=== PATIENT | female | born 1945 | race Caucasian/White ===

== ENCOUNTER 2016-09-29 17:08 | Emergency (ER) | payer MEDICARE, OTHER ==
[2016-09-29] MEDS ORDERED: SODIUM CHLORIDE 0.9% 1,000 ML IV STA (17:34)
[2016-09-29] MEDS ORDERED: FAMOTIDINE 20 MG/2 ML VIAL IV STA (17:34)
[2016-09-29] MEDS ORDERED: ONDANSETRON 4 MG/2 ML VIAL IVP STA (17:34)
--- NOTE | 2016-09-29 17:37 | ED ---
General Adult HPI - General Chief complaint: ENT Stated complaint: nose bleed Time Seen by Provider: 09/29/16 17:13 Source: patient, family, EMS, RN notes reviewed Mode of arrival: EMS Limitations: no limitations - History of Present Illness Initial comments: Patient is a pleasant 70-year-old female presenting to the emergency Department with epistaxis. Unclear onset however appears to be this morning. Patient may have had some bleeding last night. has had epistaxis in the past however is not a severe chronic problem for her. Patient does take Plavix and aspirin, no other blood thinners. No trauma. Patient was seen at an outside facility with concerns regarding unable to stop bleeding. Patient had nasal packing done as well as vitamin K was given. Patient is unclear if she is currently having any active bleeding or not. - Related Data Home Medications Medication Instructions Recorded Confirmed ALPRAZolam [Xanax] 0.25 mg PO HS@209909/29/16 09/29/16 Albuterol Sulfate [Proair Hfa] 2 puff INHALATION RT-Q6H PRN 09/29/16 09/29/16 Aspirin 81 mg PO DAILY@109909/29/16 09/29/16 Atorvastatin Calcium [Lipitor] 20 mg PO HS@209909/29/16 09/29/16 Bisacodyl 10 mg PO DAILY PRN 09/29/16 09/29/16 Citalopram Hydrobromide [CeleXA] 40 mg PO DAILY@109909/29/16 09/29/16 Clopidogrel Bisulfate [Plavix] 75 mg PO DAILY@109909/29/16 09/29/16 Ergocalciferol [Vitamin D2] 50,000 unit PO FR@109909/29/16 09/29/16 Furosemide [Lasix] 40 mg PO DAILY@109909/29/16 09/29/16 HYDROcodone/APAP 5-325MG [[place] 1 tab PO BID@0700,209909/29/16 09/29/16 5-325] HYDROcodone/APAP 5-325MG [[place] 1 tab PO Q6HR PRN 09/29/16 09/29/16 5-325] Levothyroxine Sodium [Synthroid] 150 mcg PO DAILY@0700 09/29/16 09/29/16 Lisinopril [Zestril] 10 mg PO DAILY@1100 09/29/16 09/29/16 Magnesium Hydroxide [Milk of 2,400 mg PO DAILY PRN 09/29/16 09/29/16 Magnesia] Potassium Chloride [Klor-Con 10] 10 meq PO DAILY@1100 09/29/16 09/29/16 Ranitidine HCl [Zantac] 150 mg PO BID@0700,1600 09/29/16 09/29/16 Sennosides-Docusate Sodium 1 tab PO HS@2100 09/29/16 09/29/16 [Senokot-S] guaiFENesin SYRUP 100MG/5ML 200 mg PO Q6H PRN 09/29/16 09/29/16 [Robitussin] Previous Rx's Medication Instructions Recorded Cephalexin [Keflex] 500 mg PO Q8HR #21 cap 09/29/16 Allergies Allergy/AdvReac Type Severity Reaction Status Date / Time Penicillins Allergy Unknown Verified 09/29/16 17:18 strawberry Allergy Unknown Verified 09/29/16 17:18 Review of Systems ROS Statement: Those systems with pertinent positive or pertinent negative responses have been documented in the HPI. ROS Other: All systems not noted in ROS Statement are negative. Constitutional: Denies: fever Eyes: Denies: eye pain ENT: Reports: epistaxis Respiratory: Denies: dyspnea Cardiovascular: Denies: chest pain Endocrine: Denies: fatigue Gastrointestinal: Denies: vomiting Genitourinary: Denies: dysuria Musculoskeletal: Denies: back pain Skin: Denies: rash Neurological: Denies: weakness Psychiatric: Reports: anxiety Past Medical History Past Medical History: Heart Failure, COPD, Dementia, GERD/Reflux, Hyperlipidemia , Hypertension History of Any Multi-Drug Resistant Organisms: None Reported Past Surgical History: Adenoidectomy, Appendectomy, Section, Hysterectomy, Orthopedic Surgery, Tonsillectomy Additional Past Surgical History / Comment(s): thyroidectomy Past Psychological History: Anxiety Smoking Status: Former smoker Past Alcohol Use History: None Reported Past Drug Use History: None Reported General Exam Limitations: no limitations General appearance: alert, in no apparent distress Head exam: Present: atraumatic Eye exam: Present: normal appearance, PERRL ENT exam: Present: other (Rhino Rocket placed bilateral nares with trace oozing. Oropharynx with dried blood, no active bleeding.) Neck exam: Present: normal inspection Respiratory exam: Present: normal lung sounds bilaterally Cardiovascular Exam: Present: regular rate, normal rhythm GI/Abdominal exam: Present: soft. Absent: tenderness Extremities exam: Present: normal inspection Neurological exam: Present: alert Psychiatric exam: Present: normal affect, normal mood Skin exam: Absent: rash Course Vital Signs 09/29/16 09/29/16 17:09 18:38 Temperature 100.2 F H Pulse Rate 82 102 H Respiratory 18 20 Rate Blood Pressure 147/66 137/61 O2 Sat by Pulse 95 96 Oximetry - Reevaluation(s) Reevaluation #1: 09/29/16 17:40 Chart reviewed from [facility]. Hemoglobin 12.5. INR 1.0. Patient reexamined still without active bleeding. Oropharynx still with out active bleeding. Medical Decision Making - Medical Decision Making Patient reevaluated and still no bleeding. Patient and family updated on need for follow-up. Also updated on need to keep hands away from the nose. Disposition Clinical Impression: Epistaxis Disposition: HOME SELF-CARE Condition: Stable Instructions: Nosebleed (ED) Additional Instructions: Please follow-up with ENT in the next 3-5 days for packing removal and reevaluation. Return for increased bleeding, worsening symptoms or other concerns. Hold Plavix and hold aspirin until otherwise advised by . Patient may have an extra dose of Xanax daily while packing is in place. Prescriptions: Cephalexin [Keflex] 500 mg PO Q8HR #21 cap Referrals: Blair Brandt MD [Primary Care Provider] - 1-2 days
[2016-09-29] MEDS ORDERED: ALPRAZolam 0.25 MG TAB PO STA (18:32)
[2016-09-29] MEDS ORDERED: ACETAMINOPHEN TAB 325 MG TAB PO STA (19:36)
[2016-09-29] MEDS ORDERED: CEPHALEXIN 500 MG CAP PO STA (19:36)
[2016-09-29 21:39] VITALS: BP 115/57; PULSE 83; RESP 16; TEMP 99.7
== END 2016-09-29 20:45 | disposition home or self-care (01) ==
LOC: EC 17:08
DX: R04.0 Epistaxis (principal); I50.9 Heart failure, unspecified; F41.9 Anxiety disorder, unspecified; J44.9 Chronic obstructive pulmonary disease, unspecified; E78.5 Hyperlipidemia, unspecified; F03.90 Unspecified dementia, unspecified severity, without behavioral disturbance, psychotic disturbance, mood disturbance, and anxiety; K21.9 Gastro-esophageal reflux disease without esophagitis; I10 Essential (primary) hypertension; Z79.02 Long term (current) use of antithrombotics/antiplatelets; Z79.899 Other long term (current) drug therapy; Z79.891 Long term (current) use of opiate analgesic; Z79.82 Long term (current) use of aspirin; Z88.0 Allergy status to penicillin; Z91.018 Allergy to other foods; Z87.891 Personal history of nicotine dependence
CPT/HCPCS: 96374; 96375; 96361 ×2; 99284; J2405

== ENCOUNTER 2019-09-08 11:36 | Inpatient (IN) | payer MEDICARE, OTHER ==
[2019-09-08 14:44] LABS: Glucose,Whole Blood 172 mg/dL (75-99)
[2019-09-08] MEDS ORDERED: HEPARIN SODIUM,PORCINE 5,000 UNIT/ML 1 ML VIAL IV PRN (14:56)
[2019-09-08] MEDS ORDERED: DILTIAZEM 125 MG in SODIUM CHLORIDE 0.9% 100 ML IV SCH (15:00)
[2019-09-08] MEDS ORDERED: HEPARIN SOD,PORK IN 0.45% NACL 25,000 UNIT in 0.45% NACL 1 250ML.BAG IV SCH (15:00)
[2019-09-08 15:18] LABS: Basophils % (A) 0 %; Eosinophils # (A) 0.1 k/uL (0-0.7); Eosinophils % (A) 0 %; HCT 40.4 % (34.0-46.0); HGB 11.9 gm/dL (11.4-16.0); Hypochromasia Moderate; Lymphocytes # (A) 1.1 k/uL (1.0-4.8); Lymphocytes % (A) 5 %; MCH 29.2 pg (25.0-35.0); MCHC 29.4 g/dL (31.0-37.0); MCV 99.1 fL (80.0-100.0); Mean Platelet Volume 7.8; Monocytes # (A) 0.5 k/uL (0-1.0); Monocytes % (A) 2 %; Neutrophils # (A) 23.3 k/uL (1.3-7.7); Neutrophils % (A) 92 %; Platelet Count 401 k/uL (150-450); RBC 4.08 m/uL (3.80-5.40); RDW 13.3 % (11.5-15.5); WBC 25.3 k/uL (3.8-10.6)
[2019-09-08 15:26] LABS: INR 0.9 (<1.2); Partial Thromboplastin Time 25.3 sec (22.0-30.0); Prothrombin Time 10.1 sec (9.0-12.0)
[2019-09-08 15:26] LABS: African American GFR (CKD) >90 (>60 ml/min/1.73 sqM); Anion Gap 7 mmol/L; Blood Urea Nitrogen 31 mg/dL (7-17); Calcium 8.8 mg/dL (8.4-10.2); Carbon Dioxide 37 mmol/L (22-30); Chloride 102 mmol/L (98-107); Glucose 161 mg/dL (74-99); Non-African American GFR(CKD) 86 (>60 ml/min/1.73 sqM); Potassium 4.9 mmol/L (3.5-5.1); Sodium 146 mmol/L (137-145)
[2019-09-08 15:52] LABS: Creatine Kinase MB 4.1 ng/mL (0.0-2.4)
[2019-09-08 16:07] LABS: Troponin I 1.08 ng/mL (0.000-0.034)
[2019-09-08] MEDS ORDERED: ACETAMINOPHEN TAB 325 MG TAB PO PRN (16:39)
[2019-09-08] MEDS ORDERED: MAGNESIUM HYDROXIDE 2,400 MG/10 ML CUP PO PRN (16:39)
[2019-09-08] MEDS ORDERED: guaiFENesin SYRUP 100MG/5ML 200 MG/10 ML CUP PO PRN (16:39)
[2019-09-08] MEDS ORDERED: BISACODYL 5 MG TABLET.DR PO PRN (16:39)
--- NOTE | 2019-09-08 16:41 | P.HPIM ---
History of Present Illness this is a pleasant 73 years old femalewith past medical history of heart failure, dementia, COPD, chronic hypoxic respiratory failure, GERD, hyperlipidemia, hypertension, coronary artery disease, hypothyroidism. Patient was sent from [facility] for pneumonia and atrial fibrillation.patient presented from [facility] because of shortness of breath, as per patient she is been having shortness of breath for 2 days associated with cough but no flame. She denies chest pain.she has history of COPD on chronic 2 L nasal cannula, at the custodial she desaturated with oxygen as low as 83% with tachycardia at 113. Of note also patient has history of stent for 10 years ago and she is on aspirin and Plavix. EKG showing atrial fibrillation with RVR at 136, with no significant ST-T changes. also the patient has history of aspiration pneumonia and she was have difficulty eating with choking, 1.5-2 years ago vitals showing blood pressure 154/64, saturation 93% on 4 L., Patient is afebrile.labs showing leukocytosis over 20 5.3K,denies normal, sodium 146, creatinine 0.7, sugar is 172. [place] [address]. This can done at [facility] shows no pulmonary emboli but right effusion and right lower lobe infiltrate. Lactic acid 1.4 which is within reference range. ProBNP 1759. WBC is 22.58, hemoglobin is 11.3, platelet count 391. INR is 0.9. Troponin is elevated at 1.29. Sodium 146, liver enzymes showing slight elevation with ALT 65 and AST 44, creatinine 0.8. Magnesium 2.2. Review of Systems CONSTITUTIONAL: No fever, no malaise, no fatigue. HEENT: No recent visual problems or hearing problems. Denied any sore throat. CARDIOVASCULAR: No orthopnea, PND, no palpitations, no syncope. PULMONARY: No shortness of breath, no cough, no hemoptysis. GASTROINTESTINAL: No diarrhea, no nausea, no vomiting, no abdominal pain. Normo active bowel sounds. NEUROLOGICAL: No headaches, no weakness, no numbness. HEMATOLOGICAL: Denies any bleeding or petechiae. GENITOURINARY: Denies any burning micturition, frequency, or urgency. MUSCULOSKELETAL/RHEUMATOLOGICAL: Denies any joint pain, swelling, or any muscle pain. ENDOCRINE: Denies any polyuria or polydipsia. Past Medical History Past Medical History: Heart Failure, COPD, Dementia, GERD/Reflux, Hyperlipidemia, Hypertension, Myocardial Infarction (PR), Thyroid Disorder Last Myocardial Infarction Date:: 09/07/19 History of Any Multi-Drug Resistant Organisms: None Reported Past Surgical History: Adenoidectomy, Appendectomy, Section, Hysterectomy, Orthopedic Surgery, Tonsillectomy Additional Past Surgical History / Comment(s): thyroidectomy Past Psychological History: Anxiety, Depression Additional Psychological History / Comment(s): POSSIBLE SUN-DOWNERS. 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 Smoking Status: Former smoker Past Alcohol Use History: None Reported Past Drug Use History: None Reported - Past Family History Mother Family Medical History: Diabetes Mellitus Father Family Medical History: Myocardial Infarction (PR) Medications and Allergies Home Medications Medication Instructions Recorded Confirmed Type Aspirin 81 mg PO HS@209909/29/16 09/08/19 History Atorvastatin Calcium [Lipitor] 20 mg PO HS@209909/29/16 09/08/19 History Clopidogrel Bisulfate [Plavix] 75 mg PO HS@209909/29/16 09/08/19 History Furosemide [Lasix] 40 mg PO DAILY@0600 09/29/16 09/08/19 History HYDROcodone/APAP 5-325MG [[place] 1 tab PO Q6HR PRN 09/29/16 09/08/19 History 5-325] HYDROcodone/APAP 5-325MG [[place] 1 tab PO TID@0600,1300,2100 09/29/16 09/08/19 H istory 5-325] Lisinopril [Zestril] 20 mg PO DAILY@0600 09/29/16 09/08/19 History Magnesium Hydroxide [Milk of 2,400 mg PO DAILY PRN 09/29/16 09/08/19 History Magnesia] Potassium Chloride [Klor-Con 10] 10 meq PO DAILY@0600 09/29/16 09/08/19 History Sennosides-Docusate Sodium 1 tab PO HS@209909/29/16 09/08/19 History [Senokot-S] guaiFENesin SYRUP 100MG/5ML 200 mg PO Q4H PRN 09/29/16 09/08/19 History [Robitussin] ALPRAZolam [Xanax] 0.5 mg PO BID@1300,1700 09/08/19 09/08/19 History Acetaminophen Tab [Tylenol Tab] 650 mg PO Q4H PRN 09/08/19 09/08/19 History Artificial Tears-Hypromellose 1 drops BOTH EYES BID@0600,2100 09/08/19 09/08/19 History [Artificial Tear Drops] Bisacodyl [Dulcolax] 10 mg PO DAILY PRN 09/08/19 09/08/19 History Cholecalciferol [Vitamin D3 (25 1,000 unit PO DAILY@1300 09/08/19 09/08/19 History Mcg = 1000 Iu)] DULoxetine HCL [Cymbalta] 30 mg PO DAILY@0600 09/08/19 09/08/19 History DULoxetine HCL [Cymbalta] 60 mg PO DAILY@0600 09/08/19 09/08/19 History Levothyroxine Sodium [Synthroid] 175 mcg PO DAILY@0600 09/08/19 09/08/19 History Sodium Chloride [Saline Nasal 1 spray EA NOSTRIL DAILY PRN 09/08/19 09/08/19 His tory [place]] guaiFENesin 400 mg PO Q4H PRN 09/08/19 09/08/19 History Allergies Allergy/AdvReac Type Severity Reaction Status Date / Time Penicillins Allergy Unknown Verified 09/08/19 14:33 strawberry Allergy Unknown Verified 09/08/19 14:33 Physical Exam Vitals: Vital Signs Temp Pulse Resp BP Pulse Ox 09/08/19 15:38 98.7 F 105 H 18 134/64 93 L 09/08/19 13:57 97.8 F 92 22 115/64 92 L Intake and Output 09/08/19 09/08/19 09/08/19 06:59 14:59 22:59 Other: Weight 93.213 kg GENERAL: The patient is alert and oriented x3, not in any acute distress. Well developed, well nourished. HEENT: Pupils are round and equally reacting to light. EOMI. No scleral icterus. No conjunctival pallor. Normocephalic, atraumatic. No pharyngeal erythema. No thyromegaly. CARDIOVASCULAR: S1 and S2 present. No murmurs, rubs, or gallops. PULMONARY: Chest is clear to auscultation, no wheezing or crackles. ABDOMEN: Soft, nontender, nondistended, normoactive bowel sounds. No palpable organomegaly. MUSCULOSKELETAL: No joint swelling or deformity. EXTREMITIES: No cyanosis, clubbing, or pedal edema. NEUROLOGICAL: Gross neurological examination did not reveal any focal deficits. SKIN: No rashes. No petechiae Results CBC & Chem 7: 09/08/19 14:56 09/08/19 14:56 Labs: Abnormal Lab Results - Last 24 Hours (Table) 09/08/19 09/08/19 09/08/19 Range/Units 14:43 14:56 14:56 WBC 25.3 H (3.8-10.6) k/uL MCHC 29.4 L (31.0-37.0) g/dL Neutrophils # 23.3 H (1.3-7.7) k/uL Sodium 146 H (137-145) mmol/L Carbon Dioxide 37 H (22-30) mmol/L BUN 31 H (7-17) mg/dL Glucose 161 H (74-99) mg/dL POC Glucose (mg/dL) 172 H (75-99) mg/dL Thrombosis Risk Factor Assmnt - Choose All That Apply Any of the Below Risk Factors Present?: Yes Each Factor Represents 1 point: Age 41-60 years, Medical pt on bed rest, Obesity (BMI >25) Thrombosis Risk Factor Assessment Total Risk Factor Score: 3 Thrombosis Risk Factor Assessment Level: Moderate Risk Assessment and Plan Assessment: right lower lobe Pneumonia suspicious for hospital acquired pneumoniaversus asp iration pneumonia. Acute on chronic hypoxic respiratory failure acute on chronic Congestive heart failure A. fib with RVR COPD, with acute exacerbation dementia GERD Hyperlipidemia Hypertension History of coronary artery disease Hypothyroidism Plan: this is a pleasant 73 years old female who presents with pneumonia. Continue with antibiotics in the form of Zosyn. 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 Continue with Cardizem drip and switched to oral when patient is more stable heart rate. Continue with heparin drip. Also we'll check a swallow evaluation for her. In the meantime keep her nothing by mouth Labs and medication were reviewed.. Continue same treatment. Continue with symptomatic treatment. Resume home medication. Monitor lytes and vitals. DVT and GI prophylaxis. Further recommendations of the clinical course of the patient DVT prophylaxis: heparin GI Prophylaxis: Pepcid PT/OT: Pending Prognosis is guarded full code Discussed with family at bedside
[2019-09-08] MEDS ORDERED: ALPRAZolam 0.5 MG TAB PO SCH (17:00)
[2019-09-08] MEDS: ALPRAZolam 0.5 MG TAB PO PRN (18:14)
[2019-09-08] MEDS ORDERED: FUROSEMIDE 10 MG/ML 4 ML VIAL IV STA (18:27)
[2019-09-08] MEDS: CEFEPIME 1 GM in SODIUM CHLORIDE 0.9% 50 ML IVPB SCH (20:38)
[2019-09-08] MEDS: ASPIRIN 81 MG PO SCH (20:38)
[2019-09-08] MEDS: SENNOSIDES-DOCUSATE SODIUM 1 EACH TAB PO SCH (20:38)
[2019-09-08] MEDS: ARTIFICIAL TEARS-HYPROMELLOSE DROPS 15 ML BTL BOTH EYES SCH (20:39)
[2019-09-08] MEDS: IPRATROPIUM-ALBUTEROL 3 ML NEB INHALATION SCH ×2 (20:46→23:44)
[2019-09-08] MEDS ORDERED: CLOPIDOGREL 75 MG TAB PO SCH (21:00)
[2019-09-08] MEDS ORDERED: ATORVASTATIN 20 MG TAB PO SCH (21:00)
[2019-09-09] MEDS: ALPRAZolam 0.5 MG TAB PO PRN (01:20)
[2019-09-09] MEDS: IPRATROPIUM-ALBUTEROL 3 ML NEB INHALATION SCH ×6 (03:39→23:39)
[2019-09-09 04:04] LABS: Basophils % (A) 0 %; Eosinophils # (A) 0.1 k/uL (0-0.7); Eosinophils % (A) 1 %; HCT 35.8 % (34.0-46.0); HGB 10.4 gm/dL (11.4-16.0); Hypochromasia Marked; Lymphocytes # (A) 1.5 k/uL (1.0-4.8); Lymphocytes % (A) 6 %; MCH 28.9 pg (25.0-35.0); MCV 99.5 fL (80.0-100.0); Mean Platelet Volume 7.8; Monocytes # (A) 0.7 k/uL (0-1.0); Monocytes % (A) 3 %; Neutrophils # (A) 21.2 k/uL (1.3-7.7); Neutrophils % (A) 89 %; Platelet Count 410 k/uL (150-450); RDW 13.5 % (11.5-15.5); WBC 23.7 k/uL (3.8-10.6)
[2019-09-09 04:14] LABS: Calcium 9.1 mg/dL (8.4-10.2); Potassium 4.2 mmol/L (3.5-5.1)
[2019-09-09] MEDS ORDERED: FUROSEMIDE 40 MG TAB PO SCH (06:00)
[2019-09-09] MEDS: ARTIFICIAL TEARS-HYPROMELLOSE DROPS 15 ML BTL BOTH EYES SCH ×2 (06:04→21:12)
[2019-09-09] MEDS: DULoxetine HCL 30 MG CAPSULE.DR PO SCH (06:04)
[2019-09-09] MEDS: DULoxetine HCL 60 MG CAPSULE.DR PO SCH (06:04)
[2019-09-09] MEDS: POTASSIUM CHLORIDE ER 10 MEQ TAB.ER.PRT PO SCH (06:04)
[2019-09-09] MEDS: LEVOTHYROXINE 75 MCG TAB PO SCH (06:05)
[2019-09-09] MEDS: LISINOPRIL 20 MG TAB PO SCH (06:05)
[2019-09-09] MEDS: LEVOTHYROXINE 100 MCG TAB PO SCH (06:05)
--- NOTE | 2019-09-09 07:22 | XR ---
EXAMINATION TYPE: XR chest 1V DATE OF EXAM: 09/09/2019 HISTORY: RLL pna , a fib , h/o chf. REFERENCE: NONE. FINDINGS: There is increased opacity at both lung bases, greater on the right left. I suspect a small right-sided effusion. Heart is minimally prominent. IMPRESSION: 1. BIBASILAR AIRSPACE DISEASE 2. I CANNOT EXCLUDE A SMALL RIGHT-SIDED EFFUSION. 3. MILD CARDIOMEGALY.
[2019-09-09] MEDS: CHOLECALCIFEROL 1,000 UNIT TAB PO SCH (08:12)
[2019-09-09] MEDS: CEFEPIME 1 GM in SODIUM CHLORIDE 0.9% 50 ML IVPB SCH ×2 (08:20→21:12)
--- NOTE | 2019-09-09 10:42 | P.PN ---
Subjective this is a pleasant 73 years old femalewith past medical history of heart failure, dementia, COPD, chronic hypoxic respiratory failure, GERD, hyperli pidemia, hypertension, coronary artery disease, hypothyroidism. Patient was sent from [facility] for pneumonia and atrial fibrillation.patient presented from [facility] because of shortness of breath, as per patient she is been having shortness of breath for 2 days associated with cough but no flame. She denies chest pain.she has history of COPD on chronic 2 L nasal cannula, at the prison she desaturated with oxygen as low as 83% with tachycardia at 113. Of note also patient has history of stent for 10 years ago and she is on aspirin and Plavix. EKG showing atrial fibrillation with RVR at 136, with no significant ST-T changes. also the patient has history of aspiration pneumonia and she was have difficulty eating with choking, 1.5-2 years ago vitals showing blood pressure 154/64, saturation 93% on 4 L., Patient is afebrile.labs showing leukocytosis over 20 5.3K,denies normal, sodium 146, creatinine 0.7, sugar is 172. [place] [address]. This can done at [facility] shows no pulmonary emboli but right effusion and right lower lobe infiltrate. Lactic acid 1.4 which is within reference range. ProBNP 1759. WBC is 22.58, hemoglobin is 11.3, platelet count 391. INR is 0.9. Troponin is elevated at 1.29. Sodium 146, liver enzymes showing slight elevation with ALT 65 and AST 44, creatinine 0.8. Magnesium 2.2. 09/09/2019 Patient is lying comfortably in bed, breathing is stable with no worsening dyspnea. She denies chest pain. Vitals are stable and she is saturating 93% on 4 L oxygen. And glucose 116. Showing bibasilar air space disease as per radiologist. It was still pending. Patient is hemodynamically stable. Saturation in the 90s while on 4 L oxygen nasal cannula Echo and swallow evaluation are pending. The meantime continue on cefepime, Cardizem and heparin drip. However heparin drip was switched to Eliquis Also she is on Lasix 40 mg twice daily intravenously. Review of systems CONSTITUTIONAL: No fever, no malaise, no fatigue. HEENT: No recent visual problems or hearing problems. Denied any sore throat. CARDIOVASCULAR: No orthopnea, PND, no palpitations, no syncope. PULMONARY: No shortness of breath, no cough, no hemoptysis. GASTROINTESTINAL: No diarrhea, no nausea, no vomiting, no abdominal pain. Normoactive bowel sounds. NEUROLOGICAL: No headaches, no weakness, no numbness. HEMATOLOGICAL: Denies any bleeding or petechiae. GENITOURINARY: Denies any burning micturition, frequency, or urgency. MUSCULOSKELETAL/RHEUMATOLOGICAL: Denies any joint pain, swelling, or any muscle pain. ENDOCRINE: Denies any polyuria or polydipsia. Active Medications Generic Name Dose Route Start Last Admin Trade Name Freq PRN Reason Stop Dose Admin Acetaminophen 650 mg 09/08/19 16:39 Tylenol Tab PO Q4H PRN Pain Hydrocodone Bitart/Acetaminophen 1 each 09/08/19 16:39 [place] 5-325 PO Q6HR PRN Pain Albuterol/Ipratropium 3 ml 09/08/19 20:00 09/09/19 08:32 Duoneb 0.5 Mg-3 Mg/3 Ml Soln INHALATION 3 ml RT-Q4H ZORAIDA Administration Alprazolam 0.5 mg 09/08/19 17:18 09/09/19 01:20 Xanax PO 0.5 mg BID PRN Administration Anxiety Apixaban 5 mg 09/09/19 10:15 Eliquis PO BID [facility] Artificial Tears 1 drops 09/08/19 21:00 09/09/19 06:04 Artificial Tear Drops BOTH EYES Not Given BID@0600,2100 [facility] Aspirin 81 mg 09/08/19 21:00 09/08/19 20:38 Aspirin PO 81 mg HS@2100 [facility] Administration Bisacodyl 10 mg 09/08/19 16:39 Dulcolax PO DAILY PRN Constipation Cholecalciferol 1,000 unit 09/09/19 13:00 09/09/19 08:12 Vitamin D3 (25 Mcg = 1000 Iu) PO Not Given DAILY@1300 [facility] Duloxetine HCl 30 mg 09/09/19 06:00 09/09/19 06:04 Cymbalta PO Not Given DAILY@0600 [facility] Duloxetine HCl 60 mg 09/09/19 06:00 09/09/19 06:04 Cymbalta PO Not Given DAILY@0600 [facility] Furosemide 40 mg 09/09/19 10:15 Lasix IV Q12HR [facility] Guaifenesin 200 mg 09/08/19 16:39 Robitussin PO Q4H PRN Cough Cefepime HCl 1 gm/ Sodium 50 mls @ 100 mls/hr 09/08/19 21:00 09/09/19 08:20 Chloride IVPB 100 mls/hr Q12HR [facility] Administration Levothyroxine Sodium 100 mcg 09/09/19 06:00 09/09/19 06:05 Synthroid PO 100 mcg DAILY@0600 [facility] Administration Levothyroxine Sodium 75 mcg 09/09/19 06:00 09/09/19 06:05 Synthroid PO 75 mcg DAILY@0600 [facility] Administration Lisinopril 20 mg 09/09/19 06:00 09/09/19 06:05 Zestril PO 20 mg DAILY@0600 [facility] Administration Magnesium Hydroxide 2,400 mg 09/08/19 16:39 Milk Of Magnesia PO DAILY PRN Constipation Metoprolol Tartrate 25 mg 09/09/19 10:15 Lopressor PO BID [facility] Potassium Chloride 10 meq 09/09/19 06:00 09/09/19 06:04 K-Dur 10 PO Not Given DAILY@0600 [facility] Senna/Docusate Sodium 1 each 09/08/19 21:00 09/08/19 20:38 Senokot-S PO 1 each HS@2100 [facility] Administration Objective - Vital Signs Vital signs: Vital Signs Temp 98.9 F 09/09/19 08:00 Pulse 88 09/09/19 08:34 Resp 18 09/09/19 08:00 BP 138/64 09/09/19 08:00 Pulse Ox 93 L 09/09/19 08:00 Intake & Output 09/08/19 09/09/19 09/09/19 18:59 06:59 18:59 Intake Total 143.385 Balance 143.385 Weight 93.213 kg 89.5 kg Intake: Intake, IV Titration 143.385 Amount Heparin Sod,Pork in 0.45% 143.385 NaCl 25,000 unit In 0.45 % NaCl 1 250ml.bag @ 10. 73 UNITS/KG/HR 10.002 mls /hr IV .Q24H [facility] Rx#: [id number] - Exam GENERAL: The patient is alert and oriented x3, not in any acute distress. Well developed, well nourished. HEENT: Pupils are round and equally reacting to light. EOMI. No scleral icterus. No conjunctival pallor. Normocephalic, atraumatic. No pharyngeal erythema. No thyromegaly. CARDIOVASCULAR: S1 and S2 present. No murmurs, rubs, or gallops. PULMONARY: Chest is clear to auscultation, no wheezing or crackles. ABDOMEN: Soft, nontender, nondistended, normoactive bowel sounds. No palpable organomegaly. MUSCULOSKELETAL: No joint swelling or deformity. EXTREMITIES: No cyanosis, clubbing, or pedal edema. NEUROLOGICAL: Gross neurological examination did not reveal any focal deficits. SKIN: No rashes. No petechiae - Labs CBC & Chem 7: 09/09/19 03:49 09/09/19 03:49 Labs: Abnormal Lab Results - Last 24 Hours (Table) 09/08/19 09/08/19 09/08/19 Range/Units 14:43 14:56 14:56 WBC 25.3 H (3.8-10.6) k/uL RBC (3.80-5.40) m/uL Hgb (11.4-16.0) gm/dL MCHC 29.4 L (31.0-37.0) g/dL Neutrophils # 23.3 H (1.3-7.7) k/uL APTT (22.0-30.0) sec Sodium 146 H (137-145) mmol/L Carbon Dioxide 37 H (22-30) mmol/L BUN 31 H (7-17) mg/dL Glucose 161 H (74-99) mg/dL POC Glucose (mg/dL) 172 H (75-99) mg/dL CK-MB (CK-2) (0.0-2.4) ng/mL Troponin I (0.000-0.034) ng/mL 09/08/19 09/09/19 09/09/19 Range/Units 14:56 03:49 03:49 WBC 23.7 H (3.8-10.6) k/uL RBC 3.60 L (3.80-5.40) m/uL Hgb 10.4 L (11.4-16.0) gm/dL MCHC 29.0 L (31.0-37.0) g/dL Neutrophils # 21.2 H (1.3-7.7) k/uL APTT (22.0-30.0) sec Sodium 147 H (137-145) mmol/L Carbon Dioxide 39 H (22-30) mmol/L BUN 35 H (7-17) mg/dL Glucose 160 H (74-99) mg/dL POC Glucose (mg/dL) (75-99) mg/dL CK-MB (CK-2) 4.1 H (0.0-2.4) ng/mL Troponin I 1.080 H* (0.000-0.034) ng/mL 09/09/19 Range/Units 03:49 WBC (3.8-10.6) k/uL RBC (3.80-5.40) m/uL Hgb (11.4-16.0) gm/dL MCHC (31.0-37.0) g/dL Neutrophils # (1.3-7.7) k/uL APTT 38.1 H (22.0-30.0) sec Sodium (137-145) mmol/L Carbon Dioxide (22-30) mmol/L BUN (7-17) mg/dL Glucose (74-99) mg/dL POC Glucose (mg/dL) (75-99) mg/dL CK-MB (CK-2) (0.0-2.4) ng/mL Troponin I (0.000-0.034) ng/mL Assessment and Plan Assessment: right lower lobe Pneumonia suspicious for hospital acquired pneumoniaversus aspiration pneumonia. Acute on chronic hypoxic respiratory failure acute on chronic Congestive heart failure A. fib with RVR COPD, with acute exacerbation dementia GERD Hyperlipidemia Hypertension History of coronary artery disease Hypothyroidism Plan: this is a pleasant 73 years old female who presents with pneumonia. Continue with antibiotics in the form of cefepime. 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 Continue with Cardizem drip and switched to oral when patient is more stable heart rate. She heparin drip. Also we'll check a swallow evaluation for her. In the meantime keep her nothing by mouth Labs and medication were reviewed.. Continue same treatment. Continue with symptomatic treatment. Resume home medication. Monitor lytes and vitals. DVT and GI prophylaxis. Further recommendations of the clinical course of the patient DVT prophylaxis: heparin GI Prophylaxis: Pepcid PT/OT: Pending Prognosis is guarded full code
[2019-09-09] MEDS: METOPROLOL TARTRATE 25 MG TAB PO SCH ×2 (10:49→21:12)
[2019-09-09] MEDS: APIXABAN 5 MG TAB PO SCH ×2 (10:49→21:12)
--- NOTE | 2019-09-09 10:58 | CONS ---
CONSULTATION DATE OF CONSULTATION: September 09, 2019 This is a very pleasant 73-year-old female who apparently is transferred in from [facility] and [facility]. She is not a particularly good historian. She apparently has a history of congestive heart failure, dementia, COPD, chronic hypoxemic respiratory failure, GERD, hyperlipidemia, hypertension, CAD, and hypothyroidism. She apparently was admitted to [facility] for pneumonia and atrial fibrillation. She initially was at the [facility] which is there in [place]. She apparently had been complaining of shortness of breath for about 2 days prior to admission. She also had a cough but no phlegm production. She apparently had no chest pain or chest discomfort. Apparently there was no fever or chills. She was found to have a saturation in the mid to low 80s. She was also tachycardic at about 110-115 beats per minute. The patient for that reason, was admitted and after not improving there, was transferred down. The patient currently is very lethargic. She is a very poor historian. She does not know where she is at. She really cannot provide much in the way of additional history. Her chest x-ray apparently showed right lower lobe infiltrate and aspiration was suspected. She apparently had an episode of aspiration pneumonia between 1-2 years ago. PAST MEDICAL HISTORY: Includes CHF, COPD, dementia, GERD, hyperlipidemia, hypertension, myocardial infarction, and hypothyroidism. In addition, the patient apparently has multiple previous surgical procedures. PAST SURGICAL PROCEDURES: Including adenoidectomy, appendectomy, section, hysterectomy, tonsillectomy, thyroidectomy, and multiple prior orthopedic procedures. SOCIAL HISTORY: Positive for previous tobacco use. She denies any alcohol use or illicit drug use according to the medical record. FAMILY HISTORY: Positive for mother with diabetes and myocardial infarction. MEDICATIONS: [facility] medications include aspirin, Lipitor, Plavix, Lasix, [place], lisinopril, milk of magnesia, potassium chloride, Senokot, Robitussin, Xanax, Tylenol, Artificial Tears, Dulcolax, vitamin D3, Cymbalta, Synthroid, saline nasal spray, and guaifenesin. ALLERGIES: PENICILLIN AND STRAWBERRIES. REVIEW OF SYSTEMS: Cannot be properly obtained. This patient is a very poor historian, is very demented. Apparently according to the H and P provided by the primary service, the complaints include primarily shortness of breath and low saturations. PHYSICAL EXAMINATION: VITAL SIGNS: Current vital signs are reviewed. Temperature is 98.9. Heart rate 88, respiratory rate 18, blood pressure 138/64, mean 88. 4 L saturation 93%. Appears in no acute distress. HEENT examination is grossly unremarkable. Mucous membranes are dry. There is some crusting of the corner of her mouth. Nasal O2 was noted 4 L. NECK: Supple. Full range of motion. No adenopathy. CARDIOVASCULAR examination reveals regular rhythm and rate. Heart rate about 85 beats per minute. S1, S2 normal. Heart sounds are distant. LUNGS: Reveal mostly clear breath sounds. A few scattered rhonchi. She does not take deep breaths. ABDOMEN: Soft. Bowel sounds heard. EXTREMITIES: Intact. No edema. SKIN: Without rash. NEUROLOGIC: Examination is difficult to assess. She is not totally with it. She answers questions, but is very vague in her responses. She is not quite sure where she is at. She does move all 4 extremities. LABS: Reviewed. White count 23.7, hemoglobin 10.4, hematocrit 35.8, platelet count 410 1000, PT/INR and PTT normal. Sodium 147, potassium 4.2, chloride 102, CO2 39. Anion gap is 6. BUN and creatinine were 35 and 0.93. Glucose 160. Her N-terminal proBNP was 10,100. Troponin is 1.080. Influenza studies were negative. I am not sure that an EKG was done. If it was not done, it should be done. X-RAY: That was done here shows bibasilar airspace disease and small right-sided effusion. There is some cardiomegaly. I do not see any overt signs of heart failure. There may be a pneumonic process at the right lung base. Medications are reviewed. Currently, she is on all her usual medications from [facility], but she is also on Maxipime updrafts and cough syrup. ASSESSMENT: 1. Apparent shortness of breath, and possible aspiration, right lower lobe, in a patient who is a chronic resident of a halfway. Rule out healthcare acquired/aspiration pneumonia. 2. Previous tobacco history, rule out chronic obstructive pulmonary disease. 3. History of dementia. 4. History of congestive heart failure. 5. Gastroesophageal reflux disease. 6. Hyperlipidemia. 7. Hypertension. 8. Prior history of myocardial infarction. 9. Hypothyroidism. 10.History of anxiety/depression. PLAN: The patient is currently on updrafts, cefepime, cough syrup. Seemed relatively stable. We will continue to follow. Followup chest x-ray in a day or so. No additional recommendations are made. Head of bed elevated at all times. The patient is currently an aspiration risk. If we raise the head of the bed for her, we will make sure they know that she is on aspiration precautions. MMRADHAL / IJN: [id number] /
[2019-09-09] MEDS: FUROSEMIDE 10 MG/ML 4 ML VIAL IV SCH ×2 (11:09→21:12)
--- NOTE | 2019-09-09 12:21 | CONS ---
CONSULTATION Mrs. Wright is a 73-year-old female who was transferred from [facility]. This patient has a history of dementia, COPD, chronic hypoxic respiratory failure, hypertension, prior history of a stable CAD. [facility] the increasing shortness of breath. The patient has been on 2 L of [facility]ula at the jail. The patient was in atrial fibrillation with moderately rapid ventricular response as well as hypoxic with the oxygen saturation of 93% and so patient was transferred over here. Initial EKG showed evidence of atrial fibrillation with rapid ventricular response. We do not know whether the patient had any past history of atrial fibrillation. The patient underwent a CT scan which showed right pleural effusion, possible right lower lobe infiltrate. Lactic acid level was 1.5. Patient's INR was normal. [place] count [place] [address] and the patient was transferred over here. At present, patient is unable to give any detailed history. PAST MEDICAL HISTORY: Includes appendicectomy, , hysterectomy, history of dementia, hypertension, hyperlipidemia, prior history of myocardial infarction. MEDICATIONS: Home medications included aspirin, Lipitor, Plavix, Lasix, Zestril, Robitussin syrup, vitamin D3. PHYSICAL EXAMINATION: At present reveals a 73-year-old female who is afebrile. The patient's initial heart rate was 110-120, respiratory rate was 22. The patient now is lying comfortably in the bed. She remains afebrile. Blood pressure is 138/64 mmHg, heart rate is 80 per minute. Head/ENT examination is negative. Neck is supple. There is no increase in jugular venous pressure. Both the carotid pulses are felt. There is no bruit. Chest is symmetrical. Heart the PMI is not felt. First and second heart sounds are normal. Lungs examination reveals bilateral few scattered rhonchi. Abdomen is negative. Extremities: There is no evidence of any leg edema. Initial EKG showed evidence of atrial fibrillation with a rapid ventricular response. The patient is now in normal sinus rhythm. Chest x-ray shows bibasilar infiltrate, possible right lower lobe pneumonia. FINAL IMPRESSION: 1. This patient is admitted with respiratory distress which is secondary to combination of pneumonia and congestive heart failure. Patient's BNP level is elevated. 2. Atrial fibrillation with a rapid ventricular response. Patient is now converted to the normal sinus rhythm. This patient's initial troponin was mildly elevated, which is due to her hypoxia and respiratory distress and atrial fibrillation with an RVR. This is not suggestive of acute coronary syndrome. We will repeat the troponin. Echo and Doppler study will be done. The patient will be started on Lopressor and we will start on Eliquis 5 mg b.i.d. Thank you for this consultation. MMODL / IJN: [id number] /
[2019-09-09 15:42] LABS: Glucose,Whole Blood 129 mg/dL (75-99)
[2019-09-09] MEDS: SENNOSIDES-DOCUSATE SODIUM 1 EACH TAB PO SCH (21:12)
[2019-09-09] MEDS: ASPIRIN 81 MG PO SCH (21:12)
[2019-09-10] MEDS: IPRATROPIUM-ALBUTEROL 3 ML NEB INHALATION SCH ×5 (03:25→19:13)
[2019-09-10] MEDS: ARTIFICIAL TEARS-HYPROMELLOSE DROPS 15 ML BTL BOTH EYES SCH ×2 (06:04→21:07)
[2019-09-10] MEDS: POTASSIUM CHLORIDE ER 10 MEQ TAB.ER.PRT PO SCH (06:05)
[2019-09-10] MEDS: LISINOPRIL 20 MG TAB PO SCH (06:05)
[2019-09-10] MEDS: DULoxetine HCL 60 MG CAPSULE.DR PO SCH (06:05)
[2019-09-10] MEDS: LEVOTHYROXINE 100 MCG TAB PO SCH (06:05)
[2019-09-10] MEDS: LEVOTHYROXINE 75 MCG TAB PO SCH (06:06)
[2019-09-10] MEDS: DULoxetine HCL 30 MG CAPSULE.DR PO SCH (06:06)
[2019-09-10 06:15] LABS: Basophils % (A) 0 %; Eosinophils % (A) 0 %; HGB 10.2 gm/dL (11.4-16.0); Hypochromasia Marked; Lymphocytes # (A) 1.6 k/uL (1.0-4.8); Lymphocytes % (A) 10 %; MCH 29.8 pg (25.0-35.0); MCHC 29.2 g/dL (31.0-37.0); Macrocytosis Slight; Mean Platelet Volume 7.7; Monocytes # (A) 0.5 k/uL (0-1.0); Monocytes % (A) 3 %; Neutrophils % (A) 85 %; Platelet Count 475 k/uL (150-450); RBC 3.44 m/uL (3.80-5.40); RDW 13.2 % (11.5-15.5); WBC 16.4 k/uL (3.8-10.6)
[2019-09-10 06:31] LABS: Calcium 8.5 mg/dL (8.4-10.2)
[2019-09-10] MEDS: METOPROLOL TARTRATE 25 MG TAB PO SCH ×3 (08:55→20:50)
[2019-09-10] MEDS: APIXABAN 5 MG TAB PO SCH ×2 (08:55→20:50)
[2019-09-10] MEDS: FUROSEMIDE 10 MG/ML 4 ML VIAL IV SCH (08:55)
[2019-09-10] MEDS: CEFEPIME 1 GM in SODIUM CHLORIDE 0.9% 50 ML IVPB SCH ×2 (08:56→20:49)
--- NOTE | 2019-09-10 10:45 | P.PN ---
Subjective Progress Note Date: 09/10/19 On 09/10/2019 I'm seeing the patient for a follow-up. The patient was seen by my partner in consultation yesterday. She came in for shortness of breath in the right lower lobe pneumonia which is thought to be related to an aspiration pneumonia. Health status. Pneumonia cannot be completely occluded. The patient has COPD. She has dementia. She is a [facility] resident. She also has CHF and her comorbidities include hypertension and hyperlipidemia and coronary artery disease with previous PR along with hypothyroidism and chronic anxiety and depression. She is currently covered with IV cefepime. She is also on DuoNeb nebulized treatments around the clock. Her labs from today show a white cell count of 16.4. The sodium level is at 151 and the patient's BUN is at 42 with a creatinine of 0.9. She had a troponin max of 1.08 and 60 of the chest pain. ProBNP level was 10,000. She is receiving fluids. She is receiving IV Lasix which will be discontinued for now. The patient has dimi nished oral intake. She passed swallow evaluation done today. Objective - Vital Signs Vital signs: Vital Signs Temp 98.3 F 09/10/19 08:58 Pulse 84 09/10/19 09:11 Resp 22 09/10/19 08:58 BP 113/51 09/10/19 08:58 Pulse Ox 93 L 09/10/19 08:58 Intake & Output 09/09/19 09/10/19 09/10/19 18:59 06:59 18:59 Intake Total 240 100 Output Total 200 Balance 240 -100 Weight 85.5 kg Intake: Intake, IV Titration 100 Amount Cefepime 1 gm In Sodium 100 Chloride 0.9% 50 ml @ 100 mls/hr IVPB Q12HR [facility] Rx #:[id number] Oral 240 Output: Urine 200 Other: # Voids 1 1 # Bowel Movements 0 - Exam Gen. appearance elderly, comfortable likely distress BMI of 30.4. Head exam was generally normal. There was no scleral icterus or corneal arcus. Mucous membranes were it. No JVDs. No goiter or neck masses. Neck was supple and without jugular venous distension, thyromegaly, or carotid bruits. Carotids were easily palpable bilaterally. There was no adenopathy. Lungs sounds are diminished and there are crackles in the right lung base more than the left. Heart sounds are distant, regular, positive S1-S2 and there is no significant murmurs appreciated Abdominal exam revealed normal bowel sounds. The abdomen was soft, non-tender, and without masses, organomegaly, or appreciable enlargement of the abdominal aorta. Examination of the extremities revealed easily palpable radial, femoral and ped al pulses. There was no cyanosis, clubbing or edema. Examination of the skin revealed no evidence of significant rashes, suspicious appearing nevi or other concerning lesions. Neurologically the patient has dementia - Labs CBC & Chem 7: 09/10/19 05:45 09/10/19 05:45 Labs: Abnormal Lab Results - Last 24 Hours (Table) 09/09/19 09/09/19 09/09/19 Range/Units 10:35 15:37 16:05 WBC (3.8-10.6) k/uL RBC (3.80-5.40) m/uL Hgb (11.4-16.0) gm/dL MCV (80.0-100.0) fL MCHC (31.0-37.0) g/dL Plt Count (150-450) k/uL Neutrophils # (1.3-7.7) k/uL Sodium (137-145) mmol/L Carbon Dioxide (22-30) mmol/L BUN (7-17) mg/dL Glucose (74-99) mg/dL POC Glucose (mg/dL) 129 H (75-99) mg/dL Troponin I 0.410 H* 0.343 H* (0.000-0.034) ng/mL 09/09/19 09/10/19 09/10/19 Range/Units 21:35 05:45 05:45 WBC 16.4 H (3.8-10.6) k/uL RBC 3.44 L (3.80-5.40) m/uL Hgb 10.2 L (11.4-16.0) gm/dL MCV 102.0 H (80.0-100.0) fL MCHC 29.2 L (31.0-37.0) g/dL Plt Count 475 H (150-450) k/uL Neutrophils # 14.0 H (1.3-7.7) k/uL Sodium 151 H (137-145) mmol/L Carbon Dioxide 38 H (22-30) mmol/L BUN 42 H (7-17) mg/dL Glucose 123 H (74-99) mg/dL POC Glucose (mg/dL) (75-99) mg/dL Troponin I 0.270 H* (0.000-0.034) ng/mL Assessment and Plan Plan: 1 right lower lobe pneumonia, rule out aspiration pneumonia. Rule out healthcare severe pneumonia. Currently on IV cefepime 2 Hyperchloremic hypernatremialater to nothing by mouth status and diuresis. 3 coronary artery disease elevated BNP, awaiting echocardiogram 4 COPD 5 hypertension 6 hyperlipidemia 7 previous PR 8 hypothyroidism 9 chronic anxiety/depression 10 dementia 11 [facility] resident plan Past swallow evaluation. Offered oral intake Stop IV Lasix D5 water at the rate of 75 mL an hour and monitor the sodium level Aspiration precautions Echocardiogram DuoNeb nebulized units [id number] We'll continue to follow
[2019-09-10] MEDS: DEXTROSE 5% IN WATER 1,000 ML IV SCH (11:05)
[2019-09-10] MEDS: CHOLECALCIFEROL 1,000 UNIT TAB PO SCH (12:19)
--- NOTE | 2019-09-10 13:03 | PN ---
PROGRESS NOTE This patient was admitted with symptoms of shortness of breath and patient has being treated for pneumonia as well as congestive heart failure. The patient has not been given any fluids and has been kept n.p.o. Her sodium is 151, BUN is 42, and creatinine is 0.9. The patient's proBNP level was 10,000. PHYSICAL EXAMINATION: Physical examination at present reveals a 73-year-old female who does not appear to be in any acute distress. The patient's first and second heart sounds are normal. Lungs are fairly clear to auscultation and percussion. Chest x-ray suggestive of right lower lobe pneumonia. Discussed with Dr. Bryant. We will discontinue the IV Lasix. Patient is started on D5 water and aspiration precautions. MMODL / IJN: [id number] /
[2019-09-10] MEDS: metroNIDAZOLE-NS PMX 500 MG in SALINE 1 100ML.BAG IVPB SCH (16:41)
--- NOTE | 2019-09-10 19:00 | ECHOF ---
Referral Reason:chf MEASUREMENTS -------- HEIGHT: 167.6 cm WEIGHT: 85.3 kg BP: 105/51 IVSd: 1.4 cm (0.6 - 1.1) LVIDd: 3.4 cm (3.9 - 5.3) LVPWd: 1.3 cm (0.6 - 1.1) IVSs: 2.0 cm LVIDs: 2.1 cm LVPWs: 1.5 cm LAESV Index (A-L): 20.33 ml/m Ao Diam: 3.0 cm (2.0 - 3.7) AV Cusp: 1.3 cm (1.5 - 2.6) MV E Leeroy: 0.55 m/s MV DecT: 223 ms MV A Leeroy: 0.90 m/s MV E/A Ratio: 0.61 AV maxP.33 mmHg AV meanP.48 mmHg FINDINGS -------- Sinus rhythm. This was a technically difficult study with suboptimal views. There is moderate concentric left ventricular hypertrophy. Overall left ventricular systolic functi on is low-normal with, an EF between 50 - 55 %. The diastolic filling pattern is normal for the age of the patient 11.24. The RV was not well visualized. Normal LA size by volume 22+/-6 ml/m2. The right atrium was not well visualized. 5.0mg of Lumason was utilized for enhancement of images Interatrial and interventricular septum intact. The aortic valve was not well visualized. There is no evidence of aortic regurgitation. There is mild aortic stenosis present. Peak/mean gradient across the Aortic Valve is 18.33mmHg / 11.48mmHg. The mitral valve was not well visualized. Mild mitral regurgitation is present. Mild tricuspid regurgitation present. There is no pulmonic regurgitation present. The aortic root size is normal. IVC Not well visulized. There is no pericardial effusion. CONCLUSIONS -------- 1. Sinus rhythm. 2. This was a technically difficult study with suboptimal views. 3. There is moderate concentric left ventricular hypertrophy. 4. Overall left ventricular systolic function is low-normal with, an EF between 50 - 55 %. 5. The diastolic filling pattern is normal for the age of the patient 11.24 6. The RV was not well visualized. 7. Normal LA size by volume 22+/-6 ml/m2. 8. The right atrium was not well visualized. 9. 5.0mg of Lumason was utilized for enhancement of images 10. Interatrial and interventricular septum intact. 11. The aortic valve was not well visualized. 12. There is no evidence of aortic regurgitation. 13. There is mild aortic stenosis present. 14. Peak/mean gradient across the Aortic Valve is 18.33mmHg / 11.48mmHg. 15. The mitral valve was not well visualized. 16. Mild mitral regurgitation is present. 17. Mild tricuspid regurgitation present. 18. There is no pulmonic regurgitation present. 19. The aortic root size is normal. 20. IVC Not well visulized. 21. There is no pericardial effusion. KNIFE SETTER ASSEMBLER: Alicia Aggarwal RDCS
[2019-09-10] MEDS: SENNOSIDES-DOCUSATE SODIUM 1 EACH TAB PO SCH (20:50)
[2019-09-10] MEDS: ASPIRIN 81 MG PO SCH (20:50)
[2019-09-11] MEDS: metroNIDAZOLE-NS PMX 500 MG in SALINE 1 100ML.BAG IVPB SCH ×4 (00:12→23:13)
[2019-09-11] MEDS: DEXTROSE 5% IN WATER 1,000 ML IV SCH ×2 (02:26→16:57)
[2019-09-11] MEDS: ALPRAZolam 0.5 MG TAB PO PRN (03:12)
[2019-09-11] MEDS: IPRATROPIUM-ALBUTEROL 3 ML NEB INHALATION SCH ×7 (03:53→23:18)
[2019-09-11 06:28] LABS: Basophils # (A) 0.2 k/uL (0-0.2); Basophils % (A) 1 %; Eosinophils # (A) 0.1 k/uL (0-0.7); Eosinophils % (A) 0 %; HCT 34.3 % (34.0-46.0); Hypochromasia Marked; Lymphocytes # (A) 1.4 k/uL (1.0-4.8); Lymphocytes % (A) 10 %; MCH 29.6 pg (25.0-35.0); MCHC 29.3 g/dL (31.0-37.0); Macrocytosis Slight; Mean Platelet Volume 7.6; Monocytes # (A) 0.6 k/uL (0-1.0); Monocytes % (A) 4 %; Neutrophils % (A) 83 %; Platelet Count 400 k/uL (150-450); RDW 13.7 % (11.5-15.5); WBC 14.5 k/uL (3.8-10.6)
[2019-09-11 06:36] LABS: Calcium 8.3 mg/dL (8.4-10.2); Potassium 3.7 mmol/L (3.5-5.1)
[2019-09-11] MEDS: ARTIFICIAL TEARS-HYPROMELLOSE DROPS 15 ML BTL BOTH EYES SCH ×2 (06:51→20:41)
[2019-09-11] MEDS: DULoxetine HCL 60 MG CAPSULE.DR PO SCH (06:51)
[2019-09-11] MEDS: DULoxetine HCL 30 MG CAPSULE.DR PO SCH (06:51)
[2019-09-11] MEDS: LISINOPRIL 20 MG TAB PO SCH (06:51)
[2019-09-11] MEDS: LEVOTHYROXINE 100 MCG TAB PO SCH (06:51)
[2019-09-11] MEDS: POTASSIUM CHLORIDE ER 10 MEQ TAB.ER.PRT PO SCH (06:51)
[2019-09-11] MEDS: LEVOTHYROXINE 75 MCG TAB PO SCH (06:52)
--- NOTE | 2019-09-11 10:38 | FL ---
EXAMINATION TYPE: FL barium swallow w video DATE OF EXAM: 09/11/2019 MODIFIED SWALLOW / DEGLUTITION STUDY CLINICAL HISTORY: Dysphagia. Rule out aspiration. History of dementia. TECHNIQUE: Deglutition study is performed utilizing thin liquid barium, honey and nectar thick liqui d barium, barium thick applesauce, and barium coated cracker. A total of 2 minutes 33 seconds of fluo roscopic images. 0 Spot images saved to PACS. COMPARISON: None. FINDINGS: The oral and pharyngeal phases show satisfactory initiation and propagation with all modali ties tested. Satisfactory mastication is seen with solid modalities tested. There is no evidence of penetration or aspiration with any modality tested. No significant pharyngeal residue was appreciate d. IMPRESSION: No penetration or aspiration observed. Please refer to speech therapist notes for furthe r details if necessary.
[2019-09-11] MEDS: APIXABAN 5 MG TAB PO SCH ×2 (10:40→20:37)
[2019-09-11] MEDS: METOPROLOL TARTRATE 25 MG TAB PO SCH ×3 (10:45→20:37)
[2019-09-11] MEDS: CEFEPIME 1 GM in SODIUM CHLORIDE 0.9% 50 ML IVPB SCH ×2 (10:45→20:36)
--- NOTE | 2019-09-11 11:16 | P.PN ---
Subjective Progress Note Date: 09/11/19 On 09/10/2019 I'm seeing the patient for a follow-up. The patient was seen by my partner in consultation yesterday. She came in for shortness of breath in the right lower lobe pneumonia which is thought to be related to an aspiration pneumonia. Health status. Pneumonia cannot be completely occluded. The patient has COPD. She has dementia. She is a [facility] resident. She also has CHF and her comorbidities include hypertension and hyperlipidemia and coronary artery disease with previous AL along with hypothyroidism and chronic anxiety and depression. She is currently covered with IV cefepime. She is also on DuoNeb nebulized treatments around the clock. Her labs from today show a white cell count of 16.4. The sodium level is at 151 and the patient's BUN is at 42 with a creatinine of 0.9. She had a troponin max of 1.08 and 60 of the chest pain. ProBNP level was 10,000. She is receiving fluids. She is receiving IV Lasix which will be discontinued for now. The patient has dimi nished oral intake. She passed swallow evaluation done today. on 09/11/2019 the patient is being seen for a follow-up. She is on D5 water at 75 mL an hour and her hyponatremia is improving. He has dropped down to 48 and the patient is looking better hydrated compared to yesterday. Ultimately they have stop the IV fluids and the patient is being encouraged to take oral intake. Slightly confused. Otherwise no new complaints. No signs of any respiratory distress. She passed her swallow evaluation. No reported aspiration. No abdominal distention. Echocardiogram showed a moderate concentric left ventricle hypertrophy. Ejection fraction was 50-55%. No significant valvular abnormalities noted.the patient remains on a combination of cefepime and Flagyl. Follow-up chest is a is to be obtained in a.m. Objective - Vital Signs Vital signs: Vital Signs Temp 98.8 F 09/11/19 08:00 Pulse 90 09/11/19 08:33 Resp 22 09/11/19 08:00 BP 126/67 09/11/19 08:00 Pulse Ox 96 09/11/19 08:00 Intake & Output 09/10/19 09/11/19 09/11/19 18:59 06:59 18:59 Intake Total 90 1025 360 Output Total 2400 250 Balance -2310 775 360 Weight 87 kg Intake: Intake, IV Titration 1025 Amount Cefepime 1 gm In Sodium 100 Chloride 0.9% 50 ml @ 100 mls/hr IVPB Q12HR [facility] Rx #:[id number] Dextrose 5% in Water 1, 825 000 ml @ 75 mls/hr IV . [id number] [facility] Rx#:[id number] metroNIDAZOLE-NS PMX 500 100 mg In Saline 1 100ml.bag @ 100 mls/hr IVPB Q8HR [facility] Rx#:[id number] Oral 90 360 Output: Urine 2400 250 - Exam Gen. appearance elderly, comfortable likely distress BMI of 30.4. Head exam was generally normal. There was no scleral icterus or corneal arcus. Mucous membranes were it. No JVDs. No goiter or neck masses. Neck was supple and without jugular venous distension, thyromegaly, or carotid bruits. Carotids were easily palpable bilaterally. There was no adenopathy. Lungs sounds are diminished and there are crackles in the right lung base more than the left. Heart sounds are distant, regular, positive S1-S2 and there is no significant murmurs appreciated Abdominal exam revealed normal bowel sounds. The abdomen was soft, non-tender, and without masses, organomegaly, or appreciable enlargement of the abdominal aorta. Examination of the extremities revealed easily palpable radial, femoral and pedal pulses. There was no cyanosis, clubbing or edema. Examination of the skin revealed no evidence of significant rashes, suspicious appearing nevi or other concerning lesions. Neurologically the patient has dementia - Labs CBC & Chem 7: 09/11/19 05:30 09/11/19 05:30 Labs: Abnormal Lab Results - Last 24 Hours (Table) 09/09/19 09/11/19 09/11/19 Range/Units 10:35 05:30 05:30 WBC 14.5 H (3.8-10.6) k/uL RBC 3.40 L (3.80-5.40) m/uL Hgb 10.0 L (11.4-16.0) gm/dL MCV 101.0 H (80.0-100.0) fL MCHC 29.3 L (31.0-37.0) g/dL Neutrophils # 12.0 H (1.3-7.7) k/uL Sodium 148 H (137-145) mmol/L Carbon Dioxide 39 H (22-30) mmol/L BUN 35 H (7-17) mg/dL Glucose 134 H (74-99) mg/dL Calcium 8.3 L (8.4-10.2) mg/dL Procalcitonin 0.45 H (0.02-0.09) ng/mL Assessment and Plan Plan: 1 right lower lobe pneumonia, rule out aspiration pneumonia. Rule out healthcare severe pneumonia. Currently on IV cefepimeand Flagyl. Currently she is doing well. She is on oxygen at 3 L per minute nasal cannula. 2 Hyperchloremic hypernatremia, moving with free water. 3 coronary artery disease elevated BNP, cardiac exam showed a preserved LV function without any significant valvular dysfunction. 4 COPD 5 hypertension 6 hyperlipidemia 7 previous AL 8 hypothyroidism 9 chronic anxiety/depression 10 dementia 11 [facility] resident plan encourage oral intake. Hold diuretics. Repeat chest x-ray in the morning. D5 water at the rate of 40cc /hr Aspiration precautions Echocardiogram was noted DuoNeb nebulized units [id number] repeat chest x-ray in the morning We'll continue to follow
[2019-09-11 12:08] LABS: Glucose,Whole Blood 153 mg/dL (75-99)
[2019-09-11] MEDS: CHOLECALCIFEROL 1,000 UNIT TAB PO SCH (16:59)
[2019-09-11] MEDS: ASPIRIN 81 MG PO SCH (20:37)
[2019-09-11] MEDS: SENNOSIDES-DOCUSATE SODIUM 1 EACH TAB PO SCH (20:37)
--- NOTE | 2019-09-12 00:23 | P.PN ---
Subjective Progress Note Date: 09/10/19 Principal diagnosis: right lower lobe pneumonia elevated troponin level this is a pleasant 73 years old femalewith past medical history of heart failure, dementia, COPD, chronic hypoxic respiratory failure, GERD, hyperlipidemia, hypertension, coronary artery disease, hypothyroidism. Patient was sent from [facility] for pneumonia and atrial fibrillation.patient [facility] because of shortness of breath, as per patient she is been having shortness of breath for 2 days associated with cough but no flame. She denies chest pain.she has history of COPD on chronic 2 L nasal cannula, at the long term she desaturated with oxygen as low as 83% with tachycardia at 113. Of note also patient has history of stent for 10 years ago and she is on aspirin and Plavix. EKG showing atrial fibrillation with RVR at 136, with no significant ST-T changes. also the patient has history of aspiration pneumonia and she was have difficulty eating with choking, 1.5-2 years ago vitals showing blood pressure 154/64, saturation 93% on 4 L., Patient is afebrile.labs showing leukocytosis over 20 5.3K,denies normal, sodium 146, creatinine 0.7, sugar is 172. [place] [address]. This can done at [facility] shows no pulmonary emboli but right effusion and right lower lobe infiltrate. Lactic acid 1.4 which is within reference range. ProBNP 1759. WBC is 22.58, hemoglobin is 11.3, platelet count 391. INR is 0.9. Troponin is elevated at 1.29. Sodium 146, liver enzymes showing slight elevation with ALT 65 and AST 44, creatinine 0.8. Magnesium 2.2. 09/09/2019 Patient is lying comfortably in bed, breathing is stable with no worsening dyspnea. She denies chest pain. Vitals are stable and she is saturating 93% on 4 L oxygen. And glucose 116. Showing bibasilar air space disease as per radiologist. It was still pending. Patient is hemodynamically stable. Saturation in the 90s while on 4 L oxygen nasal cannula Echo and swallow evaluation are pending. The meantime continue on cefepime, Cardizem and heparin drip. However heparin drip was switched to Eliquis Also she is on Lasix 40 mg twice daily intravenously. 11/11/2018 Patient is currently awake and alert. Lying in the bed comfortably. No wor sening shortness of breath. Patient does have underlying dementia. currently being continued onantibiotics in the form of cefepime and Flagyl. Patient has been afebrile. WBC count is16.4 patient did have elevated troponin level. Cardiology is following. 2-D echocardiogram was ordered. Patient is otherwise dehydrated wi sodium level CLI and BUN 42 and creatinine 0.9. IV fluids changed to D5 water. IV Lasix has been discontinued. Patient is able to tolerate oral diet and passed swallow evaluation. current medications reviewed. Objective - Vital Signs Vital signs: Vital Signs Temp 98.3 F 09/10/19 16:00 Pulse 91 09/10/19 19:25 Resp 22 09/10/19 16:00 BP 128/59 09/10/19 16:00 Pulse Ox 90 L 09/10/19 16:00 Intake & Output 09/10/19 09/10/19 09/11/19 06:59 18:59 06:59 Intake Total 100 90 Output Total 200 2400 Balance -100 -2310 Weight 85.5 kg Intake: Intake, IV Titration 100 Amount Cefepime 1 gm In Sodium 100 Chloride 0.9% 50 ml @ 100 mls/hr IVPB Q12HR [facility] Rx #:[id number] Oral 90 Output: Urine 200 2400 Other: # Voids 1 - Exam GENERAL: The patient is alert and oriented x3, not in any acute distress. Well developed, well nourished. HEENT: Pupils are round and equally reacting to light. EOMI. No scleral icterus. No conjunctival pallor. Normocephalic, atraumatic. No pharyngeal erythema. No thyromegaly. CARDIOVASCULAR: S1 and S2 present. No murmurs, rubs, or gallops. PULMONARY: Chest is clear to auscultation, no wheezing or crackles. ABDOMEN: Soft, nontender, nondistended, normoactive bowel sounds. No palpable organomegaly. MUSCULOSKELETAL: No joint swelling or deformity. EXTREMITIES: No cyanosis, clubbing, or pedal edema. NEUROLOGICAL: Gross neurological examination did not reveal any focal deficits. SKIN: No rashes. No petechiae - Labs CBC & Chem 7: 09/11/19 05:30 09/11/19 05:30 Labs: Abnormal Lab Results - Last 24 Hours (Table) 09/09/19 09/09/19 09/10/19 Range/Units 10:35 21:35 05:45 WBC 16.4 H (3.8-10.6) k/uL RBC 3.44 L (3.80-5.40) m/uL Hgb 10.2 L (11.4-16.0) gm/dL MCV 102.0 H (80.0-100.0) fL MCHC 29.2 L (31.0-37.0) g/dL Plt Count 475 H (150-450) k/uL Neutrophils # 14.0 H (1.3-7.7) k/uL Sodium (137-145) mmol/L Carbon Dioxide (22-30) mmol/L BUN (7-17) mg/dL Glucose (74-99) mg/dL Troponin I 0.270 H* (0.000-0.034) ng/mL Procalcitonin 0.45 H (0.02-0.09) ng/mL 09/10/19 Range/Units 05:45 WBC (3.8-10.6) k/uL RBC (3.80-5.40) m/uL Hgb (11.4-16.0) gm/dL MCV (80.0-100.0) fL MCHC (31.0-37.0) g/dL Plt Count (150-450) k/uL Neutrophils # (1.3-7.7) k/uL Sodium 151 H (137-145) mmol/L Carbon Dioxide 38 H (22-30) mmol/L BUN 42 H (7-17) mg/dL Glucose 123 H (74-99) mg/dL Troponin I (0.000-0.034) ng/mL Procalcitonin (0.02-0.09) ng/mL Assessment and Plan Assessment: right lower lobe Pneumonia suspicious for hospital acquired pneumonia versus aspiration pneumonia. Acute on chronic hypoxic respiratory failure. Currently on nausea cannula oxygen. Hypernatremiadue to poor oral intake and dehydration. elevated BNP acute on chronic Congestive heart failure. Follow-up echocardiogram Elevated troponin level. Possible non-ST elevated [place]. paroxysmalA. fib with RVR On anticoagulation with Eliquis. COPD dementia GERD Hyperlipidemia Hypertension History of coronary artery disease Hypothyroidism Plan: Patient is being continued on antibiotics in the form of cefepime andFlagyl. Pulmonary is on board. 2-D echocardiogram was ordered and cardiology was cons ulted due to elevated troponin level. Patient is able to swallow and encourage oral intake. Continue with D5 water and monitor sodium level. continue with breathing treatmentsand follow closely. Further recommendations based on the clinical course. Time with Patient: Greater than 30
--- NOTE | 2019-09-12 00:27 | P.PN ---
Subjective Progress Note Date: 09/11/19 Principal diagnosis: right lower lobe pneumonia elevated troponin level this is a pleasant 73 years old femalewith past medical history of heart failure, dementia, COPD, chronic hypoxic respiratory failure, GERD, hyperlipidemia, hypertension, coronary artery disease, hypothyroidism. Patient was sent from [facility] for pneumonia and atrial fibrillation.patient presented from [facility] because of shortness of breath, as per patient she is been having shortness of breath for 2 days associated with cough but no flame. She denies chest pain.she has history of COPD on chronic 2 L nasal cannula, at the [facility] she desaturated with oxygen as low as 83% with tachycardia at 113. Of note also patient has history of stent for 10 years ago and she is on aspirin and Plavix. EKG showing atrial fibrillation with RVR at 136, with no significant ST-T changes. also the patient has history of aspiration pneumonia and she was have difficulty eating with choking, 1.5-2 years ago vitals showing blood pressure 154/64, saturation 93% on 4 L., Patient is afebrile.labs showing leukocytosis over 20 5.3K,denies normal, sodium 146, creatinine 0.7, sugar is 172. [place] [address]. This can done at [facility] shows no pulmonary emboli but right effusion and right lower lobe infiltrate. Lactic acid 1.4 which is within reference range. ProBNP 1759. WBC is 22.58, hemoglobin is 11.3, platelet count 391. INR is 0.9. Troponin is elevated at 1.29. Sodium 146, liver enzymes showing slight elevation with ALT 65 and AST 44, creatinine 0.8. Magnesium 2.2. 09/09/2019 Patient is lying comfortably in bed, breathing is stable with no worsening dyspnea. She denies chest pain. Vitals are stable and she is saturating 93% on 4 L oxygen. And glucose 116. Showing bibasilar air space disease as per radiologist. It was still pending. Patient is hemodynamically stable. Saturation in the 90s while on 4 L oxygen nasal cannula Echo and swallow evaluation are pending. The meantime continue on cefepime, Cardizem and heparin drip. However heparin drip was switched to Eliquis Also she is on Lasix 40 mg twice daily intravenously. 09/10/2019 Patient is currently awake and alert. Lying in the bed comfortably. No wo rsening shortness of breath. Patient does have underlying dementia. currently being continued onantibiotics in the form of cefepime and Flagyl. Patient has been afebrile. WBC count is16.4 patient did have elevated troponin level. Cardiology is following. 2-D echocardiogram was ordered. Patient is otherwise dehydrated wi sodium level CLI and BUN 42 and creatinine 0.9. IV fluids changed to D5 water. IV Lasix has been discontinued. Patient is able to tolerate oral diet and passed swallow evaluation. 09/11/2019 patient is awake alert andoriented. Does have underlying dementia. Denied any complaints of chest oscar or worsening short Tolerating oral diet. Continued onD5 water. Sodium level improved to 148, leukocytosis is imroving.continued on IV antibiotics cefepime and Flagyl. 2-D echocardiogram showedconcentric left ventricular hypertrophy with ejection fraction 50-55%. No significant valvular abnormalities were noted. current medications reviewed. pulmonary and cardiology is following. Active Medications Acetaminophen (Tylenol Tab) 650 mg PO Q4H PRN PRN Reason: Pain Hydrocodone Bitart/Acetaminophen ([place] 5-325) 1 each PO Q6HR PRN PRN Reason: Pain Albuterol/Ipratropium (Duoneb 0.5 Mg-3 Mg/3 Ml Soln) 3 ml INHALATION RT-Q4H [facility] Last Admin: 09/11/19 23:18 Dose: 3 ml Documented by: Alprazolam (Xanax) 0.5 mg PO BID PRN PRN Reason: Anxiety Last Admin: 09/11/19 03:12 Dose: 0.5 mg Documented by: Apixaban (Eliquis) 5 mg PO BID [facility] Last Admin: 09/11/19 20:37 Dose: 5 mg Documented by: Artificial Tears (Artificial Tear Drops) 1 drops BOTH EYES BID@0600,2100 [facility] Last Admin: 09/11/19 20:41 Dose: 1 drops Documented by: Aspirin (Aspirin) 81 mg PO HS@2100 [facility] Last Admin: 09/11/19 20:37 Dose: 81 mg Documented by: Bisacodyl (Dulcolax) 10 mg PO DAILY PRN PRN Reason: Constipation Cholecalciferol (Vitamin D3 (25 Mcg = 1000 Iu)) 1,000 unit PO DAILY@1300 [facility] Last Admin: 09/11/19 16:59 Dose: 1,000 unit Documented by: Duloxetine HCl (Cymbalta) 30 mg PO DAILY@0600 [facility] Last Admin: 09/11/19 06:51 Dose: 30 mg Documented by: Duloxetine HCl (Cymbalta) 60 mg PO DAILY@0600 [facility] Last Admin: 09/11/19 06:51 Dose: 60 mg Documented by: Guaifenesin (Robitussin) 200 mg PO Q4H PRN PRN Reason: Cough Cefepime HCl 1 gm/ Sodium (Chloride) 50 mls @ 100 mls/hr IVPB Q12HR [facility] Last Admin: 09/11/19 20:36 Dose: 100 mls/hr Documented by: Dextrose/Water (Dextrose 5%-Water Iv Soln) 1,000 mls @ 40 mls/hr IV .Q24H [facility] Last Admin: 09/11/19 16:57 Dose: Not Given Documented by: Metronidazole 500 mg/ IV (Solution) 100 mls @ 100 mls/hr IVPB Q8HR [facility] Last Admin: 09/11/19 23:13 Dose: 100 mls/hr Documented by: Levothyroxine Sodium (Synthroid) 100 mcg PO DAILY@0600 [facility] Last Admin: 09/11/19 06:51 Dose: 100 mcg Documented by: Levothyroxine Sodium (Synthroid) 75 mcg PO DAILY@0600 [facility] Last Admin: 09/11/19 06:52 Dose: 75 mcg Documented by: Lisinopril (Zestril) 20 mg PO DAILY@0600 [facility] Last Admin: 09/11/19 06:51 Dose: 20 mg Documented by: Magnesium Hydroxide (Milk Of Magnesia) 2,400 mg PO DAILY PRN PRN Reason: Constipation Metoprolol Tartrate (Lopressor) 25 mg PO TID [facility] Last Admin: 09/11/19 20:37 Dose: 25 mg Documented by: Potassium Chloride (K-Dur 10) 10 meq PO DAILY@0600 [facility] Last Admin: 09/11/19 06:51 Dose: 10 meq Documented by: Senna/Docusate Sodium (Senokot-S) 1 each PO HS@2100 [facility] Last Admin: 09/11/19 20:37 Dose: 1 each Documented by: Objective - Vital Signs Vital signs: Vital Signs Temp 98.4 F 09/11/19 12:00 Pulse 86 09/11/19 16:00 Resp 24 09/11/19 16:00 BP 122/77 09/11/19 16:00 Pulse Ox 80 L 09/11/19 16:00 Intake & Output 09/10/19 09/11/19 09/11/19 18:59 06:59 18:59 Intake Total 90 1025 600 Output Total 2400 250 Balance -2310 775 600 Weight 87 kg Intake: Intake, IV Titration 1025 Amount Cefepime 1 gm In Sodium 100 Chloride 0.9% 50 ml @ 100 mls/hr IVPB Q12HR [facility] Rx #:[id number] Dextrose 5% in Water 1, 825 000 ml @ 40 mls/hr IV . Q24H [facility] Rx#:[id number] metroNIDAZOLE-NS PMX 500 100 mg In Saline 1 100ml.bag @ 100 mls/hr IVPB Q8HR [facility] Rx#:[id number] Oral 90 600 Output: Urine 2400 250 - Exam GENERAL: The patient is alert and oriented x3, not in any acute distress. Well developed, well nourished. HEENT: Pupils are round and equally reacting to light. EOMI. No scleral icterus. No conjunctival pallor. Normocephalic, atraumatic. No pharyngeal erythema. No thyromegaly. CARDIOVASCULAR: S1 and S2 present. No murmurs, rubs, or gallops. PULMONARY: Chest is clear to auscultation, no wheezing or crackles. ABDOMEN: Soft, nontender, nondistended, normoactive bowel sounds. No palpable organomegaly. MUSCULOSKELETAL: No joint swelling or deformity. EXTREMITIES: No cyanosis, clubbing, or pedal edema. NEUROLOGICAL: Gross neurological examination did not reveal any focal deficits. SKIN: No rashes. No petechiae - Labs CBC & Chem 7: 09/11/19 05:30 09/11/19 05:30 Labs: Abnormal Lab Results - Last 24 Hours (Table) 09/11/19 09/11/19 09/11/19 Range/Units 05:30 05:30 11:56 WBC 14.5 H (3.8-10.6) k/uL RBC 3.40 L (3.80-5.40) m/uL Hgb 10.0 L (11.4-16.0) gm/dL MCV 101.0 H (80.0-100.0) fL MCHC 29.3 L (31.0-37.0) g/dL Neutrophils # 12.0 H (1.3-7.7) k/uL Sodium 148 H (137-145) mmol/L Carbon Dioxide 39 H (22-30) mmol/L BUN 35 H (7-17) mg/dL Glucose 134 H (74-99) mg/dL POC Glucose (mg/dL) 153 H (75-99) mg/dL Calcium 8.3 L (8.4-10.2) mg/dL Assessment and Plan Assessment: right lower lobe Pneumonia suspicious for hospital acquired pneumonia versus aspiration pneumonia. Acute on chronic hypoxic respiratory failure. Currently on nausea cannula oxygen. Hypernatremiadue to poor oral intake and dehydration. elevated BNP acute on chronic Congestive heart failure. Follow-up echocardiogram Elevated troponin level. Possible non-ST elevated [place]. paroxysmalA. fib with RVR On anticoagulation with Eliquis. COPD dementia GERD Hyperlipidemia Hypertension History of coronary artery disease Hypothyroidism Plan: Patient is being continued on antibiotics in the form of cefepime andFlagyl. Pulmonary is on board. 2-D echocardiogram was ordered and cardiology was consulted due to elevated troponin level. Patient is able to swallow and encourage oral intake. Continue with D5 water and monitor sodium level. continue with breathing treatmentsand follow closely. Further recommendations based on the clinical course. Time with Patient: Greater than 30
[2019-09-12] MEDS: ALPRAZolam 0.5 MG TAB PO PRN (00:49)
[2019-09-12 01:31] LABS: Glucose,Whole Blood 147 mg/dL (75-99)
[2019-09-12] MEDS: DEXTROSE 5% IN WATER 1,000 ML IV SCH (02:39)
[2019-09-12] MEDS: IPRATROPIUM-ALBUTEROL 3 ML NEB INHALATION SCH ×5 (05:25→20:13)
[2019-09-12] MEDS: LISINOPRIL 20 MG TAB PO SCH (05:55)
[2019-09-12] MEDS: DULoxetine HCL 30 MG CAPSULE.DR PO SCH (05:55)
[2019-09-12] MEDS: POTASSIUM CHLORIDE ER 10 MEQ TAB.ER.PRT PO SCH (05:55)
[2019-09-12] MEDS: LEVOTHYROXINE 100 MCG TAB PO SCH (05:55)
[2019-09-12] MEDS: LEVOTHYROXINE 75 MCG TAB PO SCH (05:55)
[2019-09-12] MEDS: DULoxetine HCL 60 MG CAPSULE.DR PO SCH (05:55)
[2019-09-12] MEDS: ARTIFICIAL TEARS-HYPROMELLOSE DROPS 15 ML BTL BOTH EYES SCH ×2 (05:56→21:06)
[2019-09-12 06:30] LABS: Basophils # (A) 0.1 k/uL (0-0.2); Basophils % (A) 0 %; Eosinophils # (A) 0.2 k/uL (0-0.7); Eosinophils % (A) 1 %; HCT 34.4 % (34.0-46.0); HGB 10.4 gm/dL (11.4-16.0); Hypochromasia Marked; Lymphocytes # (A) 1.6 k/uL (1.0-4.8); Lymphocytes % (A) 7 %; MCH 30.2 pg (25.0-35.0); MCHC 30.4 g/dL (31.0-37.0); MCV 99.5 fL (80.0-100.0); Mean Platelet Volume 7.9; Monocytes # (A) 0.6 k/uL (0-1.0); Monocytes % (A) 3 %; Neutrophils # (A) 19.4 k/uL (1.3-7.7); Neutrophils % (A) 88 %; Platelet Count 400 k/uL (150-450); RBC 3.45 m/uL (3.80-5.40); RDW 13.4 % (11.5-15.5)
[2019-09-12 06:36] LABS: Calcium 8.3 mg/dL (8.4-10.2); Potassium 3.8 mmol/L (3.5-5.1)
[2019-09-12] MEDS: CEFEPIME 1 GM in SODIUM CHLORIDE 0.9% 50 ML IVPB SCH ×2 (08:28→21:06)
[2019-09-12] MEDS: METOPROLOL TARTRATE 25 MG TAB PO SCH ×3 (08:30→21:09)
[2019-09-12] MEDS: APIXABAN 5 MG TAB PO SCH ×2 (08:30→21:06)
[2019-09-12] MEDS: CHOLECALCIFEROL 1,000 UNIT TAB PO SCH (08:31)
--- NOTE | 2019-09-12 08:57 | XR ---
EXAMINATION TYPE: XR chest 1V portable DATE OF EXAM: 09/12/2019 COMPARISON: 09/09/2019 INDICATION: Right lower lobe pneumonia TECHNIQUE: Single frontal view of the chest is obtained. FINDINGS: The heart size is normal. The pulmonary vasculature is normal. While the infiltrate is at the right lower lobe. Findings are worsening from comparison. IMPRESSION: 1. Worsening right lower lobe infiltrate. Correlate for pneumonia.
[2019-09-12] MEDS: metroNIDAZOLE-NS PMX 500 MG in SALINE 1 100ML.BAG IVPB SCH ×2 (08:59→17:02)
--- NOTE | 2019-09-12 11:27 | P.PN ---
Subjective Progress Note Date: 09/12/19 On 09/10/2019 I'm seeing the patient for a follow-up. The patient was seen by my partner in consultation yesterday. She came in for shortness of breath in the right lower lobe pneumonia which is thought to be related to an aspiration pneumonia. Health status. Pneumonia cannot be completely occluded. The patient has COPD. She has dementia. She is a [facility] resident. She also has CHF and her comorbidities include hypertension and hyperlipidemia and coronary artery disease with previous MD along with hypothyroidism and chronic anxiety and depression. She is currently covered with IV cefepime. She is also on DuoNeb nebulized treatments around the clock. Her labs from today show a white cell count of 16.4. The sodium level is at 151 and the patient's BUN is at 42 with a creatinine of 0.9. She had a troponin max of 1.08 and 60 of the chest pain. ProBNP level was 10,000. She is receiving fluids. She is receiving IV Lasix which will be discontinued for now. The patient has dimi nished oral intake. She passed swallow evaluation done today. on 09/11/2019 the patient is being seen for a follow-up. She is on D5 water at 75 mL an hour and her hyponatremia is improving. He has dropped down to 48 and the patient is looking better hydrated compared to yesterday. Ultimately they have stop the IV fluids and the patient is being encouraged to take oral intake. Slightly confused. Otherwise no new complaints. No signs of any respiratory distress. She passed her swallow evaluation. No reported aspiration. No abdominal distention. Echocardiogram showed a moderate concentric left ventricle hypertrophy. Ejection fraction was 50-55%. No significant valvular abnormalities noted.the patient remains on a combination of cefepime and Flagyl. Follow-up chest is a is to be obtained in a.m. On 09/12/2019 the patient is resting comfortably in bed. She is on oxygen at 3 L. The follow-up chest x-ray was done and shows a stable right lung pneumonia/infiltrate. I do not think there is any interval worsening. She is on a combination of cefepime and Flagyl. She is getting D5 water at the rate of 40 mL an hour. The sodium level is at 142. I'm going to have to switch her to normal saline at the rate of 50 mL an hour. No new complaints otherwise for now. She passed her swallow evaluation. She is tolerating diet. No in her mental status. She is or OA1-2. Objective - Vital Signs Vital signs: Vital Signs Temp 97.8 F 09/12/19 08:23 Pulse 80 09/12/19 10:50 Resp 20 09/12/19 08:23 BP 141/63 09/12/19 08:23 Pulse Ox 93 L 09/12/19 08:23 Intake & Output 09/11/19 09/12/19 09/12/19 18:59 06:59 18:59 Intake Total 750 240 60 Output Total 750 Balance 750 -510 60 Weight 88.5 kg Intake: Oral 750 240 60 Output: Urine 750 Other: # Voids 0 # Bowel Movements 1 - Exam Gen. appearance elderly, comfortable likely distress BMI of 30.4. Head exam was generally normal. There was no scleral icterus or corneal arcus. Mucous membranes were it. No JVDs. No goiter or neck masses. Neck was supple and without jugular venous distension, thyromegaly, or carotid bruits. Carotids were easily palpable bilaterally. There was no adenopathy. Lungs sounds are diminished and there are crackles in the right lung base more than the left. Heart sounds are distant, regular, positive S1-S2 and there is no significant murmurs appreciated Abdominal exam revealed normal bowel sounds. The abdomen was soft, non-tender, and without masses, organomegaly, or appreciable enlargement of the abdominal aorta. Examination of the extremities revealed easily palpable radial, femoral and pedal pulses. There was no cyanosis, clubbing or edema. Examination of the skin revealed no evidence of significant rashes, suspicious appearing nevi or other concerning lesions. Neurologically the patient has dementia - Labs CBC & Chem 7: 09/12/19 05:49 09/12/19 05:49 Labs: Abnormal Lab Results - Last 24 Hours (Table) 09/11/19 09/12/19 09/12/19 Range/Units 11:56 01:29 05:49 WBC 22.0 H (3.8-10.6) k/uL RBC 3.45 L (3.80-5.40) m/uL Hgb 10.4 L (11.4-16.0) gm/dL MCHC 30.4 L (31.0-37.0) g/dL Neutrophils # 19.4 H (1.3-7.7) k/uL Carbon Dioxide (22-30) mmol/L BUN (7-17) mg/dL Glucose (74-99) mg/dL POC Glucose (mg/dL) 153 H 147 H (75-99) mg/dL Calcium (8.4-10.2) mg/dL 09/12/19 Range/Units 05:49 WBC (3.8-10.6) k/uL RBC (3.80-5.40) m/uL Hgb (11.4-16.0) gm/dL MCHC (31.0-37.0) g/dL Neutrophils # (1.3-7.7) k/uL Carbon Dioxide 37 H (22-30) mmol/L BUN 31 H (7-17) mg/dL Glucose 121 H (74-99) mg/dL POC Glucose (mg/dL) (75-99) mg/dL Calcium 8.3 L (8.4-10.2) mg/dL Assessment and Plan Plan: 1 right lower lobe pneumonia, rule out aspiration pneumonia. Rule out healthcare severe pneumonia. Currently on IV cefepime and Flagyl. Currently she is doing well. She is on oxygen at 3 L per minute nasal cannula. 2 Hyperchloremic hypernatremia, moving with free water. 3 coronary artery disease elevated BNP, cardiac exam showed a preserved LV function without any significant valvular dysfunction. 4 COPD 5 hypertension 6 hyperlipidemia 7 previous MD 8 hypothyroidism 9 chronic anxiety/depression 10 dementia 11 correction resident plan X-ray findings are stable. Continue same antibiotic coverage. Doubt any worsening. White cell count is high and this is to be monitored. The sodium level is improved and switch this patient to 1/2 normal saline today to 50 mL an hour Aspiration precautions Echocardiogram was noted DuoNeb nebulized units [id number] We'll continue to follow
[2019-09-12] MEDS ORDERED: SODIUM CHLORIDE 0.9% 1,000 ML IV SCH (11:30)
[2019-09-12] MEDS: SODIUM CHLORIDE 0.45% 1,000 ML IV SCH (11:33)
[2019-09-12] MEDS: ASPIRIN 81 MG PO SCH (21:06)
[2019-09-12] MEDS: SENNOSIDES-DOCUSATE SODIUM 1 EACH TAB PO SCH (21:06)
[2019-09-12] MEDS: metroNIDAZOLE 500 MG TAB PO SCH (23:28)
[2019-09-13] MEDS: IPRATROPIUM-ALBUTEROL 3 ML NEB INHALATION SCH ×6 (01:59→20:11)
[2019-09-13] MEDS: POTASSIUM CHLORIDE ER 10 MEQ TAB.ER.PRT PO SCH (06:10)
[2019-09-13] MEDS: ARTIFICIAL TEARS-HYPROMELLOSE DROPS 15 ML BTL BOTH EYES SCH ×2 (06:10→20:44)
[2019-09-13] MEDS: DULoxetine HCL 60 MG CAPSULE.DR PO SCH (06:10)
[2019-09-13] MEDS: LISINOPRIL 20 MG TAB PO SCH (06:10)
[2019-09-13] MEDS: DULoxetine HCL 30 MG CAPSULE.DR PO SCH (06:10)
[2019-09-13] MEDS: LEVOTHYROXINE 75 MCG TAB PO SCH (06:10)
[2019-09-13] MEDS: SODIUM CHLORIDE 0.45% 1,000 ML IV SCH (06:11)
[2019-09-13] MEDS: LEVOTHYROXINE 100 MCG TAB PO SCH (06:11)
[2019-09-13] MEDS: CHOLECALCIFEROL 1,000 UNIT TAB PO SCH (08:41)
[2019-09-13] MEDS: metroNIDAZOLE 500 MG TAB PO SCH ×3 (08:41→23:05)
[2019-09-13] MEDS: APIXABAN 5 MG TAB PO SCH ×2 (08:41→20:37)
[2019-09-13] MEDS: METOPROLOL TARTRATE 25 MG TAB PO SCH ×3 (08:41→20:37)
[2019-09-13] MEDS: CEFEPIME 1 GM in SODIUM CHLORIDE 0.9% 50 ML IVPB SCH ×2 (08:41→20:37)
--- NOTE | 2019-09-13 12:24 | P.PN ---
Subjective Progress Note Date: 09/12/19 Principal diagnosis: right lower lobe pneumonia elevated troponin level this is a pleasant 73 years old femalewith past medical history of heart failure, dementia, COPD, chronic hypoxic respiratory failure, GERD, hyperlipidemia, hypertension, coronary artery disease, hypothyroidism. Patient was sent from [facility] for pneumonia and atrial fibrillation.patient presented from [facility] because of shortness of breath, as per patient she is been having shortness of breath for 2 days associated with cough but no flame. She denies chest pain.she has history of COPD on chronic 2 L nasal cannula, at the [facility] she desaturated with oxygen as low as 83% with tachycardia at 113. Of note also patient has history of stent for 10 years ago and she is on aspirin and Plavix. EKG showing atrial fibrillation with RVR at 136, with no significant ST-T changes. also the patient has history of aspiration pneumonia and she was have difficulty eating with choking, 1.5-2 years ago vitals showing blood pressure 154/64, saturation 93% on 4 L., Patient is afebrile.labs showing leukocytosis over 20 5.3K,denies normal, sodium 146, creatinine 0.7, sugar is 172. [place] [address]. This can done at [facility] shows no pulmonary emboli but right effusion and right lower lobe infiltrate. Lactic acid 1.4 which is within reference range. ProBNP 1759. WBC is 22.58, hemoglobin is 11.3, platelet count 391. INR is 0.9. Troponin is elevated at 1.29. Sodium 146, liver enzymes showing slight elevation with ALT 65 and AST 44, creatinine 0.8. Magnesium 2.2. 09/09/2019 Patient is lying comfortably in bed, breathing is stable with no worsening dyspnea. She denies chest pain. Vitals are stable and she is saturating 93% on 4 L oxygen. And glucose 116. Showing bibasilar air space disease as per radiologist. It was still pending. Patient is hemodynamically stable. Saturation in the 90s while on 4 L oxygen nasal cannula Echo and swallow evaluation are pending. The meantime continue on cefepime, Cardizem and heparin drip. However heparin drip was switched to Eliquis Also she is on Lasix 40 mg twice daily intravenously. 09/10/2019 Patient is currently awake and alert. Lying in the bed comfortably. No wo rsening shortness of breath. Patient does have underlying dementia. currently being continued onantibiotics in the form of cefepime and Flagyl. Patient has been afebrile. WBC count is16.4 patient did have elevated troponin level. Cardiology is following. 2-D echocardiogram was ordered. Patient is otherwise dehydrated wi sodium level CLI and BUN 42 and creatinine 0.9. IV fluids changed to D5 water. IV Lasix has been discontinued. Patient is able to tolerate oral diet and passed swallow evaluation. 09/11/2019 patient is awake alert andoriented. Does have underlying dementia. Denied any complaints of chest oscar or worsening short Tolerating oral diet. Continued onD5 water. Sodium level improved to 148, leukocytosis is imroving.continued on IV antibiotics cefepime and Flagyl. 2-D echocardiogram showedconcentric left ventricular hypertrophy with ejection fraction 50-55%. No significant valvular abnormalities were noted. current medications reviewed. pulmonary and cardiology is following. 09/12/2019 patient is currently lying in the bed comfortably. Saturating well on 3 L oxyg en with another cannula. no fever or chills. Tolerating oral diet. Currently being continued on antibiotics in the form of Flagyl and cefepime. Otherwise WBC count went up to 22 today.hemoglobin is stable around 10. IV fluids have been changed to normal saline with improvement in hypernatremia.. Follow-up labs tomorrow. Anticipate discharge once the white count is trending down. Pulmonary is following. Active Medications Acetaminophen (Tylenol Tab) 650 mg PO Q4H PRN PRN Reason: Pain Hydrocodone Bitart/Acetaminophen ([place] 5-325) 1 each PO Q6HR PRN PRN Reason: Pain Albuterol/Ipratropium (Duoneb 0.5 Mg-3 Mg/3 Ml Soln) 3 ml INHALATION RT-Q4H [facility] Last Admin: 09/11/19 23:18 Dose: 3 ml Documented by: Alprazolam (Xanax) 0.5 mg PO BID PRN PRN Reason: Anxiety Last Admin: 09/11/19 03:12 Dose: 0.5 mg Documented by: Apixaban (Eliquis) 5 mg PO BID [facility] Last Admin: 09/11/19 20:37 Dose: 5 mg Documented by: Artificial Tears (Artificial Tear Drops) 1 drops BOTH EYES BID@0600,2100 [facility] Last Admin: 09/11/19 20:41 Dose: 1 drops Documented by: Aspirin (Aspirin) 81 mg PO HS@2100 [facility] Last Admin: 09/11/19 20:37 Dose: 81 mg Documented by: Bisacodyl (Dulcolax) 10 mg PO DAILY PRN PRN Reason: Constipation Cholecalciferol (Vitamin D3 (25 Mcg = 1000 Iu)) 1,000 unit PO DAILY@1300 [facility] Last Admin: 09/11/19 16:59 Dose: 1,000 unit Documented by: Duloxetine HCl (Cymbalta) 30 mg PO DAILY@0600 [facility] Last Admin: 09/11/19 06:51 Dose: 30 mg Documented by: Duloxetine HCl (Cymbalta) 60 mg PO DAILY@0600 [facility] Last Admin: 09/11/19 06:51 Dose: 60 mg Documented by: Guaifenesin (Robitussin) 200 mg PO Q4H PRN PRN Reason: Cough Cefepime HCl 1 gm/ Sodium (Chloride) 50 mls @ 100 mls/hr IVPB Q12HR [facility] Last Admin: 09/11/19 20:36 Dose: 100 mls/hr Documented by: Dextrose/Water (Dextrose 5%-Water Iv Soln) 1,000 mls @ 40 mls/hr IV .Q24H [facility] Last Admin: 09/11/19 16:57 Dose: Not Given Documented by: Metronidazole 500 mg/ IV (Solution) 100 mls @ 100 mls/hr IVPB Q8HR [facility] Last Admin: 09/11/19 23:13 Dose: 100 mls/hr Documented by: Levothyroxine Sodium (Synthroid) 100 mcg PO DAILY@0600 [facility] Last Admin: 09/11/19 06:51 Dose: 100 mcg Documented by: Levothyroxine Sodium (Synthroid) 75 mcg PO DAILY@0600 [facility] Last Admin: 09/11/19 06:52 Dose: 75 mcg Documented by: Lisinopril (Zestril) 20 mg PO DAILY@0600 [facility] Last Admin: 09/11/19 06:51 Dose: 20 mg Documented by: Magnesium Hydroxide (Milk Of Magnesia) 2,400 mg PO DAILY PRN PRN Reason: Constipation Metoprolol Tartrate (Lopressor) 25 mg PO TID [facility] Last Admin: 09/11/19 20:37 Dose: 25 mg Documented by: Potassium Chloride (K-Dur 10) 10 meq PO DAILY@0600 [facility] Last Admin: 09/11/19 06:51 Dose: 10 meq Documented by: Senna/Docusate Sodium (Senokot-S) 1 each PO HS@2100 [facility] Last Admin: 09/11/19 20:37 Dose: 1 each Documented by: Objective - Vital Signs Vital signs: Vital Signs Temp 98.1 F 09/12/19 20:00 Pulse 75 09/12/19 20:22 Resp 18 09/12/19 20:00 BP 115/55 09/12/19 20:00 Pulse Ox 95 09/12/19 20:00 Intake & Output 09/12/19 09/12/19 09/13/19 06:59 18:59 06:59 Intake Total 240 150 Output Total 750 600 Balance -510 -450 Weight 88.5 kg Intake: Oral 240 150 Output: Urine 750 600 Other: # Voids 0 # Bowel Movements 1 - Exam GENERAL: The patient is alert and oriented x3, not in any acute distress. Well developed, well nourished. HEENT: Pupils are round and equally reacting to light. EOMI. No scleral icterus. No conjunctival pallor. Normocephalic, atraumatic. No pharyngeal erythema. No thyromegaly. CARDIOVASCULAR: S1 and S2 present. No murmurs, rubs, or gallops. PULMONARY: Chest is clear to auscultation, no wheezing or crackles. ABDOMEN: Soft, nontender, nondistended, normoactive bowel sounds. No palpable organomegaly. MUSCULOSKELETAL: No joint swelling or deformity. EXTREMITIES: No cyanosis, clubbing, or pedal edema. NEUROLOGICAL: Gross neurological examination did not reveal any focal deficits. SKIN: No rashes. No petechiae - Labs CBC & Chem 7: 09/12/19 05:49 09/12/19 05:49 Labs: Abnormal Lab Results - Last 24 Hours (Table) 09/12/19 09/12/19 09/12/19 Range/Units 01:29 05:49 05:49 WBC 22.0 H (3.8-10.6) k/uL RBC 3.45 L (3.80-5.40) m/uL Hgb 10.4 L (11.4-16.0) gm/dL MCHC 30.4 L (31.0-37.0) g/dL Neutrophils # 19.4 H (1.3-7.7) k/uL Carbon Dioxide 37 H (22-30) mmol/L BUN 31 H (7-17) mg/dL Glucose 121 H (74-99) mg/dL POC Glucose (mg/dL) 147 H (75-99) mg/dL Calcium 8.3 L (8.4-10.2) mg/dL Assessment and Plan Assessment: right lower lobe Pneumonia suspicious for hospital acquired pneumonia versus aspiration pneumonia. Acute on chronic hypoxic respiratory failure. Currently on nausea cannula oxygen. Hypernatremia due to poor oral intake and dehydration.improved now. elevated BNP acute on chronic Congestive heart failure. Follow-up echocardiogram Elevated troponin level. Possible non-ST elevated MT. paroxysmal A. fib with RVR On anticoagulation with Eliquis. COPD dementia GERD Hyperlipidemia Hypertension History of coronary artery disease Hypothyroidism Plan: Patient is being continued on antibiotics in the form of cefepime andFlagyl. Pulmonary is on board. 2-D echocardiogram was ordered patient was seen by cardiology due to elevated troponin level. no further workup recommended at this time. Patient is able to swallow and encourage oral intake. Continue with D5 water and monitor sodium level-changed to normal saline. continue with breathing treatmentsand follow closely. Further recommendations based on the clinical course. Time with Patient: Greater than 30
[2019-09-13 12:55] LABS: Basophils # (A) 0.1 k/uL (0-0.2); Basophils % (A) 1 %; Eosinophils # (A) 0.2 k/uL (0-0.7); Eosinophils % (A) 1 %; HCT 37.4 % (34.0-46.0); Hypochromasia Marked; Lymphocytes # (A) 1.2 k/uL (1.0-4.8); Lymphocytes % (A) 5 %; MCH 29.3 pg (25.0-35.0); MCHC 29.3 g/dL (31.0-37.0); MCV 99.9 fL (80.0-100.0); Monocytes # (A) 0.7 k/uL (0-1.0); Monocytes % (A) 3 %; Neutrophils % (A) 90 %; Platelet Count 408 k/uL (150-450); RBC 3.75 m/uL (3.80-5.40); RDW 13.6 % (11.5-15.5); WBC 25.4 k/uL (3.8-10.6)
[2019-09-13] MEDS ORDERED: BISACODYL 10 MG SUPP RECTAL PRN (14:23)
--- NOTE | 2019-09-13 17:28 | P.PN ---
Subjective Progress Note Date: 09/13/19 On 09/10/2019 I'm seeing the patient for a follow-up. The patient was seen by my partner in consultation yesterday. She came in for shortness of breath in the right lower lobe pneumonia which is thought to be related to an aspiration pneumonia. Health status. Pneumonia cannot be completely occluded. The patient has COPD. She has dementia. She is a care home resident. She also has CHF and her comorbidities include hypertension and hyperlipidemia and coronary artery disease with previous WI along with hypothyroidism and chronic anxiety and depression. She is currently covered with IV cefepime. She is also on DuoNeb nebulized treatments around the clock. Her labs from today show a white cell count of 16.4. The sodium level is at 151 and the patient's BUN is at 42 with a creatinine of 0.9. She had a troponin max of 1.08 and 60 of the chest pain. ProBNP level was 10,000. She is receiving fluids. She is receiving IV Lasix which will be discontinued for now. The patient has dimi nished oral intake. She passed swallow evaluation done today. on 09/11/2019 the patient is being seen for a follow-up. She is on D5 water at 75 mL an hour and her hyponatremia is improving. He has dropped down to 48 and the patient is looking better hydrated compared to yesterday. Ultimately they have stop the IV fluids and the patient is being encouraged to take oral intake. Slightly confused. Otherwise no new complaints. No signs of any respiratory distress. She passed her swallow evaluation. No reported aspiration. No abdominal distention. Echocardiogram showed a moderate concentric left ventricle hypertrophy. Ejection fraction was 50-55%. No significant valvular abnormalities noted.the patient remains on a combination of cefepime and Flagyl. Follow-up chest is a is to be obtained in a.m. On 09/12/2019 the patient is resting comfortably in bed. She is on oxygen at 3 L. The follow-up chest x-ray was done and shows a stable right lung pneumonia/infiltrate. I do not think there is any interval worsening. She is on a combination of cefepime and Flagyl. She is getting D5 water at the rate of 40 mL an hour. The sodium level is at 142. I'm going to have to switch her to normal saline at the rate of 50 mL an hour. No new complaints otherwise for now. She passed her swallow evaluation. She is tolerating diet. No in her mental status. She is or OA1-2. On 09/13/2019 the patient seemed currently resting comfortably in bed. no acute distress. Maintaining her saturations in the 90s on room air. She has been somewhat confused. She pulled her IV out today. Taking her hospital gown off. She's been awake most of the day. Her appetite has been poor. Her white count is up to 25. She was to be on cefepime and Flagyl. IV to be restarted. Objective - Vital Signs Vital signs: Vital Signs Temp 98.4 F 09/13/19 16:00 Pulse 86 09/13/19 16:00 Resp 18 09/13/19 16:00 BP 130/61 09/13/19 16:00 Pulse Ox 97 09/13/19 16:00 Intake & Output 09/12/19 09/13/19 09/13/19 18:59 06:59 18:59 Intake Total 150 550 90 Output Total 600 450 300 Balance -450 100 -210 Weight 87 kg Intake: Oral 150 550 90 Output: Urine 600 450 300 Other: # Voids 0 1 # Bowel Movements 1 - Exam Gen. appearance elderly, comfortable likely distress BMI of 30.4. Head exam was generally normal. There was no scleral icterus or corneal arcus. Mucous membranes were it. No JVDs. No goiter or neck masses. Neck was supple and without jugular venous distension, thyromegaly, or carotid bruits. Carotids were easily palpable bilaterally. There was no adenopathy. Lungs sounds are diminished and there are crackles in the right lung base more than the left. Heart sounds are distant, regular, positive S1-S2 and there is no significant murmurs appreciated Abdominal exam revealed normal bowel sounds. The abdomen was soft, non-tender, and without masses, organomegaly, or appreciable enlargement of the abdominal aorta. Examination of the extremities revealed easily palpable radial, femoral and pedal pulses. There was no cyanosis, clubbing or edema. Examination of the skin revealed no evidence of significant rashes, suspicious appearing nevi or other concerning lesions. Neurologically the patient has dementia - Labs CBC & Chem 7: 09/13/19 12:26 09/12/19 05:49 Labs: Abnormal Lab Results - Last 24 Hours (Table) 09/13/19 Range/Units 12:26 WBC 25.4 H (3.8-10.6) k/uL RBC 3.75 L (3.80-5.40) m/uL Hgb 11.0 L (11.4-16.0) gm/dL MCHC 29.3 L (31.0-37.0) g/dL Neutrophils # 23.0 H (1.3-7.7) k/uL Assessment and Plan Plan: 1 right lower lobe pneumonia, rule out aspiration pneumonia. Rule out healthcare severe pneumonia. Currently on IV cefepime and Flagyl. Currently she is doing well. She is on oxygen at 3 L per minute nasal cannula. 2 Hyperchloremic hypernatremia, recovered and the sodium level is normalized. 3 coronary artery disease elevated BNP, cardiac exam showed a preserved LV function without any significant valvular dysfunction. 4 COPD 5 hypertension 6 hyperlipidemia 7 previous WI 8 hypothyroidism 9 chronic anxiety/depression 10 dementia 11 care home resident 12 Leukocytosis plan Chest x-ray now. Restart IV. Continue cefepime and IV Flagyl. Haldol as needed.
--- NOTE | 2019-09-13 18:46 | XR ---
EXAMINATION TYPE: XR chest 1V portable DATE OF EXAM: 09/13/2019 COMPARISON: Yesterday HISTORY: Pneumonia TECHNIQUE: Single view FINDINGS: There is some patchy airspace pneumonia right lung base. Left lung is fairly clear. There i s no heart failure. IMPRESSION: Right lower lobe pneumonia is improved compared to yesterday.
[2019-09-13] MEDS: SENNOSIDES-DOCUSATE SODIUM 1 EACH TAB PO SCH (20:37)
[2019-09-13] MEDS: ASPIRIN 81 MG PO SCH (20:37)
[2019-09-14] MEDS: IPRATROPIUM-ALBUTEROL 3 ML NEB INHALATION SCH ×7 (01:20→23:49)
[2019-09-14] MEDS: SODIUM CHLORIDE 0.45% 1,000 ML IV SCH (04:38)
[2019-09-14] MEDS: LISINOPRIL 20 MG TAB PO SCH (06:21)
[2019-09-14] MEDS: ARTIFICIAL TEARS-HYPROMELLOSE DROPS 15 ML BTL BOTH EYES SCH ×2 (06:21→22:47)
[2019-09-14] MEDS: LEVOTHYROXINE 100 MCG TAB PO SCH (06:21)
[2019-09-14] MEDS: LEVOTHYROXINE 75 MCG TAB PO SCH (06:21)
[2019-09-14] MEDS: POTASSIUM CHLORIDE ER 10 MEQ TAB.ER.PRT PO SCH (06:21)
[2019-09-14] MEDS: DULoxetine HCL 60 MG CAPSULE.DR PO SCH (06:21)
[2019-09-14] MEDS: DULoxetine HCL 30 MG CAPSULE.DR PO SCH (06:21)
--- NOTE | 2019-09-14 07:47 | CT ---
EXAMINATION TYPE: CT discontinued procedure DATE OF EXAM: 09/13/2019 COMPARISON: HISTORY: Unable to perform scan due to patient recently having barium on 09.11.19 CT DLP: 9.4 mGycm Automated exposure control for dose reduction was used. FINDINGS: Scanogram shows retained barium from barium swallow 2 days prior. IMPRESSION: EXAM ABORTED, REPEAT FOLLOWING CONTRAST PASSAGE.
[2019-09-14 08:01] LABS: Basophils % (A) 0 %; Eosinophils # (A) 0.2 k/uL (0-0.7); Eosinophils % (A) 1 %; HCT 34.9 % (34.0-46.0); HGB 10.8 gm/dL (11.4-16.0); Hypochromasia Marked; Lymphocytes % (A) 4 %; MCH 30.3 pg (25.0-35.0); MCHC 30.8 g/dL (31.0-37.0); MCV 98.3 fL (80.0-100.0); Mean Platelet Volume 8.1; Monocytes # (A) 0.7 k/uL (0-1.0); Monocytes % (A) 3 %; Neutrophils # (A) 22.5 k/uL (1.3-7.7); Neutrophils % (A) 92 %; Platelet Count 407 k/uL (150-450); RBC 3.55 m/uL (3.80-5.40); RDW 13.4 % (11.5-15.5); WBC 24.5 k/uL (3.8-10.6)
[2019-09-14 08:02] LABS: African American GFR (CKD) >90 (>60 ml/min/1.73 sqM); Anion Gap 6 mmol/L; Blood Urea Nitrogen 25 mg/dL (7-17); Calcium 8.6 mg/dL (8.4-10.2); Carbon Dioxide 34 mmol/L (22-30); Chloride 103 mmol/L (98-107); Glucose 113 mg/dL (74-99); Non-African American GFR(CKD) 88 (>60 ml/min/1.73 sqM); Potassium 4.4 mmol/L (3.5-5.1); Sodium 143 mmol/L (137-145)
--- NOTE | 2019-09-14 08:32 | CDI ---
Documentation Clarification Form Date: 09/14/2019 08:26:12 AM From: Anastasiia Perez RN, CCDS Admit Date: 09/08/2019 01:53:00 PM Patient Name: Cailin Wright Visit Number: [id number] Discharge Date: ATTENTION: The Clinical Documentation Specialists (CDI) and [facility] Coding Staff appreciate your assistance in clarifying documentation. Please respond to the clarification below the line at the bottom and electronically sign. The CDI & [facility] Coding staff will review the response and follow-up if needed. Please note: Queries are made part of the Legal Health Record. If you have any questions, please contact the author of this message via ITS. Dr. Silvia Gardner CHF is documented in the History and Physical and subsequent documentation and further clarification is needed. History/Risk Factors: COPD, Dementia, Hypertension, Atrial Fibrillation, Congestive heart failure, Chronic hypoxic respiratory failure Clinical Indicators: 73-year-old female present with shortness of breath. The shelter has documented her oxygen as low as 83% with tachycardia at 113. VS/Pulse OX: (09/08/19at 13:57) 115/64 92 22 92 % 4/L NC BNP: 98084 Echocardiogram Results: (09/10/19) Overall left ventricular systolic function is low-normal with, an EF between 50-55 % 09/09/19 chest x-ray: Bibasilar airspace disease, cannot exclude a small right- sided effusion, mild cardiomegaly Treatment: Lasix 40 IV, change to PO ( DC 09/10) Lopressor 25 mg PO BID Monitor O2 Sat's (titrate) Duoneb per orders In your professional opinion, can you please clarify the acuity and type of CHF if known? Acurte on Chronic Systolic Heart Failure: Acute on Chronic Diastolic Heart Failure: Acute on Chronic Systolic & Diastolic Heart Failure: Unable to Determine Other, please specify (Last Revision: December 2017) Acute on Chronic Diastolic Heart Failure: MTDD
[2019-09-14] MEDS: CEFEPIME 1 GM in SODIUM CHLORIDE 0.9% 50 ML IVPB SCH ×2 (08:35→22:47)
[2019-09-14] MEDS: CHOLECALCIFEROL 1,000 UNIT TAB PO SCH (08:35)
[2019-09-14] MEDS: metroNIDAZOLE 500 MG TAB PO SCH ×2 (08:35→17:06)
[2019-09-14] MEDS: METOPROLOL TARTRATE 25 MG TAB PO SCH ×3 (08:35→22:47)
[2019-09-14] MEDS: APIXABAN 5 MG TAB PO SCH ×2 (08:35→22:47)
--- NOTE | 2019-09-14 09:25 | CDI ---
Documentation Clarification Form Date: 09/14/2019 08:36:00 AM From: Anastasiia Perez RN, CCDS (Sylvia Anguiano, CCS, CCDS) (Sylvia: [id number] Admit Date: 09/08/2019 01:53:00 PM Patient Name: Cailin Wright Visit Number: [id number] Discharge Date: ATTENTION: The Clinical Documentation Specialists (CDI) and [facility] Coding Staff appreciate your assistance in clarifying documentation. Please respond to the clarification below the line at the bottom and electronically sign. The CDI & [facility] Coding staff will review the response and follow-up if needed. Please note: Queries are made part of the Legal Health Record. If you have any questions, please contact the author of this message via ITS. Dr. Silvia Gardner: The patient presented with shortness of breath with saturation in the mid to low 80s, diagnosed with aspiration pneumonia. Cardiology consulted on 09/09 for elevated troponins: "Patient is now converted to the normal sinus rhythm. This patient's initial troponin was mildly elevated, which is due to her hypoxia and respiratory distress and atrial fibrillation with an RVR. This is not suggestive of acute coronary syndrome. We will repeat the troponin. Echo and Doppler study will be done." History/Risk Factors: COPD, Dementia, Hypertension, Atrial Fibrillation, Congestive heart failure, Chronic hypoxic respiratory failure Clinical Indicators: 73-year-old female with 2 day history of shortness of breath with low oxygen saturations in the mid to low 80, tachycardia: heart rate 110-115 beats per minute. No CP. Troponin: 09/08 1.080^^. 09/09: 0.410^^, 0.343^^, 0.270^^; 09/23: <0.012. EKG: ( initial per cardiology) Atrial Fibrillation with RVR Lab findings: WBC 25.3, BNP 53901 RAD: 09/09 CXR: Bibasilar airspace disease, cannot exclude a small right-sided effusion, mild cardiomegaly Vital Signs:09/08/19 AT 13:57) 115/64 92 22 92 % 4/l nc ECHO: Moderate concentric left ventricular hypertrophy: EF between 50-55 % Treatment: Telemetry, Heparin Drip, po Lopressor & Eliquis In your professional opinion, can you please clarify significance of the patient's elevated troponins: Myocardial Infarction ruled out Myocardial Infarction, please specify type: o Non-Stemi o Type II, please specify cause: o Other, please specify o Unable to determine (Last Revision: December 2017) Myocardial Infarction Type II, due to infection MTDD
--- NOTE | 2019-09-14 12:29 | XR ---
EXAMINATION TYPE: XR abdomen 2V DATE OF EXAM: 09/14/2019 HISTORY: Pain. Technique: 2 views of the abdomen are submitted. Comparison: None. Findings: There is no convincing evidence of pneumoperitoneum. Retained contrast is noted within the colon from recent barium swallow. There is small bowel dilatation measuring 4.9 cm. Small bowel is of normal caliber. No sizable air-fluid levels are seen. No mass effects are noted. No renal calcifications are identified. IMPRESSION: 1. Nonspecific bowel gas pattern
--- NOTE | 2019-09-14 14:18 | P.PN ---
Subjective Progress Note Date: 09/14/19 On 09/10/2019 I'm seeing the patient for a follow-up. The patient was seen by my partner in consultation yesterday. She came in for shortness of breath in the right lower lobe pneumonia which is thought to be related to an aspiration pneumonia. Health status. Pneumonia cannot be completely occluded. The patient has COPD. She has dementia. She is a residential resident. She also has CHF and her comorbidities include hypertension and hyperlipidemia and coronary artery disease with previous CA along with hypothyroidism and chronic anxiety and depression. She is currently covered with IV cefepime. She is also on DuoNeb nebulized treatments around the clock. Her labs from today show a white cell count of 16.4. The sodium level is at 151 and the patient's BUN is at 42 with a creatinine of 0.9. She had a troponin max of 1.08 and 60 of the chest pain. ProBNP level was 10,000. She is receiving fluids. She is receiving IV Lasix which will be discontinued for now. The patient has dimi nished oral intake. She passed swallow evaluation done today. on 09/11/2019 the patient is being seen for a follow-up. She is on D5 water at 75 mL an hour and her hyponatremia is improving. He has dropped down to 48 and the patient is looking better hydrated compared to yesterday. Ultimately they have stop the IV fluids and the patient is being encouraged to take oral intake. Slightly confused. Otherwise no new complaints. No signs of any respiratory distress. She passed her swallow evaluation. No reported aspiration. No abdominal distention. Echocardiogram showed a moderate concentric left ventricle hypertrophy. Ejection fraction was 50-55%. No significant valvular abnormalities noted.the patient remains on a combination of cefepime and Flagyl. Follow-up chest is a is to be obtained in a.m. On 09/12/2019 the patient is resting comfortably in bed. She is on oxygen at 3 L. The follow-up chest x-ray was done and shows a stable right lung pneumonia/infiltrate. I do not think there is any interval worsening. She is on a combination of cefepime and Flagyl. She is getting D5 water at the rate of 40 mL an hour. The sodium level is at 142. I'm going to have to switch her to normal saline at the rate of 50 mL an hour. No new complaints otherwise for now. She passed her swallow evaluation. She is tolerating diet. No in her mental status. She is or OA1-2. On 09/13/2019 the patient seemed currently resting comfortably in bed. no acute distress. Maintaining her saturations in the 90s on room air. She has been somewhat confused. She pulled her IV out today. Taking her hospital gown off. She's been awake most of the day. Her appetite has been poor. Her white count is up to 25. She was to be on cefepime and Flagyl. IV to be restarted. on 09/14/2019 I'm seeing the patient for a follow-up. Clinically same as yesterday. Repeat chest x-ray was done yesterday and the right lower lobe pneumonia seems to be improving. She is on oxygen at the details. IV was be established and the patient was maintained on a combination of antibiotics including IV cefepime and Flagyl. Her white cell count is still elevated however and this is something that we are monitoring. Flat film of the abdomen showed nonspecific gas pattern. She is passing flatus and bowel movements patient was given a suppository and Dulcolax. Her mental status still off and she is or OA1-2. She has underlying dementia. Lasix back on IV fluids at the rate of 75 mL an hour normal saline. Objective - Vital Signs Vital signs: Vital Signs Temp 97.3 F L 09/14/19 12:22 Pulse 80 09/14/19 13:52 Resp 20 09/14/19 12:22 BP 129/68 09/14/19 12:22 Pulse Ox 98 09/14/19 12:22 Intake & Output 09/13/19 09/14/19 09/14/19 18:59 06:59 18:59 Intake Total 90 575 Output Total 300 Balance -210 575 Weight 87.5 kg 87.5 kg Intake: IV 525 .9 @ 75 525 Intake, IV Titration 50 Amount Cefepime 1 gm In Sodium 50 Chloride 0.9% 50 ml @ 100 mls/hr IVPB Q12HR [facility] Rx #:[id number] Oral 90 0 Output: Urine 300 Other: # Voids 1 1 # Bowel Movements 1 1 - Exam Gen. appearance elderly, comfortable likely distress BMI of 30.4. Head exam was generally normal. There was no scleral icterus or corneal arcus. Mucous membranes were it. No JVDs. No goiter or neck masses. Neck was supple and without jugular venous distension, thyromegaly, or carotid bruits. Carotids were easily palpable bilaterally. There was no adenopathy. Lungs sounds are diminished and there are crackles in the right lung base more than the left. Heart sounds are distant, regular, positive S1-S2 and there is no significant murmurs appreciated Abdominal exam revealed normal bowel sounds. The abdomen was soft, non-tender, and without masses, organomegaly, or appreciable enlargement of the abdominal aorta. Examination of the extremities revealed easily palpable radial, femoral and pedal pulses. There was no cyanosis, clubbing or edema. Examination of the skin revealed no evidence of significant rashes, suspicious appearing nevi or other concerning lesions. Neurologically the patient has dementia - Labs CBC & Chem 7: 09/14/19 06:32 09/14/19 06:32 Labs: Abnormal Lab Results - Last 24 Hours (Table) 09/14/19 09/14/19 Range/Units 06:32 06:32 WBC 24.5 H (3.8-10.6) k/uL RBC 3.55 L (3.80-5.40) m/uL Hgb 10.8 L (11.4-16.0) gm/dL MCHC 30.8 L (31.0-37.0) g/dL Neutrophils # 22.5 H (1.3-7.7) k/uL Carbon Dioxide 34 H (22-30) mmol/L BUN 25 H (7-17) mg/dL Glucose 113 H (74-99) mg/dL Assessment and Plan Plan: 1 right lower lobe pneumonia, rule out aspiration pneumonia. Rule out healthcare severe pneumonia. Currently on IV cefepime and Flagyl. Currently she is doing well. She is on oxygen at 3 L per minute nasal cannula. note that the chest x-ray from yesterday shows improvement in the right lower lobe pulmonary infiltrates/pneumonia and the patient is not having any loss of aspiration. She is tolerating pured diet. 2 Hyperchloremic hypernatremia, recovered and the sodium level is normalized. 3 coronary artery disease elevated BNP, cardiac exam showed a preserved LV function without any significant valvular dysfunction. 4 COPD 5 hypertension 6 hyperlipidemia 7 previous CA 8 hypothyroidism 9 chronic anxiety/depression 10 dementia 11 residential resident 12 Leukocytosis plan Continue cefepime and IV Flagyl. 60 from yesterday was reviewed. The right lower lobe pneumonia is improving. Wean down the FiO2. provide the patient incentive spirometer. Deep breathing. Pulmonary toileting. Monitor the white cell count. Start some of the abdomen was noted. Possible release back single home within next 24-48 hours once things are more stable.
[2019-09-14] MEDS: SODIUM CHLORIDE 0.9% 1,000 ML IV SCH (16:00)
[2019-09-14] MEDS ORDERED: HALOPERIDOL LACTATE 5 MG/ML 1 ML VIAL IM ONE (20:10)
[2019-09-14] MEDS: QUEtiapine 25 MG TAB PO PRN (21:28)
[2019-09-14] MEDS: ASPIRIN 81 MG PO SCH (22:47)
[2019-09-14] MEDS: SENNOSIDES-DOCUSATE SODIUM 1 EACH TAB PO SCH (22:47)
--- NOTE | 2019-09-14 23:24 | P.PN ---
Subjective Progress Note Date: 09/13/19 Principal diagnosis: right lower lobe pneumonia elevated troponin level this is a pleasant 73 years old femalewith past medical history of heart failure, dementia, COPD, chronic hypoxic respiratory failure, GERD, hyperlipidemia, hypertension, coronary artery disease, hypothyroidism. Patient was sent from [facility] for pneumonia and atrial fibrillation.patient presented from [facility] because of shortness of breath, as per patient she is been having shortness of breath for 2 days associated with cough but no flame. She denies chest pain.she has history of COPD on chronic 2 L nasal cannula, at the alf she desaturated with oxygen as low as 83% with tachycardia at 113. Of note also patient has history of stent for 10 years ago and she is on aspirin and Plavix. EKG showing atrial fibrillation with RVR at 136, with no significant ST-T changes. also the patient has history of aspiration pneumonia and she was have difficulty eating with choking, 1.5-2 years ago vitals showing blood pressure 154/64, saturation 93% on 4 L., Patient is afebrile.labs showing leukocytosis over 20 5.3K,denies normal, sodium 146, creatinine 0.7, sugar is 172. [place] [address]. This can done at [facility] shows no pulmonary emboli but right effusion and right lower lobe infiltrate. Lactic acid 1.4 which is within reference range. ProBNP 1759. WBC is 22.58, hemoglobin is 11.3, platelet count 391. INR is 0.9. Troponin is elevated at 1.29. Sodium 146, liver enzymes showing slight elevation with ALT 65 and AST 44, creatinine 0.8. Magnesium 2.2. 09/09/2019 Patient is lying comfortably in bed, breathing is stable with no worsening dyspnea. She denies chest pain. Vitals are stable and she is saturating 93% on 4 L oxygen. And glucose 116. Showing bibasilar air space disease as per radiologist. It was still pending. Patient is hemodynamically stable. Saturation in the 90s while on 4 L oxygen nasal cannula Echo and swallow evaluation are pending. The meantime continue on cefepime, Cardizem and heparin drip. However heparin drip was switched to Eliquis Also she is on Lasix 40 mg twice daily intravenously. 09/10/2019 Patient is currently awake and alert. Lying in the bed comfortably. No wo rsening shortness of breath. Patient does have underlying dementia. currently being continued onantibiotics in the form of cefepime and Flagyl. Patient has been afebrile. WBC count is16.4 patient did have elevated troponin level. Cardiology is following. 2-D echocardiogram was ordered. Patient is otherwise dehydrated wi sodium level CLI and BUN 42 and creatinine 0.9. IV fluids changed to D5 water. IV Lasix has been discontinued. Patient is able to tolerate oral diet and passed swallow evaluation. 09/11/2019 patient is awake alert andoriented. Does have underlying dementia. Denied any complaints of chest oscar or worsening short Tolerating oral diet. Continued onD5 water. Sodium level improved to 148, leukocytosis is imroving.continued on IV antibiotics cefepime and Flagyl. 2-D echocardiogram showedconcentric left ventricular hypertrophy with ejection fraction 50-55%. No significant valvular abnormalities were noted. current medications reviewed. pulmonary and cardiology is following. 09/12/2019 patient is currently lying in the bed comfortably. Saturating well on 3 L oxyg en with another cannula. no fever or chills. Tolerating oral diet. Currently being continued on antibiotics in the form of Flagyl and cefepime. Otherwise WBC count went up to 22 today.hemoglobin is stable around 10. IV fluids have been changed to normal saline with improvement in hypernatremia.. Follow-up labs tomorrow. Anticipate discharge once the white count is trending down. Pulmonary is following. 11/14/2018 Patient is currently awake and alert and appears to be in no distress. Curren tly saturating well on room air. No complaints of chest pain are worsening shortness of breath. Patient does complain of right lower quadrant abdominal discomfort. Patient did not have bowel movement White count is increasing to 25 today. Currently patient is on safety equipnt Flagyl.CT of abdomen pelvis was ordered but could not be done due toretained contrast from previous study. Chest x-ray was done Patient will be continued on gentle hydration.no fever no chills. No chest pain. Active Medications Acetaminophen (Tylenol Tab) 650 mg PO Q4H PRN PRN Reason: Pain Hydrocodone Bitart/Acetaminophen (Jewett 5-325) 1 each PO Q6HR PRN PRN Reason: Pain Albuterol/Ipratropium (Duoneb 0.5 Mg-3 Mg/3 Ml Soln) 3 ml INHALATION RT-Q4H [facility] Last Admin: 09/11/19 23:18 Dose: 3 ml Documented by: Alprazolam (Xanax) 0.5 mg PO BID PRN PRN Reason: Anxiety Last Admin: 09/11/19 03:12 Dose: 0.5 mg Documented by: Apixaban (Eliquis) 5 mg PO BID [facility] Last Admin: 09/11/19 20:37 Dose: 5 mg Documented by: Artificial Tears (Artificial Tear Drops) 1 drops BOTH EYES BID@0600,2100 [facility] Last Admin: 09/11/19 20:41 Dose: 1 drops Documented by: Aspirin (Aspirin) 81 mg PO HS@2100 [facility] Last Admin: 09/11/19 20:37 Dose: 81 mg Documented by: Bisacodyl (Dulcolax) 10 mg PO DAILY PRN PRN Reason: Constipation Cholecalciferol (Vitamin D3 (25 Mcg = 1000 Iu)) 1,000 unit PO DAILY@1300 [facility] Last Admin: 09/11/19 16:59 Dose: 1,000 unit Documented by: Duloxetine HCl (Cymbalta) 30 mg PO DAILY@0600 [facility] Last Admin: 09/11/19 06:51 Dose: 30 mg Documented by: Duloxetine HCl (Cymbalta) 60 mg PO DAILY@0600 [facility] Last Admin: 09/11/19 06:51 Dose: 60 mg Documented by: Guaifenesin (Robitussin) 200 mg PO Q4H PRN PRN Reason: Cough Cefepime HCl 1 gm/ Sodium (Chloride) 50 mls @ 100 mls/hr IVPB Q12HR [facility] Last Admin: 09/11/19 20:36 Dose: 100 mls/hr Documented by: Dextrose/Water (Dextrose 5%-Water Iv Soln) 1,000 mls @ 40 mls/hr IV .Q24H [facility] Last Admin: 09/11/19 16:57 Dose: Not Given Documented by: Metronidazole 500 mg/ IV (Solution) 100 mls @ 100 mls/hr IVPB Q8HR [facility] Last Admin: 09/11/19 23:13 Dose: 100 mls/hr Documented by: Levothyroxine Sodium (Synthroid) 100 mcg PO DAILY@0600 [facility] Last Admin: 09/11/19 06:51 Dose: 100 mcg Documented by: Levothyroxine Sodium (Synthroid) 75 mcg PO DAILY@0600 [facility] Last Admin: 09/11/19 06:52 Dose: 75 mcg Documented by: Lisinopril (Zestril) 20 mg PO DAILY@0600 [facility] Last Admin: 09/11/19 06:51 Dose: 20 mg Documented by: Magnesium Hydroxide (Milk Of Magnesia) 2,400 mg PO DAILY PRN PRN Reason: Constipation Metoprolol Tartrate (Lopressor) 25 mg PO TID [facility] Last Admin: 09/11/19 20:37 Dose: 25 mg Documented by: Potassium Chloride (K-Dur 10) 10 meq PO DAILY@0600 [facility] Last Admin: 09/11/19 06:51 Dose: 10 meq Documented by: Senna/Docusate Sodium (Senokot-S) 1 each PO HS@2100 [facility] Last Admin: 09/11/19 20:37 Dose: 1 each Documented by: Objective - Vital Signs Vital signs: Vital Signs Temp 98.4 F 09/13/19 23:00 Pulse 79 09/13/19 23:00 Resp 18 09/13/19 23:00 BP 158/68 09/13/19 23:00 Pulse Ox 96 09/13/19 23:00 Intake & Output 09/13/19 09/13/19 09/14/19 06:59 18:59 06:59 Intake Total 550 90 Output Total 450 300 Balance 100 -210 Weight 87 kg Intake: Oral 550 90 Output: Urine 450 300 Other: # Voids 1 - Exam GENERAL: The patient is alert and oriented x2-3, not in any acute distress. Well developed, well nourished. HEENT: Pupils are round and equally reacting to light. EOMI. No scleral icterus. No conjunctival pallor. Normocephalic, atraumatic. No pharyngeal erythema. No thyromegaly. CARDIOVASCULAR: S1 and S2 present. No murmurs, rubs, or gallops. PULMONARY: Chest is clear to auscultation, no wheezing or crackles. ABDOMEN: Soft, right lower quadrant tenderness., nondistended, normoactive bowel sounds. No palpable organomegaly. MUSCULOSKELETAL: No joint swelling or deformity. EXTREMITIES: No cyanosis, clubbing, or pedal edema. NEUROLOGICAL: awake alert but confused.Gross neurological examination did not reveal any focal deficits. SKIN: No rashes. No petechiae - Labs CBC & Chem 7: 09/14/19 06:32 09/14/19 06:32 Labs: Abnormal Lab Results - Last 24 Hours (Table) 09/13/19 Range/Units 12:26 WBC 25.4 H (3.8-10.6) k/uL RBC 3.75 L (3.80-5.40) m/uL Hgb 11.0 L (11.4-16.0) gm/dL MCHC 29.3 L (31.0-37.0) g/dL Neutrophils # 23.0 H (1.3-7.7) k/uL Assessment and Plan Assessment: right lower lobe Pneumonia suspicious for hospital acquired pneumonia versus aspiration pneumonia. Acute on chronic hypoxic respiratory failure. Currently on nausea cannula oxygen-titrated to room air. Worsening leukocytosis Hypernatremia due to poor oral intake and dehydration.improved now. elevated BNP acute on chronic Congestive heart failure. Follow-up echocardiogram Elevated troponin level. Possible non-ST elevated AK. paroxysmal A. fib with RVR On anticoagulation with Eliquis. COPD dementia GERD Hyperlipidemia Hypertension History of coronary artery disease Hypothyroidism Plan: Patient is being continued on antibiotics in the form of cefepime andFlagyl. Pulmonary is on board. patient will be continued on stool softeners and laxatives. 2-D echocardiogram was ordered patient was seen by cardiology due to elevated troponin level. no further workup recommended at this time. Patient is able to swallow and encourage oral intake. Continue with D5 water and monitor sodium level-changed to normal saline. continue with breathing treatmentsand follow closely. Further recommendations based on the clinical course. Time with Patient: Greater than 30
--- NOTE | 2019-09-14 23:37 | P.PN ---
Subjective Progress Note Date: 09/14/19 Principal diagnosis: right lower lobe pneumonia elevated troponin level this is a pleasant 73 years old femalewith past medical history of heart failure, dementia, COPD, chronic hypoxic respiratory failure, GERD, hyperlipidemia, hypertension, coronary artery disease, hypothyroidism. Patient was sent from [facility] for pneumonia and atrial fibrillation.patient presented from [facility] because of shortness of breath, as per patient she is been having shortness of breath for 2 days associated with cough but no flame. She denies chest pain.she has history of COPD on chronic 2 L nasal cannula, at the retirement she desaturated with oxygen as low as 83% with tachycardia at 113. Of note also patient has history of stent for 10 years ago and she is on aspirin and Plavix. EKG showing atrial fibrillation with RVR at 136, with no significant ST-T changes. also the patient has history of aspiration pneumonia and she was have difficulty eating with choking, 1.5-2 years ago vitals showing blood pressure 154/64, saturation 93% on 4 L., Patient is afebrile.labs showing leukocytosis over 20 5.3K,denies normal, sodium 146, creatinine 0.7, sugar is 172. [place] [address]. This can done at [facility] shows no pulmonary emboli but right effusion and right lower lobe infiltrate. Lactic acid 1.4 which is within reference range. ProBNP 1759. WBC is 22.58, hemoglobin is 11.3, platelet count 391. INR is 0.9. Troponin is elevated at 1.29. Sodium 146, liver enzymes showing slight elevation with ALT 65 and AST 44, creatinine 0.8. Magnesium 2.2. 09/09/2019 Patient is lying comfortably in bed, breathing is stable with no worsening dyspnea. She denies chest pain. Vitals are stable and she is saturating 93% on 4 L oxygen. And glucose 116. Showing bibasilar air space disease as per radiologist. It was still pending. Patient is hemodynamically stable. Saturation in the 90s while on 4 L oxygen nasal cannula Echo and swallow evaluation are pending. The meantime continue on cefepime, Cardizem and heparin drip. However heparin drip was switched to Eliquis Also she is on Lasix 40 mg twice daily intravenously. 09/10/2019 Patient is currently awake and alert. Lying in the bed comfortably. No wo rsening shortness of breath. Patient does have underlying dementia. currently being continued onantibiotics in the form of cefepime and Flagyl. Patient has been afebrile. WBC count is16.4 patient did have elevated troponin level. Cardiology is following. 2-D echocardiogram was ordered. Patient is otherwise dehydrated wi sodium level CLI and BUN 42 and creatinine 0.9. IV fluids changed to D5 water. IV Lasix has been discontinued. Patient is able to tolerate oral diet and passed swallow evaluation. 09/11/2019 patient is awake alert andoriented. Does have underlying dementia. Denied any complaints of chest oscar or worsening short Tolerating oral diet. Continued onD5 water. Sodium level improved to 148, leukocytosis is imroving.continued on IV antibiotics cefepime and Flagyl. 2-D echocardiogram showedconcentric left ventricular hypertrophy with ejection fraction 50-55%. No significant valvular abnormalities were noted. current medications reviewed. pulmonary and cardiology is following. 09/12/2019 patient is currently lying in the bed comfortably. Saturating well on 3 L oxyg en with another cannula. no fever or chills. Tolerating oral diet. Currently being continued on antibiotics in the form of Flagyl and cefepime. Otherwise WBC count went up to 22 today.hemoglobin is stable around 10. IV fluids have been changed to normal saline with improvement in hypernatremia.. Follow-up labs tomorrow. Anticipate discharge once the white count is trending down. Pulmonary is following. 11/14/2018 Patient is currently awake and alert and appears to be in no distress. Curren tly saturating well on room air. No complaints of chest pain are worsening shortness of breath. Patient does complain of right lower quadrant abdominal discomfort. Patient did not have bowel movement White count is increasing to 25 today. Currently patient is on safety equipnt Flagyl.CT of abdomen pelvis was ordered but could not be done due toretained contrast from previous study. Chest x-ray was done Patient will be continued on gentle hydration.no fever no chills. No chest pain. 09/14/2019 Patient is awake and alertslightly more lethargic today. patient did have a large bowel moveme today. Chest x-ray done yesterday showed right lower lobe pneumonia, improving. Abdominal x-ray was done which showed normal bowel gas pattern Patient is tolerating oral diet. Continued on antibiotics in the form cefepime and Flagyl. WBC count is still high at 24.5 slight improvement from yesterday. Patient will be continued on IV hydration for 1 day.currently patient is afebrile. no complaints of chest pain or shortness of breath. No nausea vomiting or abdominal pain. Active Medications Acetaminophen (Tylenol Tab) 650 mg PO Q4H PRN PRN Reason: Pain Hydrocodone Bitart/Acetaminophen ([place] 5-325) 1 each PO Q6HR PRN PRN Reason: Pain Albuterol/Ipratropium (Duoneb 0.5 Mg-3 Mg/3 Ml Soln) 3 ml INHALATION RT-Q4H [facility] Last Admin: 09/11/19 23:18 Dose: 3 ml Documented by: Alprazolam (Xanax) 0.5 mg PO BID PRN PRN Reason: Anxiety Last Admin: 09/11/19 03:12 Dose: 0.5 mg Documented by: Apixaban (Eliquis) 5 mg PO BID [facility] Last Admin: 09/11/19 20:37 Dose: 5 mg Documented by: Artificial Tears (Artificial Tear Drops) 1 drops BOTH EYES BID@0600,2100 [facility] Last Admin: 09/11/19 20:41 Dose: 1 drops Documented by: Aspirin (Aspirin) 81 mg PO HS@2100 [facility] Last Admin: 09/11/19 20:37 Dose: 81 mg Documented by: Bisacodyl (Dulcolax) 10 mg PO DAILY PRN PRN Reason: Constipation Cholecalciferol (Vitamin D3 (25 Mcg = 1000 Iu)) 1,000 unit PO DAILY@1300 [facility] Last Admin: 09/11/19 16:59 Dose: 1,000 unit Documented by: Duloxetine HCl (Cymbalta) 30 mg PO DAILY@0600 [facility] Last Admin: 09/11/19 06:51 Dose: 30 mg Documented by: Duloxetine HCl (Cymbalta) 60 mg PO DAILY@0600 [facility] Last Admin: 09/11/19 06:51 Dose: 60 mg Documented by: Guaifenesin (Robitussin) 200 mg PO Q4H PRN PRN Reason: Cough Cefepime HCl 1 gm/ Sodium (Chloride) 50 mls @ 100 mls/hr IVPB Q12HR [facility] Last Admin: 09/11/19 20:36 Dose: 100 mls/hr Documented by: Dextrose/Water (Dextrose 5%-Water Iv Soln) 1,000 mls @ 40 mls/hr IV .Q24H [facility] Last Admin: 09/11/19 16:57 Dose: Not Given Documented by: Metronidazole 500 mg/ IV (Solution) 100 mls @ 100 mls/hr IVPB Q8HR [facility] Last Admin: 09/11/19 23:13 Dose: 100 mls/hr Documented by: Levothyroxine Sodium (Synthroid) 100 mcg PO DAILY@0600 [facility] Last Admin: 09/11/19 06:51 Dose: 100 mcg Documented by: Levothyroxine Sodium (Synthroid) 75 mcg PO DAILY@0600 [facility] Last Admin: 09/11/19 06:52 Dose: 75 mcg Documented by: Lisinopril (Zestril) 20 mg PO DAILY@0600 [facility] Last Admin: 09/11/19 06:51 Dose: 20 mg Documented by: Magnesium Hydroxide (Milk Of Magnesia) 2,400 mg PO DAILY PRN PRN Reason: Constipation Metoprolol Tartrate (Lopressor) 25 mg PO TID [facility] Last Admin: 09/11/19 20:37 Dose: 25 mg Documented by: Potassium Chloride (K-Dur 10) 10 meq PO DAILY@0600 [facility] Last Admin: 09/11/19 06:51 Dose: 10 meq Documented by: Senna/Docusate Sodium (Senokot-S) 1 each PO HS@2100 [facility] Last Admin: 09/11/19 20:37 Dose: 1 each Documented by: Objective - Vital Signs Vital signs: Vital Signs Temp 98.4 F 09/14/19 19:20 Pulse 80 09/14/19 19:51 Resp 18 09/14/19 19:51 BP 119/70 09/14/19 19:20 Pulse Ox 96 09/14/19 19:20 Intake & Output 09/14/19 09/14/19 09/15/19 06:59 18:59 06:59 Intake Total 575 Balance 575 Weight 87.5 kg 87.5 kg Intake: IV 525 .9 @ 75 525 Intake, IV Titration 50 Amount Cefepime 1 gm In Sodium 50 Chloride 0.9% 50 ml @ 100 mls/hr IVPB Q12HR [facility] Rx #:[id number] Oral 0 Other: # Voids 3 # Bowel Movements 1 1 - Exam GENERAL: The patient is alert and oriented x2-3, not in any acute distress. Well developed, well nourished. HEENT: Pupils are round and equally reacting to light. EOMI. No scleral icterus. No conjunctival pallor. Normocephalic, atraumatic. No pharyngeal erythema. No thyromegaly. CARDIOVASCULAR: S1 and S2 present. No murmurs, rubs, or gallops. PULMONARY: Chest is clear to auscultation, no wheezing or crackles. ABDOMEN: Soft, right lower quadrant tenderness., nondistended, normoactive bowel sounds. No palpable organomegaly. MUSCULOSKELETAL: No joint swelling or deformity. EXTREMITIES: No cyanosis, clubbing, or pedal edema. NEUROLOGICAL: awake alert but confused.Gross neurological examination did not reveal any focal deficits. SKIN: No rashes. No petechiae - Labs CBC & Chem 7: 09/14/19 06:32 09/14/19 06:32 Labs: Abnormal Lab Results - Last 24 Hours (Table) 09/14/19 09/14/19 Range/Units 06:32 06:32 WBC 24.5 H (3.8-10.6) k/uL RBC 3.55 L (3.80-5.40) m/uL Hgb 10.8 L (11.4-16.0) gm/dL MCHC 30.8 L (31.0-37.0) g/dL Neutrophils # 22.5 H (1.3-7.7) k/uL Carbon Dioxide 34 H (22-30) mmol/L BUN 25 H (7-17) mg/dL Glucose 113 H (74-99) mg/dL Assessment and Plan Assessment: right lower lobe Pneumonia suspicious for hospital acquired pneumonia versus aspiration pneumonia. Acute on chronic hypoxic respiratory failure. Currently on nausea cannula oxygen-titrated to room air. Constipation resolved. Worsening leukocytosis. Improving Hypernatremia due to poor oral intake and dehydration.improved now. elevated BNP acute on chronic Congestive heart failure. Follow-up echocardiogram Elevated troponin level. Possible non-ST elevated SC. paroxysmal A. fib with RVR On anticoagulation with Eliquis. COPD dementia GERD Hyperlipidemia Hypertension History of coronary artery disease Hypothyroidism Plan: Patient is being continued on antibiotics in the form of cefepime andFlagyl. Pulmonary is on board. patient will be continued on stool softeners and laxatives. 2-D echocardiogram was ordered patient was seen by cardiology due to elevated troponin level. no further workup recommended at this time. Patient is able to swallow and encourage oral intake. Continue with D5 water and monitor sodium level-changed to normal saline. continue with breathing treatmentsand follow closely. Further recommendations based on the clinical course. Time with Patient: Greater than 30
[2019-09-15] MEDS: metroNIDAZOLE 500 MG TAB PO SCH ×4 (00:25→23:05)
[2019-09-15] MEDS: SODIUM CHLORIDE 0.45% 1,000 ML IV SCH ×2 (00:37→16:45)
[2019-09-15] MEDS: HALOPERIDOL LACTATE 5 MG/ML 1 ML VIAL IVP PRN (02:20)
[2019-09-15] MEDS: IPRATROPIUM-ALBUTEROL 3 ML NEB INHALATION SCH ×6 (03:27→23:26)
[2019-09-15] MEDS ORDERED: LORazepam 2 MG/ML INJ IV STA (03:53)
[2019-09-15] MEDS: SODIUM CHLORIDE 0.9% 1,000 ML IV SCH ×2 (04:12→16:45)
[2019-09-15] MEDS: LEVOTHYROXINE 75 MCG TAB PO SCH (06:18)
[2019-09-15] MEDS: LEVOTHYROXINE 100 MCG TAB PO SCH (06:18)
[2019-09-15] MEDS: DULoxetine HCL 30 MG CAPSULE.DR PO SCH (06:18)
[2019-09-15] MEDS: LISINOPRIL 20 MG TAB PO SCH (06:18)
[2019-09-15] MEDS: DULoxetine HCL 60 MG CAPSULE.DR PO SCH (06:18)
[2019-09-15] MEDS: POTASSIUM CHLORIDE ER 10 MEQ TAB.ER.PRT PO SCH (06:18)
[2019-09-15] MEDS: ARTIFICIAL TEARS-HYPROMELLOSE DROPS 15 ML BTL BOTH EYES SCH ×2 (06:18→20:31)
[2019-09-15 07:00] LABS: Basophils % (A) 0 %; Eosinophils # (A) 0.1 k/uL (0-0.7); Eosinophils % (A) 0 %; HCT 32.8 % (34.0-46.0); HGB 10.3 gm/dL (11.4-16.0); Hypochromasia Marked; Lymphocytes % (A) 5 %; MCH 30.6 pg (25.0-35.0); MCHC 31.3 g/dL (31.0-37.0); MCV 97.6 fL (80.0-100.0); Mean Platelet Volume 8.3; Monocytes # (A) 0.6 k/uL (0-1.0); Monocytes % (A) 3 %; Neutrophils # (A) 18.8 k/uL (1.3-7.7); Neutrophils % (A) 91 %; Platelet Count 354 k/uL (150-450); RBC 3.36 m/uL (3.80-5.40); RDW 13.7 % (11.5-15.5); WBC 20.7 k/uL (3.8-10.6)
[2019-09-15 07:15] LABS: African American GFR (CKD) >90 (>60 ml/min/1.73 sqM); Anion Gap 7 mmol/L; Blood Urea Nitrogen 24 mg/dL (7-17); Calcium 8.3 mg/dL (8.4-10.2); Carbon Dioxide 29 mmol/L (22-30); Chloride 107 mmol/L (98-107); Glucose 121 mg/dL (74-99); Non-African American GFR(CKD) 86 (>60 ml/min/1.73 sqM); Potassium 3.9 mmol/L (3.5-5.1); Sodium 143 mmol/L (137-145)
[2019-09-15] MEDS: METOPROLOL TARTRATE 25 MG TAB PO SCH ×3 (09:08→20:30)
[2019-09-15] MEDS: CHOLECALCIFEROL 1,000 UNIT TAB PO SCH (09:08)
[2019-09-15] MEDS: CEFEPIME 1 GM in SODIUM CHLORIDE 0.9% 50 ML IVPB SCH ×2 (09:08→20:30)
[2019-09-15] MEDS: APIXABAN 5 MG TAB PO SCH ×2 (09:08→20:31)
--- NOTE | 2019-09-15 15:36 | P.PN ---
Subjective Progress Note Date: 09/15/19 On 09/10/2019 I'm seeing the patient for a follow-up. The patient was seen by my partner in consultation yesterday. She came in for shortness of breath in the right lower lobe pneumonia which is thought to be related to an aspiration pneumonia. Health status. Pneumonia cannot be completely occluded. The patient has COPD. She has dementia. She is a residential resident. She also has CHF and her comorbidities include hypertension and hyperlipidemia and coronary artery disease with previous ID along with hypothyroidism and chronic anxiety and depression. She is currently covered with IV cefepime. She is also on DuoNeb nebulized treatments around the clock. Her labs from today show a white cell count of 16.4. The sodium level is at 151 and the patient's BUN is at 42 with a creatinine of 0.9. She had a troponin max of 1.08 and 60 of the chest pain. ProBNP level was 10,000. She is receiving fluids. She is receiving IV Lasix which will be discontinued for now. The patient has dimi nished oral intake. She passed swallow evaluation done today. on 09/11/2019 the patient is being seen for a follow-up. She is on D5 water at 75 mL an hour and her hyponatremia is improving. He has dropped down to 48 and the patient is looking better hydrated compared to yesterday. Ultimately they have stop the IV fluids and the patient is being encouraged to take oral intake. Slightly confused. Otherwise no new complaints. No signs of any respiratory distress. She passed her swallow evaluation. No reported aspiration. No abdominal distention. Echocardiogram showed a moderate concentric left ventricle hypertrophy. Ejection fraction was 50-55%. No significant valvular abnormalities noted.the patient remains on a combination of cefepime and Flagyl. Follow-up chest is a is to be obtained in a.m. On 09/12/2019 the patient is resting comfortably in bed. She is on oxygen at 3 L. The follow-up chest x-ray was done and shows a stable right lung pneumonia/infiltrate. I do not think there is any interval worsening. She is on a combination of cefepime and Flagyl. She is getting D5 water at the rate of 40 mL an hour. The sodium level is at 142. I'm going to have to switch her to normal saline at the rate of 50 mL an hour. No new complaints otherwise for now. She passed her swallow evaluation. She is tolerating diet. No in her mental status. She is or OA1-2. On 09/13/2019 the patient seemed currently resting comfortably in bed. no acute distress. Maintaining her saturations in the 90s on room air. She has been somewhat confused. She pulled her IV out today. Taking her hospital gown off. She's been awake most of the day. Her appetite has been poor. Her white count is up to 25. She was to be on cefepime and Flagyl. IV to be restarted. on 09/14/2019 I'm seeing the patient for a follow-up. Clinically same as yesterday. Repeat chest x-ray was done yesterday and the right lower lobe pneumonia seems to be improving. She is on oxygen at the details. IV was be established and the patient was maintained on a combination of antibiotics including IV cefepime and Flagyl. Her white cell count is still elevated however and this is something that we are monitoring. Flat film of the abdomen showed nonspecific gas pattern. She is passing flatus and bowel movements patient was given a suppository and Dulcolax. Her mental status still off and she is or OA1-2. She has underlying dementia. Lasix back on IV fluids at the rate of 75 mL an hour normal saline. The patient is seen today 09/15/2019 in follow-up on the selective care unit. She is currently resting comfortably in bed. Awake and alert in no acute distress. Denies any worsening shortness of breath, cough or congestion. She's been afebrile. Currently maintaining O2 saturations in the 90s on 2 L/m per nasal cannula. Her white count is slightly improved at 20.7. Hemoglobin 10.3. Creatinine 0.70. She remains on cefepime and Flagyl. Anticoagulated with Eliquis. Objective - Vital Signs Vital signs: Vital Signs Temp 97.4 F L 09/15/19 08:00 Pulse 104 H 09/15/19 12:00 Resp 20 09/15/19 12:00 BP 125/58 09/15/19 12:00 Pulse Ox 92 L 09/15/19 12:00 Intake & Output 09/14/19 09/15/19 09/15/19 18:59 06:59 18:59 Intake Total 575 Balance 575 Weight 87.5 kg Intake: IV 525 .9 @ 75 525 Intake, IV Titration 50 Amount Cefepime 1 gm In Sodium 50 Chloride 0.9% 50 ml @ 100 mls/hr IVPB Q12HR [facility] Rx #:[id number] Oral 0 Other: # Voids 3 1 # Bowel Movements 1 3 2 - Exam Gen. appearance elderly, pleasant 73-year-old female patient,comfortable likely distress BMI of 30.4. Head exam was generally normal. There was no scleral icterus or corneal arcus. Mucous membranes were it. No JVDs. No goiter or neck masses. Neck was supple and without jugular venous distension, thyromegaly, or carotid bruits. Carotids were easily palpable bilaterally. There was no adenopathy. Lungs sounds are diminished and there are few scattered rhonchi bilaterally. Heart sounds are distant, regular, positive S1-S2 and there is no significant murmurs appreciated Abdominal exam revealed normal bowel sounds. The abdomen was soft, non-tender, and without masses, organomegaly, or appreciable enlargement of the abdominal aorta. Examination of the extremities revealed easily palpable radial, femoral and pedal pulses. There was no cyanosis, clubbing or edema. Examination of the skin revealed no evidence of significant rashes, suspicious appearing nevi or other concerning lesions. Neurologically the patient has dementia - Labs CBC & Chem 7: 09/15/19 06:09 09/15/19 06:09 Labs: Abnormal Lab Results - Last 24 Hours (Table) 09/15/19 09/15/19 Range/Units 06:09 06:09 WBC 20.7 H (3.8-10.6) k/uL RBC 3.36 L (3.80-5.40) m/uL Hgb 10.3 L (11.4-16.0) gm/dL Hct 32.8 L (34.0-46.0) % Neutrophils # 18.8 H (1.3-7.7) k/uL BUN 24 H (7-17) mg/dL Glucose 121 H (74-99) mg/dL Calcium 8.3 L (8.4-10.2) mg/dL Assessment and Plan Assessment: 1 right lower lobe pneumonia, rule out aspiration pneumonia. Rule out healthcare severe pneumonia. Currently on IV cefepime and Flagyl. Currently she is doing well. She is on oxygen at 2 L per minute nasal cannula. 2 Hyperchloremic hypernatremia, recovered and the sodium level is normalized. 3 coronary artery disease elevated BNP, cardiac exam showed a preserved LV function without any significant valvular dysfunction. 4 COPD 5 hypertension 6 hyperlipidemia 7 previous ID 8 hypothyroidism 9 chronic anxiety/depression 10 dementia 11 residential resident 12 Leukocytosis plan the patient was seen and evaluated by Dr. Bryant. She is improved today compared to yesterday. A bit more awake and alert. Occasional loose nonproductive cough. She's been afebrile. Continue cefepime and Flagyl for now. The discharge plan is for her to return to [facility] possibly Tuesday. I, the cosigning physician, performed a history & physical examination of the patient. Lungs sounds few scattered rhonchi. Maintaining good O2 saturations in the 90s on 2 liters per minute per nasal cannula. I discussed the assessment and plan of care with my nurse practitioner, Cielo Mercado. I attest to the above note as dictated by her.
[2019-09-15] MEDS: ALPRAZolam 0.5 MG TAB PO PRN (16:48)
[2019-09-15 16:50] LABS: Glucose,Whole Blood 127 mg/dL (75-99)
[2019-09-15] MEDS: SENNOSIDES-DOCUSATE SODIUM 1 EACH TAB PO SCH (20:30)
[2019-09-15] MEDS: ASPIRIN 81 MG PO SCH (20:30)
[2019-09-15] MEDS: QUEtiapine 25 MG TAB PO PRN (20:30)
--- NOTE | 2019-09-15 21:34 | XR ---
KUB HISTORY: Abdomen pain Frontal KUB submitted on 2 images and correlated to prior abdomen 09/14/2019 There is contrast material throughout the distribution of the colon. There is some distended loops of small bowel present. Lung bases are clear. No evident pneumoperitoneum. Gas-filled stomach is also n oted. IMPRESSION: Correlate for ileus, possible small bowel obstruction. Findings are similar to prior exam .
[2019-09-16] MEDS: IPRATROPIUM-ALBUTEROL 3 ML NEB INHALATION SCH ×5 (03:36→19:42)
[2019-09-16 06:17] LABS: Basophils % (A) 0 %; Eosinophils # (A) 0.2 k/uL (0-0.7); Eosinophils % (A) 1 %; HCT 31.6 % (34.0-46.0); HGB 9.6 gm/dL (11.4-16.0); Hypochromasia Marked; Lymphocytes # (A) 1.1 k/uL (1.0-4.8); Lymphocytes % (A) 7 %; MCH 30.2 pg (25.0-35.0); MCHC 30.4 g/dL (31.0-37.0); MCV 99.4 fL (80.0-100.0); Mean Platelet Volume 8.3; Monocytes # (A) 0.6 k/uL (0-1.0); Monocytes % (A) 4 %; Neutrophils # (A) 12.7 k/uL (1.3-7.7); Neutrophils % (A) 87 %; Platelet Count 304 k/uL (150-450); RBC 3.18 m/uL (3.80-5.40); RDW 13.9 % (11.5-15.5); WBC 14.6 k/uL (3.8-10.6)
[2019-09-16] MEDS: DULoxetine HCL 30 MG CAPSULE.DR PO SCH (06:25)
[2019-09-16] MEDS: DULoxetine HCL 60 MG CAPSULE.DR PO SCH (06:25)
[2019-09-16] MEDS: LISINOPRIL 20 MG TAB PO SCH (06:25)
[2019-09-16] MEDS: LEVOTHYROXINE 100 MCG TAB PO SCH (06:25)
[2019-09-16] MEDS: LEVOTHYROXINE 75 MCG TAB PO SCH (06:25)
[2019-09-16] MEDS: ARTIFICIAL TEARS-HYPROMELLOSE DROPS 15 ML BTL BOTH EYES SCH ×2 (06:25→19:48)
[2019-09-16] MEDS: POTASSIUM CHLORIDE ER 10 MEQ TAB.ER.PRT PO SCH (06:25)
[2019-09-16] MEDS: SODIUM CHLORIDE 0.9% 1,000 ML IV SCH ×2 (07:58→19:49)
[2019-09-16] MEDS ORDERED: HEPARIN SODIUM,PORCINE 5,000 UNIT/ML 1 ML VIAL IV PRN (08:28)
[2019-09-16] MEDS ORDERED: HEPARIN SODIUM,PORCINE 5,000 UNIT/ML 1 ML VIAL IV ONE (08:28)
[2019-09-16] MEDS: metroNIDAZOLE 500 MG TAB PO SCH (08:31)
[2019-09-16] MEDS ORDERED: ACETAMINOPHEN IV (For NPO) 1,000 MG in EMPTY BAG 1 BAG IVPB PRN (08:35)
[2019-09-16] MEDS: CEFEPIME 1 GM in SODIUM CHLORIDE 0.9% 50 ML IVPB SCH ×2 (08:44→19:47)
[2019-09-16] MEDS: METOPROLOL TARTRATE 5 MG/5 ML VIAL IVP SCH ×3 (08:44→21:02)
[2019-09-16 09:28] LABS: ALT 26 U/L (4-34); AST 33 U/L (14-36); African American GFR (CKD) >90 (>60 ml/min/1.73 sqM); Albumin 2.7 g/dL (3.5-5.0); Alkaline Phosphatase 105 U/L (38-126); Anion Gap 4 mmol/L; Blood Urea Nitrogen 20 mg/dL (7-17); Calcium 7.9 mg/dL (8.4-10.2); Carbon Dioxide 29 mmol/L (22-30); Chloride 113 mmol/L (98-107); Glucose 114 mg/dL (74-99); Non-African American GFR(CKD) 89 (>60 ml/min/1.73 sqM); Potassium 4.1 mmol/L (3.5-5.1); Sodium 146 mmol/L (137-145); Total Bilirubin 0.4 mg/dL (0.2-1.3); Total Protein 5.2 g/dL (6.3-8.2)
[2019-09-16 09:30] LABS: Partial Thromboplastin Time 22.2 sec (22.0-30.0); Prothrombin Time 10.8 sec (9.0-12.0)
[2019-09-16] MEDS: HEPARIN SOD,PORK IN 0.45% NACL 25,000 UNIT in 0.45% NACL 1 250ML.BAG IV SCH (09:47)
--- NOTE | 2019-09-16 09:47 | XR ---
EXAMINATION TYPE: XR chest 1V DATE OF EXAM: 09/16/2019 HISTORY: fever/ RO infection fluid . REFERENCE: Previous study dated 09/13/2019. Heart There continues to be residual infiltrate in the ri ght lower lobe. Left lung is clear. The heart is mildly prominent. I could not exclude small, bilater al effusions. IMPRESSION: MINIMAL RESIDUAL RIGHT LOWER LOBE AIRSPACE DISEASE.
[2019-09-16] MEDS: metroNIDAZOLE-NS PMX 500 MG in SALINE 1 100ML.BAG IVPB SCH ×3 (10:24→23:29)
--- NOTE | 2019-09-16 14:40 | P.PN ---
Subjective Progress Note Date: 09/16/19 On 09/16/2019, the patient is complaining of abdominal distention. [facility] any [facility] movement activity. Flat film of the abdomen was done yesterday and it raises the concern for an underlying ileus. Note that her renal function is stable. She has no signs of any significant respiratory distress. She is on oxygen at 2 L per minute nasal cannula. She is unable to take her oral medications and she was switched to IV medications including IV heparin. She remains on a combination of cefepime and Flagyl. Note that the patient has had a previous aspiration pneumonia of the right lower lobe that was treated with antibiotics. She has dementia along with COPD. Her comorbid conditions include CHF, hypertension, hyperlipidemia, coronary artery disease with previous MN in addition to chronic anxiety and depression and hypothyroidism. Her sodium level on today's evaluation is improved. She is off Lasix for now. No nausea. No vomiting. No emesis. Gen. surgery has been consulted regarding this abdominal distention. Objective - Vital Signs Vital signs: Vital Signs Temp 98.4 F 09/16/19 10:23 Pulse 94 09/16/19 12:09 Resp 22 09/16/19 08:00 BP 134/69 09/16/19 09:55 Pulse Ox 95 09/16/19 08:00 Intake & Output 09/15/19 09/16/19 09/16/19 18:59 06:59 18:59 Weight 86.5 kg Other: Voiding Method Diaper # Voids 1 1 0 # Bowel Movements 2 1 - Exam Gen. appearance elderly, comfortable likely distress BMI of 30.4. Head exam was generally normal. There was no scleral icterus or corneal arcus. Mucous membranes were it. No JVDs. No goiter or neck masses. Neck was supple and without jugular venous distension, thyromegaly, or carotid bruits. Carotids were easily palpable bilaterally. There was no adenopathy. Lungs sounds are diminished and there are crackles in the right lung base more than the left. Heart sounds are distant, regular, positive S1-S2 and there is no significant murmurs appreciated Abdominal exam diminished bowel sounds along with some abdominal distention. No direct tenderness no rebound tenderness or guarding at this point in time. Examination of the extremities revealed easily palpable radial, femoral and pedal pulses. There was no cyanosis, clubbing or edema. Examination of the skin revealed no evidence of significant rashes, suspicious appearing nevi or other concerning lesions. Neurologically the patient has dementia - Labs CBC & Chem 7: 09/16/19 05:53 09/16/19 05:53 Labs: Abnormal Lab Results - Last 24 Hours (Table) 09/15/19 09/16/19 09/16/19 Range/Units 16:43 05:53 05:53 WBC 14.6 H (3.8-10.6) k/uL RBC 3.18 L (3.80-5.40) m/uL Hgb 9.6 L (11.4-16.0) gm/dL Hct 31.6 L (34.0-46.0) % MCHC 30.4 L (31.0-37.0) g/dL Neutrophils # 12.7 H (1.3-7.7) k/uL Sodium 146 H (137-145) mmol/L Chloride 113 H (98-107) mmol/L BUN 20 H (7-17) mg/dL Glucose 114 H (74-99) mg/dL POC Glucose (mg/dL) 127 H (75-99) mg/dL Calcium 7.9 L (8.4-10.2) mg/dL Total Protein 5.2 L (6.3-8.2) g/dL Albumin 2.7 L (3.5-5.0) g/dL Assessment and Plan Plan: 1 right lower lobe pneumonia, rule out aspiration pneumonia. Rule out healthcare severe pneumonia. Currently on IV cefepime and Flagyl. Currently she is doing well. She is on oxygen at 2 L per minute nasal cannula. 2 Hyperchloremic hypernatremia, recovered and the sodium level is normalized. 3 coronary artery disease elevated BNP, cardiac exam showed a preserved LV function without any significant valvular dysfunction. 4 COPD 5 hypertension 6 hyperlipidemia 7 previous MN 8 hypothyroidism 9 chronic anxiety/depression 10 dementia 11 custodial resident 12 Leukocytosis, improving 13 small bowel ileus and currently the patient is nothing by mouth and general surgery consultation has been requested. plan Continue cefepime and IV Flagyl. . The right lower lobe pneumonia is improving. Wean down the FiO2. provide the patient incentive spirometer. Obtain a follow-up CAT scan of the abdomen chest to evaluate her abdominal findings. ng tube is needed. we'll continue to follow. her code status is dnr/dni.
--- NOTE | 2019-09-16 14:42 | P.GSCN ---
History of Present Illness Consult date: 09/16/19 History of present illness: this 73-year-old female with multiple medical comorbidities as detailed in chart. She states that she has chronic constipation she has not had a bowel movement for several days. She is unsure of her last bowel movement. She states that she has not passed flatus today. She denies any nausea or vomiting. She has some distended small bowel on KUB film yesterday. There is also a large stool burden noted within her colon.she has history of section and appendectomy. Past Medical History Past Medical History: Heart Failure, COPD, Dementia, GERD/Reflux, Hyperlipidemia, Hypertension, Myocardial Infarction (HI), Thyroid Disorder Last Myocardial Infarction Date:: 09/07/19 History of Any Multi-Drug Resistant Organisms: None Reported Past Surgical History: Adenoidectomy, Appendectomy, Section, Hysterectomy, Orthopedic Surgery, Tonsillectomy Additional Past Surgical History / Comment(s): thyroidectomy Smoking Status: Former smoker - Past Family History Mother Family Medical History: Diabetes Mellitus Father Family Medical History: Myocardial Infarction (HI) Medications and Allergies Home Medications Medication Instructions Recorded Confirmed Type Aspirin 81 mg PO HS@209909/29/16 09/08/19 History Atorvastatin Calcium [Lipitor] 20 mg PO HS@209909/29/16 09/08/19 History Clopidogrel Bisulfate [Plavix] 75 mg PO HS@209909/29/16 09/08/19 History Furosemide [Lasix] 40 mg PO DAILY@0600 09/29/16 09/08/19 History HYDROcodone/APAP 5-325MG [[place] 1 tab PO Q6HR PRN 09/29/16 09/08/19 History 5-325] HYDROcodone/APAP 5-325MG [[place] 1 tab PO TID@0600,1300,2100 09/29/16 09/08/19 History 5-325] Lisinopril [Zestril] 20 mg PO DAILY@0600 09/29/16 09/08/19 History Magnesium Hydroxide [Milk of 2,400 mg PO DAILY PRN 09/29/16 09/08/19 History Magnesia] Potassium Chloride [Klor-Con 10] 10 meq PO DAILY@0600 09/29/16 09/08/19 History Sennosides-Docusate Sodium 1 tab PO HS@209909/29/1619 History [Senokot-S] guaiFENesin SYRUP 100MG/5ML 200 mg PO Q4H PRN 09/29/16 09/08/19 History [Robitussin] ALPRAZolam [Xanax] 0.5 mg PO BID@1300,1700 09/08/19 09/08/19 History Acetaminophen Tab [Tylenol Tab] 650 mg PO Q4H PRN 09/08/19 09/08/19 History Artificial Tears-Hypromellose 1 drops BOTH EYES BID@0600,2100 09/08/19 09/08/19 History [Artificial Tear Drops] Bisacodyl [Dulcolax] 10 mg PO DAILY PRN 09/08/19 09/08/19 History Cholecalciferol [Vitamin D3 (25 1,000 unit PO DAILY@1300 09/08/19 09/08/19 History Mcg = 1000 Iu)] DULoxetine HCL [Cymbalta] 30 mg PO DAILY@0600 09/08/19 09/08/19 History DULoxetine HCL [Cymbalta] 60 mg PO DAILY@0600 09/08/19 09/08/19 History Levothyroxine Sodium [Synthroid] 175 mcg PO DAILY@0600 09/08/19 09/08/19 History Sodium Chloride [Saline Nasal 1 spray EA NOSTRIL DAILY PRN 09/08/19 09/08/19 History [place]] guaiFENesin 400 mg PO Q4H PRN 09/08/19 09/08/19 History Allergies Allergy/AdvReac Type Severity Reaction Status Date / Time Penicillins Allergy Unknown Verified 09/08/19 14:33 strawberry Allergy Unknown Verified 09/08/19 14:33 Surgical - Exam Osteopathic Statement: *. No significant issues noted on an osteopathic structural exam other than those noted in the History and Physical/Consult. Vital Signs Temp Pulse Resp BP Pulse Ox 97.8 F 92 22 115/64 92 L 09/08/19 13:57 09/08/19 13:57 09/08/19 13:57 09/08/19 13:57 09/08/19 13:57 - General no distress - Eyes PERRL - Neck trachea midline - Respiratory normal expansion - Cardiovascular Rhythm: regular - Abdomen soft nontender distended no rebound rigidity or guarding - Psychiatric oriented to person Results - Labs 09/16/19 05:53 09/16/19 05:53 Abnormal Lab Results - Last 24 Hours (Table) 09/15/19 09/16/19 09/16/19 Range/Units 16:43 05:53 05:53 WBC 14.6 H (3.8-10.6) k/uL RBC 3.18 L (3.80-5.40) m/uL Hgb 9.6 L (11.4-16.0) gm/dL Hct 31.6 L (34.0-46.0) % MCHC 30.4 L (31.0-37.0) g/dL Neutrophils # 12.7 H (1.3-7.7) k/uL Sodium 146 H (137-145) mmol/L Chloride 113 H (98-107) mmol/L BUN 20 H (7-17) mg/dL Glucose 114 H (74-99) mg/dL POC Glucose (mg/dL) 127 H (75-99) mg/dL Calcium 7.9 L (8.4-10.2) mg/dL Total Protein 5.2 L (6.3-8.2) g/dL Albumin 2.7 L (3.5-5.0) g/dL Diabetes panel 09/16/19 Range/Units 05:53 Sodium 146 H (137-145) mmol/L Potassium 4.1 (3.5-5.1) mmol/L Chloride 113 H (98-107) mmol/L Carbon Dioxide 29 (22-30) mmol/L BUN 20 H (7-17) mg/dL Creatinine 0.63 (0.52-1.04) mg/dL Glucose 114 H (74-99) mg/dL Calcium 7.9 L (8.4-10.2) mg/dL AST 33 (14-36) U/L ALT 26 (4-34) U/L Alkaline Phosphatase 105 (38-126) U/L Total Protein 5.2 L (6.3-8.2) g/dL Albumin 2.7 L (3.5-5.0) g/dL Calcium panel 09/16/19 Range/Units 05:53 Calcium 7.9 L (8.4-10.2) mg/dL Albumin 2.7 L (3.5-5.0) g/dL Pituitary panel 09/16/19 Range/Units 05:53 Sodium 146 H (137-145) mmol/L Potassium 4.1 (3.5-5.1) mmol/L Chloride 113 H (98-107) mmol/L Carbon Dioxide 29 (22-30) mmol/L BUN 20 H (7-17) mg/dL Creatinine 0.63 (0.52-1.04) mg/dL Glucose 114 H (74-99) mg/dL Calcium 7.9 L (8.4-10.2) mg/dL Adrenal panel 09/16/19 Range/Units 05:53 Sodium 146 H (137-145) mmol/L Potassium 4.1 (3.5-5.1) mmol/L Chloride 113 H (98-107) mmol/L Carbon Dioxide 29 (22-30) mmol/L BUN 20 H (7-17) mg/dL Creatinine 0.63 (0.52-1.04) mg/dL Glucose 114 H (74-99) mg/dL Calcium 7.9 L (8.4-10.2) mg/dL Total Bilirubin 0.4 (0.2-1.3) mg/dL AST 33 (14-36) U/L ALT 26 (4-34) U/L Alkaline Phosphatase 105 (38-126) U/L Total Protein 5.2 L (6.3-8.2) g/dL Albumin 2.7 L (3.5-5.0) g/dL Assessment and Plan Assessment: constipation versus small bowel obstruction/ileus Plan: patient does have some distention she is not expressing any nausea at this time. She has a large stool burden in her colon. I recommend stool softeners, suppositories, and enema as needed. Patient should remain nothing by mouth until further bowel movement. Should she become nauseous or have increasing abdominal pain NG tube could be placed. No plans for surgical intervention at this time
[2019-09-16] MEDS ORDERED: MINERAL OIL 133 ML ENEMA RECTAL STA (14:43)
--- NOTE | 2019-09-16 18:10 | CT ---
EXAMINATION TYPE: CT abdomen pelvis wo con DATE OF EXAM: 09/16/2019 COMPARISON: None HISTORY: Possible ileus. CT DLP: 895.1 mGycm Automated exposure control for dose reduction was used. multiple axial sections were obtained from the diaphragm to the floor the pelvis with no contrast. There is moderate right pleural effusion. There is right lower lobe infiltrate and atelectasis. Left lung base is clear. Heart size is normal. There is no pericardial effusion. Stomach is intact. There are multiple calcified gallstones. Gallbladder is distended and measures 5 c m in diameter. The bile ducts are not dilated. Liver shows no focal defect. Spleen is intact. There i s no pancreatic mass. There is no adrenal mass. Kidneys show normal size and contour. There is no hydronephrosis. Ureters a re not dilated. There is no retroperitoneal adenopathy. There are are multiple distended fluid-filled loops of small bowel. Small bowel is dilated up to 4.2 cm. Distal small bowel is not dilated. There is some contrast in the large bowel. Bladder distends smoothly. There is no inguinal hernia. There is no free fluid in the pelvis. There i s no evidence of pelvic mass. There is no evidence of free air. There is no ascites. Lumbar vertebra have normal alignment. Disc spaces are fairly normal. Posterior elements are intact. Facet joints are intact. Abdominal aorta is atheromatous. IMPRESSION: Right pleural effusion and right lower lobe infiltrate and atelectasis. Dilated gallbladder with gallstones. This is suggestive of cholecystitis. Dilated small bowel in the mid abdomen consistent with partial mechanical small bowel obstruction or small bowel ileus. Transition point not identified.
[2019-09-16] MEDS: ASPIRIN 81 MG PO SCH (19:42)
[2019-09-16] MEDS: ALPRAZolam 0.5 MG TAB PO PRN (19:47)
[2019-09-16] MEDS: SENNOSIDES-DOCUSATE SODIUM 1 EACH TAB PO SCH (19:47)
[2019-09-16] MEDS: QUEtiapine 25 MG TAB PO PRN (19:47)
[2019-09-16] MEDS: DOCUSATE 100 MG CAP PO SCH (19:47)
[2019-09-16] MEDS ORDERED: IPRATROPIUM-ALBUTEROL 3 ML NEB INHALATION PRN (21:17)
[2019-09-17 03:27] LABS: Basophils # (A) 0.1 k/uL (0-0.2); Basophils % (A) 1 %; Eosinophils # (A) 0.2 k/uL (0-0.7); Eosinophils % (A) 2 %; HCT 32.9 % (34.0-46.0); HGB 9.5 gm/dL (11.4-16.0); Hypochromasia Marked; Lymphocytes # (A) 1.4 k/uL (1.0-4.8); Lymphocytes % (A) 11 %; MCH 30.1 pg (25.0-35.0); MCHC 28.9 g/dL (31.0-37.0); MCV 104.3 fL (80.0-100.0); Macrocytosis Slight; Mean Platelet Volume 8.5; Monocytes # (A) 0.5 k/uL (0-1.0); Monocytes % (A) 4 %; Neutrophils # (A) 10.3 k/uL (1.3-7.7); Neutrophils % (A) 82 %; Platelet Count 239 k/uL (150-450); RBC 3.16 m/uL (3.80-5.40); RDW 13.8 % (11.5-15.5); WBC 12.6 k/uL (3.8-10.6)
[2019-09-17] MEDS: HEPARIN SOD,PORK IN 0.45% NACL 25,000 UNIT in 0.45% NACL 1 250ML.BAG IV SCH ×2 (03:32→21:07)
[2019-09-17] MEDS: LISINOPRIL 20 MG TAB PO SCH (05:04)
[2019-09-17] MEDS: LEVOTHYROXINE 75 MCG TAB PO SCH (05:04)
[2019-09-17] MEDS: DULoxetine HCL 60 MG CAPSULE.DR PO SCH (05:04)
[2019-09-17] MEDS: DULoxetine HCL 30 MG CAPSULE.DR PO SCH (05:04)
[2019-09-17] MEDS: ARTIFICIAL TEARS-HYPROMELLOSE DROPS 15 ML BTL BOTH EYES SCH ×2 (05:04→21:03)
[2019-09-17] MEDS: LEVOTHYROXINE 100 MCG TAB PO SCH (05:04)
[2019-09-17] MEDS: POTASSIUM CHLORIDE ER 10 MEQ TAB.ER.PRT PO SCH (05:04)
[2019-09-17] MEDS: IPRATROPIUM-ALBUTEROL 3 ML NEB INHALATION SCH ×4 (08:24→20:08)
[2019-09-17] MEDS: METOPROLOL TARTRATE 5 MG/5 ML VIAL IVP SCH ×3 (09:14→21:06)
[2019-09-17] MEDS: metroNIDAZOLE-NS PMX 500 MG in SALINE 1 100ML.BAG IVPB SCH ×3 (09:14→23:29)
[2019-09-17] MEDS: DOCUSATE 100 MG CAP PO SCH ×2 (09:15→21:05)
[2019-09-17] MEDS: SODIUM CHLORIDE 0.9% 1,000 ML IV SCH (09:15)
--- NOTE | 2019-09-17 12:35 | P.PN ---
Subjective Progress Note Date: 09/17/19 Principal diagnosis: right lower lobe pneumonia, possibly related to aspiration pneumonia versus healthcare acquired pneumonia On 09/16/2019, the patient is complaining of abdominal distention. [facility] not having any [facility] movement activity. Flat film of the abdomen was done yesterday and it raises the concern for an underlying ileus. Note that her renal function is stable. She has no signs of any significant respiratory distress. She is on oxygen at 2 L per minute nasal cannula. She is unable to take her oral medications and she was switched to IV medications including IV heparin. She remains on a combination of cefepime and Flagyl. Note that the patient has had a previous aspiration pneumonia of the right lower lobe that was treated with antibiotics. She has dementia along with COPD. Her comorbid conditions include CHF, hypertension, hyperlipidemia, coronary artery disease with previous WI in addition to chronic anxiety and depression and hypothyroidism. Her sodium level on today's evaluation is improved. She is off Lasix for now. No nausea. No vomiting. No emesis. Gen. surgery has been consulted regarding this abdominal distention. On 09/17/2019 patient seen in follow-up on selective care unit, she is resting comfortably in bed, in no acute distress, she is on 3 L of oxygen and the pulse ox of 98%, she is hemodynamically stable, she is afebrile, she denies worsening shortness of breath, seems to be quite comfortable at rest, she states she has not been up out of bed, lung sounds reveal crackles at the at the left base. no abdominal discomfort, no tenderness on palpation, abdomen is soft, no nausea or vomiting, CT of abdomen and pelvis was obtained showing right pleural effusion and right lower lobe infiltrate and atelectasis, dilated gallbladder with gallstones suggestive of cholecystitis, dilated small bowel consistent with partial mechanical small bowel obstruction with small bowel ileus. Patient was seen by surgery, and no surgical intervention is planned at this time, there have been no nausea or vomiting. Abdomen is nontender, soft. antibiotic coverage is finished of cefepime and Flagyl. Objective - Vital Signs Vital signs: Vital Signs Temp 98.1 F 09/17/19 11:53 Pulse 89 09/17/19 11:53 Resp 18 09/17/19 11:53 BP 132/61 09/17/19 11:53 Pulse Ox 98 09/17/19 11:53 Intake & Output 09/16/19 09/17/19 09/17/19 18:59 06:59 18:59 Intake Total 56.372 761.425 136.731 Output Total 170 Balance 56.372 591.425 136.731 Weight 88.1 kg Intake: IV 600 .9 @ 75 600 Intake, IV Titration 56.372 161.425 136.731 Amount Heparin Sod,Pork in 0.45% 56.372 161.425 136.731 NaCl 25,000 unit In 0.45 % NaCl 1 250ml.bag @ 11.5 UNITS/KG/HR 9.948 mls/hr IV .Q24H [facility] Rx#: [id number] Output: Urine 170 Other: Voiding Method Diaper Diaper Incontinent # Voids 2 1 - Exam GENERAL EXAM: Alert, comfortable, 73-year-old female on 3 L of oxygen with a pulse ox of 98%in no apparent distress. HEAD: Normocephalic/atraumatic. EYES: Normal reaction of pupils, equal size. Conjunctiva pink, sclera white. NOSE: Clear with pink turbinates. THROAT: No erythema or exudates. NECK: No masses, no JVD, no thyroid enlargement, no adenopathy. CHEST: No chest wall deformity. Symmetrical expansion. LUNGS: Equal air entry with crackles at the left base, but no wheeze, rhonchi or dullness. CVS: Regular rate and rhythm, normal S1 and S2, no gallops, no murmurs, no rubs ABDOMEN: Soft, nontender. No hepatosplenomegaly, normal bowel sounds, no guarding or rigidity. EXTREMITIES: No clubbing, no edema, no cyanosis, 2+ pulses and upper and lower extremities. MUSCULOSKELETAL: Muscle strength and tone normal. SPINE: No scoliosis or deformity SKIN: No rashes CENTRAL NERVOUS SYSTEM: Alert and oriented -2. No focal deficits, tone is normal in all 4 extremities. PSYCHIATRIC: Alert and oriented -2. Appropriate affect. Intact judgment and insight. - Labs CBC & Chem 7: 09/17/19 03:02 09/16/19 05:53 Labs: Abnormal Lab Results - Last 24 Hours (Table) 09/16/19 09/16/19 09/17/19 Range/Units 14:30 20:06 03:02 WBC 12.6 H (3.8-10.6) k/uL RBC 3.16 L (3.80-5.40) m/uL Hgb 9.5 L (11.4-16.0) gm/dL Hct 32.9 L (34.0-46.0) % MCV 104.3 H (80.0-100.0) fL MCHC 28.9 L (31.0-37.0) g/dL Neutrophils # 10.3 H (1.3-7.7) k/uL APTT 41.3 H 38.6 H (22.0-30.0) sec 09/17/19 09/17/19 Range/Units 03:02 09:13 WBC (3.8-10.6) k/uL RBC (3.80-5.40) m/uL Hgb (11.4-16.0) gm/dL Hct (34.0-46.0) % MCV (80.0-100.0) fL MCHC (31.0-37.0) g/dL Neutrophils # (1.3-7.7) k/uL APTT 36.3 H 83.6 H (22.0-30.0) sec Microbiology - Last 24 Hours (Table) 09/15/19 21:41 Blood Culture - Preliminary Blood No Growth after 24 hours 09/15/19 21:12 Blood Culture - Preliminary Blood No Growth after 24 hours Assessment and Plan Plan: assessment: #1. Right lower lobe pneumonia, rule out aspiration versus healthcare acquired pneumonia and accommodation cefepime and Flagyl #2. Hyperchloremic hypernatremia, recovered and the serum sodium level has normalized #3. Abdominal pain, nausea and vomiting, CT of abdomen and pelvis showed d ilated gallbladder with gallstones, suggestive of cholecystitis, and partial mechanical small bowel obstruction or small bowel ileus #4. coronary artery disease #5. COPD #6. Hypertension #7. Hyperlipidemia #8. Previous history of myocardial infarction #9. Hypothyroidism #10. Chronic anxiety/depression #11. Dementia #12. halfway resident Plan: Continue current antibiotic coverage, patient has been afebrile,maintain stable oxygenation on 3 L, no signs of rest or distress, patient is nothing by mouth currently, denies any abdominal pain, no nausea or vomiting, surgical services have evaluated the patient and no surgery is planned at this time. Encouraged incentive spirometry use, increase activity, consult physical therapy. Interval I performed a history & physical examination of the patient and discussed their management with my nurse practitioner, Sylvia Bailey. I reviewed the nurse practitioner's note and agree with the documented findings and plan of care. Lung sounds are positive for crackles at the left lung base. The findings and the impression was discussed with the patient. I attest to the documentation by the nurse practitioner. Time with Patient: Less than 30
--- NOTE | 2019-09-17 13:13 | P.CON ---
Consult Note - . Consult date: 09/17/19 Assessment/Plan:: This is a 73-year-old pleasant female being seen by the wound care center for a ulceration to the coccyx. Patient has been in the hospital since 09/08/2019 and was found to have a stage I pressure ulcer prior to admission. The ulceration has transition to a stage II Limited to skin breakdown. Wound bed shows granulation with minimal slough no undermining or tunneling noted. Periwound skin is attached to the wound bed. Excoriation is noted along the periwound edge. Ulcerations measuring approximately 2 x 2 x 0.1 cm. Patient states that she does not have any discomfort with the area and did not know what with there. Patient's past medical history significant for heart failure, dementia, COPD, chronic hypoxic respiratory failure, GERD, hyperlipidemia, hypertension, coronary artery disease, and hypothyroidism. Patient was sent from [facility] for pneumonia nature fibrillation. Patient is a resident of [facility]. Review Of Systems: Constitutional: No fever, no chills, no night sweats. No weight change. No weakness, fatigue or lethargy. No daytime sleepiness. Integumentary:reports wounds, no lesions. No rash or pruritus. No unusual bruising. No change in hair or nails. Physical exam: General Appearance: Alert, cooperative, no distress, appears stated age. Skin: See HPI all other Skin color, texture, tugor normal, no rashes or lesions. Neurologic: Alert oriented x3 Assessment/plan: 1. Pressure ulcer to coccyx Limited to skin breakdown. Continue to turn every 2 hours. Evaluate surface. Utilize a waffle cushion for sitting in chair. Apply foam with zinc barrier cream to site Tuesday and whenever soiled. May consider outpatient wound care therapy if necessary. They continue with zinc barrier cream to the site daily upon discharge. 2. History of right lower lobe pneumonia 3. History of atrial fibrillation with RVR 4. COPD 5. Dementia 6. Hyperlipidemia 7. Hypertension 8. Hypothyroidism Thank you for the consultation any questions please contact the wound care center. DNP note has been reviewed and discussed with Dr. Torres and the impression and plan of care has been directed as dictated.
--- NOTE | 2019-09-17 17:10 | P.PN ---
Subjective Progress Note Date: 09/15/19 Principal diagnosis: right lower lobe pneumonia elevated troponin level this is a pleasant 73 years old femalewith past medical history of heart failure, dementia, COPD, chronic hypoxic respiratory failure, GERD, hyperlipidemia, hypertension, coronary artery disease, hypothyroidism. Patient was sent from [facility] for pneumonia and atrial fibrillation.[facility] [place] because of shortness of breath, as per patient she is been having shortness of breath for 2 days associated with cough but no flame. She denies chest pain.she has history of COPD on chronic 2 L nasal cannula, at the retirement she desaturated with oxygen as low as 83% with tachycardia at 113. Of note also patient has history of stent for 10 years ago and she is on aspirin and Plavix. EKG showing atrial fibrillation with RVR at 136, with no significant ST-T changes. also the patient has history of aspiration pneumonia and she was have difficulty eating with choking, 1.5-2 years ago vitals showing blood pressure 154/64, saturation 93% on 4 L., Patient is afebrile.labs showing leukocytosis over 20 5.3K,denies normal, sodium 146, creatinine 0.7, sugar is 172. [place] [address]. This can done at [facility] shows no pulmonary emboli but right effusion and right lower lobe infiltrate. Lactic acid 1.4 which is within reference range. ProBNP 1759. WBC is 22.58, hemoglobin is 11.3, platelet count 391. INR is 0.9. Troponin is elevated at 1.29. Sodium 146, liver enzymes showing slight elevation with ALT 65 and AST 44, creatinine 0.8. Magnesium 2.2. 09/09/2019 Patient is lying comfortably in bed, breathing is stable with no worsening dyspnea. She denies chest pain. Vitals are stable and she is saturating 93% on 4 L oxygen. And glucose 116. Showing bibasilar air space disease as per radiologist. It was still pending. Patient is hemodynamically stable. Saturation in the 90s while on 4 L oxygen nasal cannula Echo and swallow evaluation are pending. The meantime continue on cefepime, Cardizem and heparin drip. However heparin drip was switched to Eliquis Also she is on Lasix 40 mg twice daily intravenously. 09/10/2019 Patient is currently awake and alert. Lying in the bed comfortably. No wo rsening shortness of breath. Patient does have underlying dementia. currently being continued onantibiotics in the form of cefepime and Flagyl. Patient has been afebrile. WBC count is16.4 patient did have elevated troponin level. Cardiology is following. 2-D echocardiogram was ordered. Patient is otherwise dehydrated wi sodium level CLI and BUN 42 and creatinine 0.9. IV fluids changed to D5 water. IV Lasix has been discontinued. Patient is able to tolerate oral diet and passed swallow evaluation. 09/11/2019 patient is awake alert andoriented. Does have underlying dementia. Denied any complaints of chest oscar or worsening short Tolerating oral diet. Continued onD5 water. Sodium level improved to 148, leukocytosis is imroving.continued on IV antibiotics cefepime and Flagyl. 2-D echocardiogram showedconcentric left ventricular hypertrophy with ejection fraction 50-55%. No significant valvular abnormalities were noted. current medications reviewed. pulmonary and cardiology is following. 09/12/2019 patient is currently lying in the bed comfortably. Saturating well on 3 L oxyg en with another cannula. no fever or chills. Tolerating oral diet. Currently being continued on antibiotics in the form of Flagyl and cefepime. Otherwise WBC count went up to 22 today.hemoglobin is stable around 10. IV fluids have been changed to normal saline with improvement in hypernatremia.. Follow-up labs tomorrow. Anticipate discharge once the white count is trending down. Pulmonary is following. 11/14/2018 Patient is currently awake and alert and appears to be in no distress. Curren tly saturating well on room air. No complaints of chest pain are worsening shortness of breath. Patient does complain of right lower quadrant abdominal discomfort. Patient did not have bowel movement White count is increasing to 25 today. Currently patient is on safety equipnt Flagyl.CT of abdomen pelvis was ordered but could not be done due toretained contrast from previous study. Chest x-ray was done Patient will be continued on gentle hydration.no fever no chills. No chest pain. 09/14/2019 Patient is awake and alertslightly more lethargic today. patient did have a large bowel moveme today. Chest x-ray done yesterday showed right lower lobe pneumonia, improving. Abdominal x-ray was done which showed normal bowel gas pattern Patient is tolerating oral diet. Continued on antibiotics in the form cefepime and Flagyl. WBC count is still high at 24.5 slight improvement from yesterday. Patient will be continued on IV hydration for 1 day.currently patient is afebrile. no complaints of chest pain or shortness of breath. No nausea vomiting or abdominal pain. 09/15/2020 patient is currently lying in the bed comfortably. No apparent distress. Shortness of breath is stable. Patient has been afebrile. Patient is still complaining of abdominal discomfort. Abdominal x-ray was done yesterday showed normal bowel gas pattern. Otherwise patient is being continued on IV antibio tics in the form of cefepime and Flagyl. Pulmonary is following. WBC count is trending down to 20.7. Hemoglobin 10.2 and creatinine 0.7. Currently on anticoagulation with eliquis. Active Medications Acetaminophen (Tylenol Tab) 650 mg PO Q4H PRN PRN Reason: Pain Hydrocodone Bitart/Acetaminophen ([place] 5-325) 1 each PO Q6HR PRN PRN Reason: Pain Albuterol/Ipratropium (Duoneb 0.5 Mg-3 Mg/3 Ml Soln) 3 ml INHALATION RT-Q4H [facility] Last Admin: 09/11/19 23:18 Dose: 3 ml Documented by: Alprazolam (Xanax) 0.5 mg PO BID PRN PRN Reason: Anxiety Last Admin: 09/11/19 03:12 Dose: 0.5 mg Documented by: Apixaban (Eliquis) 5 mg PO BID [facility] Last Admin: 09/11/19 20:37 Dose: 5 mg Documented by: Artificial Tears (Artificial Tear Drops) 1 drops BOTH EYES BID@0600,2100 [facility] Last Admin: 09/11/19 20:41 Dose: 1 drops Documented by: Aspirin (Aspirin) 81 mg PO HS@2100 [facility] Last Admin: 09/11/19 20:37 Dose: 81 mg Documented by: Bisacodyl (Dulcolax) 10 mg PO DAILY PRN PRN Reason: Constipation Cholecalciferol (Vitamin D3 (25 Mcg = 1000 Iu)) 1,000 unit PO DAILY@1300 [facility] Last Admin: 09/11/19 16:59 Dose: 1,000 unit Documented by: Duloxetine HCl (Cymbalta) 30 mg PO DAILY@0600 [facility] Last Admin: 09/11/19 06:51 Dose: 30 mg Documented by: Duloxetine HCl (Cymbalta) 60 mg PO DAILY@0600 [facility] Last Admin: 09/11/19 06:51 Dose: 60 mg Documented by: Guaifenesin (Robitussin) 200 mg PO Q4H PRN PRN Reason: Cough Cefepime HCl 1 gm/ Sodium (Chloride) 50 mls @ 100 mls/hr IVPB Q12HR [facility] Last Admin: 09/11/19 20:36 Dose: 100 mls/hr Documented by: Dextrose/Water (Dextrose 5%-Water Iv Soln) 1,000 mls @ 40 mls/hr IV .Q24H [facility] Last Admin: 09/11/19 16:57 Dose: Not Given Documented by: Metronidazole 500 mg/ IV (Solution) 100 mls @ 100 mls/hr IVPB Q8HR [facility] Last Admin: 09/11/19 23:13 Dose: 100 mls/hr Documented by: Levothyroxine Sodium (Synthroid) 100 mcg PO DAILY@06 [facility] Last Admin: 09/11/19 06:51 Dose: 100 mcg Documented by: Levothyroxine Sodium (Synthroid) 75 mcg PO DAILY@0600 [facility] Last Admin: 09/11/19 06:52 Dose: 75 mcg Documented by: Lisinopril (Zestril) 20 mg PO DAILY@0600 [facility] Last Admin: 09/11/19 06:51 Dose: 20 mg Documented by: Magnesium Hydroxide (Milk Of Magnesia) 2,400 mg PO DAILY PRN PRN Reason: Constipation Metoprolol Tartrate (Lopressor) 25 mg PO TID [facility] Last Admin: 09/11/19 20:37 Dose: 25 mg Documented by: Potassium Chloride (K-Dur 10) 10 meq PO DAILY@0600 [facility] Last Admin: 09/11/19 06:51 Dose: 10 meq Documented by: Senna/Docusate Sodium (Senokot-S) 1 each PO HS@2100 [facility] Last Admin: 09/11/19 20:37 Dose: 1 each Documented by: Objective - Vital Signs Vital signs: Vital Signs Temp 99.5 F 09/15/19 16:41 Pulse 101 H 09/15/19 16:41 Resp 20 09/15/19 16:41 BP 135/66 09/15/19 15:59 Pulse Ox 92 L 09/15/19 16:41 Intake & Output 09/14/19 09/15/19 09/15/19 18:59 06:59 18:59 Intake Total 575 Balance 575 Weight 87.5 kg Intake: IV 525 .9 @ 75 525 Intake, IV Titration 50 Amount Cefepime 1 gm In Sodium 50 Chloride 0.9% 50 ml @ 100 mls/hr IVPB Q12HR [facility] Rx #:[id number] Oral 0 Other: # Voids 3 1 # Bowel Movements 1 3 2 - Exam GENERAL: The patient is alert and oriented x2-3, not in any acute distress. Well developed, well nourished. HEENT: Pupils are round and equally reacting to light. EOMI. No scleral icterus. No conjunctival pallor. Normocephalic, atraumatic. No pharyngeal erythema. No thyromegaly. CARDIOVASCULAR: S1 and S2 present. No murmurs, rubs, or gallops. PULMONARY: Chest is clear to auscultation, no wheezing or crackles. ABDOMEN: Soft, right lower quadrant tenderness., nondistended, normoactive bowel sounds. No palpable organomegaly. MUSCULOSKELETAL: No joint swelling or deformity. EXTREMITIES: No cyanosis, clubbing, or pedal edema. NEUROLOGICAL: awake alert but confused.Gross neurological examination did not reveal any focal deficits. SKIN: No rashes. No petechiae - Labs CBC & Chem 7: 09/17/19 03:02 09/16/19 05:53 Labs: Abnormal Lab Results - Last 24 Hours (Table) 09/15/19 09/15/19 09/15/19 Range/Units 06:09 06:09 16:43 WBC 20.7 H (3.8-10.6) k/uL RBC 3.36 L (3.80-5.40) m/uL Hgb 10.3 L (11.4-16.0) gm/dL Hct 32.8 L (34.0-46.0) % Neutrophils # 18.8 H (1.3-7.7) k/uL BUN 24 H (7-17) mg/dL Glucose 121 H (74-99) mg/dL POC Glucose (mg/dL) 127 H (75-99) mg/dL Calcium 8.3 L (8.4-10.2) mg/dL Assessment and Plan Assessment: right lower lobe Pneumonia suspicious for hospital acquired pneumonia versus aspiration pneumonia. Acute on chronic hypoxic respiratory failure. Currently on nausea cannula oxygen-titrated to room air. Constipation resolved. Worsening leukocytosis. Improving Hypernatremia due to poor oral intake and dehydration.improved now. elevated BNP acute on chronic Congestive heart failure. Follow-up echocardiogram Elevated troponin level. Possible non-ST elevated PA. paroxysmal A. fib with RVR On anticoagulation with Eliquis. COPD dementia GERD Hyperlipidemia Hypertension History of coronary artery disease Hypothyroidism Plan: Patient is being continued on antibiotics in the form of cefepime andFlagyl. Pulmonary is on board. patient will be continued on stool softeners and laxatives. 2-D echocardiogram was ordered patient was seen by cardiology due to elevated troponin level. no further workup recommended at this time. Patient is able to swallow and encourage oral intake. Continue with D5 water and monitor sodium level-changed to normal saline. continue with breathing treatmentsand follow closely. Further recommendations based on the clinical course. Time with Patient: Greater than 30
--- NOTE | 2019-09-17 17:18 | P.PN ---
Subjective Progress Note Date: 09/16/19 Principal diagnosis: right lower lobe pneumonia elevated troponin level this is a pleasant 73 years old femalewith past medical history of heart failure, dementia, COPD, chronic hypoxic respiratory failure, GERD, hyperlipidemia, hypertension, coronary artery disease, hypothyroidism. Patient was sent from [facility] for pneumonia and atrial fibrillation.patient presented from [facility] because of shortness of breath, as per patient she is been having shortness of breath for 2 days associated with cough but no flame. She denies chest pain.she has history of COPD on chronic 2 L nasal cannula, at the senior living she desaturated with oxygen as low as 83% with tachycardia at 113. Of note also patient has history of stent for 10 years ago and she is on aspirin and Plavix. EKG showing atrial fibrillation with RVR at 136, with no significant ST-T changes. also the patient has history of aspiration pneumonia and she was have difficulty eating with choking, 1.5-2 years ago vitals showing blood pressure 154/64, saturation 93% on 4 L., Patient is afebrile.labs showing leukocytosis over 20 5.3K,denies normal, sodium 146, creatinine 0.7, sugar is 172. [place] [address]. This can done at [facility] shows no pulmonary emboli but right effusion and right lower lobe infiltrate. Lactic acid 1.4 which is within reference range. ProBNP 1759. WBC is 22.58, hemoglobin is 11.3, platelet count 391. INR is 0.9. Troponin is elevated at 1.29. Sodium 146, liver enzymes showing slight elevation with ALT 65 and AST 44, creatinine 0.8. Magnesium 2.2. 09/09/2019 Patient is lying comfortably in bed, breathing is stable with no worsening dyspnea. She denies chest pain. Vitals are stable and she is saturating 93% on 4 L oxygen. And glucose 116. Showing bibasilar air space disease as per radiologist. It was still pending. Patient is hemodynamically stable. Saturation in the 90s while on 4 L oxygen nasal cannula Echo and swallow evaluation are pending. The meantime continue on cefepime, Cardizem and heparin drip. However heparin drip was switched to Eliquis Also she is on Lasix 40 mg twice daily intravenously. 09/10/2019 Patient is currently awake and alert. Lying in the bed comfortably. No wo rsening shortness of breath. Patient does have underlying dementia. currently being continued onantibiotics in the form of cefepime and Flagyl. Patient has been afebrile. WBC count is16.4 patient did have elevated troponin level. Cardiology is following. 2-D echocardiogram was ordered. Patient is otherwise dehydrated wi sodium level CLI and BUN 42 and creatinine 0.9. IV fluids changed to D5 water. IV Lasix has been discontinued. Patient is able to tolerate oral diet and passed swallow evaluation. 09/11/2019 patient is awake alert andoriented. Does have underlying dementia. Denied any complaints of chest oscar or worsening short Tolerating oral diet. Continued onD5 water. Sodium level improved to 148, leukocytosis is imroving.continued on IV antibiotics cefepime and Flagyl. 2-D echocardiogram showedconcentric left ventricular hypertrophy with ejection fraction 50-55%. No significant valvular abnormalities were noted. current medications reviewed. pulmonary and cardiology is following. 09/12/2019 patient is currently lying in the bed comfortably. Saturating well on 3 L oxyg en with another cannula. no fever or chills. Tolerating oral diet. Currently being continued on antibiotics in the form of Flagyl and cefepime. Otherwise WBC count went up to 22 today.hemoglobin is stable around 10. IV fluids have been changed to normal saline with improvement in hypernatremia.. Follow-up labs tomorrow. Anticipate discharge once the white count is trending down. Pulmonary is following. 11/14/2018 Patient is currently awake and alert and appears to be in no distress. Curren tly saturating well on room air. No complaints of chest pain are worsening shortness of breath. Patient does complain of right lower quadrant abdominal discomfort. Patient did not have bowel movement White count is increasing to 25 today. Currently patient is on safety equipnt Flagyl.CT of abdomen pelvis was ordered but could not be done due toretained contrast from previous study. Chest x-ray was done Patient will be continued on gentle hydration.no fever no chills. No chest pain. 09/14/2019 Patient is awake and alertslightly more lethargic today. patient did have a large bowel moveme today. Chest x-ray done yesterday showed right lower lobe pneumonia, improving. Abdominal x-ray was done which showed normal bowel gas pattern Patient is tolerating oral diet. Continued on antibiotics in the form cefepime and Flagyl. WBC count is still high at 24.5 slight improvement from yesterday. Patient will be continued on IV hydration for 1 day.currently patient is afebrile. no complaints of chest pain or shortness of breath. No nausea vomiting or abdominal pain. 09/15/2019 patient is currently lying in the bed comfortably. No apparent distress. Shortness of breath is stable. Patient has been afebrile. Patient is still complaining of abdominal discomfort. Abdominal x-ray was done yesterday showed normal bowel gas pattern. Otherwise patient is being continued on IV antibio tics in the form of cefepime and Flagyl. Pulmonary is following. WBC count is trending down to 20.7. Hemoglobin 10.2 and creatinine 0.7. Currently on anticoagulation with eliquis. 09/16/2019 overnight patient had distention of the abdomen and flexion of the abdomen showed possible ileus versus small bowel obstruction. Otherwise patient denied any worsening shCurrently saturatinl on nasal cannula. patient was placed on nothing by mouth now. Continued on gentle hydration and also his medical medications will be changed to IV. Currently started on heparin dripand a decrease has been on hold. Gen. surgery was consulted due to ileus/bowel obstruction. CT of abdomen pelvis was done showed dilated gallbladder with gallstones. This is suggestive of cholecystitis. liver enzymes are not elevated. Bilirubin 0.4 Dilated small bowel in the mid abdomen consistent with partial mechanical small bowel obstruction or small bowel ileus. Transition point is not identified. Right pleural effusion and right lower lobe infiltrate and atelectasis. currently on cefepime and Flagyl. Leukocytosis is improving.improved to 14.6. Active Medications Acetaminophen (Tylenol Tab) 650 mg PO Q4H PRN PRN Reason: Pain Hydrocodone Bitart/Acetaminophen ([place] 5-325) 1 each PO Q6HR PRN PRN Reason: Pain Albuterol/Ipratropium (Duoneb 0.5 Mg-3 Mg/3 Ml Soln) 3 ml INHALATION RT-Q4H [facility] Last Admin: 09/11/19 23:18 Dose: 3 ml Documented by: Alprazolam (Xanax) 0.5 mg PO BID PRN PRN Reason: Anxiety Last Admin: 09/11/19 03:12 Dose: 0.5 mg Documented by: Apixaban (Eliquis) 5 mg PO BID [facility] Last Admin: 09/11/19 20:37 Dose: 5 mg Documented by: Artificial Tears (Artificial Tear Drops) 1 drops BOTH EYES BID@0600,2100 [facility] Last Admin: 09/11/19 20:41 Dose: 1 drops Documented by: Aspirin (Aspirin) 81 mg PO HS@2100 [facility] Last Admin: 09/11/19 20:37 Dose: 81 mg Documented by: Bisacodyl (Dulcolax) 10 mg PO DAILY PRN PRN Reason: Constipation Cholecalciferol (Vitamin D3 (25 Mcg = 1000 Iu)) 1,000 unit PO DAILY@1300 [facility] Last Admin: 09/11/19 16:59 Dose: 1,000 unit Documented by: Duloxetine HCl (Cymbalta) 30 mg PO DAILY@0600 [facility] Last Admin: 09/11/19 06:51 Dose: 30 mg Documented by: Duloxetine HCl (Cymbalta) 60 mg PO DAILY@0600 [facility] Last Admin: 09/11/19 06:51 Dose: 60 mg Documented by: Guaifenesin (Robitussin) 200 mg PO Q4H PRN PRN Reason: Cough Cefepime HCl 1 gm/ Sodium (Chloride) 50 mls @ 100 mls/hr IVPB Q12HR [facility] Last Admin: 09/11/19 20:36 Dose: 100 mls/hr Documented by: Dextrose/Water (Dextrose 5%-Water Iv Soln) 1,000 mls @ 40 mls/hr IV .Q24H [facility] Last Admin: 09/11/19 16:57 Dose: Not Given Documented by: Metronidazole 500 mg/ IV (Solution) 100 mls @ 100 mls/hr IVPB Q8HR [facility] Last Admin: 09/11/19 23:13 Dose: 100 mls/hr Documented by: Levothyroxine Sodium (Synthroid) 100 mcg PO DAILY@0600 [facility] Last Admin: 09/11/19 06:51 Dose: 100 mcg Documented by: Levothyroxine Sodium (Synthroid) 75 mcg PO DAILY@0600 [facility] Last Admin: 09/11/19 06:52 Dose: 75 mcg Documented by: Lisinopril (Zestril) 20 mg PO DAILY@0600 [facility] Last Admin: 09/11/19 06:51 Dose: 20 mg Documented by: Magnesium Hydroxide (Milk Of Magnesia) 2,400 mg PO DAILY PRN PRN Reason: Constipation Metoprolol Tartrate (Lopressor) 25 mg PO TID [facility] Last Admin: 09/11/19 20:37 Dose: 25 mg Documented by: Potassium Chloride (K-Dur 10) 10 meq PO DAILY@0600 [facility] Last Admin: 09/11/19 06:51 Dose: 10 meq Documented by: Senna/Docusate Sodium (Senokot-S) 1 each PO HS@2100 [facility] Last Admin: 09/11/19 20:37 Dose: 1 each Documented by: Objective - Vital Signs Vital signs: Vital Signs Temp 98.5 F 09/16/19 20:00 Pulse 90 09/16/19 20:00 Resp 16 09/16/19 20:00 BP 137/63 09/16/19 20:00 Pulse Ox 95 09/16/19 20:00 Intake & Output 09/16/19 09/16/19 09/17/19 06:59 18:59 06:59 Intake Total 56.372 66.267 Balance 56.372 66.267 Weight 86.5 kg Intake: Intake, IV Titration 56.372 66.267 Amount Heparin Sod,Pork in 0.45% 56.372 66.267 NaCl 25,000 unit In 0.45 % NaCl 1 250ml.bag @ 11.5 UNITS/KG/HR 9.948 mls/hr IV .Q24H [facility] Rx#: [id number] Other: Voiding Method Diaper # Voids 1 2 1 # Bowel Movements 1 - Exam GENERAL: The patient is alert and oriented x2-3, not in any acute distress. Well developed, well nourished. HEENT: Pupils are round and equally reacting to light. EOMI. No scleral icterus. No conjunctival pallor. Normocephalic, atraumatic. No pharyngeal erythema. No thyromegaly. CARDIOVASCULAR: S1 and S2 present. No murmurs, rubs, or gallops. PULMONARY: ilateral air entry improved. Minimal basilar crackles., no wheezing or rhonchi. ABDOMEN: Soft, right lower quadrant tenderness., nondistended, diminished bowel sounds. No palpable organomegaly. MUSCULOSKELETAL: No joint swelling or deformity. EXTREMITIES: No cyanosis, clubbing, or pedal edema. NEUROLOGICAL: awake alert but confused.Gross neurological examination did not reveal any focal deficits. SKIN: No rashes. No petechiae psychiatric. Patient is cooperative. Currently reviewed completely. - Labs CBC & Chem 7: 09/17/19 03:02 09/16/19 05:53 Labs: Abnormal Lab Results - Last 24 Hours (Table) 09/16/19 09/16/19 09/16/19 Range/Units 05:53 05:53 14:30 WBC 14.6 H (3.8-10.6) k/uL RBC 3.18 L (3.80-5.40) m/uL Hgb 9.6 L (11.4-16.0) gm/dL Hct 31.6 L (34.0-46.0) % MCHC 30.4 L (31.0-37.0) g/dL Neutrophils # 12.7 H (1.3-7.7) k/uL APTT 41.3 H (22.0-30.0) sec Sodium 146 H (137-145) mmol/L Chloride 113 H (98-107) mmol/L BUN 20 H (7-17) mg/dL Glucose 114 H (74-99) mg/dL Calcium 7.9 L (8.4-10.2) mg/dL Total Protein 5.2 L (6.3-8.2) g/dL Albumin 2.7 L (3.5-5.0) g/dL 09/16/19 Range/Units 20:06 WBC (3.8-10.6) k/uL RBC (3.80-5.40) m/uL Hgb (11.4-16.0) gm/dL Hct (34.0-46.0) % MCHC (31.0-37.0) g/dL Neutrophils # (1.3-7.7) k/uL APTT 38.6 H (22.0-30.0) sec Sodium (137-145) mmol/L Chloride (98-107) mmol/L BUN (7-17) mg/dL Glucose (74-99) mg/dL Calcium (8.4-10.2) mg/dL Total Protein (6.3-8.2) g/dL Albumin (3.5-5.0) g/dL Assessment and Plan Assessment: right lower lobe Pneumonia possible aspiration pneumonia. currently on antibiotics in the form of cefepime and Flagyl. Acute on chronic hypoxic respiratory failure. Currently on nausea cannula oxygen-titrated to room air. abdominal distention secondary to small bowel ileus-partial obstruction.. Constipation. Worsening leukocytosis. Improving Hypernatremia due to poor oral intake and dehydration.improved now. elevated BNP acute on chronic Congestive heart failure. Follow-up echocardiogram Elevated troponin level. Possible non-ST elevated AR. paroxysmal A. fib with RVR On anticoagulation with Eliquis. COPD dementia GERD Hyperlipidemia Hypertension History of coronary artery disease Hypothyroidism Plan: patient is being continued on IV hydration and nothing by mouth. Patient is being continued on antibiotics in the form of cefepime andFlagyl. Pulmonary is on board. patient will be continued on stool softeners and laxatives. 2-D echocardiogram was ordered patient was seen by cardiology due to elevated troponin level. no further workup recommended at this time. Patient is able to swallow and encourage oral intake once bowel obstruction resolves. continue with breathing treatments and follow closely. Further recommendations based on the clinical course. Time with Patient: Greater than 30
--- NOTE | 2019-09-17 17:24 | P.PN ---
Subjective Progress Note Date: 09/17/19 Principal diagnosis: right lower lobe pneumonia elevated troponin level this is a pleasant 73 years old femalewith past medical history of heart failure, dementia, COPD, chronic hypoxic respiratory failure, GERD, hyperlipidemia, hypertension, coronary artery disease, hypothyroidism. Patient was sent from [facility] for pneumonia and atrial fibrillation.[facility] because of shortness of breath, as per patient she is been having shortness of breath for 2 days associated with cough but no flame. She denies chest pain.she has history of COPD on chronic 2 L nasal cannula, at the halfway she desaturated with oxygen as low as 83% with tachycardia at 113. Of note also patient has history of stent for 10 years ago and she is on aspirin and Plavix. EKG showing atrial fibrillation with RVR at 136, with no significant ST-T changes. also the patient has history of aspiration pneumonia and she was have difficulty eating with choking, 1.5-2 years ago vitals showing blood pressure 154/64, saturation 93% on 4 L., Patient is afebrile.labs showing leukocytosis over 20 5.3K,denies normal, sodium 146, creatinine 0.7, sugar is 172. [place] [address]. This can done at [facility] shows no pulmonary emboli but right effusion and right lower lobe infiltrate. Lactic acid 1.4 which is within reference range. ProBNP 1759. WBC is 22.58, hemoglobin is 11.3, platelet count 391. INR is 0.9. Troponin is elevated at 1.29. Sodium 146, liver enzymes showing slight elevation with ALT 65 and AST 44, creatinine 0.8. Magnesium 2.2. 09/09/2019 Patient is lying comfortably in bed, breathing is stable with no worsening dyspnea. She denies chest pain. Vitals are stable and she is saturating 93% on 4 L oxygen. And glucose 116. Showing bibasilar air space disease as per radiologist. It was still pending. Patient is hemodynamically stable. Saturation in the 90s while on 4 L oxygen nasal cannula Echo and swallow evaluation are pending. The meantime continue on cefepime, Cardizem and heparin drip. However heparin drip was switched to Eliquis Also she is on Lasix 40 mg twice daily intravenously. 09/10/2019 Patient is currently awake and alert. Lying in the bed comfortably. No wo rsening shortness of breath. Patient does have underlying dementia. currently being continued onantibiotics in the form of cefepime and Flagyl. Patient has been afebrile. WBC count is16.4 patient did have elevated troponin level. Cardiology is following. 2-D echocardiogram was ordered. Patient is otherwise dehydrated wi sodium level CLI and BUN 42 and creatinine 0.9. IV fluids changed to D5 water. IV Lasix has been discontinued. Patient is able to tolerate oral diet and passed swallow evaluation. 09/11/2019 patient is awake alert andoriented. Does have underlying dementia. Denied any complaints of chest oscar or worsening short Tolerating oral diet. Continued onD5 water. Sodium level improved to 148, leukocytosis is imroving.continued on IV antibiotics cefepime and Flagyl. 2-D echocardiogram showedconcentric left ventricular hypertrophy with ejection fraction 50-55%. No significant valvular abnormalities were noted. current medications reviewed. pulmonary and cardiology is following. 09/12/2019 patient is currently lying in the bed comfortably. Saturating well on 3 L oxyg en with another cannula. no fever or chills. Tolerating oral diet. Currently being continued on antibiotics in the form of Flagyl and cefepime. Otherwise WBC count went up to 22 today.hemoglobin is stable around 10. IV fluids have been changed to normal saline with improvement in hypernatremia.. Follow-up labs tomorrow. Anticipate discharge once the white count is trending down. Pulmonary is following. 11/14/2018 Patient is currently awake and alert and appears to be in no distress. Curren tly saturating well on room air. No complaints of chest pain are worsening shortness of breath. Patient does complain of right lower quadrant abdominal discomfort. Patient did not have bowel movement White count is increasing to 25 today. Currently patient is on safety equipnt Flagyl.CT of abdomen pelvis was ordered but could not be done due toretained contrast from previous study. Chest x-ray was done Patient will be continued on gentle hydration.no fever no chills. No chest pain. 09/14/2019 Patient is awake and alertslightly more lethargic today. patient did have a large bowel moveme today. Chest x-ray done yesterday showed right lower lobe pneumonia, improving. Abdominal x-ray was done which showed normal bowel gas pattern Patient is tolerating oral diet. Continued on antibiotics in the form cefepime and Flagyl. WBC count is still high at 24.5 slight improvement from yesterday. Patient will be continued on IV hydration for 1 day.currently patient is afebrile. no complaints of chest pain or shortness of breath. No nausea vomiting or abdominal pain. 09/15/2019 patient is currently lying in the bed comfortably. No apparent distress. Shortness of breath is stable. Patient has been afebrile. Patient is still complaining of abdominal discomfort. Abdominal x-ray was done yesterday showed normal bowel gas pattern. Otherwise patient is being continued on IV antibio tics in the form of cefepime and Flagyl. Pulmonary is following. WBC count is trending down to 20.7. Hemoglobin 10.2 and creatinine 0.7. Currently on anticoagulation with eliquis. 09/16/2019 overnight patient had distention of the abdomen and flexion of the abdomen showed possible ileus versus small bowel obstruction. Otherwise patient denied any worsening shCurrently saturatinl on nasal cannula. patient was placed on nothing by mouth now. Continued on gentle hydration and also his medical medications will be changed to IV. Currently started on heparin dripand a decrease has been on hold. Gen. surgery was consulted due to ileus/bowel obstruction. CT of abdomen pelvis was done showed dilated gallbladder with gallstones. This is suggestive of cholecystitis. liver enzymes are not elevated. Bilirubin 0.4 Dilated small bowel in the mid abdomen consistent with partial mechanical small bowel obstruction or small bowel ileus. Transition point is not identified. Right pleural effusion and right lower lobe infiltrate and atelectasis. currently on cefepime and Flagyl. Leukocytosis is improving.improved to 14.6. 09/17/2019 Patient was initially transferred from [facility] to pneumonia and atrial fibrillation with rapid ventricular rate. Patient is being continued on antibiotics in the form of cefepime and Flagyl. patient develops abdominal distention., CT of abdomen pelvis showed dilated gallbladder with gallstones and possible acute cholecystitis. Dilated small bowel loops consistent with partial bowel obstruction. General surgery has seen the patient and recommends no surgical intervention at this time.no complains of nausea and vomiting. Abdomen is soft and nontender. Leukocytosis is improving to 12.6 today. Patient otherwise awake alert and denied any complaints of worsening abdominal pain or shortness of breath. Patient has been afebrile. pulmonary and general surgery is following. remains nothing by mouth. Active Medications Hydrocodone Bitart/Acetaminophen (Ottertail 5-325) 1 each PO Q6HR PRN PRN Reason: Pain Albuterol/Ipratropium (Duoneb 0.5 Mg-3 Mg/3 Ml Soln) 3 ml INHALATION RT-QID [facility] Last Admin: 09/17/19 16:10 Dose: 3 ml Documented by: Albuterol/Ipratropium (Duoneb 0.5 Mg-3 Mg/3 Ml Soln) 3 ml INHALATION RT-Q2H PRN PRN Reason: Shortness Of Breath Or Wheezing Alprazolam (Xanax) 0.5 mg PO BID PRN PRN Reason: Anxiety Last Admin: 09/16/19 19:47 Dose: 0.5 mg Documented by: Artificial Tears (Artificial Tear Drops) 1 drops BOTH EYES BID@0600,2100 [facility] Last Admin: 09/17/19 05:04 Dose: Not Given Documented by: Aspirin (Aspirin) 81 mg PO HS@2100 [facility] Last Admin: 09/16/19 19:42 Dose: Not Given Documented by: Bisacodyl (Dulcolax) 10 mg PO DAILY PRN PRN Reason: Constipation Last Admin: 09/13/19 16:38 Dose: 10 mg Documented by: Bisacodyl (Dulcolax) 10 mg RECTAL DAILY PRN PRN Reason: Constipation Last Admin: 09/13/19 16:38 Dose: 10 mg Documented by: Docusate Sodium (Colace) 100 mg PO BID [facility] Last Admin: 09/17/19 09:15 Dose: 100 mg Documented by: Duloxetine HCl (Cymbalta) 30 mg PO DAILY@0600 [facility] Last Admin: 09/17/19 05:04 Dose: Not Given Documented by: Duloxetine HCl (Cymbalta) 60 mg PO DAILY@0600 [facility] Last Admin: 09/17/19 05:04 Dose: Not Given Documented by: Guaifenesin (Robitussin) 200 mg PO Q4H PRN PRN Reason: Cough Haloperidol Lactate (Haldol) 0.5 mg IVP Q8HR PRN PRN Reason: Agitation or Acute Psychosis Last Admin: 09/15/19 02:20 Dose: 0.5 mg Documented by: Heparin Sodium (Porcine) (Heparin) 0 unit IV PER PROTOCOL PRN; Protocol PRN Reason: Low PTT Cefepime HCl 1 gm/ Sodium (Chloride) 50 mls @ 100 mls/hr IVPB Q12HR [facility] Last Admin: 09/16/19 19:47 Dose: 100 mls/hr Documented by: Sodium Chloride (Saline 0.9%) 1,000 mls @ 75 mls/hr IV .[id number] [facility] Last Admin: 09/17/19 09:15 Dose: 75 mls/hr Documented by: Metronidazole 500 mg/ IV (Solution) 100 mls @ 100 mls/hr IVPB Q8HR [facility] Last Admin: 09/17/19 16:48 Dose: 100 mls/hr Documented by: Heparin Sodium/Sodium Chloride (25,000 unit/ Sodium Chloride) 250 mls @ 9.948 mls/hr IV .Q24H [facility]; Protocol Last Titration: 09/17/19 11:31 Dose: 17.8 units/kg/hr, 15.397 mls/hr Documented by: Levothyroxine Sodium (Synthroid) 100 mcg PO DAILY@0600 [facility] Last Admin: 09/17/19 05:04 Dose: Not Given Documented by: Levothyroxine Sodium (Synthroid) 75 mcg PO DAILY@0600 [facility] Last Admin: 09/17/19 05:04 Dose: Not Given Documented by: Lisinopril (Zestril) 20 mg PO DAILY@0600 [facility] Last Admin: 09/17/19 05:04 Dose: Not Given Documented by: Magnesium Hydroxide (Milk Of Magnesia) 2,400 mg PO DAILY PRN PRN Reason: Constipation Metoprolol Tartrate (Lopressor) 5 mg IVP TID [facility] Last Admin: 09/17/19 16:47 Dose: 5 mg Documented by: Potassium Chloride (K-Dur 10) 10 meq PO DAILY@0600 [facility] Last Admin: 09/17/19 05:04 Dose: Not Given Documented by: Quetiapine Fumarate (Seroquel) 25 mg PO HS PRN PRN Reason: Agitation Last Admin: 09/16/19 19:47 Dose: 25 mg Documented by: Senna/Docusate Sodium (Senokot-S) 1 each PO HS@2100 [facility] Last Admin: 09/16/19 19:47 Dose: 1 each Documented by: Objective - Vital Signs Vital signs: Vital Signs Temp 97.8 F 09/17/19 16:00 Pulse 90 09/17/19 16:21 Resp 18 09/17/19 16:00 BP 134/64 09/17/19 16:00 Pulse Ox 98 09/17/19 16:10 Intake & Output 09/16/19 09/17/19 09/17/19 18:59 06:59 18:59 Intake Total 56.372 761.425 136.731 Output Total 170 800 Balance 56.372 591.425 -663.269 Weight 88.1 kg Intake: IV 600 .9 @ 75 600 Intake, IV Titration 56.372 161.425 136.731 Amount Heparin Sod,Pork in 0.45% 56.372 161.425 136.731 NaCl 25,000 unit In 0.45 % NaCl 1 250ml.bag @ 11.5 UNITS/KG/HR 9.948 mls/hr IV .Q24H [facility] Rx#: [id number] Output: Urine 170 800 Other: Voiding Method Diaper Diaper Incontinent # Voids 2 1 - Exam GENERAL: The patient is alert and oriented x2-3, not in any acute distress. Well developed, well nourished. HEENT: Pupils are round and equally reacting to light. EOMI. No scleral icterus. No conjunctival pallor. Normocephalic, atraumatic. No pharyngeal erythema. No thyromegaly. CARDIOVASCULAR: S1 and S2 present. No murmurs, rubs, or gallops. PULMONARY: ilateral air entry improved. Minimal basilar crackles., no wheezing or rhonchi. ABDOMEN: Soft, right lower quadrant tenderness., nondistended, diminished bowel sounds. No palpable organomegaly. MUSCULOSKELETAL: No joint swelling or deformity. EXTREMITIES: No cyanosis, clubbing, or pedal edema. NEUROLOGICAL: awake alert but confused.Gross neurological examination did not reveal any focal deficits. SKIN: No rashes. No petechiae psychiatric. Patient is cooperative. Currently reviewed completely. - Labs CBC & Chem 7: 09/17/19 03:02 09/16/19 05:53 Labs: Abnormal Lab Results - Last 24 Hours (Table) 09/16/19 09/17/19 09/17/19 Range/Units 20:06 03:02 03:02 WBC 12.6 H (3.8-10.6) k/uL RBC 3.16 L (3.80-5.40) m/uL Hgb 9.5 L (11.4-16.0) gm/dL Hct 32.9 L (34.0-46.0) % MCV 104.3 H (80.0-100.0) fL MCHC 28.9 L (31.0-37.0) g/dL Neutrophils # 10.3 H (1.3-7.7) k/uL APTT 38.6 H 36.3 H (22.0-30.0) sec 09/17/19 09/17/19 Range/Units 09:13 16:32 WBC (3.8-10.6) k/uL RBC (3.80-5.40) m/uL Hgb (11.4-16.0) gm/dL Hct (34.0-46.0) % MCV (80.0-100.0) fL MCHC (31.0-37.0) g/dL Neutrophils # (1.3-7.7) k/uL APTT 83.6 H 86.9 H (22.0-30.0) sec Microbiology - Last 24 Hours (Table) 09/15/19 21:41 Blood Culture - Preliminary Blood No Growth after 24 hours 09/15/19 21:12 Blood Culture - Preliminary Blood No Growth after 24 hours Assessment and Plan Assessment: right lower lobe Pneumonia possible aspiration pneumonia. currently on antibio tics in the form of cefepime and Flagyl. Acute on chronic hypoxic respiratory failure. Currently on nausea cannula oxygen-titrated to room air. abdominal distention secondary to small bowel ileus-partial obstruction.. Constipation. Worsening leukocytosis. Improving Hypernatremia due to poor oral intake and dehydration.improved now. elevated BNP acute on chronic Congestive heart failure. Follow-up echocardiogram Elevated troponin level. Possible non-ST elevated [place]. paroxysmal A. fib with RVR On anticoagulation with Eliquis. COPD dementia GERD Hyperlipidemia Hypertension History of coronary artery disease Hypothyroidism Plan: patient is being continued on IV hydration and nothing by mouth. Patient is being continued on antibiotics in the form of cefepime andFlagyl. Pulmonary is on board. patient will be continued on stool softeners and laxatives. 2-D echocardiogram was ordered patient was seen by cardiology due to elevated troponin level. no further workup recommended at this time. Patient is able to swallow and encourage oral intake once bowel obstruction resolves. continue with breathing treatments and follow closely. Further recommendations based on the clinical course. Time with Patient: Greater than 30
--- NOTE | 2019-09-17 19:09 | P.PN ---
Subjective Progress Note Date: 09/17/19 patient denies any flatus today however she did have reported bowel movement per nursing. This was yesterday. She states she somewhat nauseous right now. No other complaints at this time Objective - Vital Signs Vital signs: Vital Signs Temp 97.8 F 09/17/19 16:00 Pulse 90 09/17/19 16:21 Resp 18 09/17/19 16:00 BP 134/64 09/17/19 16:00 Pulse Ox 98 09/17/19 16:10 Intake & Output 09/17/19 09/17/19 09/18/19 06:59 18:59 06:59 Intake Total 761.425 136.731 Output Total 170 800 Balance 591.425 -663.269 Weight 88.1 kg Intake: IV 600 .9 @ 75 600 Intake, IV Titration 161.425 136.731 Amount Heparin Sod,Pork in 0.45% 161.425 136.731 NaCl 25,000 unit In 0.45 % NaCl 1 250ml.bag @ 11.5 UNITS/KG/HR 9.948 mls/hr IV .Q24H [facility] Rx#: [id number] Output: Urine 170 800 Other: Voiding Method Diaper Incontinent # Voids 1 - Constitutional General appearance: Present: cooperative - Respiratory Details: nonlabored - Cardiovascular Rhythm: regular - Gastrointestinal Gastrointestinal Comment(s): soft nondistended nontender to palpation - Psychiatric Psychiatric: Present: A&O x's 3 - Labs CBC & Chem 7: 09/17/19 03:02 09/16/19 05:53 Labs: Abnormal Lab Results - Last 24 Hours (Table) 09/16/19 09/17/19 09/17/19 Range/Units 20:06 03:02 03:02 WBC 12.6 H (3.8-10.6) k/uL RBC 3.16 L (3.80-5.40) m/uL Hgb 9.5 L (11.4-16.0) gm/dL Hct 32.9 L (34.0-46.0) % MCV 104.3 H (80.0-100.0) fL MCHC 28.9 L (31.0-37.0) g/dL Neutrophils # 10.3 H (1.3-7.7) k/uL APTT 38.6 H 36.3 H (22.0-30.0) sec 09/17/19 09/17/19 Range/Units 09:13 16:32 WBC (3.8-10.6) k/uL RBC (3.80-5.40) m/uL Hgb (11.4-16.0) gm/dL Hct (34.0-46.0) % MCV (80.0-100.0) fL MCHC (31.0-37.0) g/dL Neutrophils # (1.3-7.7) k/uL APTT 83.6 H 86.9 H (22.0-30.0) sec Microbiology - Last 24 Hours (Table) 09/15/19 21:41 Blood Culture - Preliminary Blood No Growth after 24 hours 09/15/19 21:12 Blood Culture - Preliminary Blood No Growth after 24 hours Assessment and Plan Assessment: constipation versus small bowel obstruction/ileus Plan: continue stool softeners, suppositories, and enema as needed. Should she become nauseous or have increasing abdominal pain NG tube could be placed. No plans for surgical intervention at this time
[2019-09-17] MEDS: ASPIRIN 81 MG PO SCH (21:03)
[2019-09-17] MEDS: CEFEPIME 1 GM in SODIUM CHLORIDE 0.9% 50 ML IVPB SCH (21:05)
[2019-09-17] MEDS: QUEtiapine 25 MG TAB PO PRN (21:06)
[2019-09-17] MEDS: SENNOSIDES-DOCUSATE SODIUM 1 EACH TAB PO SCH (21:06)
--- NOTE | 2019-09-17 23:17 | XR ---
EXAMINATION TYPE: XR chest 1V portable DATE OF EXAM: 09/17/2019 COMPARISON: Yesterday HISTORY: Fever. NG tube placement. TECHNIQUE: Single view FINDINGS: There is nasogastric tube in the tip appears to be in good position in the stomach. There i s some airspace infiltrate right lower lobe. Left lung is clear. There is no heart failure. There are chest leads. IMPRESSION: NG tube in good position. Right lower lobe pneumonia unchanged. No heart failure seen.
[2019-09-17] MEDS: HALOPERIDOL LACTATE 5 MG/ML 1 ML VIAL IVP PRN (23:29)
[2019-09-18] MEDS: SODIUM CHLORIDE 0.9% 1,000 ML IV SCH ×2 (00:12→08:24)
[2019-09-18] MEDS ORDERED: ACETAMINOPHEN IV (For NPO) 1,000 MG in EMPTY BAG 1 BAG IVPB PRN (04:00)
[2019-09-18] MEDS: LORazepam 2 MG/ML INJ IV PRN ×3 (04:30→20:05)
[2019-09-18] MEDS ORDERED: ACETAMINOPHEN IV (For NPO) 1,000 MG in EMPTY BAG 1 BAG IVPB SCH (06:00)
[2019-09-18] MEDS: DULoxetine HCL 60 MG CAPSULE.DR PO SCH (06:21)
[2019-09-18] MEDS: DULoxetine HCL 30 MG CAPSULE.DR PO SCH (06:21)
[2019-09-18] MEDS: POTASSIUM CHLORIDE ER 10 MEQ TAB.ER.PRT PO SCH (06:21)
[2019-09-18] MEDS: ARTIFICIAL TEARS-HYPROMELLOSE DROPS 15 ML BTL BOTH EYES SCH ×2 (06:21→20:05)
[2019-09-18] MEDS: LISINOPRIL 20 MG TAB PO SCH (06:21)
[2019-09-18] MEDS: LEVOTHYROXINE 100 MCG TAB PO SCH (06:21)
[2019-09-18] MEDS: LEVOTHYROXINE 75 MCG TAB PO SCH (06:21)
[2019-09-18 07:12] LABS: ALT 17 U/L (4-34); AST 29 U/L (14-36); African American GFR (CKD) >90 (>60 ml/min/1.73 sqM); Albumin 2.7 g/dL (3.5-5.0); Alkaline Phosphatase 83 U/L (38-126); Anion Gap 4 mmol/L; Blood Urea Nitrogen 12 mg/dL (7-17); Calcium 7.5 mg/dL (8.4-10.2); Carbon Dioxide 27 mmol/L (22-30); Chloride 113 mmol/L (98-107); Glucose 102 mg/dL (74-99); Non-African American GFR(CKD) 90 (>60 ml/min/1.73 sqM); Potassium 3.4 mmol/L (3.5-5.1); Sodium 144 mmol/L (137-145); Total Bilirubin 0.4 mg/dL (0.2-1.3); Total Protein 5.3 g/dL (6.3-8.2)
[2019-09-18 08:21] LABS: Basophils # (A) 0.1 k/uL (0-0.2); Basophils % (A) 1 %; Eosinophils # (A) 0.1 k/uL (0-0.7); Eosinophils % (A) 1 %; HCT 31.3 % (34.0-46.0); HGB 9.4 gm/dL (11.4-16.0); Hypochromasia Marked; Lymphocytes # (A) 1.2 k/uL (1.0-4.8); Lymphocytes % (A) 12 %; MCH 29.9 pg (25.0-35.0); MCHC 30.1 g/dL (31.0-37.0); MCV 99.4 fL (80.0-100.0); Mean Platelet Volume 8.2; Monocytes # (A) 0.4 k/uL (0-1.0); Monocytes % (A) 4 %; Neutrophils # (A) 8.1 k/uL (1.3-7.7); Neutrophils % (A) 82 %; Platelet Count 291 k/uL (150-450); RBC 3.14 m/uL (3.80-5.40); RDW 14.3 % (11.5-15.5); WBC 9.9 k/uL (3.8-10.6)
[2019-09-18] MEDS: metroNIDAZOLE-NS PMX 500 MG in SALINE 1 100ML.BAG IVPB SCH ×2 (08:23→16:40)
[2019-09-18] MEDS: CEFEPIME 1 GM in SODIUM CHLORIDE 0.9% 50 ML IVPB SCH ×2 (08:23→20:10)
[2019-09-18] MEDS: METOPROLOL TARTRATE 5 MG/5 ML VIAL IVP SCH ×3 (08:24→20:05)
[2019-09-18] MEDS: DOCUSATE 100 MG CAP PO SCH ×2 (08:25→20:05)
[2019-09-18] MEDS: IPRATROPIUM-ALBUTEROL 3 ML NEB INHALATION SCH ×4 (08:44→20:46)
[2019-09-18] MEDS ORDERED: Potassium Replacement Protocol 1 EACH MISC MISCELLANE PRN (10:59)
--- NOTE | 2019-09-18 11:09 | P.PN ---
Subjective Progress Note Date: 09/18/19 Principal diagnosis: right lower lobe pneumonia, possibly related to aspiration pneumonia versus healthcare acquired pneumonia On 09/16/2019, the patient is complaining of abdominal distention. [facility] activity. Flat film of the abdomen was done yesterday and it raises the concern for an underlying ileus. Note that her renal function is stable. She has no signs of any significant respiratory distress. She is on oxygen at 2 L per minute nasal cannula. She is unable to take her oral medications and she was switched to IV medications including IV heparin. She remains on a combination of cefepime and Flagyl. Note that the patient has had a previous aspiration pneumonia of the right lower lobe that was treated with antibiotics. She has dementia along with COPD. Her comorbid conditions include CHF, hypertension, hyperlipidemia, coronary artery disease with previous SC in addition to chronic anxiety and depression and hypothyroidism. Her sodium level on today's evaluation is improved. She is off Lasix for now. No nausea. No vomiting. No emesis. Gen. surgery has been consulted regarding this abdominal distention. On 09/17/2019 patient seen in follow-up on selective care unit, she is resting comfortably in bed, in no acute distress, she is on 3 L of oxygen and the pulse ox of 98%, she is hemodynamically stable, she is afebrile, she denies worsening shortness of breath, seems to be quite comfortable at rest, she states she has not been up out of bed, lung sounds reveal crackles at the at the left base. no abdominal discomfort, no tenderness on palpation, abdomen is soft, no nausea or vomiting, CT of abdomen and pelvis was obtained showing right pleural effusion and right lower lobe infiltrate and atelectasis, dilated gallbladder with gallstones suggestive of cholecystitis, dilated small bowel consistent with partial mechanical small bowel obstruction with small bowel ileus. Patient was seen by surgery, and no surgical intervention is planned at this time, there have been no nausea or vomiting. Abdomen is nontender, soft. antibiotic coverage is finished of cefepime and Flagyl. On 09/18/2019 patient seen in follow-up on selective care unit, patient had a NG tube inserted the last night for complaints of nausea, and NG tube is draining dark coffee ground type drainage, so far there has been around 300 mL of coffee ground type drainage from the NG tube, this morning's hemoglobin is 9.4, patient does remain on heparin infusion for paroxysmal atrial fibrillation but currently she is in sinus rhythm. She remains nothing by mouth, she denies any abdominal discomfort, her abdomen is soft, reportedly patient did pass a bowel movement the day before yesterday. From pulmonary perspective patient denies any shortness of breath, no cough or congestion, today's chest x-ray was reviewed showing stable right lower lobe infiltrate, and patient continues on cefepime and Flagyl for antibiotic coverage, she did have low-grade fever this morning, with a temp of 100.4F. Slightly lethargic on today's exam, but she wakes up and answers simple questions. Hemodynamically she is stable, remains on IV fluids of 0.9 normal 7 at a rate of 75 ML per hour. Objective - Vital Signs Vital signs: Vital Signs Temp 100.4 F H 09/18/19 08:00 Pulse 90 09/18/19 08:55 Resp 18 09/18/19 08:00 BP 165/73 09/18/19 08:00 Pulse Ox 93 L 09/18/19 08:00 Intake & Output 09/17/19 09/18/19 09/18/19 18:59 06:59 18:59 Intake Total 136.731 336.160 Output Total 800 450 Balance -663.269 -113.840 Weight 93 kg Intake: IV 150 .9 @ 75 150 Intake, IV Titration 136.731 186.160 Amount Heparin Sod,Pork in 0.45% 136.731 186.160 NaCl 25,000 unit In 0.45 % NaCl 1 250ml.bag @ 11.5 UNITS/KG/HR 9.948 mls/hr IV .Q24H [facility] Rx#: [id number] Output: Urine 800 450 Other: Voiding Method Diaper Indwelling Catheter Indwelling Catheter Incontinent - Exam GENERAL EXAM: Lethargic but easily arousable, comfortable, 73-year-old female on 4 L of oxygen with a pulse ox of 93%in no apparent distress. HEAD: Normocephalic/atraumatic. EYES: Normal reaction of pupils, equal size. Conjunctiva pink, sclera white. NOSE: Clear with pink turbinates. NGT is in place, with dark coffee ground-type drainage from the NG tube with a total of 300-350 mL THROAT: No erythema or exudates. NECK: No masses, no JVD, no thyroid enlargement, no adenopathy. CHEST: No chest wall deformity. Symmetrical expansion. LUNGS: Equal air entry with crackles at the left base, but no wheeze, rhonchi or dullness. CVS: Regular rate and rhythm, normal S1 and S2, no gallops, no murmurs, no rubs ABDOMEN: Soft, nontender. No hepatosplenomegaly, normal bowel sounds, no guarding or rigidity. EXTREMITIES: No clubbing, no edema, no cyanosis, 2+ pulses and upper and lower extremities. MUSCULOSKELETAL: Muscle strength and tone normal. SPINE: No scoliosis or deformity SKIN: No rashes CENTRAL NERVOUS SYSTEM: Alert and oriented -2. No focal deficits, tone is normal in all 4 extremities. PSYCHIATRIC: Alert and oriented -2. Appropriate affect. Intact judgment and insight. - Labs CBC & Chem 7: 09/18/19 06:46 09/18/19 06:46 Labs: Abnormal Lab Results - Last 24 Hours (Table) 09/17/19 09/18/19 09/18/19 Range/Units 16:32 01:38 06:46 RBC 3.14 L (3.80-5.40) m/uL Hgb 9.4 L (11.4-16.0) gm/dL Hct 31.3 L (34.0-46.0) % MCHC 30.1 L (31.0-37.0) g/dL Neutrophils # 8.1 H (1.3-7.7) k/uL APTT 86.9 H 67.8 H (22.0-30.0) sec Potassium (3.5-5.1) mmol/L Chloride (98-107) mmol/L Glucose (74-99) mg/dL Calcium (8.4-10.2) mg/dL Total Protein (6.3-8.2) g/dL Albumin (3.5-5.0) g/dL 09/18/19 Range/Units 06:46 RBC (3.80-5.40) m/uL Hgb (11.4-16.0) gm/dL Hct (34.0-46.0) % MCHC (31.0-37.0) g/dL Neutrophils # (1.3-7.7) k/uL APTT (22.0-30.0) sec Potassium 3.4 L (3.5-5.1) mmol/L Chloride 113 H (98-107) mmol/L Glucose 102 H (74-99) mg/dL Calcium 7.5 L (8.4-10.2) mg/dL Total Protein 5.3 L (6.3-8.2) g/dL Albumin 2.7 L (3.5-5.0) g/dL Microbiology - Last 24 Hours (Table) 09/15/19 21:41 Blood Culture - Preliminary Blood No Growth after 48 hours 09/15/19 21:12 Blood Culture - Preliminary Blood No Growth after 48 hours Assessment and Plan Plan: assessment: #1. Right lower lobe pneumonia, rule out aspiration versus healthcare acquired pneumonia and accommodation cefepime and Flagyl #2. Hyperchloremic hypernatremia, recovered and the serum sodium level has normalized #3. Abdominal pain, nausea and vomiting, CT of abdomen and pelvis showed dilated gallbladder with gallstones, suggestive of cholecystitis, and partial mechanical small bowel obstruction or small bowel ileus #4. coronary artery disease #5. COPD #6. Hypertension #7. Hyperlipidemia #8. Previous history of myocardial infarction #9. Hypothyroidism #10. Chronic anxiety/depression #11. Dementia #12. [facility] resident Plan: Patient is chest x-ray has been reviewed showing stable right lower lobe infilt rate, continue with the same antibiotics, patient is currently on cefepime and Flagyl, did have a low-grade fever this morning, but denies any shortness of breath, any cough or congestion, continue with aspiration precautions, patient is nothing by mouth right now, she has NG tube in place, and she is out dark coffee ground-type drainage out of the NG tube, we will add IV Protonix, surgery is following, and and there is no plans for surgery at this time, abdomen is soft, denies any pain, is receiving stool softeners. We will continue to follow, continue monitoring hemoglobin and hematocrit, hemodynamic status, patient remains nothing by mouth right now. I performed a history & physical examination of the patient and discussed their management with my nurse practitioner, Sylvia Bailey. I reviewed the nurse practitioner's note and agree with the documented findings and plan of care. Lung sounds are positive for crackles at the left lung base. The findings and the impression was discussed with the patient. I attest to the documentation by the nurse practitioner. Time with Patient: Less than 30
--- NOTE | 2019-09-18 11:30 | P.PN ---
Subjective Patient had NGT placed overnight per nursing had distention in her abdomen and discomfort. This AM she is resting comfortably in bed no complaints of abdominal pain. There is 800cc of coffee ground output in canister. No reported BM or Flatus Objective - Vital Signs Vital signs: Vital Signs Temp 100.4 F H 09/18/19 08:00 Pulse 90 09/18/19 08:55 Resp 18 09/18/19 08:00 BP 165/73 09/18/19 08:00 Pulse Ox 93 L 09/18/19 08:00 Intake & Output 09/17/19 09/18/19 09/18/19 18:59 06:59 18:59 Intake Total 136.731 336.160 Output Total 800 450 Balance -663.269 -113.840 Weight 93 kg Intake: IV 150 .9 @ 75 150 Intake, IV Titration 136.731 186.160 Amount Heparin Sod,Pork in 0.45% 136.731 186.160 NaCl 25,000 unit In 0.45 % NaCl 1 250ml.bag @ 11.5 UNITS/KG/HR 9.948 mls/hr IV .Q24H [facility] Rx#: [id number] Output: Urine 800 450 Other: Voiding Method Diaper Indwelling Catheter Indwelling Catheter Incontinent - Constitutional General appearance: Present: cooperative - Respiratory Details: nonlabored - Gastrointestinal Gastrointestinal Comment(s): S/mild distention/NT - Psychiatric Psychiatric: Present: appropriate affect - Labs CBC & Chem 7: 09/18/19 06:46 09/18/19 06:46 Labs: Abnormal Lab Results - Last 24 Hours (Table) 09/17/19 09/18/19 09/18/19 Range/Units 16:32 01:38 06:46 RBC 3.14 L (3.80-5.40) m/uL Hgb 9.4 L (11.4-16.0) gm/dL Hct 31.3 L (34.0-46.0) % MCHC 30.1 L (31.0-37.0) g/dL Neutrophils # 8.1 H (1.3-7.7) k/uL APTT 86.9 H 67.8 H (22.0-30.0) sec Potassium (3.5-5.1) mmol/L Chloride (98-107) mmol/L Glucose (74-99) mg/dL Calcium (8.4-10.2) mg/dL Total Protein (6.3-8.2) g/dL Albumin (3.5-5.0) g/dL 09/18/19 Range/Units 06:46 RBC (3.80-5.40) m/uL Hgb (11.4-16.0) gm/dL Hct (34.0-46.0) % MCHC (31.0-37.0) g/dL Neutrophils # (1.3-7.7) k/uL APTT (22.0-30.0) sec Potassium 3.4 L (3.5-5.1) mmol/L Chloride 113 H (98-107) mmol/L Glucose 102 H (74-99) mg/dL Calcium 7.5 L (8.4-10.2) mg/dL Total Protein 5.3 L (6.3-8.2) g/dL Albumin 2.7 L (3.5-5.0) g/dL Microbiology - Last 24 Hours (Table) 09/15/19 21:41 Blood Culture - Preliminary Blood No Growth after 48 hours 09/15/19 21:12 Blood Culture - Preliminary Blood No Growth after 48 hours Assessment and Plan Assessment: constipation versus small bowel obstruction/ileus upper GI bleeding Plan: Continue NPO and NGT. Continue PPI. If hgb drops or bleeding continues recommend DC of anticoagulation and evaluation from GI for upper GI bleeding.
[2019-09-18] MEDS: POTASSIUM CHLORIDE 10 MEQ in WATER FOR INJECTION 1 100ML.BAG IVPB SCH ×4 (11:49→16:39)
[2019-09-18] MEDS: PANTOPRAZOLE 40 MG/10 ML VIAL IVP SCH (12:01)
--- NOTE | 2019-09-18 17:27 | P.PN ---
Subjective Progress Note Date: 09/18/19 Principal diagnosis: right lower lobe pneumonia, possibly related to aspiration pneumonia versus healthcare acquired pneumonia 09/18/2019 patient seen in follow-up on selective care unit, patient had a NG tube inserted the last night for complaints of nausea, and NG tube is draining dark coffee ground type drainage, so far there has been around 300 mL of coffee ground type drainage from the NG tube, this morning's hemoglobin is 9.4, patient does remain on heparin infusion for paroxysmal atrial fibrillation but currently she is in sinus rhythm. She remains nothing by mouth, she denies any abdominal discomfort, her abdomen is soft, reportedly patient did pass a bowel movement the day before yesterday. From pulmonary perspective patient denies any shortness of breath, no cough or congestion, today's chest x-ray was reviewed showing stable right lower lobe infiltrate, and patient continues on cefepime and Flagyl for antibiotic coverage, she did have low-grade fever this morning, with a temp of 100.4F. Slightly lethargic on today's exam, but she wakes up and answers simple questions. Hemodynamically she is stable, remains on IV fluids of 0.9 normal 7 at a rate of 75 ML per hour. Objective - Vital Signs Vital signs: Vital Signs Temp 100.4 F H 09/18/19 08:00 Pulse 90 09/18/19 16:06 Resp 18 09/18/19 12:25 BP 157/77 09/18/19 12:25 Pulse Ox 95 09/18/19 15:58 Intake & Output 09/17/19 09/18/19 09/18/19 18:59 06:59 18:59 Intake Total 136.731 336.160 Output Total 800 450 Balance -663.269 -113.840 Weight 93 kg 93 kg Intake: IV 150 .9 @ 75 150 Intake, IV Titration 136.731 186.160 Amount Heparin Sod,Pork in 0.45% 136.731 186.160 NaCl 25,000 unit In 0.45 % NaCl 1 250ml.bag @ 11.5 UNITS/KG/HR 9.948 mls/hr IV .Q24H [facility] Rx#: [id number] Output: Urine 800 450 Other: Voiding Method Diaper Indwelling Catheter Indwelling Catheter Incontinent - Exam HEAD: Normocephalic/atraumatic. EYES: Normal reaction of pupils, equal size. Conjunctiva pink, sclera white. NOSE: Clear with pink turbinates. NGT is in place, with dark coffee ground-type drainage from the NG tube with a total of 300-350 mL THROAT: No erythema or exudates. NECK: No masses, no JVD, no thyroid enlargement, no adenopathy. CHEST: No chest wall deformity. Symmetrical expansion. LUNGS: Equal air entry with crackles at the left base, but no wheeze, rhonchi or dullness. CVS: Regular rate and rhythm, normal S1 and S2, no gallops, no murmurs, no rubs ABDOMEN: Soft, nontender. No hepatosplenomegaly, normal bowel sounds, no guarding or rigidity. EXTREMITIES: No clubbing, no edema, no cyanosis, 2+ pulses and upper and lower extremities. MUSCULOSKELETAL: Muscle strength and tone normal. - Labs CBC & Chem 7: 09/18/19 06:46 09/18/19 06:46 Labs: Abnormal Lab Results - Last 24 Hours (Table) 09/17/19 09/18/19 09/18/19 Range/Units 16:32 01:38 06:46 RBC 3.14 L (3.80-5.40) m/uL Hgb 9.4 L (11.4-16.0) gm/dL Hct 31.3 L (34.0-46.0) % MCHC 30.1 L (31.0-37.0) g/dL Neutrophils # 8.1 H (1.3-7.7) k/uL APTT 86.9 H 67.8 H (22.0-30.0) sec Potassium (3.5-5.1) mmol/L Chloride (98-107) mmol/L Glucose (74-99) mg/dL Calcium (8.4-10.2) mg/dL Total Protein (6.3-8.2) g/dL Albumin (3.5-5.0) g/dL 09/18/19 09/18/19 Range/Units 06:46 13:56 RBC (3.80-5.40) m/uL Hgb (11.4-16.0) gm/dL Hct (34.0-46.0) % MCHC (31.0-37.0) g/dL Neutrophils # (1.3-7.7) k/uL APTT 82.3 H (22.0-30.0) sec Potassium 3.4 L (3.5-5.1) mmol/L Chloride 113 H (98-107) mmol/L Glucose 102 H (74-99) mg/dL Calcium 7.5 L (8.4-10.2) mg/dL Total Protein 5.3 L (6.3-8.2) g/dL Albumin 2.7 L (3.5-5.0) g/dL Microbiology - Last 24 Hours (Table) 09/15/19 21:41 Blood Culture - Preliminary Blood No Growth after 48 hours 09/15/19 21:12 Blood Culture - Preliminary Blood No Growth after 48 hours Assessment and Plan Assessment: right lower lobe Pneumonia possible aspiration pneumonia. currently on antibiotics in the form of cefepime and Flagyl. Acute on chronic hypoxic respiratory failure. Currently on nausea cannula oxygen-titrated to room air. abdominal distention secondary to small bowel ileus-partial obstruction.. Constipation. Worsening leukocytosis. Improving Hypernatremia due to poor oral intake and dehydration.improved now. elevated BNP acute on chronic Congestive heart failure. Follow-up echocardiogram Elevated troponin level. Possible non-ST elevated [place]. paroxysmal A. fib with RVR On anticoagulation with Eliquis. COPD dementia GERD Hyperlipidemia Hypertension History of coronary artery disease Hypothyroidism Plan: patient is being continued on IV hydration and nothing by mouth. Patient is being continued on antibiotics in the form of cefepime andFlagyl. Pulmonary is on board. patient will be continued on stool softeners and laxatives. 2-D echocardiogram was ordered patient was seen by cardiology due to elevated troponin level. no further workup recommended at this time. Patient is able to swallow and encourage oral intake once bowel obstruction resolves. continue with breathing treatments and follow closely. Further recommendations based on the clinical course.
[2019-09-18] MEDS: ASPIRIN 81 MG PO SCH (20:05)
[2019-09-18] MEDS: SENNOSIDES-DOCUSATE SODIUM 1 EACH TAB PO SCH (20:06)
[2019-09-18 21:12] LABS: HCT 30.4 % (34.0-46.0); HGB 9.3 gm/dL (11.4-16.0); Hypochromasia Moderate; MCH 29.7 pg (25.0-35.0); MCHC 30.5 g/dL (31.0-37.0); MCV 97.3 fL (80.0-100.0); Mean Platelet Volume 8.2; Platelet Count 293 k/uL (150-450); RBC 3.13 m/uL (3.80-5.40); RDW 14.4 % (11.5-15.5); WBC 10.6 k/uL (3.8-10.6)
[2019-09-19] MEDS: metroNIDAZOLE-NS PMX 500 MG in SALINE 1 100ML.BAG IVPB SCH ×4 (00:30→23:22)
[2019-09-19] MEDS: SODIUM CHLORIDE 0.9% 1,000 ML IV SCH ×2 (00:31→15:58)
[2019-09-19] MEDS: LORazepam 2 MG/ML INJ IV PRN ×2 (01:40→21:18)
[2019-09-19] MEDS: LEVOTHYROXINE 100 MCG TAB PO SCH (06:02)
[2019-09-19] MEDS: LEVOTHYROXINE 75 MCG TAB PO SCH (06:02)
[2019-09-19] MEDS: ARTIFICIAL TEARS-HYPROMELLOSE DROPS 15 ML BTL BOTH EYES SCH ×2 (06:02→20:23)
[2019-09-19] MEDS: DULoxetine HCL 30 MG CAPSULE.DR PO SCH (06:02)
[2019-09-19] MEDS: DULoxetine HCL 60 MG CAPSULE.DR PO SCH (06:02)
[2019-09-19] MEDS: LISINOPRIL 20 MG TAB PO SCH (06:02)
[2019-09-19] MEDS: POTASSIUM CHLORIDE ER 10 MEQ TAB.ER.PRT PO SCH (06:03)
[2019-09-19 06:30] LABS: Basophils % (A) 0 %; Eosinophils # (A) 0.2 k/uL (0-0.7); Eosinophils % (A) 2 %; HCT 30.4 % (34.0-46.0); HGB 8.9 gm/dL (11.4-16.0); Hypochromasia Marked; Lymphocytes % (A) 10 %; MCH 29.9 pg (25.0-35.0); MCHC 29.3 g/dL (31.0-37.0); Macrocytosis Slight; Mean Platelet Volume 8.1; Monocytes # (A) 0.5 k/uL (0-1.0); Monocytes % (A) 5 %; Neutrophils # (A) 8.7 k/uL (1.3-7.7); Neutrophils % (A) 82 %; Platelet Count 286 k/uL (150-450); RBC 2.98 m/uL (3.80-5.40); RDW 14.5 % (11.5-15.5); WBC 10.5 k/uL (3.8-10.6)
[2019-09-19 06:59] LABS: African American GFR (CKD) >90 (>60 ml/min/1.73 sqM); Anion Gap 6 mmol/L; Blood Urea Nitrogen 12 mg/dL (7-17); Calcium 7.8 mg/dL (8.4-10.2); Carbon Dioxide 25 mmol/L (22-30); Chloride 113 mmol/L (98-107); Glucose 94 mg/dL (74-99); Non-African American GFR(CKD) >90 (>60 ml/min/1.73 sqM); Potassium 4.2 mmol/L (3.5-5.1); Sodium 144 mmol/L (137-145)
[2019-09-19] MEDS: IPRATROPIUM-ALBUTEROL 3 ML NEB INHALATION SCH ×4 (07:11→19:52)
--- NOTE | 2019-09-19 08:40 | P.PN ---
Subjective Progress Note Date: 09/19/19 Patient seen and examined at bedside. NG tube in place with 300 mL of drainage overnight. Color is noted to be maroon. Patient denies any abdominal pain. Patient denies any flatus or bowel movement and there is no flatus or bowel movement documented. Objective - Vital Signs Vital signs: Vital Signs Temp 99.5 F 09/19/19 03:19 Pulse 88 09/19/19 07:12 Resp 17 09/19/19 03:19 BP 145/63 09/19/19 03:19 Pulse Ox 96 09/19/19 03:19 Intake & Output 09/18/19 09/19/19 09/19/19 18:59 06:59 18:59 Intake Total 100 300 0 Output Total 1330 300 Balance -1230 0 0 Weight 93 kg 91.5 kg Intake: IV 300 .9 @ 75 300 Intake, IV Titration 100 Amount metroNIDAZOLE-NS PMX 500 100 mg In Saline 1 100ml.bag @ 100 mls/hr IVPB Q8HR [facility] Rx#:[id number] Oral 0 Output: Gastric Drainage 130 Urine 1200 300 Other: Voiding Method Indwelling Catheter Indwelling Catheter - Constitutional General appearance: Present: cooperative - Gastrointestinal Gastrointestinal Comment(s): Soft, nontender, nondistended, no rebound, no guarding - Musculoskeletal Musculoskeletal: Present: generalized weakness - Labs CBC & Chem 7: 09/19/19 05:55 09/19/19 05:55 Labs: Abnormal Lab Results - Last 24 Hours (Table) 09/18/19 09/18/19 09/19/19 Range/Units 13:56 21:01 05:55 RBC 3.13 L 2.98 L (3.80-5.40) m/uL Hgb 9.3 L 8.9 L (11.4-16.0) gm/dL Hct 30.4 L 30.4 L (34.0-46.0) % MCV 102.0 H (80.0-100.0) fL MCHC 30.5 L 29.3 L (31.0-37.0) g/dL Neutrophils # 8.7 H (1.3-7.7) k/uL APTT 82.3 H (22.0-30.0) sec Chloride (98-107) mmol/L Calcium (8.4-10.2) mg/dL 09/19/19 Range/Units 05:55 RBC (3.80-5.40) m/uL Hgb (11.4-16.0) gm/dL Hct (34.0-46.0) % MCV (80.0-100.0) fL MCHC (31.0-37.0) g/dL Neutrophils # (1.3-7.7) k/uL APTT (22.0-30.0) sec Chloride 113 H (98-107) mmol/L Calcium 7.8 L (8.4-10.2) mg/dL Microbiology - Last 24 Hours (Table) 09/15/19 21:41 Blood Culture - Preliminary Blood No Growth after 72 hours 09/15/19 21:12 Blood Culture - Preliminary Blood No Growth after 72 hours Assessment and Plan Plan: 73-year-old female with ileus versus partial small bowel obstruction - Nasogastric tube output has decreased significantly and patient is denying any abdominal pain - Pending KUB x-ray is noted - Continue PPI due to quality of nasogastric tube output - Await bowel function
--- NOTE | 2019-09-19 09:28 | XR ---
EXAMINATION TYPE: XR KUB DATE OF EXAM: 09/19/2019 COMPARISON: NONE HISTORY: Pain TECHNIQUE: Single supine KUB image of the abdomen is obtained FINDINGS: Small bowel demonstrates no evidence for dilatation or air fluid levels. Gas and fecal material is seen in non-distended colon. Retained contrast within colon from recent CT scan. No convincing evidence for pneumoperitoneum. No unusual calcifications. The lung bases are clear. The osseous structures are intact. IMPRESSION: 1. Overall nonobstructive bowel gas pattern.
[2019-09-19] MEDS: METOPROLOL TARTRATE 5 MG/5 ML VIAL IVP SCH ×3 (10:49→23:22)
[2019-09-19] MEDS: PANTOPRAZOLE 40 MG/10 ML VIAL IVP SCH (10:49)
[2019-09-19] MEDS: DOCUSATE 100 MG CAP PO SCH ×2 (10:50→20:14)
[2019-09-19] MEDS: CEFEPIME 1 GM in SODIUM CHLORIDE 0.9% 50 ML IVPB SCH ×2 (10:50→20:22)
--- NOTE | 2019-09-19 10:56 | P.PN ---
Subjective Progress Note Date: 09/19/19 Principal diagnosis: Right lower lobe pneumonia, suspect aspiration versus healthcare acquired The patient is seen today 09/19/2019 in follow-up on the selective care unit. She is currently resting fairly comfortably and paced. NG tube is in place with continued ongoing dark coffee-ground/maroon return. Hemoglobin today 8.9. KUB of the abdomen reveals nonobstructive bowel gas pattern. Clear lung bases. She currently denies any significant abdominal discomfort. Slightly distended abdomen. She denies any worsening shortness of breath. Loose nonproductive cough. Maintaining O2 saturation in the mid 90s on 4 L/m per nasal cannula. Temp 99.5. Blood pressure stable. White count 10.5. Creatinine 0.54. She remains on DuoNeb inhalations, antibiotics in the form of cefepime. Continued on Flagyl and Protonix. Surgical services are following. Objective - Vital Signs Vital signs: Vital Signs Temp 99.5 F 09/19/19 03:19 Pulse 88 09/19/19 07:25 Resp 17 09/19/19 03:19 BP 145/63 09/19/19 03:19 Pulse Ox 96 09/19/19 03:19 Intake & Output 09/18/19 09/19/19 09/19/19 18:59 06:59 18:59 Intake Total 100 300 0 Output Total 1330 300 Balance -1230 0 0 Weight 93 kg 91.5 kg Intake: IV 300 .9 @ 75 300 Intake, IV Titration 100 Amount metroNIDAZOLE-NS PMX 500 100 mg In Saline 1 100ml.bag @ 100 mls/hr IVPB Q8HR [facility] Rx#:[id number] Oral 0 Output: Gastric Drainage 130 Urine 1200 300 Other: Voiding Method Indwelling Catheter Indwelling Catheter - Exam GENERAL EXAM: Lethargic but easily arousable, comfortable, 73-year-old female on 4 L of oxygen with a pulse ox of 96% in no apparent distress. HEAD: Normocephalic/atraumatic. EYES: Normal reaction of pupils, equal size. Conjunctiva pink, sclera white. NOSE: Clear with pink turbinates. NGT is in place, with dark coffee ground/Maroon type drainage from the NG tube THROAT: No erythema or exudates. NECK: No masses, no JVD, no thyroid enlargement, no adenopathy. CHEST: No chest wall deformity. Symmetrical expansion. LUNGS: Equal air entry with crackles at the left base, but no wheeze, rhonchi or dullness. CVS: Regular rate and rhythm, normal S1 and S2, no gallops, no murmurs, no rubs ABDOMEN: Soft, nontender. No hepatosplenomegaly, normal bowel sounds, no guarding or rigidity. EXTREMITIES: No clubbing, no edema, no cyanosis, 2+ pulses and upper and lower extremities. MUSCULOSKELETAL: Muscle strength and tone normal. SPINE: No scoliosis or deformity SKIN: No rashes CENTRAL NERVOUS SYSTEM: No focal deficits, tone is normal in all 4 extremities. PSYCHIATRIC: Alert and oriented -2. Appropriate affect. Intact judgment and insight. - Labs CBC & Chem 7: 09/19/19 05:55 09/19/19 05:55 Labs: Abnormal Lab Results - Last 24 Hours (Table) 09/18/19 09/18/19 09/19/19 Range/Units 13:56 21:01 05:55 RBC 3.13 L 2.98 L (3.80-5.40) m/uL Hgb 9.3 L 8.9 L (11.4-16.0) gm/dL Hct 30.4 L 30.4 L (34.0-46.0) % MCV 102.0 H (80.0-100.0) fL MCHC 30.5 L 29.3 L (31.0-37.0) g/dL Neutrophils # 8.7 H (1.3-7.7) k/uL APTT 82.3 H (22.0-30.0) sec Chloride (98-107) mmol/L Calcium (8.4-10.2) mg/dL 09/19/19 Range/Units 05:55 RBC (3.80-5.40) m/uL Hgb (11.4-16.0) gm/dL Hct (34.0-46.0) % MCV (80.0-100.0) fL MCHC (31.0-37.0) g/dL Neutrophils # (1.3-7.7) k/uL APTT (22.0-30.0) sec Chloride 113 H (98-107) mmol/L Calcium 7.8 L (8.4-10.2) mg/dL Microbiology - Last 24 Hours (Table) 09/15/19 21:41 Blood Culture - Preliminary Blood No Growth after 72 hours 09/15/19 21:12 Blood Culture - Preliminary Blood No Growth after 72 hours Assessment and Plan Assessment: #1. Right lower lobe pneumonia, rule out aspiration versus healthcare acquired pneumonia on cefepime and Flagyl #2. Hyperchloremic hypernatremia, recovered and the serum sodium level has normalized #3. Abdominal pain, nausea and vomiting, CT of abdomen and pelvis showed dilated gallbladder with gallstones, suggestive of cholecystitis, and partial mechanical small bowel obstruction or small bowel ileus. KUB x-ray today reveals overall nonobstructive bowel gas pattern. No evidence of pneumoperitoneum. Retained contrast within the colon from recent CAT scan. Gas and fecal material is seen and nondistended colon. #4. Coronary artery disease #5. COPD #6. Hypertension #7. Hyperlipidemia #8. Previous history of myocardial infarction #9. Hypothyroidism #10. Chronic anxiety/depression #11. Dementia #12. [facility] resident Plan: The patient was seen and evaluated by Dr. Gonzalez. Continue the current treatment plan. Surgical services are on the case. KUB noted. Continue NG tube Continue Protonix We'll continue to follow I, the cosigning physician, performed a history & physical examination of the patient. Lungs sounds fwith crackles in left base. Maintaining good O2 saturations in the 90s on 4 liters per minute per nasal cannula. I discussed the assessment and plan of care with my nurse practitioner, Cielo Mercado. I attest to the above note as dictated by her.
[2019-09-19] MEDS: ASPIRIN 81 MG PO SCH (20:13)
[2019-09-19] MEDS: SENNOSIDES-DOCUSATE SODIUM 1 EACH TAB PO SCH (20:14)
--- NOTE | 2019-09-19 21:58 | XR ---
EXAMINATION TYPE: XR chest 1V portable DATE OF EXAM: 09/19/2019 COMPARISON: 09/17/2019 HISTORY: NG tube placement TECHNIQUE: Single view FINDINGS: Nasogastric tube has the tip in the gastric fundus. There is coarsening of pulmonary inters titial markings. There is slight blunting of the costophrenic angles. There are chest leads. IMPRESSION: Pleural reaction and subsegmental atelectasis at the lung bases increased compared to las t exam. NG tube in good position. No heart failure.
[2019-09-19] MEDS: HALOPERIDOL LACTATE 5 MG/ML 1 ML VIAL IVP PRN (22:32)
[2019-09-20] MEDS: SODIUM CHLORIDE 0.9% 1,000 ML IV SCH ×2 (04:27→18:17)
[2019-09-20] MEDS: DULoxetine HCL 60 MG CAPSULE.DR PO SCH (05:42)
[2019-09-20] MEDS: LEVOTHYROXINE 100 MCG TAB PO SCH (05:42)
[2019-09-20] MEDS: DULoxetine HCL 30 MG CAPSULE.DR PO SCH (05:42)
[2019-09-20] MEDS: LEVOTHYROXINE 75 MCG TAB PO SCH (05:42)
[2019-09-20] MEDS: ARTIFICIAL TEARS-HYPROMELLOSE DROPS 15 ML BTL BOTH EYES SCH ×2 (05:42→20:18)
[2019-09-20] MEDS: POTASSIUM CHLORIDE ER 10 MEQ TAB.ER.PRT PO SCH (05:43)
[2019-09-20] MEDS: LISINOPRIL 20 MG TAB PO SCH (05:43)
[2019-09-20 07:18] LABS: Basophils % (A) 0 %; Eosinophils # (A) 0.2 k/uL (0-0.7); Eosinophils % (A) 2 %; HCT 31.3 % (34.0-46.0); HGB 9.6 gm/dL (11.4-16.0); Hypochromasia Marked; Lymphocytes % (A) 10 %; MCH 30.4 pg (25.0-35.0); MCHC 30.6 g/dL (31.0-37.0); MCV 99.4 fL (80.0-100.0); Mean Platelet Volume 8.1; Monocytes # (A) 0.4 k/uL (0-1.0); Monocytes % (A) 4 %; Neutrophils # (A) 8.7 k/uL (1.3-7.7); Neutrophils % (A) 84 %; Platelet Count 293 k/uL (150-450); RBC 3.15 m/uL (3.80-5.40); RDW 14.1 % (11.5-15.5); WBC 10.4 k/uL (3.8-10.6)
[2019-09-20 07:36] LABS: African American GFR (CKD) >90 (>60 ml/min/1.73 sqM); Anion Gap 8 mmol/L; Blood Urea Nitrogen 11 mg/dL (7-17); Carbon Dioxide 26 mmol/L (22-30); Chloride 110 mmol/L (98-107); Glucose 96 mg/dL (74-99); Non-African American GFR(CKD) >90 (>60 ml/min/1.73 sqM); Potassium 3.9 mmol/L (3.5-5.1); Sodium 144 mmol/L (137-145)
--- NOTE | 2019-09-20 08:10 | P.PN ---
Subjective Progress Note Date: 09/20/19 Patient seen and examined at bedside. Decreasing output from nasogastric tube. X-ray was performed yesterday with nonobstructive gas pattern. Objective - Vital Signs Vital signs: Vital Signs Temp 99.4 F 09/20/19 04:00 Pulse 94 09/20/19 04:00 Resp 16 09/20/19 04:00 BP 158/64 09/20/19 04:00 Pulse Ox 96 09/20/19 04:00 Intake & Output 09/19/19 09/20/19 09/20/19 18:59 06:59 18:59 Intake Total 0 Output Total 450 700 Balance -450 -700 Weight 90.5 kg Intake: Oral 0 Output: Urine 450 700 Other: Voiding Method Indwelling Catheter Indwelling Catheter - Constitutional General appearance: Present: cooperative - Gastrointestinal Gastrointestinal Comment(s): Soft, nontender, mild distention, no rebound, no guarding - Labs CBC & Chem 7: 09/20/19 06:57 09/20/19 06:57 Labs: Abnormal Lab Results - Last 24 Hours (Table) 09/20/19 09/20/19 Range/Units 06:57 06:57 RBC 3.15 L (3.80-5.40) m/uL Hgb 9.6 L (11.4-16.0) gm/dL Hct 31.3 L (34.0-46.0) % MCHC 30.6 L (31.0-37.0) g/dL Neutrophils # 8.7 H (1.3-7.7) k/uL Chloride 110 H (98-107) mmol/L Calcium 8.0 L (8.4-10.2) mg/dL Microbiology - Last 24 Hours (Table) 09/15/19 21:41 Blood Culture - Preliminary Blood No Growth after 96 hours 09/15/19 21:12 Blood Culture - Preliminary Blood No Growth after 96 hours Assessment and Plan Plan: 73-year-old female with most likely ileus - Nasogastric tube output has decreased significantly and patient is denying any abdominal pain - Based on KUB that was performed yesterday, this process appears to be an ileus as she does not show any obstructive pattern. She also was noted to have contrast in her colon which signifies passage through the small bowel. - Case was discussed with nursing, we'll plan for clamping the nasogastric tube and beginning clear liquid diet today. - Continue PPI due to quality of nasogastric tube output - Await bowel function
[2019-09-20] MEDS: IPRATROPIUM-ALBUTEROL 3 ML NEB INHALATION SCH ×4 (08:42→19:38)
[2019-09-20] MEDS: DOCUSATE 100 MG CAP PO SCH ×2 (09:08→20:18)
[2019-09-20] MEDS: CEFEPIME 1 GM in SODIUM CHLORIDE 0.9% 50 ML IVPB SCH ×2 (09:21→20:21)
[2019-09-20] MEDS: metroNIDAZOLE-NS PMX 500 MG in SALINE 1 100ML.BAG IVPB SCH ×3 (09:25→23:05)
[2019-09-20] MEDS: METOPROLOL TARTRATE 5 MG/5 ML VIAL IVP SCH ×3 (09:26→23:04)
[2019-09-20] MEDS: PANTOPRAZOLE 40 MG/10 ML VIAL IVP SCH (09:26)
--- NOTE | 2019-09-20 11:24 | P.PN ---
Subjective Progress Note Date: 09/20/19 Principal diagnosis: right lower lobe pneumonia, possibly related to aspiration pneumonia versus healthcare acquired pneumonia On 09/16/2019, the patient is complaining of abdominal distention. [facility] is not having any bowel movement activity. Flat film of the abdomen was done yesterday and it raises the concern for an underlying ileus. Note that her renal function is stable. She has no signs of any significant respiratory distress. She is on oxygen at 2 L per minute nasal cannula. She is unable to take her oral medications and she was switched to IV medications including IV heparin. She remains on a combination of cefepime and Flagyl. Note that the patient has had a previous aspiration pneumonia of the right lower lobe that was treated with antibiotics. She has dementia along with COPD. Her comorbid conditions include CHF, hypertension, hyperlipidemia, coronary artery disease with previous MA in addition to chronic anxiety and depression and hypothyroidism. Her sodium level on today's evaluation is improved. She is off Lasix for now. No nausea. No vomiting. No emesis. Gen. surgery has been consulted regarding this abdominal distention. On 09/17/2019 patient seen in follow-up on selective care unit, she is resting comfortably in bed, in no acute distress, she is on 3 L of oxygen and the pulse ox of 98%, she is hemodynamically stable, she is afebrile, she denies worsening shortness of breath, seems to be quite comfortable at rest, she states she has not been up out of bed, lung sounds reveal crackles at the at the left base. no abdominal discomfort, no tenderness on palpation, abdomen is soft, no nausea or vomiting, CT of abdomen and pelvis was obtained showing right pleural effusion and right lower lobe infiltrate and atelectasis, dilated gallbladder with gallstones suggestive of cholecystitis, dilated small bowel consistent with partial mechanical small bowel obstruction with small bowel ileus. Patient was seen by surgery, and no surgical intervention is planned at this time, there have been no nausea or vomiting. Abdomen is nontender, soft. antibiotic coverage is finished of cefepime and Flagyl. On 09/18/2019 patient seen in follow-up on selective care unit, patient had a NG tube inserted the last night for complaints of nausea, and NG tube is draining dark coffee ground type drainage, so far there has been around 300 mL of coffee ground type drainage from the NG tube, this morning's hemoglobin is 9.4, patient does remain on heparin infusion for paroxysmal atrial fibrillation but currently she is in sinus rhythm. She remains nothing by mouth, she denies any abdominal discomfort, her abdomen is soft, reportedly patient did pass a bowel movement the day before yesterday. From pulmonary perspective patient denies any shortness of breath, no cough or congestion, today's chest x-ray was reviewed showing stable right lower lobe infiltrate, and patient continues on cefepime and Flagyl for antibiotic coverage, she did have low-grade fever this morning, with a temp of 100.4F. Slightly lethargic on today's exam, but she wakes up and answers simple questions. Hemodynamically she is stable, remains on IV fluids of 0.9 normal 7 at a rate of 75 ML per hour. On 09/20/2019 patient seen in follow-up selective care unit, she is awake, she is oriented to person, she still has NG tube in place, with small amount of mucousy whitish output. No coffee ground or maroon output. A NG tube has been discontinued 2 days ago, he is on IV Protonix, today's hemoglobin is 9.6. Patient has bowel sounds, she states she has not passed stool, surgical services saw the patient and is considering clamping the NG tube in feeding the patient trial of clear liquid diet. From pulmonary perspective patient remains stable, she denies any worsening shortness of breath, lung sounds reveal some crackles in the right lower base, no rhonchi, no wheezing, shortness on antibiotics with cefepime and Flagyl. Blood cultures are negative, she does have a low-grade fevers, with a T-max of 99.4F. Objective - Vital Signs Vital signs: Vital Signs Temp 99.4 F 09/20/19 04:00 Pulse 89 09/20/19 08:52 Resp 16 09/20/19 04:00 BP 158/64 09/20/19 04:00 Pulse Ox 98 09/20/19 08:42 Intake & Output 09/19/19 09/20/19 09/20/19 18:59 06:59 18:59 Intake Total 0 Output Total 450 700 Balance -450 -700 Weight 90.5 kg Intake: Oral 0 Output: Urine 450 700 Other: Voiding Method Indwelling Catheter Indwelling Catheter - Exam GENERAL EXAM: Lethargic but easily arousable, comfortable, 73-year-old female on 4 L of oxygen with a pulse ox of 98% in no apparent distress. HEAD: Normocephalic/atraumatic. EYES: Normal reaction of pupils, equal size. Conjunctiva pink, sclera white. NOSE: Clear with pink turbinates. NGT is in place, with small amount of whitish nonbloody output THROAT: No erythema or exudates. NECK: No masses, no JVD, no thyroid enlargement, no adenopathy. CHEST: No chest wall deformity. Symmetrical expansion. LUNGS: Equal air entry with crackles at the left base, but no wheeze, rhonchi or dullness. CVS: Regular rate and rhythm, normal S1 and S2, no gallops, no murmurs, no rubs ABDOMEN: Soft, nontender. No hepatosplenomegaly, normal bowel sounds, no guarding or rigidity. EXTREMITIES: No clubbing, no edema, no cyanosis, 2+ pulses and upper and lower extremities. MUSCULOSKELETAL: Muscle strength and tone normal. SPINE: No scoliosis or deformity SKIN: No rashes CENTRAL NERVOUS SYSTEM: Alert and oriented -2. No focal deficits, tone is normal in all 4 extremities. PSYCHIATRIC: Alert and oriented -2. Appropriate affect. Intact judgment and insight. - Labs CBC & Chem 7: 09/20/19 06:57 09/20/19 06:57 Labs: Abnormal Lab Results - Last 24 Hours (Table) 09/20/19 09/20/19 Range/Units 06:57 06:57 RBC 3.15 L (3.80-5.40) m/uL Hgb 9.6 L (11.4-16.0) gm/dL Hct 31.3 L (34.0-46.0) % MCHC 30.6 L (31.0-37.0) g/dL Neutrophils # 8.7 H (1.3-7.7) k/uL Chloride 110 H (98-107) mmol/L Calcium 8.0 L (8.4-10.2) mg/dL Microbiology - Last 24 Hours (Table) 09/15/19 21:41 Blood Culture - Preliminary Blood No Growth after 96 hours 09/15/19 21:12 Blood Culture - Preliminary Blood No Growth after 96 hours Assessment and Plan Plan: assessment: #1. Right lower lobe pneumonia, rule out aspiration versus healthcare acquired pneumonia and accommodation cefepime and Flagyl #2. Hyperchloremic hypernatremia, recovered and the serum sodium level has normalized #3. Abdominal pain, nausea and vomiting, CT of abdomen and pelvis showed dilated gallbladder with gallstones, suggestive of cholecystitis, and partial mechanical small bowel obstruction or small bowel ileus #4. coronary artery disease #5. COPD #6. Hypertension #7. Hyperlipidemia #8. Previous history of myocardial infarction #9. Hypothyroidism #10. Chronic anxiety/depression #11. Dementia #12. custodial resident #13. Mild GI bleeding, with NG tube putting out maroon-colored/coffee ground colored emesis Plan: Continue current antibiotics, provide incentive spirometer, consult physical therapy to help mobilize the patient, apparently patient is chronically bedbound. Hemoglobin is stable at 9.6, the output from the NG tube Pito bloody, heparin drip has been discontinued, continue PPI therapy, continue with breathing treatments. Surgical services are following and patient's NG tube will be clamped the patient will be given a trial of clear liquid diet. Overall long-term prognosis is extremely guarded, code status needs to be addressed, at this time patient remains a full code, however her baseline functioning ability is limited, patient is chronically bedbound, she has multiple comorbidities, and dementia. We will continue with supportive medical treatment. I performed a history & physical examination of the patient and discussed their management with my nurse practitioner, Sylvia Bailey. I reviewed the nurse practitioner's note and agree with the documented findings and plan of care. Lung sounds are positive for crackles at the left lung base. The findings and the impression was discussed with the patient. I attest to the documentation by the nurse practitioner. Time with Patient: Less than 30
--- NOTE | 2019-09-20 15:09 | P.PN ---
Subjective Progress Note Date: 09/19/19 Principal diagnosis: right lower lobe pneumonia, possibly related to aspiration pneumonia versus healthcare acquired pneumonia 09/18/2019 patient seen in follow-up on selective care unit, patient had a NG tube inserted the last night for complaints of nausea, and NG tube is draining dark coffee ground type drainage, so far there has been around 300 mL of coffee ground type drainage from the NG tube, this morning's hemoglobin is 9.4, patient does remain on heparin infusion for paroxysmal atrial fibrillation but currently she is in sinus rhythm. She remains nothing by mouth, she denies any abdominal discomfort, her abdomen is soft, reportedly patient did pass a bowel movement the day before yesterday. From pulmonary perspective patient denies any shortness of breath, no cough or congestion, today's chest x-ray was reviewed showing stable right lower lobe infiltrate, and patient continues on cefepime and Flagyl for antibiotic coverage, she did have low-grade fever this morning, with a temp of 100.4F. Slightly lethargic on today's exam, but she wakes up and answers simple questions. Hemodynamically she is stable, remains on IV fluids of 0.9 normal 7 at a rate of 75 ML per hour. 09/19/2019 Patient is seen and evaluated in follow-up on the selective care unit with family members at bedside. She is currently resting fairly comfortably and paced. NG tube is in place with continued ongoing dark coffee-ground/maroon 300 mL return overnight. Hemoglobin today 8.9. KUB of the abdomen reveals nonobstructive bowel gas pattern. Clear lung bases. She currently denies any significant abdominal discomfort. Slightly distended abdomen. She denies any worsening shortness of breath. Loose nonproductive cough. Maintaining O2 saturation in the mid 90s on 4 L/m per nasal cannula. Temp 99.5. Blood pressure stable. White count 10.5. Creatinine 0.54. She remains on DuoNeb inhalations, antibiotics in the form of cefepime. Cont inued on Flagyl and Protonix. Surgical services are following to continue with PPI due to NG tube drainage; continue to monitor for bowel function. Objective - Vital Signs Vital signs: Vital Signs Temp 99.5 F 09/19/19 03:19 Pulse 92 09/19/19 11:10 Resp 17 09/19/19 03:19 BP 145/63 09/19/19 03:19 Pulse Ox 96 09/19/19 03:19 Intake & Output 09/18/19 09/19/19 09/19/19 18:59 06:59 18:59 Intake Total 100 300 0 Output Total 1330 300 Balance -1230 0 0 Weight 93 kg 91.5 kg Intake: IV 300 .9 @ 75 300 Intake, IV Titration 100 Amount metroNIDAZOLE-NS PMX 500 100 mg In Saline 1 100ml.bag @ 100 mls/hr IVPB Q8HR [facility] Rx#:[id number] Oral 0 Output: Gastric Drainage 130 Urine 1200 300 Other: Voiding Method Indwelling Catheter Indwelling Catheter - Exam HEAD: Normocephalic/atraumatic. EYES: Normal reaction of pupils, equal size. Conjunctiva pink, sclera white. NOSE: Clear with pink turbinates. NGT is in place, with dark coffee ground-type drainage from the NG tube with a total of 300-350 mL THROAT: No erythema or exudates. NECK: No masses, no JVD, no thyroid enlargement, no adenopathy. CHEST: No chest wall deformity. Symmetrical expansion. LUNGS: Equal air entry with crackles at the left base, but no wheeze, rhonchi or dullness. CVS: Regular rate and rhythm, normal S1 and S2, no gallops, no murmurs, no rubs ABDOMEN: Soft, nontender. No hepatosplenomegaly, normal bowel sounds, no guarding or rigidity. EXTREMITIES: No clubbing, no edema, no cyanosis, 2+ pulses and upper and lower extremities. MUSCULOSKELETAL: Muscle strength and tone normal. - Labs CBC & Chem 7: 09/20/19 06:57 09/20/19 06:57 Labs: Abnormal Lab Results - Last 24 Hours (Table) 09/18/19 09/18/19 09/19/19 Range/Units 13:56 21:01 05:55 RBC 3.13 L 2.98 L (3.80-5.40) m/uL Hgb 9.3 L 8.9 L (11.4-16.0) gm/dL Hct 30.4 L 30.4 L (34.0-46.0) % MCV 102.0 H (80.0-100.0) fL MCHC 30.5 L 29.3 L (31.0-37.0) g/dL Neutrophils # 8.7 H (1.3-7.7) k/uL APTT 82.3 H (22.0-30.0) sec Chloride (98-107) mmol/L Calcium (8.4-10.2) mg/dL 09/19/19 Range/Units 05:55 RBC (3.80-5.40) m/uL Hgb (11.4-16.0) gm/dL Hct (34.0-46.0) % MCV (80.0-100.0) fL MCHC (31.0-37.0) g/dL Neutrophils # (1.3-7.7) k/uL APTT (22.0-30.0) sec Chloride 113 H (98-107) mmol/L Calcium 7.8 L (8.4-10.2) mg/dL Microbiology - Last 24 Hours (Table) 09/15/19 21:41 Blood Culture - Preliminary Blood No Growth after 72 hours 09/15/19 21:12 Blood Culture - Preliminary Blood No Growth after 72 hours Assessment and Plan Assessment: right lower lobe Pneumonia possible aspiration pneumonia. currently on antibiotics in the form of cefepime and Flagyl. Acute on chronic hypoxic respiratory failure. Currently on nausea cannula oxygen-titrated to room air. abdominal distention secondary to small bowel ileus-partial obstruction.. Constipation. Worsening leukocytosis. Improving Hypernatremia due to poor oral intake and dehydration.improved now. elevated BNP acute on chronic Congestive heart failure. Follow-up echocardiogram Elevated troponin level. Possible non-ST elevated [place]. paroxysmal A. fib with RVR On anticoagulation with Eliquis. COPD dementia GERD Hyperlipidemia Hypertension History of coronary artery disease Hypothyroidism Plan: patient is being continued on IV hydration and nothing by mouth. Patient is being continued on antibiotics in the form of cefepime andFlagyl. Pulmonary is on board. patient will be continued on stool softeners and laxatives. 2-D echocardiogram was ordered patient was seen by cardiology due to elevated troponin level. no further workup recommended at this time. Patient is able to swallow and encourage oral intake once bowel obstruction resolves. continue with breathing treatments and follow closely. Further recommendations based on the clinical course.
--- NOTE | 2019-09-20 18:26 | P.PN ---
Subjective Progress Note Date: 09/20/19 Principal diagnosis: right lower lobe pneumonia, possibly related to aspiration pneumonia versus healthcare acquired pneumonia 09/18/2019 patient seen in follow-up on selective care unit, patient had a NG tube inserted the last night for complaints of nausea, and NG tube is draining dark coffee ground type drainage, so far there has been around 300 mL of coffee ground type drainage from the NG tube, this morning's hemoglobin is 9.4, patient does remain on heparin infusion for paroxysmal atrial fibrillation but currently she is in sinus rhythm. She remains nothing by mouth, she denies any abdominal discomfort, her abdomen is soft, reportedly patient did pass a bowel movement the day before yesterday. From pulmonary perspective patient denies any shortness of breath, no cough or congestion, today's chest x-ray was reviewed showing stable right lower lobe infiltrate, and patient continues on cefepime and Flagyl for antibiotic coverage, she did have low-grade fever this morning, with a temp of 100.4F. Slightly lethargic on today's exam, but she wakes up and answers simple questions. Hemodynamically she is stable, remains on IV fluids of 0.9 normal 7 at a rate of 75 ML per hour. 09/19/2019 Patient is seen and evaluated in follow-up on the selective care unit with family members at bedside. She is currently resting fairly comfortably and paced. NG tube is in place with continued ongoing dark coffee-ground/maroon 300 mL return overnight. Hemoglobin today 8.9. KUB of the abdomen reveals nonobstructive bowel gas pattern. Clear lung bases. She currently denies any significant abdominal discomfort. Slightly distended abdomen. She denies any worsening shortness of breath. Loose nonproductive cough. Maintaining O2 saturation in the mid 90s on 4 L/m per nasal cannula. Temp 99.5. Blood pressure stable. White count 10.5. Creatinine 0.54. She remains on DuoNeb inhalations, antibiotics in the form of cefepime. Cont inued on Flagyl and Protonix. Surgical services are following to continue with PPI due to NG tube drainage; continue to monitor for bowel function. 09/20/2019 patient seen in follow-up selective care unit, she is awake, she is oriented to person, she still has NG tube in place, with small amount of mucousy whitish output. No coffee ground or maroon output; patient remains on IV Protonix, today's hemoglobin is 9.6. Patient has bowel sounds, she states she has not pa ssed stool, surgical services saw the patient and is considering clamping the NG tube in feeding the patient trial of clear liquid diet. Patient remains on antibiotics with cefepime and Flagyl. Blood cultures are negative, she does have a low-grade fevers, with a T-max of 99.4F. Objective - Vital Signs Vital signs: Vital Signs Temp 99.4 F 09/20/19 04:00 Pulse 88 09/20/19 12:11 Resp 16 09/20/19 04:00 BP 158/64 09/20/19 04:00 Pulse Ox 98 09/20/19 08:42 Intake & Output 09/19/19 09/20/19 09/20/19 18:59 06:59 18:59 Intake Total 0 Output Total 450 700 Balance -450 -700 Weight 90.5 kg Intake: Oral 0 Output: Urine 450 700 Other: Voiding Method Indwelling Catheter Indwelling Catheter - Exam HEAD: Normocephalic/atraumatic. EYES: Normal reaction of pupils, equal size. Conjunctiva pink, sclera white. NOSE: Clear with pink turbinates. NGT is in place, with dark coffee ground-type drainage from the NG tube with a total of 300-350 mL THROAT: No erythema or exudates. NECK: No masses, no JVD, no thyroid enlargement, no adenopathy. CHEST: No chest wall deformity. Symmetrical expansion. LUNGS: Equal air entry with crackles at the left base, but no wheeze, rhonchi or dullness. CVS: Regular rate and rhythm, normal S1 and S2, no gallops, no murmurs, no rubs ABDOMEN: Soft, nontender. No hepatosplenomegaly, normal bowel sounds, no guarding or rigidity. EXTREMITIES: No clubbing, no edema, no cyanosis, 2+ pulses and upper and lower extremities. MUSCULOSKELETAL: Muscle strength and tone normal. - Labs CBC & Chem 7: 09/20/19 06:57 09/20/19 06:57 Labs: Abnormal Lab Results - Last 24 Hours (Table) 09/20/19 09/20/19 Range/Units 06:57 06:57 RBC 3.15 L (3.80-5.40) m/uL Hgb 9.6 L (11.4-16.0) gm/dL Hct 31.3 L (34.0-46.0) % MCHC 30.6 L (31.0-37.0) g/dL Neutrophils # 8.7 H (1.3-7.7) k/uL Chloride 110 H (98-107) mmol/L Calcium 8.0 L (8.4-10.2) mg/dL Microbiology - Last 24 Hours (Table) 09/15/19 21:41 Blood Culture - Preliminary Blood No Growth after 96 hours 09/15/19 21:12 Blood Culture - Preliminary Blood No Growth after 96 hours Assessment and Plan Assessment: right lower lobe Pneumonia possible aspiration pneumonia. currently on antibiotics in the form of cefepime and Flagyl. Acute on chronic hypoxic respiratory failure. Currently on nausea cannula oxygen-titrated to room air. abdominal distention secondary to small bowel ileus-partial obstruction.. Constipation. Worsening leukocytosis. Improving Hypernatremia due to poor oral intake and dehydration.improved now. elevated BNP acute on chronic Congestive heart failure. Follow-up echocardiogram Elevated troponin level. Possible non-ST elevated [place]. paroxysmal A. fib with RVR On anticoagulation with Eliquis. COPD dementia GERD Hyperlipidemia Hypertension History of coronary artery disease Hypothyroidism Plan: patient is being continued on IV hydration and nothing by mouth. Patient is being continued on antibiotics in the form of cefepime andFlagyl. Pulmonary is on board. patient will be continued on stool softeners and laxatives. 2-D echocardiogram was ordered patient was seen by cardiology due to elevated troponin level. no further workup recommended at this time. Patient is able to swallow and encourage oral intake once bowel obstruction resolves. continue with breathing treatments and follow closely. Further recommendations based on the clinical course.
[2019-09-20] MEDS: ASPIRIN 81 MG PO SCH (20:18)
[2019-09-20] MEDS: SENNOSIDES-DOCUSATE SODIUM 1 EACH TAB PO SCH (20:18)
[2019-09-20] MEDS: LORazepam 2 MG/ML INJ IV PRN (21:28)
[2019-09-21] MEDS: ARTIFICIAL TEARS-HYPROMELLOSE DROPS 15 ML BTL BOTH EYES SCH ×2 (04:58→20:16)
[2019-09-21] MEDS: DULoxetine HCL 30 MG CAPSULE.DR PO SCH (05:43)
[2019-09-21] MEDS: LEVOTHYROXINE 100 MCG TAB PO SCH (05:43)
[2019-09-21] MEDS: POTASSIUM CHLORIDE ER 10 MEQ TAB.ER.PRT PO SCH (05:43)
[2019-09-21] MEDS: LISINOPRIL 20 MG TAB PO SCH (05:43)
[2019-09-21] MEDS: LEVOTHYROXINE 75 MCG TAB PO SCH (05:43)
[2019-09-21] MEDS: DULoxetine HCL 60 MG CAPSULE.DR PO SCH (05:43)
[2019-09-21] MEDS: SODIUM CHLORIDE 0.9% 1,000 ML IV SCH ×2 (06:37→20:23)
[2019-09-21 07:29] LABS: African American GFR (CKD) >90 (>60 ml/min/1.73 sqM); Anion Gap 8 mmol/L; Blood Urea Nitrogen 10 mg/dL (7-17); Calcium 7.9 mg/dL (8.4-10.2); Carbon Dioxide 25 mmol/L (22-30); Chloride 111 mmol/L (98-107); Glucose 88 mg/dL (74-99); Non-African American GFR(CKD) >90 (>60 ml/min/1.73 sqM); Sodium 144 mmol/L (137-145)
[2019-09-21] MEDS: IPRATROPIUM-ALBUTEROL 3 ML NEB INHALATION SCH ×4 (08:21→19:53)
[2019-09-21 08:41] LABS: Basophils % (A) 0 %; Eosinophils # (A) 0.1 k/uL (0-0.7); Eosinophils % (A) 1 %; HCT 30.8 % (34.0-46.0); HGB 9.4 gm/dL (11.4-16.0); Hypochromasia Marked; Lymphocytes # (A) 0.9 k/uL (1.0-4.8); Lymphocytes % (A) 9 %; MCH 30.3 pg (25.0-35.0); MCHC 30.5 g/dL (31.0-37.0); MCV 99.4 fL (80.0-100.0); Macrocytosis Slight; Mean Platelet Volume 8.1; Monocytes # (A) 0.4 k/uL (0-1.0); Monocytes % (A) 4 %; Neutrophils # (A) 8.1 k/uL (1.3-7.7); Neutrophils % (A) 84 %; Platelet Count 239 k/uL (150-450); RDW 14.7 % (11.5-15.5); WBC 9.7 k/uL (3.8-10.6)
[2019-09-21] MEDS: PANTOPRAZOLE 40 MG/10 ML VIAL IVP SCH (09:40)
[2019-09-21] MEDS: metroNIDAZOLE-NS PMX 500 MG in SALINE 1 100ML.BAG IVPB SCH ×3 (09:40→22:58)
[2019-09-21] MEDS: METOPROLOL TARTRATE 5 MG/5 ML VIAL IVP SCH ×3 (09:40→22:58)
--- NOTE | 2019-09-21 15:23 | P.PN ---
Subjective Progress Note Date: 09/21/19 Tolerating clears..no BM Objective - Vital Signs Vital signs: Vital Signs Temp 99.0 F 09/21/19 12:00 Pulse 84 09/21/19 12:00 Resp 18 09/21/19 12:00 BP 158/71 09/21/19 12:00 Pulse Ox 96 09/21/19 12:00 Intake & Output 09/20/19 09/21/19 09/21/19 18:59 06:59 18:59 Intake Total 10 240 Output Total 425 350 Balance -425 -340 240 Weight 92 kg 92 kg Intake: IV 10 Invasive Line 8 10 Oral 240 Output: Urine 425 350 Other: Voiding Method Indwelling Catheter Indwelling Catheter Indwelling Catheter - Gastrointestinal Gastrointestinal Comment(s): S/NT/ND - Labs CBC & Chem 7: 09/21/19 08:14 09/21/19 06:39 Labs: Abnormal Lab Results - Last 24 Hours (Table) 09/21/19 09/21/19 Range/Units 06:39 08:14 RBC 3.10 L (3.80-5.40) m/uL Hgb 9.4 L (11.4-16.0) gm/dL Hct 30.8 L (34.0-46.0) % MCHC 30.5 L (31.0-37.0) g/dL Neutrophils # 8.1 H (1.3-7.7) k/uL Lymphocytes # 0.9 L (1.0-4.8) k/uL Chloride 111 H (98-107) mmol/L Creatinine 0.48 L (0.52-1.04) mg/dL Calcium 7.9 L (8.4-10.2) mg/dL Microbiology - Last 24 Hours (Table) 09/15/19 21:41 Blood Culture - Preliminary Blood No Growth after 120 hours 09/15/19 21:12 Blood Culture - Preliminary Blood No Growth after 120 hours Assessment and Plan Assessment: Ileus resolving Plan: DC NGT, full liquids as tolerated
[2019-09-21] MEDS: DOCUSATE 100 MG CAP PO SCH ×2 (18:41→20:20)
[2019-09-21] MEDS: ASPIRIN 81 MG PO SCH (20:20)
[2019-09-21] MEDS: SENNOSIDES-DOCUSATE SODIUM 1 EACH TAB PO SCH (20:20)
[2019-09-21] MEDS: HYDROcodone/APAP 5-325MG 1 EACH TAB PO PRN (21:47)
[2019-09-22] MEDS: DULoxetine HCL 60 MG CAPSULE.DR PO SCH (06:09)
[2019-09-22] MEDS: POTASSIUM CHLORIDE ER 10 MEQ TAB.ER.PRT PO SCH (06:10)
[2019-09-22] MEDS: LEVOTHYROXINE 75 MCG TAB PO SCH (06:10)
[2019-09-22] MEDS: LEVOTHYROXINE 100 MCG TAB PO SCH (06:10)
[2019-09-22] MEDS: LISINOPRIL 20 MG TAB PO SCH (06:10)
[2019-09-22] MEDS: ARTIFICIAL TEARS-HYPROMELLOSE DROPS 15 ML BTL BOTH EYES SCH ×2 (06:10→20:00)
[2019-09-22] MEDS: DULoxetine HCL 30 MG CAPSULE.DR PO SCH (06:10)
[2019-09-22 06:31] LABS: Basophils % (A) 0 %; Eosinophils # (A) 0.2 k/uL (0-0.7); Eosinophils % (A) 2 %; HCT 30.1 % (34.0-46.0); HGB 9.4 gm/dL (11.4-16.0); Hypochromasia Marked; Lymphocytes % (A) 12 %; MCH 30.9 pg (25.0-35.0); MCHC 31.1 g/dL (31.0-37.0); MCV 99.2 fL (80.0-100.0); Macrocytosis Slight; Monocytes # (A) 0.4 k/uL (0-1.0); Monocytes % (A) 4 %; Neutrophils # (A) 6.6 k/uL (1.3-7.7); Neutrophils % (A) 79 %; Platelet Count 245 k/uL (150-450); RBC 3.04 m/uL (3.80-5.40); RDW 15.2 % (11.5-15.5); WBC 8.3 k/uL (3.8-10.6)
[2019-09-22 06:47] LABS: African American GFR (CKD) >90 (>60 ml/min/1.73 sqM); Anion Gap 3 mmol/L; Blood Urea Nitrogen 8 mg/dL (7-17); Calcium 7.5 mg/dL (8.4-10.2); Carbon Dioxide 29 mmol/L (22-30); Chloride 110 mmol/L (98-107); Glucose 104 mg/dL (74-99); Non-African American GFR(CKD) >90 (>60 ml/min/1.73 sqM); Potassium 3.3 mmol/L (3.5-5.1); Sodium 142 mmol/L (137-145)
[2019-09-22] MEDS: IPRATROPIUM-ALBUTEROL 3 ML NEB INHALATION SCH ×4 (09:20→21:57)
[2019-09-22] MEDS: metroNIDAZOLE-NS PMX 500 MG in SALINE 1 100ML.BAG IVPB SCH ×3 (09:31→23:12)
[2019-09-22] MEDS: METOPROLOL TARTRATE 5 MG/5 ML VIAL IVP SCH ×3 (09:32→23:13)
[2019-09-22] MEDS: DOCUSATE 100 MG CAP PO SCH ×2 (09:32→20:09)
[2019-09-22] MEDS: SODIUM CHLORIDE 0.9% 1,000 ML IV SCH ×2 (09:32→20:11)
[2019-09-22] MEDS: PANTOPRAZOLE 40 MG TABLET PO SCH (09:32)
[2019-09-22] MEDS ORDERED: Potassium Replacement Protocol 1 EACH MISC MISCELLANE PRN (11:31)
--- NOTE | 2019-09-22 12:37 | P.PN ---
Subjective Progress Note Date: 09/22/19 Principal diagnosis: Ileus The patient has been admitted with pneumonia and developed ileus. The NG tube was removed yesterday. She's on some clear liquids. She's not eating or drinking much per her daughter. No bowel movement since the . The patient complains of generalized pain in her head, abdomen, sacrum, heels Objective - Vital Signs Vital signs: Vital Signs Temp 97.7 F 09/22/19 08:00 Pulse 72 09/22/19 12:28 Resp 18 09/22/19 08:00 BP 177/82 09/22/19 08:00 Pulse Ox 100 09/22/19 08:00 Intake & Output 09/21/19 09/22/19 09/22/19 18:59 06:59 18:59 Intake Total 240 200 Output Total 475 300 300 Balance -235 -300 -100 Weight 92 kg 93.5 kg Intake: Oral 240 200 Output: Urine 475 300 300 Other: Voiding Method Indwelling Catheter Indwelling Catheter Indwelling Catheter # Voids 1 - Constitutional General appearance: Present: cooperative - Respiratory Respiratory: bilateral: rhonchi - Gastrointestinal General gastrointestinal: Present: distended (Softly distended), normal bowel sounds. Absent: tenderness - Integumentary Integumentary Comment(s): There is epithelial slough and what appears to be full-thickness skin necrosis over the sacrum. Nursing documented with pictures and dimensions yesterday. There is a 1 cm area of nonblanching ecchymosis on her left great toe. Ecchymosis on bilateral heels. The heels and sacrum are tender to touch - Labs CBC & Chem 7: 09/22/19 06:09 09/22/19 06:09 Labs: Abnormal Lab Results - Last 24 Hours (Table) 09/22/19 09/22/19 Range/Units 06:09 06:09 RBC 3.04 L (3.80-5.40) m/uL Hgb 9.4 L (11.4-16.0) gm/dL Hct 30.1 L (34.0-46.0) % Potassium 3.3 L (3.5-5.1) mmol/L Chloride 110 H (98-107) mmol/L Creatinine 0.45 L (0.52-1.04) mg/dL Glucose 104 H (74-99) mg/dL Calcium 7.5 L (8.4-10.2) mg/dL Microbiology - Last 24 Hours (Table) 09/15/19 21:41 Blood Culture - Final Blood No Growth after 144 hours 09/15/19 21:12 Blood Culture - Final Blood No Growth after 144 hours Assessment and Plan (1) Ileus Current Visit: Yes Status: Acute Code(s): K56.7 - ILEUS, UNSPECIFIED SNOMED Code(s): 897493640 (2) Sacral decubitus ulcer Current Visit: Yes Status: Acute Code(s): L89.159 - PRESSURE ULCER OF SACRAL REGION, UNSPECIFIED STAGE SNOMED Code(s): 775830483 (3) Decubitus ulcer of heel, bilateral Current Visit: Yes Status: Acute Code(s): L89.619 - PRESSURE ULCER OF RIGHT HEEL, UNSPECIFIED STAGE; L89.629 - PRESSURE ULCER OF LEFT HEEL, UNSPECIFIED STAGE SNOMED Code(s): 091547581 (4) Pneumonia Current Visit: Yes Status: Acute Code(s): J18.9 - PNEUMONIA, UNSPECIFIED OR GANISM SNOMED Code(s): 781419295 Plan: The ileus is slowly resolving. She hasn't had a bowel movement in quite some time so we'll have nursing give her a suppository. Increase diet as tolerated. Ask wound care to reevaluate her sacral decubitus and heels. Currently nonsurgical.
[2019-09-22] MEDS ORDERED: BISACODYL 10 MG SUPP RECTAL STA (12:39)
[2019-09-22] MEDS: POTASSIUM CHLORIDE ER 20 MEQ TAB.ER PO SCH ×2 (13:13→16:44)
[2019-09-22] MEDS: HYDROcodone/APAP 5-325MG 1 EACH TAB PO PRN (16:45)
--- NOTE | 2019-09-22 17:28 | P.PN ---
Subjective Progress Note Date: 09/21/19 Principal diagnosis: right lower lobe pneumonia, possibly related to aspiration pneumonia versus healthcare acquired pneumonia 09/18/2019 patient seen in follow-up on selective care unit, patient had a NG tube inserted the last night for complaints of nausea, and NG tube is draining dark coffee ground type drainage, so far there has been around 300 mL of coffee ground type drainage from the NG tube, this morning's hemoglobin is 9.4, patient does remain on heparin infusion for paroxysmal atrial fibrillation but currently she is in sinus rhythm. She remains nothing by mouth, she denies any abdominal discomfort, her abdomen is soft, reportedly patient did pass a bowel movement the day before yesterday. From pulmonary perspective patient denies any shortness of breath, no cough or congestion, today's chest x-ray was reviewed showing stable right lower lobe infiltrate, and patient continues on cefepime and Flagyl for antibiotic coverage, she did have low-grade fever this morning, with a temp of 100.4F. Slightly lethargic on today's exam, but she wakes up and answers simple questions. Hemodynamically she is stable, remains on IV fluids of 0.9 normal 7 at a rate of 75 ML per hour. 09/19/2019 Patient is seen and evaluated in follow-up on the selective care unit with family members at bedside. She is currently resting fairly comfortably and paced. NG tube is in place with continued ongoing dark coffee-ground/maroon 300 mL return overnight. Hemoglobin today 8.9. KUB of the abdomen reveals nonobstructive bowel gas pattern. Clear lung bases. She currently denies any significant abdominal discomfort. Slightly distended abdomen. She denies any worsening shortness of breath. Loose nonproductive cough. Maintaining O2 saturation in the mid 90s on 4 L/m per nasal cannula. Temp 99.5. Blood pressure stable. White count 10.5. Creatinine 0.54. She remains on DuoNeb inhalations, antibiotics in the form of cefepime. Cont inued on Flagyl and Protonix. Surgical services are following to continue with PPI due to NG tube drainage; continue to monitor for bowel function. 09/20/2019 patient seen in follow-up selective care unit, she is awake, she is oriented to person, she still has NG tube in place, with small amount of mucousy whitish output. No coffee ground or maroon output; patient remains on IV Protonix, today's hemoglobin is 9.6. Patient has bowel sounds, she states she has not pa ssed stool, surgical services saw the patient and is considering clamping the NG tube in feeding the patient trial of clear liquid diet. Patient remains on antibiotics with cefepime and Flagyl. Blood cultures are negative, she does have a low-grade fevers, with a T-max of 99.4F. 09/21/2019 Patient is seen and evaluated in room at bedside; patient is more awake and al ert this afternoon Vital signs are reviewed showing a temperature of 99, pulse 84, respiration 18 and blood pressure 158/71 Lab review shows CBC white blood count of 9.7 hemoglobin of 9.4 and platelet count of 239 ; sodium 144, potassium 4.0 Tolerating clear liquid diet fairly well; surgery has seen patient and NG tube has been discontinued; per surgery patient will be advanced to a full liquid diet and will be monitored closely Objective - Vital Signs Vital signs: Vital Signs Temp 99.8 F H 09/21/19 04:00 Pulse 86 09/21/19 08:31 Resp 16 09/21/19 04:00 BP 165/74 09/21/19 04:00 Pulse Ox 97 09/21/19 04:00 Intake & Output 09/20/19 09/21/19 09/21/19 18:59 06:59 18:59 Intake Total 10 120 Output Total 425 350 Balance -425 -340 120 Weight 92 kg Intake: IV 10 Invasive Line 8 10 Oral 120 Output: Urine 425 350 Other: Voiding Method Indwelling Catheter Indwelling Catheter - Exam HEAD: Normocephalic/atraumatic. EYES: Normal reaction of pupils, equal size. Conjunctiva pink, sclera white. NOSE: Clear with pink turbinates. NGT is in place, with dark coffee ground-type drainage from the NG tube with a total of 300-350 mL THROAT: No erythema or exudates. NECK: No masses, no JVD, no thyroid enlargement, no adenopathy. CHEST: No chest wall deformity. Symmetrical expansion. LUNGS: Equal air entry with crackles at the left base, but no wheeze, rhonchi or dullness. CVS: Regular rate and rhythm, normal S1 and S2, no gallops, no murmurs, no rubs ABDOMEN: Soft, nontender. No hepatosplenomegaly, normal bowel sounds, no guarding or rigidity. EXTREMITIES: No clubbing, no edema, no cyanosis, 2+ pulses and upper and lower extremities. MUSCULOSKELETAL: Muscle strength and tone normal. - Labs CBC & Chem 7: 09/22/19 06:09 09/22/19 06:09 Labs: Abnormal Lab Results - Last 24 Hours (Table) 09/21/19 09/21/19 Range/Units 06:39 08:14 RBC 3.10 L (3.80-5.40) m/uL Hgb 9.4 L (11.4-16.0) gm/dL Hct 30.8 L (34.0-46.0) % MCHC 30.5 L (31.0-37.0) g/dL Neutrophils # 8.1 H (1.3-7.7) k/uL Lymphocytes # 0.9 L (1.0-4.8) k/uL Chloride 111 H (98-107) mmol/L Creatinine 0.48 L (0.52-1.04) mg/dL Calcium 7.9 L (8.4-10.2) mg/dL Microbiology - Last 24 Hours (Table) 09/15/19 21:41 Blood Culture - Preliminary Blood No Growth after 120 hours 09/15/19 21:12 Blood Culture - Preliminary Blood No Growth after 120 hours Assessment and Plan Assessment: right lower lobe Pneumonia possible aspiration pneumonia. currently on antibiotics in the form of cefepime and Flagyl. Acute on chronic hypoxic respiratory failure. Currently on nausea cannula oxygen-titrated to room air. abdominal distention secondary to small bowel ileus-partial obstruction.. Constipation. Worsening leukocytosis. Improving Hypernatremia due to poor oral intake and dehydration.improved now. elevated BNP acute on chronic Congestive heart failure. Follow-up echocardiogram Elevated troponin level. Possible non-ST elevated [place]. paroxysmal A. fib with RVR On anticoagulation with Eliquis. COPD dementia GERD Hyperlipidemia Hypertension History of coronary artery disease Hypothyroidism Plan: patient is being continued on IV hydration and nothing by mouth. Patient is being continued on antibiotics in the form of cefepime andFlagyl. Pulmonary is on board. patient will be continued on stool softeners and laxatives. 2-D echocardiogram was ordered patient was seen by cardiology due to elevated troponin level. no further workup recommended at this time. Patient is able to swallow and encourage oral intake once bowel obstruction resolves. continue with breathing treatments and follow closely. Further recommendations based on the clinical course.
--- NOTE | 2019-09-22 19:15 | P.PN ---
Subjective Progress Note Date: 09/22/19 Principal diagnosis: right lower lobe pneumonia, possibly related to aspiration pneumonia versus healthcare acquired pneumonia 09/18/2019 patient seen in follow-up on selective care unit, patient had a NG tube inserted the last night for complaints of nausea, and NG tube is draining dark coffee ground type drainage, so far there has been around 300 mL of coffee ground type drainage from the NG tube, this morning's hemoglobin is 9.4, patient does remain on heparin infusion for paroxysmal atrial fibrillation but currently she is in sinus rhythm. She remains nothing by mouth, she denies any abdominal discomfort, her abdomen is soft, reportedly patient did pass a bowel movement the day before yesterday. From pulmonary perspective patient denies any shortness of breath, no cough or congestion, today's chest x-ray was reviewed showing stable right lower lobe infiltrate, and patient continues on cefepime and Flagyl for antibiotic coverage, she did have low-grade fever this morning, with a temp of 100.4F. Slightly lethargic on today's exam, but she wakes up and answers simple questions. Hemodynamically she is stable, remains on IV fluids of 0.9 normal 7 at a rate of 75 ML per hour. 09/19/2019 Patient is seen and evaluated in follow-up on the selective care unit with family members at bedside. She is currently resting fairly comfortably and paced. NG tube is in place with continued ongoing dark coffee-ground/maroon 300 mL return overnight. Hemoglobin today 8.9. KUB of the abdomen reveals nonobstructive bowel gas pattern. Clear lung bases. She currently denies any significant abdominal discomfort. Slightly distended abdomen. She denies any worsening shortness of breath. Loose nonproductive cough. Maintaining O2 saturation in the mid 90s on 4 L/m per nasal cannula. Temp 99.5. Blood pressure stable. White count 10.5. Creatinine 0.54. She remains on DuoNeb inhalations, antibiotics in the form of cefepime. Cont inued on Flagyl and Protonix. Surgical services are following to continue with PPI due to NG tube drainage; continue to monitor for bowel function. 09/20/2019 patient seen in follow-up selective care unit, she is awake, she is oriented to person, she still has NG tube in place, with small amount of mucousy whitish output. No coffee ground or maroon output; patient remains on IV Protonix, today's hemoglobin is 9.6. Patient has bowel sounds, she states she has not pa ssed stool, surgical services saw the patient and is considering clamping the NG tube in feeding the patient trial of clear liquid diet. Patient remains on antibiotics with cefepime and Flagyl. Blood cultures are negative, she does have a low-grade fevers, with a T-max of 99.4F. 09/21/2019 Patient is seen and evaluated in room at bedside; patient is more awake and al ert this afternoon Vital signs are reviewed showing a temperature of 99, pulse 84, respiration 18 and blood pressure 158/71 Lab review shows CBC white blood count of 9.7 hemoglobin of 9.4 and platelet count of 239 ; sodium 144, potassium 4.0 Tolerating clear liquid diet fairly well; surgery has seen patient and NG tube has been discontinued; per surgery patient will be advanced to a full liquid diet and will be monitored closely 09/22/2019 Patient is seen sitting up in bed; more alert and responsive; Per nursing staff patient's family is concerned about chest congestion Vital signs remained stable temperature of 97.6, pulse 76, respiration 18 and blood pressure of 158/73 with SpO2 of 96% on 2 L; auscultation of lungs reveals scattered rhonchi lab review shows CBC with white blood count of 8.3, hemoglobin 9.4, sodium 142 and potassium of 3.3; we will supplement with 20 mg of potassium IV 1; continue to monitor electrolytes and supplement as needed; patient remains on IV cefepime and Flagyl and Protonix; NG tube has been discontinued and plan is to advance diet as tolerated Objective - Vital Signs Vital signs: Vital Signs Temp 97.7 F 09/22/19 08:00 Pulse 72 09/22/19 12:28 Resp 18 09/22/19 08:00 BP 177/82 09/22/19 08:00 Pulse Ox 100 09/22/19 08:00 Intake & Output 09/21/19 09/22/19 09/22/19 18:59 06:59 18:59 Intake Total 240 200 Output Total 766 997 5271 Balance -971 -300 -973 Weight 92 kg 93.5 kg Intake: Oral 240 200 Output: Urine 225 399 9905 Other: Voiding Method Indwelling Catheter Indwelling Catheter Indwelling Catheter # Voids 1 - Exam HEAD: Normocephalic/atraumatic. EYES: Normal reaction of pupils, equal size. Conjunctiva pink, sclera white. NOSE: Clear with pink turbinates. NGT is in place, with dark coffee ground-type drainage from the NG tube with a total of 300-350 mL THROAT: No erythema or exudates. NECK: No masses, no JVD, no thyroid enlargement, no adenopathy. CHEST: No chest wall deformity. Symmetrical expansion. LUNGS: Equal air entry with crackles at the left base, but no wheeze, rhonchi or dullness. CVS: Regular rate and rhythm, normal S1 and S2, no gallops, no murmurs, no rubs ABDOMEN: Soft, nontender. No hepatosplenomegaly, normal bowel sounds, no guarding or rigidity. EXTREMITIES: No clubbing, no edema, no cyanosis, 2+ pulses and upper and lower extremities. MUSCULOSKELETAL: Muscle strength and tone normal. - Labs CBC & Chem 7: 09/22/19 06:09 09/22/19 06:09 Labs: Abnormal Lab Results - Last 24 Hours (Table) 09/22/19 09/22/19 Range/Units 06:09 06:09 RBC 3.04 L (3.80-5.40) m/uL Hgb 9.4 L (11.4-16.0) gm/dL Hct 30.1 L (34.0-46.0) % Potassium 3.3 L (3.5-5.1) mmol/L Chloride 110 H (98-107) mmol/L Creatinine 0.45 L (0.52-1.04) mg/dL Glucose 104 H (74-99) mg/dL Calcium 7.5 L (8.4-10.2) mg/dL Microbiology - Last 24 Hours (Table) 09/15/19 21:41 Blood Culture - Final Blood No Growth after 144 hours 09/15/19 21:12 Blood Culture - Final Blood No Growth after 144 hours Assessment and Plan Assessment: right lower lobe Pneumonia possible aspiration pneumonia. currently on antibiotics in the form of cefepime and Flagyl. Acute on chronic hypoxic respiratory failure. Currently on nausea cannula oxygen-titrated to room air. abdominal distention secondary to small bowel ileus-partial obstruction.. Constipation. Worsening leukocytosis. Improving Hypernatremia due to poor oral intake and dehydration.improved now. elevated BNP acute on chronic Congestive heart failure. Follow-up echocardiogram Elevated troponin level. Possible non-ST elevated [place]. paroxysmal A. fib with RVR On anticoagulation with Eliquis. COPD dementia GERD Hyperlipidemia Hypertension History of coronary artery disease Hypothyroidism Plan: patient is being continued on IV hydration and nothing by mouth. Patient is being continued on antibiotics in the form of cefepime andFlagyl. Pulmonary is on board. patient will be continued on stool softeners and laxatives. 2-D echocardiogram was ordered patient was seen by cardiology due to elevated troponin level. no further workup recommended at this time. Patient is able to swallow and encourage oral intake once bowel obstruction resolves. continue with breathing treatments and follow closely. Further recommendations based on the clinical course.
[2019-09-22] MEDS: SENNOSIDES-DOCUSATE SODIUM 1 EACH TAB PO SCH (20:09)
[2019-09-22] MEDS: ASPIRIN 81 MG PO SCH (20:09)
[2019-09-22] MEDS: ALPRAZolam 0.5 MG TAB PO PRN (23:13)
[2019-09-23] MEDS: ARTIFICIAL TEARS-HYPROMELLOSE DROPS 15 ML BTL BOTH EYES SCH (05:51)
[2019-09-23] MEDS: LISINOPRIL 20 MG TAB PO SCH (06:35)
[2019-09-23] MEDS: LEVOTHYROXINE 75 MCG TAB PO SCH (06:35)
[2019-09-23] MEDS: POTASSIUM CHLORIDE ER 10 MEQ TAB.ER.PRT PO SCH (06:36)
[2019-09-23] MEDS: DULoxetine HCL 60 MG CAPSULE.DR PO SCH (06:36)
[2019-09-23] MEDS: LEVOTHYROXINE 100 MCG TAB PO SCH (06:36)
[2019-09-23] MEDS: DULoxetine HCL 30 MG CAPSULE.DR PO SCH (06:36)
[2019-09-23 07:22] LABS: African American GFR (CKD) >90 (>60 ml/min/1.73 sqM); Anion Gap 1 mmol/L; Blood Urea Nitrogen 5 mg/dL (7-17); Calcium 7.5 mg/dL (8.4-10.2); Carbon Dioxide 31 mmol/L (22-30); Chloride 108 mmol/L (98-107); Glucose 97 mg/dL (74-99); Non-African American GFR(CKD) >90 (>60 ml/min/1.73 sqM); Potassium 3.4 mmol/L (3.5-5.1); Sodium 140 mmol/L (137-145)
[2019-09-23 07:52] LABS: Basophils % (A) 0 %; Eosinophils # (A) 0.3 k/uL (0-0.7); Eosinophils % (A) 3 %; HCT 29.5 % (34.0-46.0); HGB 9.3 gm/dL (11.4-16.0); Hypochromasia Marked; Lymphocytes # (A) 1.2 k/uL (1.0-4.8); Lymphocytes % (A) 15 %; MCH 30.8 pg (25.0-35.0); MCHC 31.5 g/dL (31.0-37.0); Macrocytosis Slight; Monocytes # (A) 0.3 k/uL (0-1.0); Monocytes % (A) 3 %; Neutrophils # (A) 6.1 k/uL (1.3-7.7); Neutrophils % (A) 77 %; Platelet Count 223 k/uL (150-450); RBC 3.01 m/uL (3.80-5.40); RDW 15.1 % (11.5-15.5); WBC 7.9 k/uL (3.8-10.6)
[2019-09-23] MEDS: NITROGLYCERIN SL TABS 0.4 MG TAB SUBLINGUAL ONE ×2 (08:31→08:46)
[2019-09-23] MEDS: IPRATROPIUM-ALBUTEROL 3 ML NEB INHALATION SCH ×4 (08:47→20:45)
[2019-09-23] MEDS: METOPROLOL TARTRATE 5 MG/5 ML VIAL IVP SCH ×3 (09:54→21:31)
[2019-09-23] MEDS: PANTOPRAZOLE 40 MG TABLET PO SCH (09:54)
[2019-09-23] MEDS: DOCUSATE 100 MG CAP PO SCH ×2 (09:54→21:30)
--- NOTE | 2019-09-23 10:34 | P.PN ---
Subjective Progress Note Date: 09/23/19 Principal diagnosis: Ileus The patient is seen on rounds. Denies abdominal pain. When asked how her abdomen feels she says empty. Has been complaining to nursing of chest pain today. She did have a bowel movement Objective - Vital Signs Vital signs: Vital Signs Temp 98.6 F 09/23/19 08:00 Pulse 82 09/23/19 09:02 Resp 20 09/23/19 08:00 BP 150/70 09/23/19 08:37 Pulse Ox 92 L 09/23/19 08:50 Intake & Output 09/22/19 09/23/19 09/23/19 18:59 06:59 18:59 Intake Total 325 Output Total 1825 575 Balance -1500 -575 Weight 92 kg Intake: Oral 325 Output: Urine 1825 575 Other: Voiding Method Indwelling Catheter Indwelling Catheter Indwelling Catheter # Voids 1 - Constitutional General appearance: Present: cooperative, no acute distress - Gastrointestinal General gastrointestinal: Present: normal bowel sounds, soft. Absent: tenderness - Labs CBC & Chem 7: 09/23/19 06:18 09/23/19 06:18 Labs: Abnormal Lab Results - Last 24 Hours (Table) 09/23/19 09/23/19 Range/Units 06:18 06:18 RBC 3.01 L (3.80-5.40) m/uL Hgb 9.3 L (11.4-16.0) gm/dL Hct 29.5 L (34.0-46.0) % Potassium 3.4 L (3.5-5.1) mmol/L Chloride 108 H (98-107) mmol/L Carbon Dioxide 31 H (22-30) mmol/L BUN 5 L (7-17) mg/dL Creatinine 0.46 L (0.52-1.04) mg/dL Calcium 7.5 L (8.4-10.2) mg/dL Assessment and Plan (1) Ileus Current Visit: Yes Status: Acute Code(s): K56.7 - ILEUS, UNSPECIFIED SNOMED Code(s): 474566764 (2) Sacral decubitus ulcer Current Visit: Yes Status: Acute Code(s): L89.159 - PRESSURE ULCER OF SACRAL REGION, UNSPECIFIED STAGE SNOMED Code(s): 704510542 (3) Decubitus ulcer of heel, bilateral Current Visit: Yes Status: Acute Code(s): L89.619 - PRESSURE ULCER OF RIGHT HEEL, UNSPECIFIED STAGE; L89.629 - PRESSURE ULCER OF LEFT HEEL, UNSPECIFIED STAGE SNOMED Code(s): 073575151 (4) Pneumonia Current Visit: Yes Status: Acute Code(s): J18.9 - PNEUMONIA, UNSPECIFIED ORGANISM SNOMED Code(s): 171594275 Plan: The patient's diet will be advanced. Wound care was asked to reevaluate the patient regarding her sacral wound and no ulcerations on the heel and toe. General surgery will follow-up as needed.
[2019-09-23] MEDS: POTASSIUM CHLORIDE ER 20 MEQ TAB.ER PO SCH (14:06)
[2019-09-23] MEDS: HYDROcodone/APAP 5-325MG 1 EACH TAB PO PRN (14:06)
[2019-09-23] MEDS: metroNIDAZOLE-NS PMX 500 MG in SALINE 1 100ML.BAG IVPB SCH (15:51)
--- NOTE | 2019-09-23 17:58 | XR ---
EXAMINATION TYPE: XR chest 1V portable DATE OF EXAM: 09/23/2019 COMPARISON: 09/19/2019 HISTORY: Cough TECHNIQUE: FINDINGS: There is blunting of right costophrenic angle. There is no gross heart failure. There is so me infiltrate in both lower lobes and worse on the right side. There are chest leads. IMPRESSION: There is increasing infiltrate and pleural fluid on the right side compared to last exam. No obvious heart failure. Small left basilar infiltrate unchanged.
[2019-09-23] MEDS: ASPIRIN 81 MG PO SCH (21:30)
[2019-09-23] MEDS: SENNOSIDES-DOCUSATE SODIUM 1 EACH TAB PO SCH (21:30)
[2019-09-23] MEDS: SODIUM CHLORIDE 0.9% 1,000 ML IV SCH (21:31)
[2019-09-23] MEDS: ALPRAZolam 0.5 MG TAB PO PRN (23:29)
[2019-09-24] MEDS: ARTIFICIAL TEARS-HYPROMELLOSE DROPS 15 ML BTL BOTH EYES SCH ×2 (00:18→06:53)
[2019-09-24] MEDS: SODIUM CHLORIDE 0.9% 1,000 ML IV SCH ×2 (00:18→20:29)
[2019-09-24] MEDS: DULoxetine HCL 30 MG CAPSULE.DR PO SCH (06:54)
[2019-09-24] MEDS: LEVOTHYROXINE 75 MCG TAB PO SCH (06:54)
[2019-09-24] MEDS: POTASSIUM CHLORIDE ER 10 MEQ TAB.ER.PRT PO SCH (06:54)
[2019-09-24] MEDS: DULoxetine HCL 60 MG CAPSULE.DR PO SCH (06:54)
[2019-09-24] MEDS: LEVOTHYROXINE 100 MCG TAB PO SCH (06:54)
[2019-09-24] MEDS: LISINOPRIL 20 MG TAB PO SCH (06:55)
[2019-09-24] MEDS: IPRATROPIUM-ALBUTEROL 3 ML NEB INHALATION SCH ×4 (08:11→19:13)
--- NOTE | 2019-09-24 09:00 | P.PN ---
Subjective Progress Note Date: 09/23/19 Principal diagnosis: right lower lobe pneumonia, possibly related to aspiration pneumonia versus healthcare acquired pneumonia 09/18/2019 patient seen in follow-up on selective care unit, patient had a NG tube inserted the last night for complaints of nausea, and NG tube is draining dark coffee ground type drainage, so far there has been around 300 mL of coffee ground type drainage from the NG tube, this morning's hemoglobin is 9.4, patient does remain on heparin infusion for paroxysmal atrial fibrillation but currently she is in sinus rhythm. She remains nothing by mouth, she denies any abdominal discomfort, her abdomen is soft, reportedly patient did pass a bowel movement the day before yesterday. From pulmonary perspective patient denies any shortness of breath, no cough or congestion, today's chest x-ray was reviewed showing stable right lower lobe infiltrate, she did have low-grade fever this morning, with a temp of 100.4F. Slightly lethargic on today's exam, but she wakes up and answers simple questions. Hemodynamically she is stable, remains on IV fluids of 0.9 normal 7 at a rate of 75 ML per hour. 09/19/2019 Patient is seen and evaluated in follow-up on the selective care unit with family members at bedside. She is currently resting fairly comfortably and paced. NG tube is in place with continued ongoing dark coffee-ground/maroon 300 mL return overnight. Hemoglobin today 8.9. KUB of the abdomen reveals nonobstructive bowel gas pattern. Clear lung bases. She currently denies any significant abdominal discomfort. Slightly distended abdomen. She denies any worsening shortness of breath. Loose nonproductive cough. Maintaining O2 saturation in the mid 90s on 4 L/m per nasal cannula. Temp 99.5. Blood pressure stable. White count 10.5. Creatinine 0.54. She remains on DuoNeb inhalations. Continued on Protonix. Surgical services are following to continue with PPI due to NG tube drainage; continue to monitor for bowel function. 09/20/2019 patient seen in follow-up selective care unit, she is awake, she is oriented to person, she still has NG tube in place, with small amount of mucousy whitish output. No coffee ground or maroon output; patient remains on IV Protonix, today's hemoglobin is 9.6. Patient has bowel sounds, she states she has not passed stool, surgical services saw the patient and is considering clamping the NG tube in feeding the patient trial of clear liquid diet. Patient remains on antibiotics with cefepime and Flagyl. Blood cultures are negative, she does have a low-grade fevers, with a T-max of 99.4F. 09/21/2019 Patient is seen and evaluated in room at bedside; patient is more awake and alert this afternoon Vital signs are reviewed showing a temperature of 99, pulse 84, respiration 18 and blood pressure 158/71 Lab review shows CBC white blood count of 9.7 hemoglobin of 9.4 and platelet count of 239 ; sodium 144, potassium 4.0 Tolerating clear liquid diet fairly well; surgery has seen patient and NG tube has been discontinued; per surgery patient will be advanced to a full liquid diet and will be monitored closely 09/22/2019 Patient is seen sitting up in bed; more alert and responsive; Per nursing staff patient's family is concerned about chest congestion Vital signs remained stable temperature of 97.6, pulse 76, respiration 18 and blood pressure of 158/73 with SpO2 of 96% on 2 L; auscultation of lungs reveals scattered rhonchi lab review shows CBC with white blood count of 8.3, hemoglobin 9.4, sodium 142 and potassium of 3.3; we will supplement with 20 mg of potassium IV 1; continue to monitor electrolytes and supplement as needed; patient remains on IV Protonix; NG tube has been discontinued and plan is to advance diet as tolerated 09/23/2019 Patient is seen sitting up in bed; denies any complaint of chest pain or shortness of breath; per nursing staff patient had been complaining of some chest pain earlier Vital signs remained stable with a temperature of 98.6, pulse 82, respiration 20 and blood pressure of 150/70 Labs are stable with white blood count of 7.9, hemoglobin of 9.3, sodium 140, potassium of 3.4; we will supplement with 20 mEq of KCl 1; NG tube has been discontinued; patient is being followed by surgery and recommendations are to advance diet as tolerated; patient has completed antibiotic therapy for pneumonia; white blood count stayed stable and patient remains afebrile We will consult PT/OT for evaluation and case management for discharge planning Objective - Vital Signs Vital signs: Vital Signs Temp 98.1 F 09/23/19 12:00 Pulse 74 09/23/19 12:46 Resp 20 09/23/19 12:00 BP 151/67 09/23/19 12:00 Pulse Ox 95 09/23/19 12:00 Intake & Output 09/22/19 09/23/19 09/23/19 18:59 06:59 18:59 Intake Total 325 Output Total 1826 575 675 Balance -1500 -575 -675 Weight 92 kg Intake: Oral 325 Output: Urine 4930 57 675 Other: Voiding Method Indwelling Catheter Indwelling Catheter Indwelling Catheter # Voids 1 1 - Exam HEAD: Normocephalic/atraumatic. EYES: Normal reaction of pupils, equal size. Conjunctiva pink, sclera white. NOSE: Clear with pink turbinates. NGT is in place, with dark coffee ground-type drainage from the NG tube with a total of 300-350 mL THROAT: No erythema or exudates. NECK: No masses, no JVD, no thyroid enlargement, no adenopathy. CHEST: No chest wall deformity. Symmetrical expansion. LUNGS: Equal air entry with crackles at the left base, but no wheeze, rhonchi or dullness. CVS: Regular rate and rhythm, normal S1 and S2, no gallops, no murmurs, no rubs ABDOMEN: Soft, nontender. No hepatosplenomegaly, normal bowel sounds, no guarding or rigidity. EXTREMITIES: No clubbing, no edema, no cyanosis, 2+ pulses and upper and lower extremities. MUSCULOSKELETAL: Muscle strength and tone normal. - Labs CBC & Chem 7: 09/23/19 06:18 09/23/19 06:18 Labs: Abnormal Lab Results - Last 24 Hours (Table) 09/23/19 09/23/19 Range/Units 06:18 06:18 RBC 3.01 L (3.80-5.40) m/uL Hgb 9.3 L (11.4-16.0) gm/dL Hct 29.5 L (34.0-46.0) % Potassium 3.4 L (3.5-5.1) mmol/L Chloride 108 H (98-107) mmol/L Carbon Dioxide 31 H (22-30) mmol/L BUN 5 L (7-17) mg/dL Creatinine 0.46 L (0.52-1.04) mg/dL Calcium 7.5 L (8.4-10.2) mg/dL Assessment and Plan Assessment: right lower lobe Pneumonia possible aspiration pneumonia. currently on antibiotics in the form of cefepime and Flagyl. Acute on chronic hypoxic respiratory failure. Currently on nausea cannula oxygen-titrated to room air. abdominal distention secondary to small bowel ileus-partial obstruction.. Constipation. Worsening leukocytosis. Improving Hypernatremia due to poor oral intake and dehydration.improved now. elevated BNP acute on chronic Congestive heart failure. Follow-up echocardiogram Elevated troponin level. Possible non-ST elevated TX. paroxysmal A. fib with RVR On anticoagulation with Eliquis. COPD dementia GERD Hyperlipidemia Hypertension History of coronary artery disease Hypothyroidism Plan: patient is being continued on IV hydration and nothing by mouth. Patient is being continued on antibiotics in the form of cefepime andFlagyl. Orlando lawrence is on board. patient will be continued on stool softeners and laxatives. 2-D echocardiogram was ordered patient was seen by cardiology due to elevated troponin level. no further workup recommended at this time. Patient is able to swallow and encourage oral intake once bowel obstruction re solves. continue with breathing treatments and follow closely. Further recommendations based on the clinical course. Time with Patient: Greater than 30
[2019-09-24] MEDS: DOCUSATE 100 MG CAP PO SCH ×2 (09:54→20:36)
[2019-09-24] MEDS: METOPROLOL TARTRATE 5 MG/5 ML VIAL IVP SCH ×3 (09:54→22:38)
[2019-09-24] MEDS: PANTOPRAZOLE 40 MG TABLET PO SCH (09:54)
[2019-09-24] MEDS: HYDROcodone/APAP 5-325MG 1 EACH TAB PO PRN (12:57)
--- NOTE | 2019-09-24 16:21 | P.PN ---
Subjective Progress Note Date: 09/24/19 Principal diagnosis: right lower lobe pneumonia, possibly related to aspiration pneumonia versus healthcare acquired pneumonia On 09/16/2019, the patient is complaining of abdominal distention. [facility] activity. Flat film of the abdomen was done yesterday and it raises the concern for an underlying ileus. Note that her renal function is stable. She has no signs of any significant respiratory distress. She is on oxygen at 2 L per minute nasal cannula. She is unable to take her oral medications and she was switched to IV medications including IV heparin. She remains on a combination of cefepime and Flagyl. Note that the patient has had a previous aspiration pneumonia of the right lower lobe that was treated with antibiotics. She has dementia along with COPD. Her comorbid conditions include CHF, hypertension, hyperlipidemia, coronary artery disease with previous [facility] in addition to chronic anxiety and depression and hypothyroidism. Her sodium level on today's evaluation is improved. She is off Lasix for now. No nausea. No vomiting. No emesis. Gen. surgery has been consulted regarding this abdominal distention. On 09/17/2019 patient seen in follow-up on selective care unit, she is resting comfortably in bed, in no acute distress, she is on 3 L of oxygen and the pulse ox of 98%, she is hemodynamically stable, she is afebrile, she denies worsening shortness of breath, seems to be quite comfortable at rest, she states she has not been up out of bed, lung sounds reveal crackles at the at the left base. no abdominal discomfort, no tenderness on palpation, abdomen is soft, no nausea or vomiting, CT of abdomen and pelvis was obtained showing right pleural effusion and right lower lobe infiltrate and atelectasis, dilated gallbladder with gallstones suggestive of cholecystitis, dilated small bowel consistent with partial mechanical small bowel obstruction with small bowel ileus. Patient was seen by surgery, and no surgical intervention is planned at this time, there have been no nausea or vomiting. Abdomen is nontender, soft. antibiotic coverage is finished of cefepime and Flagyl. On 09/18/2019 patient seen in follow-up on selective care unit, patient had a NG tube inserted the last night for complaints of nausea, and NG tube is draining dark coffee ground type drainage, so far there has been around 300 mL of coffee ground type drainage from the NG tube, this morning's hemoglobin is 9.4, patient does remain on heparin infusion for paroxysmal atrial fibrillation but currently she is in sinus rhythm. She remains nothing by mouth, she denies any abdominal discomfort, her abdomen is soft, reportedly patient did pass a bowel movement the day before yesterday. From pulmonary perspective patient denies any shortness of breath, no cough or congestion, today's chest x-ray was reviewed showing stable right lower lobe infiltrate, and patient continues on cefepime and Flagyl for antibiotic coverage, she did have low-grade fever this morning, with a temp of 100.4F. Slightly lethargic on today's exam, but she wakes up and answers simple questions. Hemodynamically she is stable, remains on IV fluids of 0.9 normal 7 at a rate of 75 ML per hour. On 09/20/2019 patient seen in follow-up selective care unit, she is awake, she is oriented to person, she still has NG tube in place, with small amount of mucousy whitish output. No coffee ground or maroon output. A NG tube has been discontinued 2 days ago, he is on IV Protonix, today's hemoglobin is 9.6. Patient has bowel sounds, she states she has not passed stool, surgical services saw the patient and is considering clamping the NG tube in feeding the patient trial of clear liquid diet. From pulmonary perspective patient remains stable, she denies any worsening shortness of breath, lung sounds reveal some crackles in the right lower base, no rhonchi, no wheezing, shortness on antibiotics with cefepime and Flagyl. Blood cultures are negative, she does have a low-grade fevers, with a T-max of 99.4F. On 09/24/2019 patient seen in follow-up on selective care unit. She is resting comfortably in bed, breathing seems to be stable, occasional cough, no significant chest congestion, apparently patient complained of some chest tightness last night, but EKG reportedly was normal. Chest x-ray was reviewed showing increasing infiltrate and pleural fluid on the right side compared to last exam. And small left basilar infiltrate. IV fluids were turned down to KVO, and we'll start patient on IV Lasix. No fever or chills, blood cultures have shown no growth Objective - Vital Signs Vital signs: Vital Signs Temp 97.1 F L 09/24/19 12:00 Pulse 77 09/24/19 16:06 Resp 18 09/24/19 12:00 BP 147/69 09/24/19 12:00 Pulse Ox 96 09/24/19 12:00 Intake & Output 09/23/19 09/24/19 09/24/19 18:59 06:59 18:59 Intake Total 50 270 Output Total 1350 600 600 Balance -1300 -600 -330 Weight 92 kg 92 kg Intake: Oral 50 270 Output: Urine 1350 600 600 Other: Voiding Method Indwelling Catheter Indwelling Catheter Indwelling Catheter # Voids 1 1 0 - Exam GENERAL EXAM: Lethargic but easily arousable, comfortable, 73-year-old female on 3 L of oxygen with a pulse ox of 98% in no apparent distress. HEAD: Normocephalic/atraumatic. EYES: Normal reaction of pupils, equal size. Conjunctiva pink, sclera white. NOSE: Clear with pink turbinates. NGT is in place, with small amount of whitish nonbloody output THROAT: No erythema or exudates. NECK: No masses, no JVD, no thyroid enlargement, no adenopathy. CHEST: No chest wall deformity. Symmetrical expansion. LUNGS: Equal air entry with crackles at the left base, but no wheeze, rhonchi or dullness. CVS: Regular rate and rhythm, normal S1 and S2, no gallops, no murmurs, no rubs ABDOMEN: Soft, nontender. No hepatosplenomegaly, normal bowel sounds, no guarding or rigidity. EXTREMITIES: No clubbing, 1+ lower extremity edema, no cyanosis, 2+ pulses and upper and lower extremities. MUSCULOSKELETAL: Muscle strength and tone normal. SPINE: No scoliosis or deformity SKIN: No rashes CENTRAL NERVOUS SYSTEM: Alert and oriented -2. No focal deficits, tone is normal in all 4 extremities. PSYCHIATRIC: Alert and oriented -2. Appropriate affect. Intact judgment and insight. - Labs CBC & Chem 7: 09/23/19 06:18 09/23/19 06:18 Assessment and Plan Plan: assessment: #1. Right lower lobe pneumonia, rule out aspiration versus healthcare acquired pneumonia patient has completed a course of cefepime and Flagyl #2. Small right pleural effusion, possibly related to fluid overload #3. Hyperchloremic hypernatremia, recovered and the serum sodium level has normalized #4. Abdominal pain, nausea and vomiting, CT of abdomen and pelvis showed dilated gallbladder with gallstones, suggestive of cholecystitis, and partial mechanical small bowel obstruction or small bowel ileus, resolved #5. coronary artery disease #6. COPD #7. Hypertension #8. Hyperlipidemia #9. Previous history of myocardial infarction #10. Hypothyroidism #11. Chronic anxiety/depression #12. Dementia #13. care home resident #14. Mild GI bleeding, with NG tube putting out maroon-colored/coffee ground colored emesis Plan: Decreased IV fluids down to KVO, we'll give the patient couple doses of IV Lasix, chest x-ray shows fluid overload, right pleural effusion. No fever or chills, patient has completed a course of antibiotics, blood cultures have shown no growth, maintain aspiration precautions. PT/OT has been consulted for evaluation for discharge planning I performed a history & physical examination of the patient and discussed their management with my nurse practitioner, Sylvia Bailey. I reviewed the nurse practitioner's note and agree with the documented findings and plan of care. Lung sounds are positive for crackles at the left lung base. The findings and the impression was discussed with the patient. I attest to the documentation by the nurse practitioner. Time with Patient: Less than 30
[2019-09-24] MEDS: FUROSEMIDE 10 MG/ML 4 ML VIAL IV SCH ×2 (16:27→20:36)
[2019-09-24 18:29] LABS: Appearance,Urine Clear (Clear); Bacteria,Urine Rare /hpf; Bilirubin,Urine Negative (Negative); Blood,Urine Negative (Negative); Budding Yeast,Urine Few /hpf; Color,Urine Light Yellow; Glucose,Urine (UA) Negative (Negative); Hyaline Casts,Urine 6 /lpf (0-2); Ketones,Urine Negative (Negative); Leukocyte Esterase,Urine Moderate (Negative); Mucus,Urine Occasional /hpf; Nitrite,Urine Negative (Negative); Protein,Urine Negative (Negative); Specific Gravity,Urine 1.006 (1.001-1.035); Urobilinogen,Urine <2.0 mg/dL (<2.0); WBC,Urine 7 /hpf (0-5)
[2019-09-24] MEDS: SENNOSIDES-DOCUSATE SODIUM 1 EACH TAB PO SCH (20:36)
[2019-09-24] MEDS: ASPIRIN 81 MG PO SCH (20:36)
[2019-09-24] MEDS: LORazepam 2 MG/ML INJ IV PRN (20:37)
[2019-09-25] MEDS: DULoxetine HCL 30 MG CAPSULE.DR PO SCH (06:43)
[2019-09-25] MEDS: LEVOTHYROXINE 100 MCG TAB PO SCH (06:43)
[2019-09-25] MEDS: DULoxetine HCL 60 MG CAPSULE.DR PO SCH (06:43)
[2019-09-25] MEDS: POTASSIUM CHLORIDE ER 10 MEQ TAB.ER.PRT PO SCH (06:43)
[2019-09-25] MEDS: LISINOPRIL 20 MG TAB PO SCH (06:43)
[2019-09-25] MEDS: LEVOTHYROXINE 75 MCG TAB PO SCH (06:43)
[2019-09-25] MEDS: SODIUM CHLORIDE 0.9% 1,000 ML IV SCH (06:46)
[2019-09-25] MEDS: ARTIFICIAL TEARS-HYPROMELLOSE DROPS 15 ML BTL BOTH EYES SCH ×3 (06:46→21:42)
[2019-09-25 07:41] LABS: African American GFR (CKD) >90 (>60 ml/min/1.73 sqM); Anion Gap 6 mmol/L; Blood Urea Nitrogen 6 mg/dL (7-17); Calcium 8.4 mg/dL (8.4-10.2); Carbon Dioxide 32 mmol/L (22-30); Chloride 101 mmol/L (98-107); Glucose 101 mg/dL (74-99); Non-African American GFR(CKD) >90 (>60 ml/min/1.73 sqM); Potassium 3.6 mmol/L (3.5-5.1); Sodium 139 mmol/L (137-145)
[2019-09-25 08:01] LABS: Basophils % (A) 0 %; Eosinophils # (A) 0.1 k/uL (0-0.7); Eosinophils % (A) 1 %; HCT 37.2 % (34.0-46.0); HGB 11.3 gm/dL (11.4-16.0); Hypochromasia Moderate; Lymphocytes % (A) 10 %; MCH 29.7 pg (25.0-35.0); MCHC 30.4 g/dL (31.0-37.0); MCV 97.6 fL (80.0-100.0); Macrocytosis Slight; Mean Platelet Volume 8.1; Monocytes # (A) 0.4 k/uL (0-1.0); Monocytes % (A) 4 %; Neutrophils # (A) 8.7 k/uL (1.3-7.7); Neutrophils % (A) 84 %; Platelet Count 221 k/uL (150-450); RBC 3.81 m/uL (3.80-5.40); RDW 15.6 % (11.5-15.5); WBC 10.4 k/uL (3.8-10.6)
[2019-09-25] MEDS: IPRATROPIUM-ALBUTEROL 3 ML NEB INHALATION SCH ×4 (09:13→20:45)
[2019-09-25] MEDS: PANTOPRAZOLE 40 MG TABLET PO SCH (09:58)
[2019-09-25] MEDS: METOPROLOL TARTRATE 5 MG/5 ML VIAL IVP SCH (09:58)
[2019-09-25] MEDS: DOCUSATE 100 MG CAP PO SCH ×2 (09:58→21:41)
[2019-09-25 11:47] VITALS: BMI 33.4
--- NOTE | 2019-09-25 11:55 | P.CON ---
Consult Note - . Consult date: 09/25/19 Assessment/Plan:: Patient was seen last week for consult decubitus ulcer to bilateral heels and sacrum. Recommendations were given. Ulceration seems to decline from one week ago. Ulceration is larger with fatty layer exposure. No tunneling or undermin ing or is noted. Area has ecchymosis with minimal granulation noted. Review Of Systems: Constitutional: No fever, no chills, no night sweats. No weight change. No weakness, fatigue or lethargy. No daytime sleepiness. Integumentary:reports wounds, no lesions. No rash or pruritus. No unusual bruising. No change in hair or nails. Physical exam: General Appearance: Alert, cooperative, no distress, appears stated age. Skin: See HPI all other Skin color, texture, tugor normal, no rashes or lesions. Neurologic: Alert oriented x3 Assessment/plan: 1. Pressure ulcer to coccyx with fatty layer exposure. Continue to turn every 2 hours. Evaluate surface. Utilize a waffle cushion for sitting in chair. Apply honey alginate and foam to site change Tuesday and whenever soiled. May consider outpatient wound care therapy if necessary. 2. Pressure injury to bilateral heels. Skin is intact at this time. Continue with foam boots and offloading to site 3. History of right lower lobe pneumonia 4. History of atrial fibrillation with RVR 5. COPD 6. Dementia 7. Hyperlipidemia 8. Hypertension 9. Hypothyroidism Thank you for the consultation any questions please contact the wound care center. DNP note has been reviewed and discussed with Dr. Torres and the impression and plan of care has been directed as dictated.
--- NOTE | 2019-09-25 14:01 | P.PN ---
Subjective Progress Note Date: 09/25/19 Principal diagnosis: Right lower lobe pneumonia, suspect aspiration versus healthcare acquired The patient is seen today 09/25/2019 in follow-up on the selective care unit. She is currently sitting up in a chair at the bedside. Maintaining O2 saturations in the 90s on 3 L/m per nasal cannula. She's afebrile. Hemodynamically stable. Blood cultures reveal no growth. White count 10.4. Hemoglobin 11.3. Creatinine 0.49. Objective - Vital Signs Vital signs: Vital Signs Temp 98.2 F 09/25/19 12:00 Pulse 76 09/25/19 13:05 Resp 20 09/25/19 12:00 BP 140/63 09/25/19 12:00 Pulse Ox 94 L 09/25/19 12:00 Intake & Output 09/24/19 09/25/19 09/25/19 18:59 06:59 18:59 Intake Total 635 Output Total 2250 2150 Balance -1615 -2150 Weight 94 kg 94 kg Intake: IV 275 .9 @ 75 275 Oral 360 Output: Urine 2250 2150 Other: Voiding Method Indwelling Catheter Indwelling Catheter Indwelling Catheter # Voids 0 - Exam GENERAL EXAM: Awake alert in the chair at the bedside, comfortable, 73-year-old female on 3 L of oxygen with a pulse ox of 94% in no apparent distress. HEAD: Normocephalic/atraumatic. EYES: Normal reaction of pupils, equal size. Conjunctiva pink, sclera white. NOSE: Clear with pink turbinates. NGT is in place, with dark coffee ground/Maroon type drainage from the NG tube THROAT: No erythema or exudates. NECK: No masses, no JVD, no thyroid enlargement, no adenopathy. CHEST: No chest wall deformity. Symmetrical expansion. LUNGS: Equal air entry with crackles at the left base, but no wheeze, rhonchi or dullness. CVS: Regular rate and rhythm, normal S1 and S2, no gallops, no murmurs, no rubs ABDOMEN: Soft, nontender. No hepatosplenomegaly, normal bowel sounds, no guar ding or rigidity. EXTREMITIES: No clubbing, no edema, no cyanosis, 2+ pulses and upper and lower extremities. MUSCULOSKELETAL: Muscle strength and tone normal. SPINE: No scoliosis or deformity SKIN: No rashes CENTRAL NERVOUS SYSTEM: No focal deficits, tone is normal in all 4 extremities. PSYCHIATRIC: Alert and oriented -2. Appropriate affect. Intact judgment and insight. - Labs CBC & Chem 7: 09/25/19 06:46 09/25/19 06:46 Labs: Abnormal Lab Results - Last 24 Hours (Table) 09/24/19 09/25/19 09/25/19 Range/Units 18:05 06:46 06:46 Hgb 11.3 L (11.4-16.0) gm/dL MCHC 30.4 L (31.0-37.0) g/dL RDW 15.6 H (11.5-15.5) % Neutrophils # 8.7 H (1.3-7.7) k/uL Carbon Dioxide 32 H (22-30) mmol/L BUN 6 L (7-17) mg/dL Creatinine 0.49 L (0.52-1.04) mg/dL Glucose 101 H (74-99) mg/dL Ur Leukocyte Esterase Moderate H (Negative) Urine WBC 7 H (0-5) /hpf Urine Bacteria Rare H (None) /hpf Hyaline Casts 6 H (0-2) /lpf Urine Mucus Occasional H (None) /hpf Urine Yeast (Budding) Few H (None) /hpf Assessment and Plan Assessment: #1. Right lower lobe pneumonia, rule out aspiration versus healthcare acquired pneumonia #2. Hyperchloremic hypernatremia, recovered and the serum sodium level has normalized #3. Abdominal pain, nausea and vomiting, CT of abdomen and pelvis showed dilated gallbladder with gallstones, suggestive of cholecystitis, and partial mechanical small bowel obstruction or small bowel ileus. KUB x-ray today reveals overall nonobstructive bowel gas pattern. No evidence of pneumoperitoneum. Retained contrast within the colon from recent CAT scan. Gas and fecal material is seen and nondistended colon. Improved and tolerating a diet. #4. Coronary artery disease #5. COPD #6. Hypertension #7. Hyperlipidemia #8. Previous history of myocardial infarction #9. Hypothyroidism #10. Chronic anxiety/depression #11. Dementia #12. senior care resident Plan: The patient was seen and evaluated by Dr. Lloyd. Continue the current treatment plan. Surgical services are on the case. We will follow the patient on an as-needed basis. I, the cosigning physician, performed a history & physical examination of the patient. Lungs sounds with crackles in left base. Maintaining good O2 saturations in the 90s on 3 liters per minute per nasal cannula. I discussed the assessment and plan of care with my nurse practitioner, Cielo Mercado. I attest to the above note as dictated by her.
[2019-09-25] MEDS: METOPROLOL TARTRATE 25 MG TAB PO SCH ×2 (17:07→21:43)
[2019-09-25] MEDS: APIXABAN 5 MG TAB PO SCH (21:41)
[2019-09-25] MEDS: SENNOSIDES-DOCUSATE SODIUM 1 EACH TAB PO SCH (21:41)
[2019-09-25] MEDS: ASPIRIN 81 MG PO SCH (21:41)
[2019-09-25] MEDS: ALPRAZolam 0.5 MG TAB PO PRN (22:22)
--- NOTE | 2019-09-25 22:53 | P.PN ---
Subjective Progress Note Date: 09/24/19 Principal diagnosis: right lower lobe pneumonia elevated troponin level this is a pleasant 73 years old femalewith past medical history of heart failure, dementia, COPD, chronic hypoxic respiratory failure, GERD, hyperlipidemia, hypertension, coronary artery disease, hypothyroidism. Patient was sent from [facility] for pneumonia and atrial fibrillation.patient presented from [facility] because of shortness of breath, as per patient she is been having shortness of breath for 2 days associated with cough but no flame. She denies chest pain.she has history of COPD on chronic 2 L nasal cannula, at the halfway she desaturated with oxygen as low as 83% with tachycardia at 113. Of note also patient has history of stent for 10 years ago and she is on aspirin and Plavix. EKG showing atrial fibrillation with RVR at 136, with no significant ST-T changes. also the patient has history of aspiration pneumonia and she was have difficulty eating with choking, 1.5-2 years ago vitals showing blood pressure 154/64, saturation 93% on 4 L., Patient is afebrile.labs showing leukocytosis over 20 5.3K,denies normal, sodium 146, creatinine 0.7, sugar is 172. [place] [address]. This can done at [facility] shows no pulmonary emboli but right effusion and right lower lobe infiltrate. Lactic acid 1.4 which is within reference range. ProBNP 1759. WBC is 22.58, hemoglobin is 11.3, platelet count 391. INR is 0.9. Troponin is elevated at 1.29. Sodium 146, liver enzymes showing slight elevation with ALT 65 and AST 44, creatinine 0.8. Magnesium 2.2. 09/09/2019 Patient is lying comfortably in bed, breathing is stable with no worsening dyspnea. She denies chest pain. Vitals are stable and she is saturating 93% on 4 L oxygen. And glucose 116. Showing bibasilar air space disease as per radiologist. It was still pending. Patient is hemodynamically stable. Saturation in the 90s while on 4 L oxygen nasal cannula Echo and swallow evaluation are pending. The meantime continue on cefepime, Cardizem and heparin drip. However heparin drip was switched to Eliquis Also she is on Lasix 40 mg twice daily intravenously. 09/10/2019 Patient is currently awake and alert. Lying in the bed comfortably. No wo rsening shortness of breath. Patient does have underlying dementia. currently being continued onantibiotics in the form of cefepime and Flagyl. Patient has been afebrile. WBC count is16.4 patient did have elevated troponin level. Cardiology is following. 2-D echocardiogram was ordered. Patient is otherwise dehydrated wi sodium level CLI and BUN 42 and creatinine 0.9. IV fluids changed to D5 water. IV Lasix has been discontinued. Patient is able to tolerate oral diet and passed swallow evaluation. 09/11/2019 patient is awake alert andoriented. Does have underlying dementia. Denied any complaints of chest oscar or worsening short Tolerating oral diet. Continued onD5 water. Sodium level improved to 148, leukocytosis is imroving.continued on IV antibiotics cefepime and Flagyl. 2-D echocardiogram showedconcentric left ventricular hypertrophy with ejection fraction 50-55%. No significant valvular abnormalities were noted. current medications reviewed. pulmonary and cardiology is following. 09/12/2019 patient is currently lying in the bed comfortably. Saturating well on 3 L oxyg en with another cannula. no fever or chills. Tolerating oral diet. Currently being continued on antibiotics in the form of Flagyl and cefepime. Otherwise WBC count went up to 22 today.hemoglobin is stable around 10. IV fluids have been changed to normal saline with improvement in hypernatremia.. Follow-up labs tomorrow. Anticipate discharge once the white count is trending down. Pulmonary is following. 11/14/2018 Patient is currently awake and alert and appears to be in no distress. Curren tly saturating well on room air. No complaints of chest pain are worsening shortness of breath. Patient does complain of right lower quadrant abdominal discomfort. Patient did not have bowel movement White count is increasing to 25 today. Currently patient is on safety equipnt Flagyl.CT of abdomen pelvis was ordered but could not be done due toretained contrast from previous study. Chest x-ray was done Patient will be continued on gentle hydration.no fever no chills. No chest pain. 09/14/2019 Patient is awake and alertslightly more lethargic today. patient did have a large bowel moveme today. Chest x-ray done yesterday showed right lower lobe pneumonia, improving. Abdominal x-ray was done which showed normal bowel gas pattern Patient is tolerating oral diet. Continued on antibiotics in the form cefepime and Flagyl. WBC count is still high at 24.5 slight improvement from yesterday. Patient will be continued on IV hydration for 1 day.currently patient is afebrile. no complaints of chest pain or shortness of breath. No nausea vomiting or abdominal pain. 09/15/2019 patient is currently lying in the bed comfortably. No apparent distress. Shortness of breath is stable. Patient has been afebrile. Patient is still complaining of abdominal discomfort. Abdominal x-ray was done yesterday showed normal bowel gas pattern. Otherwise patient is being continued on IV antibio tics in the form of cefepime and Flagyl. Pulmonary is following. WBC count is trending down to 20.7. Hemoglobin 10.2 and creatinine 0.7. Currently on anticoagulation with eliquis. 09/16/2019 overnight patient had distention of the abdomen and flexion of the abdomen showed possible ileus versus small bowel obstruction. Otherwise patient denied any worsening shCurrently saturatinl on nasal cannula. patient was placed on nothing by mouth now. Continued on gentle hydration and also his medical medications will be changed to IV. Currently started on heparin dripand a decrease has been on hold. Gen. surgery was consulted due to ileus/bowel obstruction. CT of abdomen pelvis was done showed dilated gallbladder with gallstones. This is suggestive of cholecystitis. liver enzymes are not elevated. Bilirubin 0.4 Dilated small bowel in the mid abdomen consistent with partial mechanical small bowel obstruction or small bowel ileus. Transition point is not identified. Right pleural effusion and right lower lobe infiltrate and atelectasis. currently on cefepime and Flagyl. Leukocytosis is improving.improved to 14.6. 09/17/2019 Patient was initially transferred from [facility] to pneumonia and atrial fibrillation with rapid ventricular rate. Patient is being continued on antibiotics in the form of cefepime and Flagyl. patient develops abdominal distention., CT of abdomen pelvis showed dilated gallbladder with gallstones and possible acute cholecystitis. Dilated small bowel loops consistent with partial bowel obstruction. General surgery has seen the patient and recommends no surgical intervention at this time.no complains of nausea and vomiting. Abdomen is soft and nontender. Leukocytosis is improving to 12.6 today. Patient otherwise awake alert and denied any complaints of worsening abdominal pain or shortness of breath. Patient has been afebrile. pulmonary and general surgery is following. remains nothing by mouth. 09/22/2019 Patient is seen sitting up in bed; more alert and responsive; Per nursing staff patient's family is concerned about chest congestion Vital signs remained stable temperature of 97.6, pulse 76, respiration 18 and blood pressure of 158/73 with SpO2 of 96% on 2 L; auscultation of lungs reveals scattered rhonchi lab review shows CBC with white blood count of 8.3, hemoglobin 9.4, sodium 142 and potassium of 3.3; we will supplement with 20 mg of potassium IV 1; continue to monitor electrolytes and supplement as needed; patient remains on IV Protonix; NG tube has been discontinued and plan is to advance diet as tolerated 09/23/2019 Patient is seen sitting up in bed; denies any complaint of chest pain or shortness of breath; per nursing staff patient had been complaining of some chest pain earlier Vital signs remained stable with a temperature of 98.6, pulse 82, respiration 20 and blood pressure of 150/70 Labs are stable with white blood count of 7.9, hemoglobin of 9.3, sodium 140, potassium of 3.4; we will supplement with 20 mEq of KCl 1; NG tube has been discontinued; patient is being followed by surgery and recommendations are to advance diet as tolerated; patient has completed antibiotic therapy for pneumonia; white blood count stayed stable and patient remains afebrile We will consult PT/OT for evaluation and case management for discharge planning 09/24/2019 Patient is currently lying in the bed comfortably. Denied any worsening Shortness of breath. Patient did have chest tightness last night. EKG was done showed normal sinus rhythm. Chest x-ray showed increasing infiltrate and pleural fluid on the right side compared to last exam. Small left basilar infiltrate. Patient was started on IV Lasix. No fever no chills. Laboratory data reviewed from yesterday. No leukocytosis. Potassium was replaced. Wound care nurse will be consulted for decubitus ulcers and bilateral heel ulcers. Continue the wound care with a dry dressing. Discussed the family regarding plan of care. pulmonary is following. Patient did not have any bowel movement today. Last bowel movement was yesterday. Current medications reviewed. Objective - Vital Signs Vital signs: Vital Signs Temp 97.4 F L 09/24/19 16:00 Pulse 77 09/24/19 16:06 Resp 20 09/24/19 16:00 BP 144/72 09/24/19 16:00 Pulse Ox 94 L 09/24/19 16:00 Intake & Output 09/23/19 09/24/19 09/24/19 18:59 06:59 18:59 Intake Total 50 635 Output Total 6456 749 7943 Balance -1300 -600 -1615 Weight 92 kg 92 kg Intake: IV 275 .9 @ 75 275 Oral 50 360 Output: Urine 0520 041 8300 Other: Voiding Method Indwelling Catheter Indwelling Catheter Indwelling Catheter # Voids 1 1 0 - Exam GENERAL: The patient is alert and oriented x2-3, not in any acute distress. Well developed, well nourished. HEENT: Pupils are round and equally reacting to light. EOMI. No scleral icterus. No conjunctival pallor. Normocephalic, atraumatic. No pharyngeal erythema. No thyromegaly. CARDIOVASCULAR: S1 and S2 present. No murmurs, rubs, or gallops. PULMONARY: ilateral air entry improved. Minimal basilar crackles., no wheezing or rhonchi. ABDOMEN: Soft, no tenderness., nondistended, normal bowel sounds. No palpable organomegaly. MUSCULOSKELETAL: No joint swelling or deformity. EXTREMITIES: No cyanosis, clubbing, or pedal edema. NEUROLOGICAL: awake alert but confused.Gross neurological examination did not reveal any focal deficits. SKIN: No rashes. No petechiae psychiatric. Patient is cooperative. Currently reviewed completely. - Labs CBC & Chem 7: 09/25/19 06:46 09/25/19 06:46 Labs: Abnormal Lab Results - Last 24 Hours (Table) 09/24/19 Range/Units 18:05 Ur Leukocyte Esterase Moderate H (Negative) Urine WBC 7 H (0-5) /hpf Urine Bacteria Rare H (None) /hpf Hyaline Casts 6 H (0-2) /lpf Urine Mucus Occasional H (None) /hpf Urine Yeast (Budding) Few H (None) /hpf Assessment and Plan Assessment: right lower lobe Pneumonia possible aspiration pneumonia. Completed antibiotics in the form of cefepime and Flagyl. Leukocytosis resolved. Acute on chronic hypoxic respiratory failure. Currently on nausea cannula oxygen-titrated to room air. Acute small bowel ileus-partial obstruction. Resolved now. Improved abdominal distention.. Constipation. Hypernatremia due to poor oral intake and dehydration.improved now. elevated BNP acute on chronic Congestive heart failure. Follow-up echocardiogram Elevated troponin level. Possible non-ST elevated [place]. paroxysmal A. fib with RVR On anticoagulation with Eliquis. COPD dementia GERD Hyperlipidemia Hypertension History of coronary artery disease Hypothyroidism Plan: Completed course of antibiotics in the form of cefepime andFlagyl. Pulmonary is on board. IV fluids decreased to KVO and patient was started on Lasix. patient will be continued on stool softeners and laxatives. 2-D echocardiogram showed normal ejection fraction. Patient was seen by cardiology due to elevated troponin level. no further workup recommended at this time. Will be started back on Eliquis for paroxysmal atrial fibrillation. Patient is able to swallow and encourage oral intake once bowel obstruction resolves. continue with breathing treatments and follow closely. Further recommendations based on the clinical course. Time with Patient: Greater than 30
--- NOTE | 2019-09-25 23:05 | P.PN ---
Subjective Progress Note Date: 09/25/19 Principal diagnosis: right lower lobe pneumonia elevated troponin level this is a pleasant 73 years old femalewith past medical history of heart failure, dementia, COPD, chronic hypoxic respiratory failure, GERD, hyperlipidemia, hypertension, coronary artery disease, hypothyroidism. Patient was sent from [facility] for pneumonia and atrial fibrillation.patient presented from [facility] because of shortness of breath, as per patient she is been having shortness of breath for 2 days associated with cough but no flame. She denies chest pain.she has history of COPD on chronic 2 L nasal cannula, at the long-term she desaturated with oxygen as low as 83% with tachycardia at 113. Of note also patient has history of stent for 10 years ago and she is on aspirin and Plavix. EKG showing atrial fibrillation with RVR at 136, with no significant ST-T changes. also the patient has history of aspiration pneumonia and she was have difficulty eating with choking, 1.5-2 years ago vitals showing blood pressure 154/64, saturation 93% on 4 L., Patient is afebrile.labs showing leukocytosis over 20 5.3K,denies normal, sodium 146, creatinine 0.7, sugar is 172. [place] [address]. This can done at [facility] shows no pulmonary emboli but right effusion and right lower lobe infiltrate. Lactic acid 1.4 which is within reference range. ProBNP 1759. WBC is 22.58, hemoglobin is 11.3, platelet count 391. INR is 0.9. Troponin is elevated at 1.29. Sodium 146, liver enzymes showing slight elevation with ALT 65 and AST 44, creatinine 0.8. Magnesium 2.2. 09/09/2019 Patient is lying comfortably in bed, breathing is stable with no worsening dyspnea. She denies chest pain. Vitals are stable and she is saturating 93% on 4 L oxygen. And glucose 116. Showing bibasilar air space disease as per radiologist. It was still pending. Patient is hemodynamically stable. Saturation in the 90s while on 4 L oxygen nasal cannula Echo and swallow evaluation are pending. The meantime continue on cefepime, Cardizem and heparin drip. However heparin drip was switched to Eliquis Also she is on Lasix 40 mg twice daily intravenously. 09/10/2019 Patient is currently awake and alert. Lying in the bed comfortably. No wo rsening shortness of breath. Patient does have underlying dementia. currently being continued onantibiotics in the form of cefepime and Flagyl. Patient has been afebrile. WBC count is16.4 patient did have elevated troponin level. Cardiology is following. 2-D echocardiogram was ordered. Patient is otherwise dehydrated wi sodium level CLI and BUN 42 and creatinine 0.9. IV fluids changed to D5 water. IV Lasix has been discontinued. Patient is able to tolerate oral diet and passed swallow evaluation. 09/11/2019 patient is awake alert andoriented. Does have underlying dementia. Denied any complaints of chest oscar or worsening short Tolerating oral diet. Continued onD5 water. Sodium level improved to 148, leukocytosis is imroving.continued on IV antibiotics cefepime and Flagyl. 2-D echocardiogram showedconcentric left ventricular hypertrophy with ejection fraction 50-55%. No significant valvular abnormalities were noted. current medications reviewed. pulmonary and cardiology is following. 09/12/2019 patient is currently lying in the bed comfortably. Saturating well on 3 L oxyg en with another cannula. no fever or chills. Tolerating oral diet. Currently being continued on antibiotics in the form of Flagyl and cefepime. Otherwise WBC count went up to 22 today.hemoglobin is stable around 10. IV fluids have been changed to normal saline with improvement in hypernatremia.. Follow-up labs tomorrow. Anticipate discharge once the white count is trending down. Pulmonary is following. 11/14/2018 Patient is currently awake and alert and appears to be in no distress. Curren tly saturating well on room air. No complaints of chest pain are worsening shortness of breath. Patient does complain of right lower quadrant abdominal discomfort. Patient did not have bowel movement White count is increasing to 25 today. Currently patient is on safety equipnt Flagyl.CT of abdomen pelvis was ordered but could not be done due toretained contrast from previous study. Chest x-ray was done Patient will be continued on gentle hydration.no fever no chills. No chest pain. 09/14/2019 Patient is awake and alertslightly more lethargic today. patient did have a large bowel moveme today. Chest x-ray done yesterday showed right lower lobe pneumonia, improving. Abdominal x-ray was done which showed normal bowel gas pattern Patient is tolerating oral diet. Continued on antibiotics in the form cefepime and Flagyl. WBC count is still high at 24.5 slight improvement from yesterday. Patient will be continued on IV hydration for 1 day.currently patient is afebrile. no complaints of chest pain or shortness of breath. No nausea vomiting or abdominal pain. 09/15/2019 patient is currently lying in the bed comfortably. No apparent distress. Shortness of breath is stable. Patient has been afebrile. Patient is still complaining of abdominal discomfort. Abdominal x-ray was done yesterday showed normal bowel gas pattern. Otherwise patient is being continued on IV antibio tics in the form of cefepime and Flagyl. Pulmonary is following. WBC count is trending down to 20.7. Hemoglobin 10.2 and creatinine 0.7. Currently on anticoagulation with eliquis. 09/16/2019 overnight patient had distention of the abdomen and flexion of the abdomen showed possible ileus versus small bowel obstruction. Otherwise patient denied any worsening shCurrently saturatinl on nasal cannula. patient was placed on nothing by mouth now. Continued on gentle hydration and also his medical medications will be changed to IV. Currently started on heparin dripand a decrease has been on hold. Gen. surgery was consulted due to ileus/bowel obstruction. CT of abdomen pelvis was done showed dilated gallbladder with gallstones. This is suggestive of cholecystitis. liver enzymes are not elevated. Bilirubin 0.4 Dilated small bowel in the mid abdomen consistent with partial mechanical small bowel obstruction or small bowel ileus. Transition point is not identified. Right pleural effusion and right lower lobe infiltrate and atelectasis. currently on cefepime and Flagyl. Leukocytosis is improving.improved to 14.6. 09/17/2019 Patient was initially transferred from [facility] to pneumonia and atrial fibrillation with rapid ventricular rate. Patient is being continued on antibiotics in the form of cefepime and Flagyl. patient develops abdominal distention., CT of abdomen pelvis showed dilated gallbladder with gallstones and possible acute cholecystitis. Dilated small bowel loops consistent with partial bowel obstruction. General surgery has seen the patient and recommends no surgical intervention at this time.no complains of nausea and vomiting. Abdomen is soft and nontender. Leukocytosis is improving to 12.6 today. Patient otherwise awake alert and denied any complaints of worsening abdominal pain or shortness of breath. Patient has been afebrile. pulmonary and general surgery is following. remains nothing by mouth. 09/22/2019 Patient is seen sitting up in bed; more alert and responsive; Per nursing staff patient's family is concerned about chest congestion Vital signs remained stable temperature of 97.6, pulse 76, respiration 18 and blood pressure of 158/73 with SpO2 of 96% on 2 L; auscultation of lungs reveals scattered rhonchi lab review shows CBC with white blood count of 8.3, hemoglobin 9.4, sodium 142 and potassium of 3.3; we will supplement with 20 mg of potassium IV 1; continue to monitor electrolytes and supplement as needed; patient remains on IV Protonix; NG tube has been discontinued and plan is to advance diet as tolerated 09/23/2019 Patient is seen sitting up in bed; denies any complaint of chest pain or shortness of breath; per nursing staff patient had been complaining of some chest pain earlier Vital signs remained stable with a temperature of 98.6, pulse 82, respiration 20 and blood pressure of 150/70 Labs are stable with white blood count of 7.9, hemoglobin of 9.3, sodium 140, potassium of 3.4; we will supplement with 20 mEq of KCl 1; NG tube has been discontinued; patient is being followed by surgery and recommendations are to advance diet as tolerated; patient has completed antibiotic therapy for pneumonia; white blood count stayed stable and patient remains afebrile We will consult PT/OT for evaluation and case management for discharge planning 09/24/2019 Patient is currently lying in the bed comfortably. Denied any worsening Shortness of breath. Patient did have chest tightness last night. EKG was done showed normal sinus rhythm. Chest x-ray showed increasing infiltrate and pleural fluid on the right side compared to last exam. Small left basilar infiltrate. Patient was started on IV Lasix. No fever no chills. Laboratory data reviewed from yesterday. No leukocytosis. Potassium was replaced. Wound care nurse will be consulted for decubitus ulcers and bilateral heel ulcers. Continue the wound care with a dry dressing. Discussed the family regarding plan of care. pulmonary is following. Patient did not have any bowel movement today. Last bowel movement was yesterday. She don't 2019 Patient is currently sitting in a chair comfortably. Denied any complaints of chest pain or worsening shortness of breath. 09/25/2019 Patient is currently sitting in a chair comfortably. Denied any complaints of chest pain or worsening shortness of breath. Patient did have episode of atrial fibrillation last night. Currently patient is in sinus rhythm. Heart rate is controlled. Metoprolol IV will be changed to 25 mg 3 times a day. Patient was started back on Eliquis for paroxysmal atrial fibrillation. Otherwise patient did not have any bowel movement today. Patient has been afebrile. No Leukocytosis. Potassium will be replaced. Blood cultures showed no growth. WBC 10.4, hemoglobin 11.3 and creatinine 0.49. Currently patient is saturating on nausea cannula oxygen at 3 L. Patient is able to tolerate oral diet but decreased oral intake. Discussed with the family in detail. Active Medications Albuterol/Ipratropium (Duoneb 0.5 Mg-3 Mg/3 Ml Soln) 3 ml INHALATION RT-QID [facility] Last Admin: 09/25/19 20:45 Dose: 3 ml Documented by: Albuterol/Ipratropium (Duoneb 0.5 Mg-3 Mg/3 Ml Soln) 3 ml INHALATION RT-Q2H PRN PRN Reason: Shortness Of Breath Or Wheezing Alprazolam (Xanax) 0.5 mg PO BID PRN PRN Reason: Anxiety Last Admin: 09/25/19 22:22 Dose: 0.5 mg Documented by: Apixaban (Eliquis) 5 mg PO BID [facility] Last Admin: 09/25/19 21:41 Dose: 5 mg Documented by: Artificial Tears (Artificial Tear Drops) 1 drops BOTH EYES BID@0600,2100 [facility] Last Admin: 09/25/19 21:42 Dose: 1 drops Documented by: Aspirin (Aspirin) 81 mg PO HS@2100 [facility] Last Admin: 09/25/19 21:41 Dose: 81 mg Documented by: Bisacodyl (Dulcolax) 10 mg PO DAILY PRN PRN Reason: Constipation Last Admin: 09/13/19 16:38 Dose: 10 mg Documented by: Bisacodyl (Dulcolax) 10 mg RECTAL DAILY PRN PRN Reason: Constipation Last Admin: 09/13/19 16:38 Dose: 10 mg Documented by: Docusate Sodium (Colace) 100 mg PO BID [facility] Last Admin: 09/25/19 21:41 Dose: 100 mg Documented by: Duloxetine HCl (Cymbalta) 30 mg PO DAILY@0600 [facility] Last Admin: 09/25/19 06:43 Dose: 30 mg Documented by: Duloxetine HCl (Cymbalta) 60 mg PO DAILY@0600 [facility] Last Admin: 09/25/19 06:43 Dose: 60 mg Documented by: Guaifenesin (Robitussin) 200 mg PO Q4H PRN PRN Reason: Cough Haloperidol Lactate (Haldol) 0.5 mg IVP Q8HR PRN PRN Reason: Agitation or Acute Psychosis Last Admin: 09/19/19 22:32 Dose: 0.5 mg Documented by: Sodium Chloride (Saline 0.9%) 1,000 mls @ 10 mls/hr IV .Q24H [facility] Last Admin: 09/25/19 06:46 Dose: 10 mls/hr Documented by: Levothyroxine Sodium (Synthroid) 100 mcg PO DAILY@0600 [facility] Last Admin: 09/25/19 06:43 Dose: 100 mcg Documented by: Levothyroxine Sodium (Synthroid) 75 mcg PO DAILY@0600 [facility] Last Admin: 09/25/19 06:43 Dose: 75 mcg Documented by: Lisinopril (Zestril) 20 mg PO DAILY@0600 [facility] Last Admin: 09/25/19 06:43 Dose: 20 mg Documented by: Lorazepam (Ativan) 0.5 mg IV Q6HR PRN PRN Reason: Anxiety Last Admin: 09/24/19 20:37 Dose: 0.5 mg Documented by: Magnesium Hydroxide (Milk Of Magnesia) 2,400 mg PO DAILY PRN PRN Reason: Constipation Metoprolol Tartrate (Lopressor) 25 mg PO TID [facility] Last Admin: 09/25/19 21:43 Dose: 25 mg Documented by: Miscellaneous Information (Potassium Per Protocol) 1 each MISCELLANE DAILY PRN; Protocol PRN Reason: Per Protocol Pantoprazole Sodium (Protonix) 40 mg PO DAILY [facility] Last Admin: 09/25/19 09:58 Dose: 40 mg Documented by: Potassium Chloride (K-Dur 10) 10 meq PO DAILY@0600 [facility] Last Admin: 09/25/19 06:43 Dose: 10 meq Documented by: Quetiapine Fumarate (Seroquel) 25 mg PO HS PRN PRN Reason: Agitation Last Admin: 09/17/19 21:06 Dose: 25 mg Documented by: Senna/Docusate Sodium (Senokot-S) 1 each PO HS@2100 [facility] Last Admin: 09/25/19 21:41 Dose: 1 each Documented by: Objective - Vital Signs Vital signs: Vital Signs Temp 97.6 F 09/25/19 14:59 Pulse 82 09/25/19 16:57 Resp 20 09/25/19 16:00 BP 136/69 09/25/19 14:59 Pulse Ox 93 L 09/25/19 14:59 Intake & Output 09/25/19 09/25/19 09/26/19 06:59 18:59 06:59 Intake Total 243 Output Total 2150 300 Balance -2149 Weight 94 kg 94 kg Intake: Oral 243 Output: Urine 2150 300 Other: Voiding Method Indwelling Catheter Indwelling Catheter - Exam GENERAL: The patient is alert and oriented x2-3, not in any acute distress. Well developed, well nourished. HEENT: Pupils are round and equally reacting to light. EOMI. No scleral icterus. No conjunctival pallor. Normocephalic, atraumatic. No pharyngeal erythema. No thyromegaly. CARDIOVASCULAR: S1 and S2 present. No murmurs, rubs, or gallops. PULMONARY: ilateral air entry improved. Minimal basilar crackles., no wheezing or rhonchi. ABDOMEN: Soft, no tenderness., nondistended, normal bowel sounds. No palpable organomegaly. MUSCULOSKELETAL: No joint swelling or deformity. EXTREMITIES: No cyanosis, clubbing, or pedal edema. NEUROLOGICAL: awake alert but confused.Gross neurological examination did not reveal any focal deficits. SKIN: No rashes. No petechiae psychiatric. Patient is cooperative. Currently reviewed completely. - Labs CBC & Chem 7: 09/25/19 06:46 09/25/19 06:46 Labs: Abnormal Lab Results - Last 24 Hours (Table) 09/25/19 09/25/19 Range/Units 06:46 06:46 Hgb 11.3 L (11.4-16.0) gm/dL MCHC 30.4 L (31.0-37.0) g/dL RDW 15.6 H (11.5-15.5) % Neutrophils # 8.7 H (1.3-7.7) k/uL Carbon Dioxide 32 H (22-30) mmol/L BUN 6 L (7-17) mg/dL Creatinine 0.49 L (0.52-1.04) mg/dL Glucose 101 H (74-99) mg/dL Assessment and Plan Assessment: right lower lobe Pneumonia possible aspiration pneumonia. Completed antibiotics in the form of cefepime and Flagyl. Leukocytosis resolved. Acute on chronic hypoxic respiratory failure. Currently on nausea cannula oxygen-will be titrated to room air. Acute small bowel ileus-partial obstruction. Resolved now. Improved abdominal distention.. Constipation. Hypernatremia due to poor oral intake and dehydration.improved now. elevated BNP acute on chronic Congestive heart failure. Follow-up echocardiogram Elevated troponin level. Possible non-ST elevated ID. paroxysmal A. fib with RVR On anticoagulation with Eliquis. COPD dementia GERD Hyperlipidemia Hypertension History of coronary artery disease Hypothyroidism Plan: Completed course of antibiotics in the form of cefepime andFlagyl. Pulmonary is on board. IV fluids decreased to KVO and patient was started on Lasix. patient will be continued on stool softeners and laxatives. 2-D echocardiogram showed normal ejection fraction. Patient was seen by cardiology due to elevated troponin level. no further workup recommended at this time. Will be started back on Eliquis for paroxysmal atrial fibrillation. Patient is able to swallow and encourage oral intake once bowel obstruction resolves. continue with breathing treatments and follow closely. Further recommendations based on the clinical course. Time with Patient: Greater than 30
[2019-09-26] MEDS: METOPROLOL TARTRATE 5 MG/5 ML VIAL IVP SCH (05:46)
[2019-09-26] MEDS: SODIUM CHLORIDE 0.9% 1,000 ML IV SCH (06:54)
[2019-09-26] MEDS: LEVOTHYROXINE 75 MCG TAB PO SCH (06:54)
[2019-09-26] MEDS: LEVOTHYROXINE 100 MCG TAB PO SCH (06:54)
[2019-09-26] MEDS: LISINOPRIL 20 MG TAB PO SCH (06:54)
[2019-09-26] MEDS: POTASSIUM CHLORIDE ER 10 MEQ TAB.ER.PRT PO SCH (06:54)
[2019-09-26] MEDS: DULoxetine HCL 30 MG CAPSULE.DR PO SCH (06:54)
[2019-09-26] MEDS: ARTIFICIAL TEARS-HYPROMELLOSE DROPS 15 ML BTL BOTH EYES SCH ×2 (06:54→22:05)
[2019-09-26] MEDS: DULoxetine HCL 60 MG CAPSULE.DR PO SCH (06:54)
[2019-09-26] MEDS: IPRATROPIUM-ALBUTEROL 3 ML NEB INHALATION SCH ×4 (09:08→21:15)
[2019-09-26] MEDS: PANTOPRAZOLE 40 MG TABLET PO SCH (09:42)
[2019-09-26] MEDS: APIXABAN 5 MG TAB PO SCH ×2 (09:42→22:05)
[2019-09-26] MEDS: DOCUSATE 100 MG CAP PO SCH ×2 (09:43→22:06)
[2019-09-26] MEDS: METOPROLOL TARTRATE 25 MG TAB PO SCH ×3 (09:43→22:06)
[2019-09-26] MEDS ORDERED: ACETAMINOPHEN TAB 500 MG TAB PO PRN (12:19)
[2019-09-26] MEDS ORDERED: SODIUM CHLORIDE 0.9% 1,000 ML IV ONE (12:42)
--- NOTE | 2019-09-26 15:50 | P.PN ---
Subjective Progress Note Date: 09/26/19 Principal diagnosis: Right lower lobe pneumonia, suspect aspiration versus healthcare acquired The patient is seen today 09/25/2019 in follow-up on the selective care unit. She is currently sitting up in a chair at the bedside. Maintaining O2 saturations in the 90s on 3 L/m per nasal cannula. She's afebrile. Hemodynamically stable. Blood cultures reveal no growth. White count 10.4. Hemoglobin 11.3. Creatinine 0.49. The patient is seen again today 09/26/2019 in follow-up on the selective care unit. She remains awake and alert in no acute distress. Breathing easier today as compared to yesterday. 18 and O2 saturation in the 90s on 3 L/m per nasal cannula. She's afebrile. Hemodynamically stable. Blood cultures reveal no growth. Remains on bronchodilators. Objective - Vital Signs Vital signs: Vital Signs Temp 98.2 F 09/26/19 12:30 Pulse 72 09/26/19 12:30 Resp 16 09/26/19 12:30 BP 133/63 09/26/19 12:30 Pulse Ox 94 L 09/26/19 12:30 Intake & Output 09/25/19 09/26/19 09/26/19 18:59 06:59 18:59 Intake Total 243 250 Output Total 300 Balance -57 250 Weight 94 kg 107 kg Intake: Intake, IV Titration 250 Amount Sodium Chloride 0.9% 1, 250 000 ml @ 250 mls/hr IV . Q4H ONE Rx#:[id number] Oral 243 Output: Urine 300 Other: Voiding Method Indwelling Catheter Indwelling Catheter Indwelling Catheter - Exam GENERAL EXAM: Awake alert, comfortable, 73-year-old female on 3 L of oxygen with a pulse ox of 94% in no apparent distress. HEAD: Normocephalic/atraumatic. EYES: Normal reaction of pupils, equal size. Conjunctiva pink, sclera white. NOSE: Clear with pink turbinates. NGT is in place, with dark coffee ground/Maroon type drainage from the NG tube THROAT: No erythema or exudates. NECK: No masses, no JVD, no thyroid enlargement, no adenopathy. CHEST: No chest wall deformity. Symmetrical expansion. LUNGS: Equal air entry with crackles at the left base, but no wheeze, rhonchi or dullness. CVS: Regular rate and rhythm, normal S1 and S2, no gallops, no murmurs, no rubs ABDOMEN: Soft, nontender. No hepatosplenomegaly, normal bowel sounds, no guarding or rigidity. EXTREMITIES: No clubbing, no edema, no cyanosis, 2+ pulses and upper and lower extremities. MUSCULOSKELETAL: Muscle strength and tone normal. SPINE: No scoliosis or deformity SKIN: No rashes CENTRAL NERVOUS SYSTEM: No focal deficits, tone is normal in all 4 extremities. PSYCHIATRIC: Alert and oriented -2. Appropriate affect. Intact judgment and insight. - Labs CBC & Chem 7: 09/25/19 06:46 09/25/19 06:46 Assessment and Plan Assessment: #1. Right lower lobe pneumonia, rule out aspiration versus healthcare acquired pneumonia #2. Hyperchloremic hypernatremia, recovered and the serum sodium level has normalized #3. Abdominal pain, nausea and vomiting, CT of abdomen and pelvis showed dilated gallbladder with gallstones, suggestive of cholecystitis, and partial mechanical small bowel obstruction or small bowel ileus. KUB x-ray today reveals overall nonobstructive bowel gas pattern. No evidence of pneumoperitoneum. Retained contrast within the colon from recent CAT scan. Gas and fecal material is seen and nondistended colon. Improved and tolerating a diet. #4. Coronary artery disease #5. COPD #6. Hypertension #7. Hyperlipidemia #8. Previous history of myocardial infarction #9. Hypothyroidism #10. Chronic anxiety/depression #11. Dementia #12. long term resident Plan: The patient was seen and evaluated by Dr. Lloyd. She is cleared for discharge from the pulmonary standpoint. We will follow the patient on an as-needed basis. I, the cosigning physician, performed a history & physical examination of the patient. Lungs sounds with crackles in left base. Maintaining good O2 saturations in the 90s on 3 liters per minute per nasal cannula. I discussed the assessment and plan of care with my nurse practitioner, Cielo Mercado. I attest to the above note as dictated by her.
[2019-09-26] MEDS ORDERED: HYDROcodone/APAP 5-325MG 1 EACH TAB PO PRN (17:54)
[2019-09-26] MEDS: ASPIRIN 81 MG PO SCH (22:06)
[2019-09-26] MEDS: SENNOSIDES-DOCUSATE SODIUM 1 EACH TAB PO SCH (22:06)
[2019-09-26] MEDS: LORazepam 2 MG/ML INJ IV PRN (23:59)
--- NOTE | 2019-09-27 00:40 | P.PN ---
Subjective Progress Note Date: 09/26/19 Principal diagnosis: right lower lobe pneumonia elevated troponin level this is a pleasant 73 years old femalewith past medical history of heart failure, dementia, COPD, chronic hypoxic respiratory failure, GERD, hyperlipidemia, hypertension, coronary artery disease, hypothyroidism. Patient was sent from [facility] for pneumonia and atrial fibrillation.[facility] shortness of breath, as per patient she is been having shortness of breath for 2 days associated with cough but no flame. She denies chest pain.she has history of COPD on chronic 2 L nasal cannula, at the longterm she desaturated with oxygen as low as 83% with tachycardia at 113. Of note also patient has history of stent for 10 years ago and she is on aspirin and Plavix. EKG showing atrial fibrillation with RVR at 136, with no significant ST-T changes. also the patient has history of aspiration pneumonia and she was have difficulty eating with choking, 1.5-2 years ago vitals showing blood pressure 154/64, saturation 93% on 4 L., Patient is afebrile.labs showing leukocytosis over 20 5.3K,denies normal, sodium 146, creatinine 0.7, sugar is 172. [place] [address]. This can done at [facility] shows no pulmonary emboli but right effusion and right lower lobe infiltrate. Lactic acid 1.4 which is within reference range. ProBNP 1759. WBC is 22.58, hemoglobin is 11.3, platelet count 391. INR is 0.9. Troponin is elevated at 1.29. Sodium 146, liver enzymes showing slight elevation with ALT 65 and AST 44, creatinine 0.8. Magnesium 2.2. 09/09/2019 Patient is lying comfortably in bed, breathing is stable with no worsening dyspnea. She denies chest pain. Vitals are stable and she is saturating 93% on 4 L oxygen. And glucose 116. Showing bibasilar air space disease as per radiologist. It was still pending. Patient is hemodynamically stable. Saturation in the 90s while on 4 L oxygen nasal cannula Echo and swallow evaluation are pending. The meantime continue on cefepime, Cardizem and heparin drip. However heparin drip was switched to Eliquis Also she is on Lasix 40 mg twice daily intravenously. 09/10/2019 Patient is currently awake and alert. Lying in the bed comfortably. No wo rsening shortness of breath. Patient does have underlying dementia. currently being continued onantibiotics in the form of cefepime and Flagyl. Patient has been afebrile. WBC count is16.4 patient did have elevated troponin level. Cardiology is following. 2-D echocardiogram was ordered. Patient is otherwise dehydrated wi sodium level CLI and BUN 42 and creatinine 0.9. IV fluids changed to D5 water. IV Lasix has been discontinued. Patient is able to tolerate oral diet and passed swallow evaluation. 09/11/2019 patient is awake alert andoriented. Does have underlying dementia. Denied any complaints of chest oscar or worsening short Tolerating oral diet. Continued onD5 water. Sodium level improved to 148, leukocytosis is imroving.continued on IV antibiotics cefepime and Flagyl. 2-D echocardiogram showedconcentric left ventricular hypertrophy with ejection fraction 50-55%. No significant valvular abnormalities were noted. current medications reviewed. pulmonary and cardiology is following. 09/12/2019 patient is currently lying in the bed comfortably. Saturating well on 3 L oxyg en with another cannula. no fever or chills. Tolerating oral diet. Currently being continued on antibiotics in the form of Flagyl and cefepime. Otherwise WBC count went up to 22 today.hemoglobin is stable around 10. IV fluids have been changed to normal saline with improvement in hypernatremia.. Follow-up labs tomorrow. Anticipate discharge once the white count is trending down. Pulmonary is following. 11/14/2018 Patient is currently awake and alert and appears to be in no distress. Curren tly saturating well on room air. No complaints of chest pain are worsening shortness of breath. Patient does complain of right lower quadrant abdominal discomfort. Patient did not have bowel movement White count is increasing to 25 today. Currently patient is on safety equipnt Flagyl.CT of abdomen pelvis was ordered but could not be done due toretained contrast from previous study. Chest x-ray was done Patient will be continued on gentle hydration.no fever no chills. No chest pain. 09/14/2019 Patient is awake and alertslightly more lethargic today. patient did have a large bowel moveme today. Chest x-ray done yesterday showed right lower lobe pneumonia, improving. Abdominal x-ray was done which showed normal bowel gas pattern Patient is tolerating oral diet. Continued on antibiotics in the form cefepime and Flagyl. WBC count is still high at 24.5 slight improvement from yesterday. Patient will be continued on IV hydration for 1 day.currently patient is afebrile. no complaints of chest pain or shortness of breath. No nausea vomiting or abdominal pain. 09/15/2019 patient is currently lying in the bed comfortably. No apparent distress. Shortness of breath is stable. Patient has been afebrile. Patient is still complaining of abdominal discomfort. Abdominal x-ray was done yesterday showed normal bowel gas pattern. Otherwise patient is being continued on IV antibio tics in the form of cefepime and Flagyl. Pulmonary is following. WBC count is trending down to 20.7. Hemoglobin 10.2 and creatinine 0.7. Currently on anticoagulation with eliquis. 09/16/2019 overnight patient had distention of the abdomen and flexion of the abdomen showed possible ileus versus small bowel obstruction. Otherwise patient denied any worsening shCurrently saturatinl on nasal cannula. patient was placed on nothing by mouth now. Continued on gentle hydration and also his medical medications will be changed to IV. Currently started on heparin dripand a decrease has been on hold. Gen. surgery was consulted due to ileus/bowel obstruction. CT of abdomen pelvis was done showed dilated gallbladder with gallstones. This is suggestive of cholecystitis. liver enzymes are not elevated. Bilirubin 0.4 Dilated small bowel in the mid abdomen consistent with partial mechanical small bowel obstruction or small bowel ileus. Transition point is not identified. Right pleural effusion and right lower lobe infiltrate and atelectasis. currently on cefepime and Flagyl. Leukocytosis is improving.improved to 14.6. 09/17/2019 Patient was initially transferred from [facility] to pneumonia and atrial fibrillation with rapid ventricular rate. Patient is being continued on antibiotics in the form of cefepime and Flagyl. patient develops abdominal distention., CT of abdomen pelvis showed dilated gallbladder with gallstones and possible acute cholecystitis. Dilated small bowel loops consistent with partial bowel obstruction. General surgery has seen the patient and recommends no surgical intervention at this time.no complains of nausea and vomiting. Abdomen is soft and nontender. Leukocytosis is improving to 12.6 today. Patient otherwise awake alert and denied any complaints of worsening abdominal pain or shortness of breath. Patient has been afebrile. pulmonary and general surgery is following. remains nothing by mouth. 09/22/2019 Patient is seen sitting up in bed; more alert and responsive; Per nursing staff patient's family is concerned about chest congestion Vital signs remained stable temperature of 97.6, pulse 76, respiration 18 and blood pressure of 158/73 with SpO2 of 96% on 2 L; auscultation of lungs reveals scattered rhonchi lab review shows CBC with white blood count of 8.3, hemoglobin 9.4, sodium 142 and potassium of 3.3; we will supplement with 20 mg of potassium IV 1; continue to monitor electrolytes and supplement as needed; patient remains on IV Protonix; NG tube has been discontinued and plan is to advance diet as tolerated 09/23/2019 Patient is seen sitting up in bed; denies any complaint of chest pain or shortness of breath; per nursing staff patient had been complaining of some chest pain earlier Vital signs remained stable with a temperature of 98.6, pulse 82, respiration 20 and blood pressure of 150/70 Labs are stable with white blood count of 7.9, hemoglobin of 9.3, sodium 140, potassium of 3.4; we will supplement with 20 mEq of KCl 1; NG tube has been discontinued; patient is being followed by surgery and recommendations are to advance diet as tolerated; patient has completed antibiotic therapy for pneumonia; white blood count stayed stable and patient remains afebrile We will consult PT/OT for evaluation and case management for discharge planning 09/24/2019 Patient is currently lying in the bed comfortably. Denied any worsening Shortness of breath. Patient did have chest tightness last night. EKG was done showed normal sinus rhythm. Chest x-ray showed increasing infiltrate and pleural fluid on the right side compared to last exam. Small left basilar infiltrate. Patient was started on IV Lasix. No fever no chills. Laboratory data reviewed from yesterday. No leukocytosis. Potassium was replaced. Wound care nurse will be consulted for decubitus ulcers and bilateral heel ulcers. Continue the wound care with a dry dressing. Discussed the family regarding plan of care. pulmonary is following. Patient did not have any bowel movement today. Last bowel movement was yesterday. She don't 2019 Patient is currently sitting in a chair comfortably. Denied any complaints of chest pain or worsening shortness of breath. 09/25/2019 Patient is currently sitting in a chair comfortably. Denied any complaints of chest pain or worsening shortness of breath. Patient did have episode of atrial fibrillation last night. Currently patient is in sinus rhythm. Heart rate is controlled. Metoprolol IV will be changed to 25 mg 3 times a day. Patient was started back on Eliquis for paroxysmal atrial fibrillation. Otherwise patient did not have any bowel movement today. Patient has been afebrile. No Leukocytosis. Potassium will be replaced. Blood cultures showed no growth. WBC 10.4, hemoglobin 11.3 and creatinine 0.49. Currently patient is saturating on nausea cannula oxygen at 3 L. Patient is able to tolerate oral diet but decreased oral intake. Discussed with the family in detail. 09/26/2019 Patient is currently sitting in the bed comfortably. Requiring oxygen with another cannula at 3 L. Breathing is easier compared to yesterday. Patient was sleepy this morning but I was able to eat small amount of food at lunchtime. No bowel movement last 2 days. Bowel sounds are present and passing flatus. Otherwise patient still weak and unable to ambulate by herself. Currently being continued on breathing treatments and supportive management. Continue the wound care. Anticipate discharged to rehab in the next 24 hours. Repeat labs tomorrow. Active Medications Albuterol/Ipratropium (Duoneb 0.5 Mg-3 Mg/3 Ml Soln) 3 ml INHALATION RT-QID [facility] Last Admin: 09/25/19 20:45 Dose: 3 ml Documented by: Albuterol/Ipratropium (Duoneb 0.5 Mg-3 Mg/3 Ml Soln) 3 ml INHALATION RT-Q2H PRN PRN Reason: Shortness Of Breath Or Wheezing Alprazolam (Xanax) 0.5 mg PO BID PRN PRN Reason: Anxiety Last Admin: 09/25/19 22:22 Dose: 0.5 mg Documented by: Apixaban (Eliquis) 5 mg PO BID [facility] Last Admin: 09/25/19 21:41 Dose: 5 mg Documented by: Artificial Tears (Artificial Tear Drops) 1 drops BOTH EYES BID@0600,2100 [facility] Last Admin: 09/25/19 21:42 Dose: 1 drops Documented by: Aspirin (Aspirin) 81 mg PO HS@2100 [facility] Last Admin: 09/25/19 21:41 Dose: 81 mg Documented by: Bisacodyl (Dulcolax) 10 mg PO DAILY PRN PRN Reason: Constipation Last Admin: 09/13/19 16:38 Dose: 10 mg Documented by: Bisacodyl (Dulcolax) 10 mg RECTAL DAILY PRN PRN Reason: Constipation Last Admin: 09/13/19 16:38 Dose: 10 mg Documented by: Docusate Sodium (Colace) 100 mg PO BID [facility] Last Admin: 09/25/19 21:41 Dose: 100 mg Documented by: Duloxetine HCl (Cymbalta) 30 mg PO DAILY@0600 [facility] Last Admin: 09/25/19 06:43 Dose: 30 mg Documented by: Duloxetine HCl (Cymbalta) 60 mg PO DAILY@0600 [facility] Last Admin: 09/25/19 06:43 Dose: 60 mg Documented by: Guaifenesin (Robitussin) 200 mg PO Q4H PRN PRN Reason: Cough Haloperidol Lactate (Haldol) 0.5 mg IVP Q8HR PRN PRN Reason: Agitation or Acute Psychosis Last Admin: 09/19/19 22:32 Dose: 0.5 mg Documented by: Sodium Chloride (Saline 0.9%) 1,000 mls @ 10 mls/hr IV .Q24H [facility] Last Admin: 09/25/19 06:46 Dose: 10 mls/hr Documented by: Levothyroxine Sodium (Synthroid) 100 mcg PO DAILY@0600 [facility] Last Admin: 09/25/19 06:43 Dose: 100 mcg Documented by: Levothyroxine Sodium (Synthroid) 75 mcg PO DAILY@0600 [facility] Last Admin: 09/25/19 06:43 Dose: 75 mcg Documented by: Lisinopril (Zestril) 20 mg PO DAILY@0600 [facility] Last Admin: 09/25/19 06:43 Dose: 20 mg Documented by: Lorazepam (Ativan) 0.5 mg IV Q6HR PRN PRN Reason: Anxiety Last Admin: 09/24/19 20:37 Dose: 0.5 mg Documented by: Magnesium Hydroxide (Milk Of Magnesia) 2,400 mg PO DAILY PRN PRN Reason: Constipation Metoprolol Tartrate (Lopressor) 25 mg PO TID [facility] Last Admin: 09/25/19 21:43 Dose: 25 mg Documented by: Miscellaneous Information (Potassium Per Protocol) 1 each MISCELLANE DAILY PRN; Protocol PRN Reason: Per Protocol Pantoprazole Sodium (Protonix) 40 mg PO DAILY [facility] Last Admin: 09/25/19 09:58 Dose: 40 mg Documented by: Potassium Chloride (K-Dur 10) 10 meq PO DAILY@0600 [facility] Last Admin: 09/25/19 06:43 Dose: 10 meq Documented by: Quetiapine Fumarate (Seroquel) 25 mg PO HS PRN PRN Reason: Agitation Last Admin: 09/17/19 21:06 Dose: 25 mg Documented by: Senna/Docusate Sodium (Senokot-S) 1 each PO HS@2100 [facility] Last Admin: 09/25/19 21:41 Dose: 1 each Documented by: Objective - Vital Signs Vital signs: Vital Signs Temp 96.6 F L 09/26/19 16:40 Pulse 70 09/26/19 21:25 Resp 16 09/26/19 16:40 BP 138/65 09/26/19 16:40 Pulse Ox 97 09/26/19 16:54 Intake & Output 09/26/19 09/26/19 09/27/19 06:59 18:59 06:59 Intake Total 350 Balance 350 Weight 107 kg Intake: Intake, IV Titration 250 Amount Sodium Chloride 0.9% 1, 250 000 ml @ 250 mls/hr IV . Q4H ONE Rx#:[id number] Oral 100 Other: Voiding Method Indwelling Catheter Indwelling Catheter - Exam GENERAL: The patient is alert and oriented x2-3, not in any acute distress. Well developed, well nourished. HEENT: Pupils are round and equally reacting to light. EOMI. No scleral icterus. No conjunctival pallor. Normocephalic, atraumatic. No pharyngeal erythema. No thyromegaly. CARDIOVASCULAR: S1 and S2 present. No murmurs, rubs, or gallops. PULMONARY: ilateral air entry improved. Minimal basilar crackles., no wheezing or rhonchi. ABDOMEN: Soft, no tenderness., nondistended, normal bowel sounds. No palpable organomegaly. MUSCULOSKELETAL: No joint swelling or deformity. EXTREMITIES: No cyanosis, clubbing, or pedal edema. NEUROLOGICAL: awake alert but confused.Gross neurological examination did not reveal any focal deficits. SKIN: No rashes. No petechiae psychiatric. Patient is cooperative. Currently reviewed completely. - Labs CBC & Chem 7: 09/25/19 06:46 09/25/19 06:46 Assessment and Plan Assessment: right lower lobe Pneumonia possible aspiration pneumonia. Completed antibiotics in the form of cefepime and Flagyl. Leukocytosis resolved. Acute on chronic hypoxic respiratory failure. Currently on nausea cannula oxygen-will be titrated to room air. Acute small bowel ileus-partial obstruction. Resolved now. Improved abdominal distention.. Constipation. Hypernatremia due to poor oral intake and dehydration.improved now. elevated BNP acute on chronic Congestive heart failure. Follow-up echocardiogram Elevated troponin level. Possible non-ST elevated ND. paroxysmal A. fib with RVR On anticoagulation with Eliquis. COPD dementia GERD Hyperlipidemia Hypertension History of coronary artery disease Hypothyroidism Plan: Completed course of antibiotics in the form of cefepime andFlagyl. Pulmonary is on board. IV fluids decreased to KVO and patient was started on Lasix. patient will be continued on stool softeners and laxatives. 2-D echocardiogram showed normal ejection fraction. Patient was seen by cardiology due to elevated troponin level. no further workup recommended at this time. Will be started back on Eliquis for paroxysmal atrial fibrillation. Patient is able to swallow and encourage oral intake once bowel obstruction resolves. continue with breathing treatments and follow closely. Further recommendations based on the clinical course. Time with Patient: Greater than 30
[2019-09-27] MEDS: SODIUM CHLORIDE 0.9% 1,000 ML IV SCH (05:02)
[2019-09-27] MEDS: POTASSIUM CHLORIDE ER 10 MEQ TAB.ER.PRT PO SCH (06:05)
[2019-09-27] MEDS: ARTIFICIAL TEARS-HYPROMELLOSE DROPS 15 ML BTL BOTH EYES SCH (06:05)
[2019-09-27] MEDS: DULoxetine HCL 30 MG CAPSULE.DR PO SCH (06:05)
[2019-09-27] MEDS: LEVOTHYROXINE 75 MCG TAB PO SCH (06:05)
[2019-09-27] MEDS: LEVOTHYROXINE 100 MCG TAB PO SCH (06:05)
[2019-09-27] MEDS: LISINOPRIL 20 MG TAB PO SCH (06:05)
[2019-09-27] MEDS: DULoxetine HCL 60 MG CAPSULE.DR PO SCH (06:05)
[2019-09-27 06:10] VITALS: RESP 18
[2019-09-27 06:57] LABS: Basophils % (A) 0 %; Eosinophils # (A) 0.2 k/uL (0-0.7); Eosinophils % (A) 2 %; HCT 32.9 % (34.0-46.0); Hypochromasia Marked; Lymphocytes # (A) 1.2 k/uL (1.0-4.8); Lymphocytes % (A) 16 %; MCH 30.1 pg (25.0-35.0); MCHC 30.4 g/dL (31.0-37.0); Macrocytosis Slight; Mean Platelet Volume 8.1; Monocytes # (A) 0.4 k/uL (0-1.0); Monocytes % (A) 5 %; Neutrophils # (A) 5.7 k/uL (1.3-7.7); Neutrophils % (A) 75 %; Platelet Count 192 k/uL (150-450); RBC 3.32 m/uL (3.80-5.40); RDW 15.4 % (11.5-15.5); WBC 7.6 k/uL (3.8-10.6)
[2019-09-27 07:04] LABS: African American GFR (CKD) >90 (>60 ml/min/1.73 sqM); Anion Gap 3 mmol/L; Blood Urea Nitrogen 8 mg/dL (7-17); Calcium 7.9 mg/dL (8.4-10.2); Carbon Dioxide 32 mmol/L (22-30); Chloride 101 mmol/L (98-107); Glucose 97 mg/dL (74-99); Non-African American GFR(CKD) >90 (>60 ml/min/1.73 sqM); Potassium 3.6 mmol/L (3.5-5.1); Sodium 136 mmol/L (137-145)
[2019-09-27] MEDS: METOPROLOL TARTRATE 25 MG TAB PO SCH ×2 (08:59→17:15)
[2019-09-27] MEDS: PANTOPRAZOLE 40 MG TABLET PO SCH (08:59)
[2019-09-27] MEDS: APIXABAN 5 MG TAB PO SCH (08:59)
[2019-09-27] MEDS: DOCUSATE 100 MG CAP PO SCH (08:59)
[2019-09-27] MEDS: IPRATROPIUM-ALBUTEROL 3 ML NEB INHALATION SCH ×3 (09:46→16:02)
[2019-09-27 10:34] VITALS: TEMP 97.8
[2019-09-27 13:05] VITALS: BP 122/54
--- NOTE | 2019-09-27 14:57 | P.PN ---
Subjective Progress Note Date: 09/27/19 Principal diagnosis: Right lower lobe pneumonia, suspect aspiration versus healthcare acquired The patient is seen today 09/25/2019 in follow-up on the selective care unit. She is currently sitting up in a chair at the bedside. Maintaining O2 saturations in the 90s on 3 L/m per nasal cannula. She's afebrile. Hemodynamically stable. Blood cultures reveal no growth. White count 10.4. Hemoglobin 11.3. Creatinine 0.49. The patient is seen again today 09/26/2019 in follow-up on the selective care unit. She remains awake and alert in no acute distress. Breathing easier today as compared to yesterday. 18 and O2 saturation in the 90s on 3 L/m per nasal cannula. She's afebrile. Hemodynamically stable. Blood cultures reveal no growth. Remains on bronchodilators. The patient is seen today 09/27/2019 in follow-up on the selective care unit. She is currently resting comfortably in bed. Sitting up having some lunch. Awake and alert in no acute distress. Maintaining O2 saturations in the high 90s on 3 L/m per nasal cannula. White count 7.6. Hemoglobin 10.0. Creatinine 0.49. Objective - Vital Signs Vital signs: Vital Signs Temp 97.8 F 09/27/19 08:00 Pulse 75 09/27/19 13:04 Resp 18 09/27/19 12:00 BP 122/54 09/27/19 12:00 Pulse Ox 99 09/27/19 12:00 Intake & Output 09/26/19 09/27/19 09/27/19 18:59 06:59 18:59 Intake Total 350 270 240 Output Total 200 600 Balance 350 70 -360 Weight 93 kg Intake: Intake, IV Titration 250 Amount Sodium Chloride 0.9% 1, 250 000 ml @ 250 mls/hr IV . Q4H ONE Rx#:[id number] Oral 100 270 240 Output: Urine 200 600 Other: Voiding Method Indwelling Catheter - Exam GENERAL EXAM: Awake alert, comfortable, 73-year-old female on 3 L of oxygen with a pulse ox of 99% in no apparent distress. HEAD: Normocephalic/atraumatic. EYES: Normal reaction of pupils, equal size. Conjunctiva pink, sclera white. NOSE: Clear with pink turbinates. THROAT: No erythema or exudates. NECK: No masses, no JVD, no thyroid enlargement, no adenopathy. CHEST: No chest wall deformity. Symmetrical expansion. LUNGS: Equal air entry with crackles at the left base, but no wheeze, rhonchi or dullness. CVS: Regular rate and rhythm, normal S1 and S2, no gallops, no murmurs, no rubs ABDOMEN: Soft, nontender. No hepatosplenomegaly, normal bowel sounds, no guarding or rigidity. EXTREMITIES: No clubbing, no edema, no cyanosis, 2+ pulses and upper and lower extremities. MUSCULOSKELETAL: Muscle strength and tone normal. SPINE: No scoliosis or deformity SKIN: No rashes CENTRAL NERVOUS SYSTEM: No focal deficits, tone is normal in all 4 extremities. PSYCHIATRIC: Alert and oriented -2. Appropriate affect. Intact judgment and insight. - Labs CBC & Chem 7: 09/27/19 06:10 09/27/19 06:10 Labs: Abnormal Lab Results - Last 24 Hours (Table) 09/27/19 09/27/19 Range/Units 06:10 06:10 RBC 3.32 L (3.80-5.40) m/uL Hgb 10.0 L (11.4-16.0) gm/dL Hct 32.9 L (34.0-46.0) % MCHC 30.4 L (31.0-37.0) g/dL Sodium 136 L (137-145) mmol/L Carbon Dioxide 32 H (22-30) mmol/L Creatinine 0.49 L (0.52-1.04) mg/dL Calcium 7.9 L (8.4-10.2) mg/dL Assessment and Plan Assessment: #1. Right lower lobe pneumonia, rule out aspiration versus healthcare acquired pneumonia #2. Hyperchloremic hypernatremia, recovered and the serum sodium level has normalized #3. Abdominal pain, nausea and vomiting, CT of abdomen and pelvis showed dilated gallbladder with gallstones, suggestive of cholecystitis, and partial mechanical small bowel obstruction or small bowel ileus. KUB x-ray today reveals overall nonobstructive bowel gas pattern. No evidence of pneumoperitoneum. Retained contrast within the colon from recent CAT scan. Gas and fecal material is seen and nondistended colon. Improved and tolerating a diet. #4. Coronary artery disease #5. COPD #6. Hypertension #7. Hyperlipidemia #8. Previous history of myocardial infarction #9. Hypothyroidism #10. Chronic anxiety/depression #11. Dementia #12. prison resident Plan: The patient was seen and evaluated by Dr. Lloyd. She is cleared for discharge from the pulmonary standpoint. The plan is to transfer back to [facility]. I, the cosigning physician, performed a history & physical examination of the patient. Lungs sounds with crackles in left base. Maintaining good O2 saturations in the 90s on 3 liters per minute per nasal cannula. I discussed the assessment and plan of care with my nurse practitioner, Cielo Mercado. I attest to the above note as dictated by her.
--- NOTE | 2019-09-27 15:36 | P.DS ---
Providers Date of admission: 09/08/19 13:53 Expected date of discharge: 09/27/19 Attending physician: Guido Martini MD Consults: 09/08/19 14:25 Consult Physician Stat Consulting Provider: Sri Sanchez Consult Reason/Comments: NSTEMI, positive troponins, NOS AFIB RVR Do you want consulting provider notified?: Yes Placement Type Exists?: Yes 09/08/19 14:44 Consult Physician Routine Consulting Provider: Mukesh Lloyd Consult Reason/Comments: RLL PNA Do you want consulting provider notified?: Yes 09/15/19 22:21 Consult Physician Routine Consulting Provider: Karsten Rosenberg Consult Reason/Comments: possible SBO Do you want consulting provider notified?: Yes, Notify in am Primary care physician: Stated None Hospital Course: Discharge diagnosis right lower lobe Pneumonia possible aspiration pneumonia. Completed antibiotics in the form of cefepime and Flagyl. Leukocytosis resolved. Acute on chronic hypoxic respiratory failure. Currently on nausea cannula oxygen-3l, will be titrated to room air. Acute small bowel ileus-partial obstruction. Resolved now. Improved abdominal distention.. Constipation. Hypernatremia due to poor oral intake and dehydration.improved now. elevated BNP acute on chronic Congestive heart failure. Follow-up echocardiogram Elevated troponin level. Possible non-ST elevated WI. paroxysmal A. fib with RVR On anticoagulation with Eliquis. COPD dementia GERD Hyperlipidemia Hypertension History of coronary artery disease Hypothyroidism Hospital course this is a pleasant 73 years old femalewith past medical history of heart failure, dementia, COPD, chronic hypoxic respiratory failure, GERD, hyperlipidemia, hypertension, coronary artery disease, hypothyroidism. Patient was sent from [facility] for pneumonia and atrial fibrillation.patient presented from [facility] because of shortness of breath, as per patient she is been having shortness of breath for 2 days associated with cough but no flame. She denies chest pain.she has history of COPD on chronic 2 L nasal cannula, at the long term she desaturated with oxygen as low as 83% with tachycardia at 113. Of note also patient has history of stent for 10 years ago and she is on aspirin and Plavix. EKG showing atrial fibrillation with RVR at 136, with no significant ST-T changes. also the patient has history of aspiration pneumonia and she was have difficulty eating with choking, 1.5-2 years ago vitals showing blood pressure 154/64, saturation 93% on 4 L., Patient is afebrile.labs showing leukocytosis over 20 5.3K,denies normal, sodium 146, creatinine 0.7, sugar is 172. [place] [address]. This can done at [facility] shows no pulmonary emboli but right effusion and right lower lobe infiltrate. Lactic acid 1.4 which is within reference range. ProBNP 1759. WBC is 22.58, hemoglobin is 11.3, platelet count 391. INR is 0.9. Troponin is elevated at 1.29. Sodium 146, liver enzymes calixto wing slight elevation with ALT 65 and AST 44, creatinine 0.8. Magnesium 2.2. 09/09/2019 Patient is lying comfortably in bed, breathing is stable with no worsening dyspnea. She denies chest pain. Vitals are stable and she is saturating 93% on 4 L oxygen. And glucose 116. Showing bibasilar air space disease as per radiologist. It was still pending. Patient is hemodynamically stable. Saturat ion in the 90s while on 4 L oxygen nasal cannula Echo and swallow evaluation are pending. The meantime continue on cefepime, Cardizem and heparin drip. However heparin drip was switched to Eliquis Also she is on Lasix 40 mg twice daily intravenously. 09/10/2019 Patient is currently awake and alert. Lying in the bed comfortably. No worsening shortness of breath. Patient does have underlying dementia. currently being continued onantibiotics in the form of cefepime and Flagyl. Patient has been afebrile. WBC count is16.4 patient did have elevated troponin level. Cardiology is following. 2-D echocardiogram was ordered. Patient is otherwise dehydrated wi sodium level CLI and BUN 42 and creatinine 0.9. IV fluids changed to D5 water. IV Lasix has been discontinued. Patient is able to tolerate oral diet and passed swallow evaluation. 09/11/2019 patient is awake alert andoriented. Does have underlying dementia. Denied any complaints of chest oscar or worsening short Tolerating oral diet. Continued onD5 water. Sodium level improved to 148, leukocytosis is imroving.continued on IV antibiotics cefepime and Flagyl. 2-D echocardiogram showedconcentric left ventricular hypertrophy with ejection fraction 50-55%. No significant valvular abnormalities were noted. current medications reviewed. pulmonary and cardiology is following. 09/12/2019 patient is currently lying in the bed comfortably. Saturating well on 3 L oxygen with another cannula. no fever or chills. Tolerating oral diet. Currently being continued on antibiotics in the form of Flagyl and cefepime. Otherwise WBC count went up to 22 today.hemoglobin is stable around 10. IV fluids have been changed to normal saline with improvement in hypernatremia.. Follow-up labs tomorrow. Anticipate discharge once the white count is trending down. Pulmonary is following. 11/14/2018 Patient is currently awake and alert and appears to be in no distress. Currently saturating well on room air. No complaints of chest pain are worsening shortness of breath. Patient does complain of right lower quadrant abdominal discomfort. Patient did not have bowel movement White count is increasing to 25 today. Currently patient is on safety equipnt Flagyl.CT of abdomen pelvis was ordered but could not be done due toretained contrast from previous study. Chest x-ray was done Patient will be continued on gentle hydration.no fever no chills. No chest pain. 09/14/2019 Patient is awake and alertslightly more lethargic today. patient did have a large bowel moveme today. Chest x-ray done yesterday showed right lower lobe pneumonia, improving. Abdominal x-ray was done which showed normal bowel gas pattern Patient is tolerating oral diet. Continued on antibiotics in the form cefepime and Flagyl. WBC count is still high at 24.5 slight improvement from yesterday. Patient will be continued on IV hydration for 1 day.currently patient is afebrile. no complaints of chest pain or shortness of breath. No nausea vomiting or abdominal pain. 09/15/2019 patient is currently lying in the bed comfortably. No apparent distress. Shortness of breath is stable. Patient has been afebrile. Patient is still complaining of abdominal discomfort. Abdominal x-ray was done yesterday showed normal bowel gas pattern. Otherwise patient is being continued on IV antibiotics in the form of cefepime and Flagyl. Pulmonary is following. WBC count is trending down to 20.7. Hemoglobin 10.2 and creatinine 0.7. Currently on anticoagulation with eliquis. 09/16/2019 overnight patient had distention of the abdomen and flexion of the abdomen showed possible ileus versus small bowel obstruction. Otherwise patient denied any worsening shCurrently saturatinl on nasal cannula. patient was placed on nothing by mouth now. Continued on gentle hydration and also his medical medications will be changed to IV. Currently started on heparin dripand a decrease has been on hold. Gen. surgery was consulted due to ileus/bowel obstruction. CT of abdomen pelvis was done showed dilated gallbladder with gallstones. This is suggestive of cholecystitis. liver enzymes are not elevated. Bilirubin 0.4 Dilated small bowel in the mid abdomen consistent with partial mechanical small bowel obstruction or small bowel ileus. Transition point is not identified. Right pleural effusion and right lower lobe infiltrate and atelectasis. currently on cefepime and Flagyl. Leukocytosis is improving.improved to 14.6. 09/17/2019 Patient was initially transferred from [facility] to pneumonia and atrial fibrillation with rapid ventricular rate. Patient is being continued on antibiotics in the form of cefepime and Flagyl. patient develops abdominal distention., CT of abdomen pelvis showed dilated gallbladder with gallstones and possible acute cholecystitis. Dilated small bowel loops consistent with partial bowel obstruction. General surgery has seen the patient and recommends no surgical intervention at this time.no complains of nausea and vomiting. Abdomen is soft and nontender. Leukocytosis is improving to 12.6 today. Patient otherwise awake alert and denied any complaints of worsening abdominal pain or shortness of breath. Patient has been afebrile. pulmonary and general surgery is following. remains nothing by mouth. 09/22/2019 Patient is seen sitting up in bed; more alert and responsive; Per nursing staff patient's family is concerned about chest congestion Vital signs remained stable temperature of 97.6, pulse 76, respiration 18 and blood pressure of 158/73 with SpO2 of 96% on 2 L; auscultation of lungs reveals scattered rhonchi lab review shows CBC with white blood count of 8.3, hemoglobin 9.4, sodium 142 and potassium of 3.3; we will supplement with 20 mg of potassium IV 1; continue to monitor electrolytes and supplement as needed; patient remains on IV Protonix; NG tube has been discontinued and plan is to advance diet as tolerated 09/23/2019 Patient is seen sitting up in bed; denies any complaint of chest pain or shortness of breath; per nursing staff patient had been complaining of some chest pain earlier Vital signs remained stable with a temperature of 98.6, pulse 82, respiration 20 and blood pressure of 150/70 Labs are stable with white blood count of 7.9, hemoglobin of 9.3, sodium 140, potassium of 3.4; we will supplement with 20 mEq of KCl 1; NG tube has been discontinued; patient is being followed by surgery and recommendations are to advance diet as tolerated; patient has completed antibiotic therapy for pneumonia; white blood count stayed stable and patient remains afebrile We will consult PT/OT for evaluation and case management for discharge planning 09/24/2019 Patient is currently lying in the bed comfortably. Denied any worsening Shortness of breath. Patient did have chest tightness last night. EKG was done showed normal sinus rhythm. Chest x-ray showed increasing infiltrate and pleural fluid on the right side compared to last exam. Small left basilar infiltrate. Patient was started on IV Lasix. No fever no chills. Laboratory data reviewed from yesterday. No leukocytosis. Potassium was replaced. Wound care nurse will be consulted for decubitus ulcers and bilateral heel ulcers. Continue the wound care with a dry dressing. Discussed the family regarding plan of care. pulmonary is following. Patient did not have any bowel movement today. Last bowel movement was yesterday. She don't 2019 Patient is currently sitting in a chair comfortably. Denied any complaints of chest pain or worsening shortness of breath. 09/25/2019 Patient is currently sitting in a chair comfortably. Denied any complaints of chest pain or worsening shortness of breath. Patient did have episode of atrial fibrillation last night. Currently patient is in sinus rhythm. Heart rate is controlled. Metoprolol IV will be changed to 25 mg 3 times a day. Patient was started back on Eliquis for paroxysmal atrial fibrillation. Otherwise patient did not have any bowel movement today. Patient has been afebrile. No Leukocytosis. Potassium will be replaced. Blood cultures showed no growth. WBC 10.4, hemoglobin 11.3 and creatinine 0.49. Currently patient is saturating on at 3 L. Patient is able to tolerate oral diet but decreased oral intake. Discussed with the family in detail. 09/26/2019 Patient is currently sitting in the bed comfortably. Requiring oxygen with another cannula at 3 L. Breathing is easier compared to yesterday. Patient was sleepy this morning but I was able to eat small amount of food at lunchtime. No bowel movement last 2 days. Bowel sounds are present and passing flatus. Otherwise patient still weak and unable to ambulate by herself. Currently being continued on breathing treatments and supportive management. Continue the wound care. Anticipate discharged to rehab in the next 24 hours. Repeat labs tomorrow. 09/27/2019 Patient is currently lying in the bed comfortably. No complaints of chest pain or shortness of breath. Currently on 3l nasal cannula oxygen. patient did not have any bowel movement last 3 days. Otherwise patient did have good bowel sounds and passing flatus. Patient is being continued on stool softeners and laxatives as needed. Laboratory data reviewed. Patient is being discharged to infection care facility today.. Patient will need wound care at nursing facility. Need to follow with wound care clinic for dressing changes. GENERAL: The patient is alert and oriented x2-3, not in any acute distress. Well developed, well nourished. HEENT: Pupils are round and equally reacting to light. EOMI. No scleral icterus. No conjunctival pallor. Normocephalic, atraumatic. No pharyngeal erythema. No thyromegaly. CARDIOVASCULAR: S1 and S2 present. No murmurs, rubs, or gallops. PULMONARY: ilateral air entry improved. Minimal basilar crackles., no wheezing or rhonchi. ABDOMEN: Soft, no tenderness., nondistended, normal bowel sounds. No palpable organomegaly. MUSCULOSKELETAL: No joint swelling or deformity. EXTREMITIES: No cyanosis, clubbing, or pedal edema. NEUROLOGICAL: awake alert but confused.Gross neurological examination did not reveal any focal deficits. SKIN: No rashes. No petechiae. Patient does have stage II sacral decubitus ulcers and bilateral stage I heel ulcers. psychiatric. Patient is cooperative. Currently reviewed completely. Vital Signs 09/27/19 09/27/19 09/27/19 08:00 09:46 09:58 Temperature 97.8 F Pulse Rate 72 72 Pulse Rate [ 68 Pulse Oximetery ] Respiratory 18 Rate Blood Pressure 138/65 [Left Arm] O2 Sat by Pulse 98 Oximetry 09/27/19 09/27/19 09/27/19 12:00 12:53 13:04 Temperature Pulse Rate 74 75 Pulse Rate [ 76 Pulse Oximetery ] Respiratory 18 Rate Blood Pressure 122/54 [Left Arm] O2 Sat by Pulse 99 Oximetry Total time taken greater than 35 minutes including 18 minutes for counseling and coordination of care. Patient Condition at Discharge: Good Plan - Discharge Summary Discharge Rx Participant: No New Discharge Prescriptions: New Docusate [Colace] 100 mg PO BID cap Bisacodyl [Dulcolax] 10 mg RECTAL DAILY PRN supp PRN Reason: Constipation Ipratropium-Albuterol Nebulize [Duoneb 0.5 mg-3 mg/3 ml Soln] 3 ml INHALATION RT-QID ampul.neb Apixaban [Eliquis] 5 mg PO BID #60 tab Metoprolol Tartrate [Lopressor] 25 mg PO TID #90 tab Lisinopril [Zestril] 20 mg PO DAILY@0600 #30 tab Furosemide [Lasix] 20 mg PO DAILY #30 tab Pantoprazole [Protonix] 40 mg PO AC-BRKFST tablet.dr Maxx Magnesium Hydroxide [Milk of Magnesia] 2,400 mg PO DAILY PRN PRN Reason: Constipation Sennosides-Docusate Sodium [Senokot-S] 1 tab PO HS@2100 Potassium Chloride [Klor-Con 10] 10 meq PO DAILY@0600 Atorvastatin Calcium [Lipitor] 20 mg PO HS@2100 Aspirin 81 mg PO HS@2100 guaiFENesin SYRUP 100MG/5ML [Robitussin] 200 mg PO Q4H PRN PRN Reason: Cough DULoxetine HCL [Cymbalta] 60 mg PO DAILY@0600 DULoxetine HCL [Cymbalta] 30 mg PO DAILY@0600 Cholecalciferol [Vitamin D3 (25 Mcg = 1000 Iu)] 1,000 unit PO DAILY@1300 Artificial Tears-Hypromellose [Artificial Tear Drops] 1 drops BOTH EYES BID@0600,2100 Levothyroxine Sodium [Synthroid] 175 mcg PO DAILY@0600 Acetaminophen Tab [Tylenol] 650 mg PO Q4H PRN PRN Reason: Pain Bisacodyl [Dulcolax] 10 mg PO DAILY PRN PRN Reason: Constipation Sodium Chloride [Saline Nasal [place]] 1 spray EA NOSTRIL DAILY PRN PRN Reason: Dry Nasal Passages ALPRAZolam [Xanax] 0.5 mg PO BID@1300,1700 #12 tab HYDROcodone/APAP 5-325MG [[place] 5-325] 1 tab PO Q6HR PRN #12 tab PRN Reason: Pain Discontinued HYDROcodone/APAP 5-325MG [[place] 5-325] 1 tab PO TID@0600,1300,2100 Lisinopril [Zestril] 20 mg PO DAILY@0600 Furosemide [Lasix] 40 mg PO DAILY@06 Clopidogrel Bisulfate [Plavix] 75 mg PO HS@2099 guaiFENesin 400 mg PO Q4H PRN PRN Reason: Cough Discharge Medication List Aspirin 81 mg PO HS@209909/29/16 [History] Atorvastatin Calcium [Lipitor] 20 mg PO HS@209909/29/16 [History] Magnesium Hydroxide [Milk of Magnesia] 2,400 mg PO DAILY PRN 09/29/16 [History] Potassium Chloride [Klor-Con 10] 10 meq PO DAILY@59909/29/16 [History] Sennosides-Docusate Sodium [Senokot-S] 1 tab PO HS@209909/29/16 [History] guaiFENesin SYRUP 100MG/5ML [Robitussin] 200 mg PO Q4H PRN 09/29/16 [History] Acetaminophen Tab [Tylenol] 650 mg PO Q4H PRN 09/08/19 [History] Artificial Tears-Hypromellose [Artificial Tear Drops] 1 drops BOTH EYES BID@06 00,209909/08/19 [History] Bisacodyl [Dulcolax] 10 mg PO DAILY PRN 09/08/19 [History] Cholecalciferol [Vitamin D3 (25 Mcg = 1000 Iu)] 1,000 unit PO DAILY@1300 09/08/19 [History] DULoxetine HCL [Cymbalta] 30 mg PO DAILY@0609/08/19 [History] DULoxetine HCL [Cymbalta] 60 mg PO DAILY@0609/08/19 [History] Levothyroxine Sodium [Synthroid] 175 mcg PO DAILY@0609/08/19 [History] Sodium Chloride [Saline Nasal [place]] 1 spray EA NOSTRIL DAILY PRN 09/08/19 [History] ALPRAZolam [Xanax] 0.5 mg PO BID@1300,1700 #12 tab 09/27/19 [Rx] Apixaban [Eliquis] 5 mg PO BID #60 tab 09/27/19 [Rx] Bisacodyl [Dulcolax] 10 mg RECTAL DAILY PRN supp 09/27/19 [Rx] Docusate [Colace] 100 mg PO BID cap 09/27/19 [Rx] Furosemide [Lasix] 20 mg PO DAILY #30 tab 09/27/19 [Rx] HYDROcodone/APAP 5-325MG [[place] 5-325] 1 tab PO Q6HR PRN #12 tab 09/27/19 [Rx] Ipratropium-Albuterol Nebulize [Duoneb 0.5 mg-3 mg/3 ml Soln] 3 ml INHALATION RT-QID ampul.neb 09/27/19 [Rx] Lisinopril [Zestril] 20 mg PO DAILY@0600 #30 tab 09/27/19 [Rx] Metoprolol Tartrate [Lopressor] 25 mg PO TID #90 tab 09/27/19 [Rx] Pantoprazole [Protonix] 40 mg PO AC-BRKFST tablet. 09/27/19 [Rx] Follow up Appointment(s)/Referral(s): Mukesh Lloyd DO [Doctor of Osteopathic Medicine] - 1 Week (Pulmonary.) [facility] [NON-STAFF] - As Needed (Outpatient wound healing clinic if sacral presure injury not healing with current treatment. ) Sri Sanchez MD [STAFF PHYSICIAN] - 1 Week ([employer].) Patient Instructions/Handouts: A-fib (Atrial Fibrillation) (DC), Aspiration Pneumonia (DC), Safe Use of Anticoagulants (DC), Level 3 National Dysphagia Diet (DC), Aspiration Precautions (DC) Activity/Diet/Wound Care/Special Instructions: 1. Wound care instructions: to sacrum; apply honey alginate, saline moist gauze and foam. Change Tuesday, , and Tuesday, or if saturated. 2. Apply foam boots to heals, and turn patient every two hours while in bed to offload pressure. Use waffle cushion while sitting in chair. 3. Dysphagia III diet with clear liquids, aspiration precautions and 1:1 supervision while eating. PNEUMONIA: 1. Continue coughing and breathing exercises to help clear your lungs of secretions. 2. Sit upright during the day to promote lung expansion. Avoid lying flat. 3. Use incentive spirometer every hour to open your airways. 4. Wash your hands before taking your medications or using your nebulizer. 5. Drink clear liquids as directed, they can help loosen secretions. Avoid milk products, as these can make secretions thicker. 6. Do not smoke, or be around others who smoke. 7. Call your physician if your shortness of breath worsens, if you develop an increased fever greater than 101. Discharge Disposition: TRANSFER TO SNF/ECF
[2019-09-27 16:14] VITALS: PULSE 76
== END 2019-09-27 18:45 | DRG 177 ==
LOC: 3SCARD 13:53
PROVIDERS: ADMIT Internal Medicine; ATTEND Internal Medicine
DX: J69.0 Pneumonitis due to inhalation of food and vomit (principal); J96.21 Acute and chronic respiratory failure with hypoxia; I50.33 Acute on chronic diastolic (congestive) heart failure; I21.A1 Myocardial infarction type 2; J44.1 Chronic obstructive pulmonary disease with (acute) exacerbation; E87.0 Hyperosmolality and hypernatremia; E87.1 Hypo-osmolality and hyponatremia; J98.11 Atelectasis; K56.690 Other partial intestinal obstruction; K80.00 Calculus of gallbladder with acute cholecystitis without obstruction; K92.2 Gastrointestinal hemorrhage, unspecified; L89.152 Pressure ulcer of sacral region, stage 2; L89.621 Pressure ulcer of left heel, stage 1; L89.611 Pressure ulcer of right heel, stage 1; E87.8 Other disorders of electrolyte and fluid balance, not elsewhere classified; F03.90 Unspecified dementia, unspecified severity, without behavioral disturbance, psychotic disturbance, mood disturbance, and anxiety; I11.0 Hypertensive heart disease with heart failure; E78.5 Hyperlipidemia, unspecified; E86.0 Dehydration; E89.0 Postprocedural hypothyroidism; F32.9 Major depressive disorder, single episode, unspecified; F41.9 Anxiety disorder, unspecified; I25.10 Atherosclerotic heart disease of native coronary artery without angina pectoris; I25.2 Old myocardial infarction; I48.0 Paroxysmal atrial fibrillation; K21.9 Gastro-esophageal reflux disease without esophagitis; K59.00 Constipation, unspecified; R32 Unspecified urinary incontinence; Z79.02 Long term (current) use of antithrombotics/antiplatelets; Z79.82 Long term (current) use of aspirin; Z79.890 Hormone replacement therapy; Z79.899 Other long term (current) drug therapy; Z87.891 Personal history of nicotine dependence; Z87.01 Personal history of pneumonia (recurrent); Z90.710 Acquired absence of both cervix and uterus; Z88.0 Allergy status to penicillin; Z91.018 Allergy to other foods; Z90.49 Acquired absence of other specified parts of digestive tract; Z99.81 Dependence on supplemental oxygen; Z95.5 Presence of coronary angioplasty implant and graft; Z82.49 Family history of ischemic heart disease and other diseases of the circulatory system; Z83.3 Family history of diabetes mellitus
CPT/HCPCS: 71045; 74018; 74019; 74176; 74230; 76380; 80048; 80053; 81001; 82550; 82553; 83605; 83880; 84132; 84145; 84484; 85025; 85027; 85610; 85730; 87040; 87502; 93306; 94640; 94760